=== PATIENT | female | born 1980 | race Caucasian/White ===

== ENCOUNTER → 2017-10-30 | Outpatient (CLI) | payer MEDICARE, MEDICAID, SELFPAY | PROVIDERS: Family Provider Internal Medicine Adolescent Medicine; Visit Provider Anesthesiology | DX: M50.30 Other cervical disc degeneration, unspecified cervical region (principal) | CPT/HCPCS: 72141; 76376 ==

== ENCOUNTER 2017-10-31 20:31 | Emergency (ER) | payer MEDICARE, MEDICAID, SELFPAY | END 2017-10-31 23:51 | disposition home or self-care (01) | PROVIDERS: Emergency Provider Emergency Medicine; Family Provider Internal Medicine Adolescent Medicine; Visit Provider Emergency Medicine | DX: R11.2 Nausea with vomiting, unspecified (principal); E87.6 Hypokalemia; M79.1 Myalgia; I10 Essential (primary) hypertension; E78.5 Hyperlipidemia, unspecified; K21.9 Gastro-esophageal reflux disease without esophagitis | CPT/HCPCS: 70450; 80053; 85025; 87275; 87276; 96365; 96375; 96376; 99284; J2405 ==

== ENCOUNTER → 2018-01-21 12:03 | Outpatient (CLI) | payer MEDICARE, MEDICAID, SELFPAY ==
[2018-01-21 12:32] LABS: Basophils # 0.1 K/mm3 (0-0.2); Eosinophils # 0.2 K/mm3 (0.0-0.4); Eosinophils % 2.1 % (0.1-12.0); Hematocrit 44.3 % (37.0-47.0); Hemoglobin 14.5 g/dL (12.2-16.2); Lymphocytes # 2.7 K/mm3 (0.7-4.5); Lymphocytes % 37.8 K/mm3 (10-50); Mean Corpuscular HGB Conc 32.8 g/dL (31.8-35.4); Mean Corpuscular Hemoglobin 34.3 pg (27.0-31.2); Mean Corpuscular Volume 104.4 fl (81-99); Mean Platelet Volume 7.4 fl (7.4-10.4); Monocytes # 0.4 K/mm3 (0.1-1.0); Monocytes % 5.1 % (1.7-9.3); Neutrophils # 3.9 K/mm3 (1.8-7.8); Platelet Count 283 K/mm3 (142-424); Red Blood Count 4.24 M/mm3 (4.20-5.40); Red Cell Distribution Width 12.4 % (11.5-17.5); White Blood Count 7.2 K/mm3 (4.8-10.8)
[2018-01-21 12:50] LABS: Alanine Aminotransferase 25 U/L (12-78); Albumin Level 3.9 gm/dL (3.4-5.0); Alkaline Phosphatase 98 U/L (46-116); Anion Gap 10.8 mEq/L (5-15); Aspartate Amino Transferase 12 U/L (15-37); Bilirubin,Total 0.6 mg/dL (0.2-1.0); Blood Urea Nitrogen 13 mg/dL (7-18); Carbon Dioxide 29 mmol/L (21.0-32.0); Chloride 105 mmol/L (98-107); Estimated Glomerular Filt Rate 81 ml/min (>60); GFR (African American) 98 ML/MIN (>60); Globulin 4.1 gm/dl (1.3-3.2); Glucose 97 mg/dL (74-106); Potassium 3.8 mmoL/L (3.5-5.1); Sodium 141 mmol/L (136-145); Thyroid Stimulating Hormone 0.71 uIU/ml (0.358-3.740)
[2018-01-23 09:29] LABS: Vitamin B12 434 pg/mL (232-1245); Vitamin D 25 Hydroxy 31.5 ng/mL (30.0-100.0)
== END ==
PROVIDERS: Visit Provider Nurse Practitioner Family
DX: D51.9 Vitamin B12 deficiency anemia, unspecified (principal); L65.9 Nonscarring hair loss, unspecified; E53.8 Deficiency of other specified B group vitamins; E55.9 Vitamin D deficiency, unspecified
CPT/HCPCS: 36415; 80053; 82607; 82652; 84443; 85025

== ENCOUNTER → 2018-01-31 12:20 | Outpatient (CLI) | payer MEDICARE, MEDICAID, SELFPAY ==
[2018-01-31 13:46] LABS: Free T4 (Free Thyroxine) 0.94 ng/dl (0.76-1.46); Thyroid Stimulating Hormone 2.44 uIU/ml (0.358-3.740)
[2018-02-01 18:39] LABS: Thyroid Peroxidase Antibodies 21 IU/mL (0-34)
[2018-02-03 10:30] LABS: Thyroid Stimulating Immunoglob <0.10
== END ==
PROVIDERS: Visit Provider Otolaryngology
DX: E01.0 Iodine-deficiency related diffuse (endemic) goiter (principal); E04.1 Nontoxic single thyroid nodule
CPT/HCPCS: 36415; 83520; 84439; 84443; 86376

== ENCOUNTER → 2018-02-11 09:42 | Outpatient (CLI) | payer MEDICARE, MEDICAID, SELFPAY ==
--- NOTE | 2018-02-11 09:47 | US_ITS ---
US thyroid HISTORY: Hoarseness with difficulty swallowing ITS.REASON: nodule ORDERING PHYSICIAN: Ethan Kan MD PATIENT AGE: 38 years COMPARISON: None FINDINGS: Right lobe: 4.2 x 1 x 1.4 cm. Homogeneous echogenicity with no nodule Left lobe: 4.7 x 1.3 x 1.7 cm. Homogeneous echogenicity. No nodules Isthmus: Slightly prominent at 4 mm. No nodules IMPRESSION: Mildly enlarged thyroid gland. No thyroid nodules apparent
--- NOTE | 2018-02-11 09:47 | FL_ITS ---
EXAM: Barium swallow/esophagram. INDICATION: Probable swallowing with hoarseness ORDERING PHYSICIAN: Ethan Kan MD PATIENT AGE: 38 years COMPARISON: None TECHNIQUE: In the upright position the patient was observed to swallow barium in both the AP and lateral view. The cervical esophagus was examined under fluoroscopy with images obtained. The patient was then placed prone in the right anterior oblique position and was observed to swallow barium with Valsalva technique . FLUOROSCOPY TIME: 53 seconds FINDINGS: There was no evidence of aspiration. There was normal peristalsis. No filling defects or mucosal abnormalities. No masses or strictures. The esophagus is midline. No evidence of esophageal deviation or external compression IMPRESSION: Negative barium swallow.
== END ==
PROVIDERS: Family Provider Internal Medicine Adolescent Medicine; PCP Internal Medicine Adolescent Medicine; Visit Provider Otolaryngology
DX: R13.10 Dysphagia, unspecified
CPT/HCPCS: 74220; 76536

== ENCOUNTER → 2018-02-25 12:58 | Outpatient (CLI) | payer MEDICARE, MEDICAID, SELFPAY ==
--- NOTE | 2018-02-25 13:04 | MR_ITS ---
MR lumbar spine wo/w con, MR 3-d myelogram/MRCP HISTORY: Left leg pain and numbness and tingling Prior back surgery 8-9Yrs. LT Leg pain, numbness, and tingling. Symptoms worse X2 months. No trauma. ITS.REASON: LUMBAR RADICULOPATHY ORDERING PHYSICIAN: Anthony Ricks PATIENT AGE: 38 years COMPARISON: 01/05/2016 TECHNIQUE: Standard multiplanar multiecho sequences are performed without and with contrast. 3-D MIP and myelographic images are also rendered and reviewed. 14ML Prohance given. Lot:[id number] Exp. 2019. FINDINGS: The spinal cord ends at the L1-L2 level. There is normal alignment. T12-L1, L1-L2 have an unremarkable appearance. L2-L3: Mild facet and ligamentum flavum hypertrophic change with mild bilateral lateral recess narrowing. L3-L4: Mild facet and ligamentum hypertrophy.. L4-5: Mild facet and ligamentum flavum hypertrophy. Mild bilateral foraminal narrowing L5-S1: Prior anterior lumbar disc fusion with an anterior bone plate and disc spacer device. Artifact is present from the fusion device. No evidence of recurrent or residual disc herniation. No enhancing epidural fibrosis. There is minimal narrowing of the neural foramen on the left from facet and ligamentum flavum hypertrophy. IMPRESSION: 1. Postsurgical changes at L5-S1 not significant change. No residual or recurrent disc herniation or enhancing epidural fibrosis. There is mild left-sided foraminal narrowing at that level from a separate hypertrophic change 2. Mild facet and ligamentum flavum hypertrophy at multiple levels with mild lateral recess and foraminal narrowing as detailed above.
== END ==
PROVIDERS: Family Provider Internal Medicine Adolescent Medicine; PCP Internal Medicine Adolescent Medicine; Visit Provider Anesthesiology
DX: M54.16 Radiculopathy, lumbar region (principal)
CPT/HCPCS: 72158; 76376; A9576

== ENCOUNTER → 2018-03-28 14:16 | Outpatient (CLI) | payer MEDICARE, SELFPAY ==
--- NOTE | 2018-03-28 14:18 | CT_ITS ---
CT head/brain wo/w con Ordering Physician: Estee Breen MD Patient Age: 38 years: Female HISTORY: ITS.REASON: headache Headaches. Persistent head and neck pain. Recurrent headaches TECHNIQUE: Standard Axial CT head pre and post contrast. 100 cc Isovue 370 for postcontrast study brain and bone windows performed and reviewed.. All CT scans at this facility used one or more dose reduction techniques , viz: automatic exposure control, ma/Kv adjustment per patient's size, (including targeted exam where dose matched to the indication; i.e. head); or iterative reconstruction technique COMPARISON :Previous CT head October 31, 2017 FINDINGS No acute intracranial findings. No mass or mass lesion.. No abnormal areas of enhancement No subdural nor extra-axial collection. Normal martinez-white matter interface. Ventricles normal size. Basal cisterns appear clear. Posterior fossa appear unremarkable. CP angles clear. IACs unremarkable Skull is generous thickness throughout but intact.. Moderate mucosal thickening at the posterior left ethmoid air cells more so than right.. With mild mucosal thickening at the sphenoid sinus.. No air-fluid levels. The maxillary sinuses not included on today's study but grossly unremarkable on CT welder tack view.. Middle air & IACs unremarkable.. Opacified inferior left mastoid air cells on close mastoid tip reflecting minimal left mastoid effusion is similar to the 2017 exam [address] of the brain Within normal limits Normal anatomy. No abnormal areas of enhancement. 2. Mild paranasal sinus disease: . Most notable is the moderate mucosal thickening at posterior left ethmoid air cells along with mild mucosal thickening throughout ethmoid & sphenoid sinus..
--- NOTE | 2018-03-28 14:18 | XR_ITS ---
XR cervical spine w flex/ext Ordering Physician: Estee Breen MD Patient Age: 38 years: Female HISTORY: ITS.REASON: neck pain Neck pain. Headache. No known injury TECHNIQUE: Five-view cervical spine series. COMPARISON :Plain films of cervical spine from August 2017 as well as MRI C-spine from October 2017 FINDINGS Vertebral bodies are intact with no normal alignment and the disc spaces appear well-maintained on plain film. No significant change since August 2017 plain films. Prevertebral soft tissues are normal. Facets unremarkable. No foramen patent. C1-C2 appear normal IMPRESSION: . Cervical spine appears intact. Unremarkable with No significant change since previous studies.
--- NOTE | 2018-03-28 14:42 | HMH.ITSHM ---
MONTELUKAST VERAPAMIL.OMEPRAZP;E,ADVAIR,PROAIR,B-12,BUPROPION,ESTRADILL VIT D,LYRICA,PRAVASTATIN,LEVOCETITIEN RANITIDINE FLUTICASONE, DICYCLOMINE DICLFENAC SODIUM ZOFRAN.INCRUSE,AMITRIPTYLIN NEBULIZER
[2018-03-28 15:29] LABS: Basophils # 0.1 K/mm3 (0-0.2); Basophils % 0.9 % (0.1-2.0); Eosinophils # 0.2 K/mm3 (0.0-0.4); Eosinophils % 2.7 % (0.1-12.0); Hematocrit 42.7 % (37.0-47.0); Hemoglobin 13.7 g/dL (12.2-16.2); Lymphocytes # 2.3 K/mm3 (0.7-4.5); Lymphocytes % 29.8 K/mm3 (10-50); Mean Corpuscular HGB Conc 32.1 g/dL (31.8-35.4); Mean Corpuscular Volume 102.7 fl (81-99); Mean Platelet Volume 7.5 fl (7.4-10.4); Monocytes # 0.3 K/mm3 (0.1-1.0); Monocytes % 4.3 % (1.7-9.3); Neutrophils # 4.8 K/mm3 (1.8-7.8); Neutrophils % 62.3 % (37.0-80.0); Platelet Count 265 K/mm3 (142-424); Red Blood Count 4.16 M/mm3 (4.20-5.40); Red Cell Distribution Width 13.3 % (11.5-17.5); White Blood Count 7.6 K/mm3 (4.8-10.8)
[2018-03-28 18:13] LABS: Alanine Aminotransferase 21 U/L (12-78); Albumin Level 3.7 gm/dL (3.4-5.0); Albumin/Globulin Ratio 1.1 (1.1-1.8); Alkaline Phosphatase 90 U/L (46-116); Anion Gap 14.8 mEq/L (5-15); Aspartate Amino Transferase 15 U/L (15-37); Bilirubin,Total 0.4 mg/dL (0.2-1.0); Blood Urea Nitrogen 12 mg/dL (7-18); Calcium 9.1 mg/dL (8.5-10.1); Carbon Dioxide 25 mmol/L (21.0-32.0); Chloride 103 mmol/L (98-107); Creatinine,Serum 0.77 mg/dL (0.55-1.02); Estimated Glomerular Filt Rate 84 ml/min (>60); GFR (African American) 102 ML/MIN (>60); Globulin 3.5 gm/dl (1.3-3.2); Glucose 80 mg/dL (74-106); Potassium 3.8 mmoL/L (3.5-5.1); Sodium 139 mmol/L (136-145); Thyroid Stimulating Hormone 0.95 uIU/ml (0.358-3.740); Total Protein,Serum 7.2 gm/dL (6.4-8.2)
[2018-03-30 20:19] LABS: Folate 12.7 ng/mL (>3.0); Vitamin B12 1343 pg/mL (232-1245)
== END ==
PROVIDERS: Family Provider Internal Medicine Adolescent Medicine; PCP Internal Medicine Adolescent Medicine; Visit Provider Specialist
DX: R51 Headache (principal); G31.84 Mild cognitive impairment of uncertain or unknown etiology; M54.2 Cervicalgia; M54.9 Dorsalgia, unspecified; G89.29 Other chronic pain
CPT/HCPCS: 36415; 70470; 72052; 80053; 82607; 82746; 84443; 85025; Q9967

== ENCOUNTER 2018-06-30 16:20 | Observation (INO) ==
[2018-06-30 16:52] LABS: Basophils # 0.1 K/mm3 (0-0.2); Basophils % 0.9 % (0.1-2.0); Eosinophils # 0.3 K/mm3 (0.0-0.4); Eosinophils % 3.1 % (0.1-12.0); Hematocrit 45.9 % (37.0-47.0); Hemoglobin 15.8 g/dL (12.2-16.2); Lymphocytes # 2.4 K/mm3 (0.7-4.5); Lymphocytes % 24.8 K/mm3 (10-50); Mean Corpuscular HGB Conc 34.5 g/dL (31.8-35.4); Mean Corpuscular Volume 101.6 fl (81-99); Mean Platelet Volume 7.1 fl (7.4-10.4); Monocytes # 0.3 K/mm3 (0.1-1.0); Monocytes % 3.5 % (1.7-9.3); Neutrophils # 6.4 K/mm3 (1.8-7.8); Neutrophils % 67.7 % (37.0-80.0); Platelet Count 344 K/mm3 (142-424); Red Blood Count 4.51 M/mm3 (4.20-5.40); White Blood Count 9.5 K/mm3 (4.8-10.8)
[2018-06-30 17:10] LABS: Anion Gap 16.5 mEq/L (5-15); Blood Urea Nitrogen 19 mg/dL (7-18); Calcium 9.9 mg/dL (8.5-10.1); Carbon Dioxide 22 mmol/L (21.0-32.0); Chloride 103 mmol/L (98-107); Glucose 99 mg/dL (74-106); Potassium 3.5 mmoL/L (3.5-5.1); Sodium 138 mmol/L (136-145)
--- NOTE | 2018-06-30 17:51 | Emergency Department Note ---
ED Disposition Clinical Impression: Abnormal thyroid blood test Arrhythmia Qualifiers: Arrhythmia type: unspecified cardiac arrhythmia Qualified Code(s): I49.9 - Cardiac arrhythmia, unspecified Hypertension Qualifiers: Hypertension type: unspecified Qualified Code(s): I10 - Essential (primary) hypertension Disposition: Admitted as Observation Condition on Discharge: Good - Critical Care Critical Care Time: No Attestation: On 06/30/18, the high probability of a clinically significant, sudden or life threatening deterioration of the following system(s) required my full and direct attention, intervention and personal management. The time I documented below is in addition to time spent performing reported procedures but includes the following listed in this critical care notation. Medical Decision Making - Medical Records Medical records reviewed: Yes: I reviewed the patient's medical records. - Jarrett Inquiry Pt receiving controlled substance: No Vital Signs: 06/30/18 16:22 06/30/18 17:46 Temperature 98.0 F Temperature Source Axillary Pulse Rate [Right Brachial] 116 H 120 H Respiratory Rate 22 18 Blood Pressure [Right Arm] 180/100 160/82 Blood Pressure Mean [Right Arm] 126 108 Blood Pressure Source [Right Arm] Automatic Cuff Manual Cuff/ Auscultation Blood Pressure Position [Right Arm] Supine Sitting 02 Sat by Pulse Oximetry 99 100 Oxygen Delivery Method Room Air Room Air - Lab Data Lab results reviewed: Yes: I reviewed the patient's lab results. Lab Results 06/30/18 16:45: WBC 9.5, RBC 4.51, Hgb 15.8, Hct 45.9, MCV 101.6 H, MCH 35.0 H, MCHC 34.5, RDW 14.0, Plt Count 344, MPV 7.1 L, Neut % (Auto) 67.7, Lymph % (Auto ) 24.8, [place] % (Auto) 3.5, Eos % (Auto) 3.1, Baso % (Auto) 0.9, Neut # (Auto) 6.4, Lymph # (Auto) 2.4, [place] # (Auto) 0.3, Eos # (Auto) 0.3, Baso # (Auto) 0.1 06/30/18 16:45: Sodium 138, Potassium 3.5, Chloride 103, Carbon Dioxide 22, Anion Gap 16.5 H, BUN 19 H, Creatinine 1.11 H, Estimated Creat Clear 76, Estimated GFR 55 L, Est GFR ( Amer) 67, Glucose 99, Calcium 9.9, Troponin I < 0.02 06/30/18 16:45: TSH 0.27 L D, Thyroxine (T4) 14.3 H 06/30/18 16:45: D-Dimer < 100 Result diagrams: 06/30/18 16:45 06/30/18 16:45 Orders (Tests/Meds): ED MEDICATIONS Discontinued Medications Generic Name Dose Route Start Last Admin Trade Name Freq PRN Reason Stop Dose Admin Sodium Chloride 1,000 mls @ 999 mls/hr 06/30/18 17:45 06/30/18 17:32 Sod Chlor 0.9% 1000ml Bag IV 06/30/18 18:45 999 mls/hr .Q1H1M MIGUE Administration Metoprolol Tartrate 2.5 mg 06/30/18 17:50 06/30/18 18:01 Metoprolol Tartrate 5mg/5ml Vial IV 06/30/18 17:51 2.5 mg ONCE ONE Administration Metoprolol Tartrate 2.5 mg 06/30/18 18:08 06/30/18 18:17 Metoprolol Tartrate 5mg/5ml Vial IV 06/30/18 18:09 2.5 mg ONCE ONE Administration ORDERS Category Date Time Status 12-lead EKG Request [ECG Request by /Sut] Stat Y 06/30/18 16:32 Ordered - Radiology Data #1 Image(s): Chest Image Reviewed: Yes I reviewed the patient's radiology image Preliminary Findings: Normal/NAD - ECG Data Tracing #1 Arrhythmias present: sinus tach Ischemic changes: non-specific ST-T wave changes, t wave inversions ECG compared to prior tracings: this ECG reveals significant changes - Physician Consults Physician Consulted: rahul Reason -: Admission Additional Consult: anna Reason -: Pt condition Arrhythmia/Palpitations HPI - General Chief Complaint: Shortness of Breath/Dyspnea Stated Complaint: shortness of breath Time Seen by Provider: 06/30/18 17:00 Mode of Arrival: Ambulatory Source of Information: Patient, Significant Other, Medical Record Limitations: No Limitations - History of Present Illness HPI narrative: pt with inc hr with feeling of sob with elevated bp with no known ht disease - MD complaint: "heart racing" Onset (ago): day(s) Duration: constant Severity: moderate Context: occurred during rest Arrhythmia history: SVT Associated symptoms: shortness of breath Treatments prior to arrival: calcium channel nydia - Related Data Home Medications Medication Instructions Recorded Confirmed bupropion HCl XL 300 mg 24 hr 300 mg PO QAM 01/31/18 06/30/18 tablet, extended release dicyclomine 20 mg tablet 20 mg PO TID 01/31/18 06/30/18 fluticasone 220 mcg/actuation HFA 1 puff INHALATION BID 01/31/18 06/30/18 aerosol inhaler levocetirizine 5 mg tablet 5 mg PO QHS 01/31/18 06/30/18 montelukast 10 mg tablet 10 mg PO QHS 01/31/18 06/30/18 omeprazole 40 mg capsule,delayed 40 mg PO ONCE 01/31/18 06/30/18 release oxycodone-acetaminophen 7.5 mg-300 1 tab PO TID 01/31/18 06/30/18 mg tablet ranitidine 300 mg capsule 300 mg PO BID 01/31/18 06/30/18 umeclidinium 62.5 mcg/actuation 1 inh INHALATION Q24H 01/31/18 06/30/18 blister powder for inhalation pravastatin 40 mg tablet 20 mg PO QHS tab 05/05/18 06/30/18 pregabalin 150 mg capsule 150 mg PO BID cap 05/05/18 06/30/18 verapamil ER 240 mg 24 hr 240 mg PO QAM 05/05/18 06/30/18 capsule,extended release Albuterol Sulfate [Albuterol 1.25 mg IH BIDP PRN 06/30/18 06/30/18 0.042% 1.25mg/3mL neb] Albuterol Sulfate [Proair Hfa 2 puffs IH Q4HP PRN 06/30/18 06/30/18 90mcg/puff Inh] Amitriptyline HCl [Elavil 10mg 10 mg PO BID 06/30/18 06/30/18 tablet] Cyanocobalamin (Vitamin B-12) 1,000 mcg IM MONTHLY 06/30/18 06/30/18 [Cyanocobalamin 1,000mcg/mL Vial] Cyanocobalamin (Vitamin B-12) 1,000 mcg PO DAILY 06/30/18 06/30/18 [Vitamin B12 5mg Tab] Diclofenac Epolamine [Flector] 1 each TD BID 06/30/18 06/30/18 Diclofenac Sodium 50 mg PO BID 06/30/18 06/30/18 Ergocalciferol (Vitamin D2) 1,000 unit PO DAILY 06/30/18 06/30/18 [Vitamin D] Estradiol 2 mg PO DAILY 06/30/18 06/30/18 Fluticasone/Salmeterol [Advair Hfa 2 puffs IH BID 06/30/18 06/30/18 230-21 Mcg Inhaler] Ondansetron HCl [Zofran 4mg Tab] 4 mg PO Q6HP PRN 06/30/18 06/30/18 Tramadol HCl [Ultram] 50 mg PO Q8HP PRN 06/30/18 06/30/18 Allergies Allergy/AdvReac Type Severity Reaction Status Date / Time No Known Allergies Allergy Verified 05/05/18 09:10 [facility] History I have reviewed the patient's past medical history: Yes Medical History: Reports:: Asthma, Chronic Obstructive Pulmonary Disease (COPD) , Gastroesophageal Reflux Disease(GERD), Hyperlipidemia, Hypertension, Lung Disease, Kidney Stones, Migraine, Renal Disease, Renal Insufficiency Denies:: Cancer, Diabetes Mellitus Type 1, Diabetes Mellitus Type 2, MRSA Other Medical History: Reports: Other Comment: Chronic pain Laterality Cases: Bilateral: Other Other Surgeries: Yes: Appendectomy, , Diagnostic Lap, Hysterectomy- Total Amputation: No Comment: multiple back fusion - Social History Smoking Status: Never smoker Alcohol Intake: never Alcohol Intake Frequency:: other Substance Use Type: denies use Occupational Status: disabled Housing: house Household Members: family Family Hx:: Hyperlipidemia, Hypertension, Anemia, Diabetes ROS Obtained: Yes All systems reviewed & no additional complaints - Constitutional Constitutional: Denies fever(s) - Eyes Eyes: Denies change in vision - ENT Ears, Nose, Mouth, and Throat: Denies sore throat - Cardiovascular Cardiovascular: Reports as per HPI, Reports chest pain, Reports dyspnea, Reports rapid heart rate - Respiratory Respiratory: No cough - Gastrointestinal Gastrointestingal: Denies: abdominal pain - Genitourinary Female Genitourinary: Denies hematuria - Musculoskeletal Musculoskeletal: Denies joint pain - Integumentary/Breasts Skin/Breast: Denies rash - Neurologic Neurologic: Denies seizure-like activity Physical Exam - General General appearance: in no apparent distress - Head Head exam: normocephalic - Eye Eye exam: Present: PERRL, EOMI. Absent: scleral icterus - ENT ENT exam: Present: mucous membranes dry - Neck Neck exam: Present: normal inspection, trachea midline, thyromegaly - Respiratory Respiratory exam: Present: normal lung sounds bilaterally - Cardiovascular Cardiovascular exam: Present: tachycardia, systolic murmur - Abdominal Exam Abdominal exam: Present: soft - Extremities Exam Extremities exam: Absent: calf tenderness - Neurological Exam Neurological exam: Present: alert, oriented X3, CN II-XII intact - Psychiatric Psychiatric exam: Present: normal affect - Skin Skin exam: Absent: rash
[2018-06-30 18:13] LABS: T4 (Thyroxine) 14.3 ug/dl (4.7-13.3); Thyroid Stimulating Hormone 0.27 uIU/ml (0.358-3.740)
[2018-07-01 06:47] LABS: Basophils # 0.1 K/mm3 (0-0.2); Basophils % 0.6 % (0.1-2.0); Eosinophils # 0.2 K/mm3 (0.0-0.4); Eosinophils % 2.1 % (0.1-12.0); Hematocrit 40.7 % (37.0-47.0); Lymphocytes # 2.5 K/mm3 (0.7-4.5); Lymphocytes % 23.8 K/mm3 (10-50); Mean Corpuscular HGB Conc 32.9 g/dL (31.8-35.4); Mean Corpuscular Hemoglobin 33.7 pg (27.0-31.2); Mean Corpuscular Volume 102.6 fl (81-99); Mean Platelet Volume 7.3 fl (7.4-10.4); Monocytes # 0.6 K/mm3 (0.1-1.0); Neutrophils # 7.2 K/mm3 (1.8-7.8); Neutrophils % 67.5 % (37.0-80.0); Platelet Count 323 K/mm3 (142-424); Red Blood Count 3.96 M/mm3 (4.20-5.40); Red Cell Distribution Width 14.2 % (11.5-17.5); White Blood Count 10.6 K/mm3 (4.8-10.8)
[2018-07-01 06:55] LABS: Anion Gap 13.3 mEq/L (5-15); Chol/HDL Ratio 3.8 (1-3.5); Potassium 3.3 mmoL/L (3.5-5.1)
[2018-07-01 07:37] LABS: Calcium 8.6 mg/dL (8.5-10.1)
[2018-07-01 07:38] LABS: Hemoglobin 13.5 g/dL (12.2-16.2)
--- NOTE | 2018-07-01 07:42 | Pharmacy Consult Notes ---
[facility] Pharmacy VTE Monitoring - Patient Demographics Admission date: 06/30/18 Report Date: 07/01/18 Time: 07:41 Allergies/Adverse Reactions: Patient Allergies No Known Allergies Allergy (Verified 05/05/18 09:10) Height: 1.65 m Weight: 69.7 kg Patient Problems: Current Active Problems Arrhythmia (Acute) Hypertension (Acute) Abnormal thyroid blood test (Acute) - VTE Risk Labs: VTE Related Lab Results Hgb 13.5 g/dL (12.2-16.2) D 07/01/18 05:30 Hct 40.7 % (37.0-47.0) 07/01/18 05:30 Plt Count 323 K/mm3 (142-424) 07/01/18 05:30 BUN 9 mg/dL (7-18) D 07/01/18 05:30 Creatinine 0.82 mg/dL (0.55-1.02) D 07/01/18 05:30 Estimated Creat Clear 102 mL/min (0-300) 07/01/18 05:30 - Prophylaxis VTE Prophylaxis Ordered?: Yes Types of VTE Prophylaxis: TEDS Knee High Location of Applied Device: Bilateral Lower Extremeties - VTE Diagnosis Confirmed Treatment or plan recommended: Continue Current Treatment
--- NOTE | 2018-07-01 09:16 | Consult Report ---
History of Present Illness Consult date: 07/01/18 Requesting physician: Rambo Simpson Chief complaint: palpitations Additional Medical History:: 1. History of sepsis felt secondary to urinary tract infection related to kidney stones, approximately 2012 with prolonged stay at [facility] with multiple organs affected. Records unavailable at this time 2. History of hypertension 3. Chronic back pain 4. 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 Patient denies any chest pain, near syncope or syncopal episodes. Patient was in her pain management doctors office yesterday in [place], [place] with complaint of the above symptoms and recommendation to follow-up with her family doctor. When symptoms worsen patient decided to come to the emergency department for further evaluation. Heart rate in the ER noted to be elevated in the 130 bpm range with EKG showing sinus tachycardia. Cardiology was consulted with recommendation for beta-nydia therapy. This a.m. patient's heart rate is in the mid 90s beats per minute and patient is feeling better. [facility] History Medical History: Reports:: Asthma, Chronic Obstructive Pulmonary Disease (COPD), Gastroesophageal Reflux Disease(GERD), Hyperlipidemia, Hypertension, Lung Disease, Kidney Stones, Migraine, Palpitations, Renal Disease, Renal Insufficiency Denies:: Cancer, Diabetes Mellitus Type 1, Diabetes Mellitus Type 2, MRSA Other Medical History: Reports: Anemia, Blood Transfusion Reaction, Hormone Therapy, Other Laterality Cases: Bilateral: Other Other Surgeries: Yes: Appendectomy, Cholecystectomy, , Diagnostic Lap, Hysterectomy-Total Amputation: No - *Social History Educational Level: Attended College Smoking Status: Never smoker Alcohol Intake: never Alcohol Intake Frequency:: other Substance Use Type: denies use Occupational Status: disabled Housing: house Household Members: family - Psychiatric History Expresses thoughts of harming self/others: None Suicide Plan Description: No Plan *Family Hx:: Cancer, Diabetes, Heart Attack, Hyperlipidemia, Hypertension Meds Home Medications Medication Instructions Recorded Confirmed Type bupropion HCl XL 300 mg 24 hr 300 mg PO QAM 01/31/18 06/30/18 History tablet, extended release dicyclomine 20 mg tablet 20 mg PO TID 01/31/18 06/30/18 History fluticasone 220 mcg/actuation HFA 1 puff INHALATION BID 01/31/18 06/30/18 History aerosol inhaler levocetirizine 5 mg tablet 5 mg PO QHS 01/31/18 06/30/18 History montelukast 10 mg tablet 10 mg PO QHS 01/31/18 06/30/18 History omeprazole 40 mg capsule,delayed 40 mg PO BID 01/31/18 07/01/18 History release oxycodone-acetaminophen 7.5 mg-300 1 tab PO TID 01/31/18 06/30/18 History mg tablet ranitidine 300 mg capsule 300 mg PO BID 01/31/18 06/30/18 History umeclidinium 62.5 mcg/actuation 1 inh INHALATION Q24H 01/31/18 06/30/18 History blister powder for inhalation pregabalin 150 mg capsule 150 mg PO BID cap 05/05/18 06/30/18 History verapamil ER 240 mg 24 hr 240 mg PO QAM 05/05/18 06/30/18 History capsule,extended release Albuterol Sulfate [Albuterol 1.25 mg IH BIDP PRN 06/30/18 06/30/18 History 0.042% 1.25mg/3mL neb] Albuterol Sulfate [Proair Hfa 2 puffs IH QIDP PRN 06/30/18 07/01/18 History 90mcg/puff Inh] Amitriptyline HCl [Elavil 10mg 10 mg PO BID 06/30/18 06/30/18 History tablet] Cyanocobalamin (Vitamin B-12) 1,000 mcg IM MONTHLY 06/30/18 06/30/18 History [Cyanocobalamin 1,000mcg/mL Vial] Cyanocobalamin (Vitamin B-12) 1,000 mcg PO DAILY 06/30/18 06/30/18 History [Vitamin B12 5mg Tab] Diclofenac Epolamine [Flector] 1 each TD BID 06/30/18 06/30/18 History Diclofenac Sodium 50 mg PO BID 06/30/18 06/30/18 History Ergocalciferol (Vitamin D2) 1,000 unit PO DAILY 06/30/18 06/30/18 History [Vitamin D] Estradiol 2 mg PO DAILY 06/30/18 06/30/18 History Fluticasone/Salmeterol [Advair Hfa 2 puffs IH BID 06/30/18 06/30/18 History 230-21 Mcg Inhaler] Tramadol HCl [Ultram] 50 mg PO Q4HP PRN 06/30/18 07/01/18 History Pravastatin Sodium [Pravachol 20mg 20 mg PO HS 07/01/18 07/01/18 History Tablet] Allergies Allergy/AdvReac Type Severity Reaction Status Date / Time No Known Allergies Allergy Verified 05/05/18 09:10 Review of Systems - *Cardiovascular Reports shortness of breath, Reports lightheadedness, Reports fast heart rate - *Respiratory Reports shortness of breath with activity - *Gastrointestinal Denies abdominal pain - *Genitourinary Denies blood in urine - *Musculoskeletal Reports back pain - *Neurologic Denies seizure-like activity Exam Vital signs and Labs for Last 24 Hours: Temp Pulse Resp BP Pulse Ox 98.4 F 86 18 128/75 97 06/30/18 21:00 07/01/18 06:53 06/30/18 22:00 07/01/18 06:53 07/01/18 06:53 Laboratory Results - last 24 hr 06/30/18 16:45: WBC 9.5, RBC 4.51, Hgb 15.8, Hct 45.9, MCV 101.6 H, MCH 35.0 H, MCHC 34.5, RDW 14.0, Plt Count 344, MPV 7.1 L, Neut % (Auto) 67.7, Lymph % (Au to) 24.8, [place] % (Auto) 3.5, Eos % (Auto) 3.1, Baso % (Auto) 0.9, Neut # (Auto) 6.4, Lymph # (Auto) 2.4, [place] # (Auto) 0.3, Eos # (Auto) 0.3, Baso # (Auto) 0.1 06/30/18 16:45: Sodium 138, Potassium 3.5, Chloride 103, Carbon Dioxide 22, Anion Gap 16.5 H, BUN 19 H, Creatinine 1.11 H, Estimated Creat Clear 76, Estimated GFR 55 L, Est GFR ( Amer) 67, Glucose 99, Calcium 9.9, Troponin I < 0.02 06/30/18 16:45: TSH 0.27 L D, Thyroxine (T4) 14.3 H 06/30/18 16:45: D-Dimer < 100 06/30/18 19:55: Troponin I < 0.02 06/30/18 22:34: Troponin I < 0.02 07/01/18 01:25: Troponin I < 0.02 07/01/18 05:30: WBC 10.6, RBC 3.96 L, Hgb 13.5 D, Hct 40.7, MCV 102.6 H, MCH 33.7 H, MCHC 32.9, RDW 14.2, Plt Count 323, MPV 7.3 L, Neut % (Auto) 67.5, Lymph % (Auto) 23.8, [place] % (Auto) 6.0, Eos % (Auto) 2.1, Baso % (Auto) 0.6, Neut # (Auto) 7.2, Lymph # (Auto) 2.5, [place] # (Auto) 0.6, Eos # (Auto) 0.2, Baso # (Auto) 0.1 07/01/18 05:30: Sodium 142, Potassium 3.3 L, Chloride 107, Carbon Dioxide 25, Anion Gap 13.3, BUN 9 D, Creatinine 0.82 D, Estimated Creat Clear 102, Estimated GFR 78, Est GFR ( Amer) 94 D, Glucose 106, Calcium 8.6 D, Phosphorus 2.0 L, Magnesium 1.6, Triglycerides 151, Cholesterol 150, LDL Cholesterol 81, VLDL Cholesterol 30, HDL Cholesterol 39, Cholesterol/HDL Ratio 3.8 H I & O for Last 24 hours: Intake & Output 06/28/18 06/29/18 06/30/18 07/01/18 11:59 11:59 11:59 11:59 Intake Total 1444 / 1444 Output Total 200 / 200 Balance 1244 / 1244 Weight 153 lb 10.595 oz - *Routine Neck Exam Present: supple. Absent: JVD, carotid bruit - *Routine Respiratory Exam Present: CTA bilaterally - *Routine Cardiovascular Exam Present: RRR. Absent: murmur, gallop, rubs - *Routine Abdominal Exam Present: soft. Absent: tenderness - *Routine Extremities Exam Absent: edema - *Routine Neurological Exam Present: alert, oriented X3, moving all extremities Assessment and Plan (1) Sinus tachycardia Current visit: Yes Status: Acute Category: Medical Code(s): R00.0 - Tachycardia, unspecified (2) Abnormal thyroid blood test Current visit: Yes Status: Acute Category: Medical Code(s): R79.89 - Other specified abnormal findings of blood chemistry (3) Hypertension Current visit: Yes Status: Acute Qualifiers: Hypertension type: unspecified Qualified Code(s): I10 - Essential (primary) hypertension Category: Medical Code(s): I10 - Essential (primary) hypertension - Assessment and plan all Dx Assessment and Plan for all problems:: 1. Echocardiogram has been performed with preliminary results showing normal LVEF 2. In light of the patient's hyperthyroid state, recommend continue beta- nydia therapy with consideration for adding methimazole as needed. 3. Hyperthyroid workup per Dr. Simpson.
--- NOTE | 2018-07-01 15:31 | History & Physical Report ---
*Admission Date: 06/30/18 *Chief complaint: palpitations *History of present illness: Ms. Joe is a 38-year-old white female with complex history of sepsis leading to disability who presents with hypertension and tachycardia from her chronic pain treatment clinic yesterday to the emergency department. She additionally complained of weakness, lightheadedness and increasing episodes of palpitations over the last several weeks. She has not reported any chest pain, palpitations , syncope. She does report loss of hair on her arms and legs over the past year. Denies changes in vision, loss of hair on her head, changes in skin color , edema. She additionally does complain of hot flashes. Of note she reports being in her pain management appointment yesterday in [place] where she was noted to have hypertension and tachycardia. They recommended her to go to the ER where labs were obtained showing VERNON and hyperthyroidism. Troponins were negative however she was having sinus tach. Cardiology consult placed in the ER. They saw the patient this morning and feel her symptoms are more related to hyperthyroid state. Heart rate in the ER noted to be elevated in the 130 bpm range with EKG showing sinus tachycardia. Since seeing cardiology this morning she was transitioned from diltiazem to oral beta-nydia (metoprolol) her heart rate is more well controlled and she is feeling less symptomatic. Echo performed with preliminary results showing normal LVEF. [facility] History Medical History: Reports:: Asthma, Chronic Obstructive Pulmonary Disease (COPD) , Gastroesophageal Reflux Disease(GERD), Hyperlipidemia, Hypertension, Lung Disease, Kidney Stones, Migraine, Palpitations, Renal Disease, Renal Insufficiency Denies:: Cancer, Diabetes Mellitus Type 1, Diabetes Mellitus Type 2, MRSA Other Medical History: Reports: Anemia, Blood Transfusion Reaction, Hormone Therapy, Other Laterality Cases: Bilateral: Other Other Surgeries: Yes: Appendectomy, Cholecystectomy, , Diagnostic Lap, Hysterectomy-Total Amputation: No - *Social History Educational Level: Attended College Smoking Status: Never smoker Alcohol Intake: never Alcohol Intake Frequency:: other Substance Use Type: denies use Occupational Status: disabled Housing: house Household Members: family - Psychiatric History Expresses thoughts of harming self/others: None Suicide Plan Description: No Plan *Family Hx:: Cancer, Diabetes, Heart Attack, Hyperlipidemia, Hypertension Review of Systems - Review of Systems Review of systems:: pertinent systems reviewed and negative unless documented below - *Neurologic Denies seizure-like activity Meds Home Medications Medication Instructions Recorded Confirmed Type bupropion HCl XL 300 mg 24 hr 300 mg PO DAILY 01/31/18 07/01/18 History tablet, extended release dicyclomine 20 mg tablet 20 mg PO TID 01/31/18 06/30/18 History fluticasone 220 mcg/actuation HFA 1 puff INHALATION BID 01/31/18 06/30/18 History aerosol inhaler levocetirizine 5 mg tablet 5 mg PO HS 01/31/18 07/01/18 History montelukast 10 mg tablet 10 mg PO HS 01/31/18 07/01/18 History omeprazole 40 mg capsule,delayed 40 mg PO BID 01/31/18 07/01/18 History release oxycodone-acetaminophen 7.5 mg-300 1 tab PO TID 01/31/18 06/30/18 History mg tablet ranitidine 300 mg capsule 300 mg PO BID 01/31/18 06/30/18 History umeclidinium 62.5 mcg/actuation 1 inh INHALATION Q24H 01/31/18 06/30/18 History blister powder for inhalation pregabalin 150 mg capsule 150 mg PO BID cap 05/05/18 06/30/18 History verapamil ER 240 mg 24 hr 240 mg PO DAILY 05/05/18 07/01/18 History capsule,extended release Albuterol Sulfate [Albuterol 1.25 mg IH BIDP PRN 06/30/18 06/30/18 History 0.042% 1.25mg/3mL neb] Albuterol Sulfate [Proair Hfa 2 puffs IH QIDP PRN 06/30/18 07/01/18 History 90mcg/puff Inh] Amitriptyline HCl [Elavil 10mg 10 mg PO BID 06/30/18 06/30/18 History tablet] Cyanocobalamin (Vitamin B-12) 1,000 mcg IM MONTHLY 06/30/18 06/30/18 History [Cyanocobalamin 1,000mcg/mL Vial] Cyanocobalamin (Vitamin B-12) 1,000 mcg PO DAILY 06/30/18 06/30/18 History [Vitamin B12 5mg Tab] Diclofenac Epolamine [Flector] 1 each TD BID 06/30/18 06/30/18 History Diclofenac Sodium 50 mg PO BID 06/30/18 06/30/18 History Ergocalciferol (Vitamin D2) 1,000 unit PO DAILY 06/30/18 06/30/18 History [Vitamin D] Estradiol 2 mg PO DAILY 06/30/18 06/30/18 History Fluticasone/Salmeterol [Advair Hfa 2 puffs IH BID 06/30/18 06/30/18 History 230-21 Mcg Inhaler] Tramadol HCl [Ultram] 50 mg PO Q4HP PRN 06/30/18 07/01/18 History Pravastatin Sodium [Pravachol 20mg 20 mg PO HS 07/01/18 07/01/18 History Tablet] Allergies Allergy/AdvReac Type Severity Reaction Status Date / Time No Known Allergies Allergy Verified 05/05/18 09:10 Exam Vital signs and Labs for Last 24 Hours: Temp Pulse Resp BP Pulse Ox 97.8 F 83 20 136/84 97 07/01/18 07:00 07/01/18 12:00 07/01/18 11:00 07/01/18 11:00 07/01/18 11:00 Laboratory Results - last 24 hr 06/30/18 16:45: WBC 9.5, RBC 4.51, Hgb 15.8, Hct 45.9, MCV 101.6 H, MCH 35.0 H, MCHC 34.5, RDW 14.0, Plt Count 344, MPV 7.1 L, Neut % (Auto) 67.7, Lymph % (Auto ) 24.8, [place] % (Auto) 3.5, Eos % (Auto) 3.1, Baso % (Auto) 0.9, Neut # (Auto) 6.4, Lymph # (Auto) 2.4, [place] # (Auto) 0.3, Eos # (Auto) 0.3, Baso # (Auto) 0.1 06/30/18 16:45: Sodium 138, Potassium 3.5, Chloride 103, Carbon Dioxide 22, Anion Gap 16.5 H, BUN 19 H, Creatinine 1.11 H, Estimated Creat Clear 76, Estimated GFR 55 L, Est GFR ( Amer) 67, Glucose 99, Calcium 9.9, Troponin I < 0.02 06/30/18 16:45: TSH 0.27 L D, Thyroxine (T4) 14.3 H 06/30/18 16:45: D-Dimer < 100 06/30/18 19:55: Troponin I < 0.02 06/30/18 22:34: Troponin I < 0.02 07/01/18 01:25: Troponin I < 0.02 07/01/18 05:30: WBC 10.6, RBC 3.96 L, Hgb 13.5 D, Hct 40.7, MCV 102.6 H, MCH 33.7 H, MCHC 32.9, RDW 14.2, Plt Count 323, MPV 7.3 L, Neut % (Auto) 67.5, Lymph % (Auto) 23.8, [place] % (Auto) 6.0, Eos % (Auto) 2.1, Baso % (Auto) 0.6, Neut # (Auto) 7.2, Lymph # (Auto) 2.5, [place] # (Auto) 0.6, Eos # (Auto) 0.2, Baso # (Auto) 0.1 07/01/18 05:30: Sodium 142, Potassium 3.3 L, Chloride 107, Carbon Dioxide 25, Anion Gap 13.3, BUN 9 D, Creatinine 0.82 D, Estimated Creat Clear 102, Estimated GFR 78, Est GFR ( Amer) 94 D, Glucose 106, Calcium 8.6 D, Phosphorus 2.0 L, Magnesium 1.6, Triglycerides 151, Cholesterol 150, LDL Cholesterol 81, VLDL Cholesterol 30, HDL Cholesterol 39, Cholesterol/HDL Ratio 3.8 H I & O for Last 24 hours: Intake & Output 06/28/18 06/29/18 06/30/18 07/01/18 23:59 23:59 23:59 23:59 Intake Total 1000 / 1000 804 / 804 Output Total 200 / 200 500 / 500 Balance 800 / 800 304 / 304 Weight 69.7 kg 69.7 kg - *Routine HEENT Exam Head: Present: normocephalic, atraumatic. Absent: cushingoid faces Eye: Present: EOMI, PERRL ENT: Present: mucous membranes moist Comments: No lid lag or exophthalmos - *Routine Neck Exam Present: supple, full ROM. Absent: JVD, lymphadenopathy Comments: Right lobe of thyroid palpable, no nodules appreciated - *Routine Respiratory Exam Present: CTA bilaterally. Absent: accessory muscle use, prolonged expiratory phase, rales, wheezes, crackles - *Routine Cardiovascular Exam Present: RRR, Normal S1, Normal S2. Absent: murmur - *Routine Abdominal Exam Present: soft, normoactive bowel sounds. Absent: tenderness - *Routine Rectal Exam Patient deferred: visual exam - *Routine Exam Patient deferred: external exam - *Routine Extremities Exam Absent: cyanosis, clubbing, edema Comments: Absent hair on her arms and legs, alopecia - Routine Back/Spine/Pelvis Exam Back/Spine: Absent: CVA tenderness - *Routine Skin Exam Present: intact. Absent: cyanosis, erythema - *Routine Neurological Exam Present: alert, oriented X3, CN II-XII intact - Routine Psychiatric Exam Present: normal affect, normal thought process, cooperative Assessment and Plan (1) Sinus tachycardia Current visit: Yes Status: Acute Category: Medical Code(s): R00.0 - Tachycardia, unspecified Secondary to hyperthyroidism (2) Abnormal thyroid blood test Current visit: Yes Status: Acute Category: Medical Code(s): R79.89 - Other specified abnormal findings of blood chemistry Patient has suppressed TSH with elevated T4. Family history of hypothyroidism in mother. Clinical exam not consistent with Graves', however have not ruled this out as antibody labs are pending. Suspect patient may have Quyen's thyroiditis with an acute hyperthyroid state prior to becoming hypothyroid. Will obtain thyroid antibodies including thyroid-stimulating immunoglobulin, anti-TPO, free T3 level. continue beta-nydia therapy per cardiology. Hold on methimazole at this time pending response to beta-nydia and further workup as patient does not appear to be overtly thyrotoxic. If labs more suggestive of Graves' will treat accordingly with addition of methimazole. If patient remains hemodynamically stable and response to metoprolol overnight, consider discharge in the morning. (3) Hypertension Current visit: Yes Status: Acute Qualifiers: Hypertension type: unspecified Qualified Code(s): I10 - Essential (primary ) hypertension Category: Medical Code(s): I10 - Essential (primary) hypertension - Assessment and plan all Dx Assessment and Plan for all problems:: Continue patient's home pain regimen.
[2018-07-01 18:01] LABS: Microscopic, Urine URINE MICROSCOPIC (MICROSCOPIC)
[2018-07-01 18:04] LABS: Appearance,Urine SL CLOUDY (Clear); Bilirubin,Urine Negative (Negative); Blood, Urine TRACE-I (Negative); Color,Urine YELLOW (Yellow); Glucose,Urine (UA) Negative (Negative); Ketones,Urine Negative (Negative); Leukocyte Esterase,Urine TRACE (Negative); PH,Urine 7.5 (5.0-8.5); Protein,Urine Negative (Negative); Specific Gravity, Urine 1.015 (1.005-1.030); Urobilinogen,Urine 0.2 EU/dl (0.2)
[2018-07-01 18:40] LABS: Bacteria,Urine Trace /lpf; WBC,Urine 20-50 #/hpf (0-3)
--- NOTE | 2018-07-01 20:14 | Cardiology Report ---
PROCEDURE: 2-D M-mode and color Doppler study INDICATIONS FOR THE TEST: Chest pain + COPD+ Heart Murmur Tobacco Smoking Palpitations+ Fatigue Syncope Edema Hypertension+Diabetes Mellitus Rheumatic Fever SOB+GUSMAN Obesity Hyperlipidemia+ Family History HD Additional History PATIENT INFORMATION HEIGHT: 65 WEIGHT:155 GENDER: Female B/P:160/82 2-D/M-MODE INTERPRETATION: 2-D MEASUREMENTS OBSERVED VALUES IN CMS Right Ventricular Dimension (RVDd) 2.0 Interventricular Septum (Thickness)(IVsd) 1.1 Left Ventricular Internal Dimensions(LVIDd) 5.0 Left Ventricular Posterior Wall (Thickness)(LVPWd) 0.8 Aortic Root 2.8 Aortic Cusp Separation 1.9 Left Atrial Dimensions (LAD) 3.2 2D 1. Left atrium is normal size, left ventricle is normal size, there is no concentric left ventricular hypertrophy, visually estimated ejection fraction of 55% with no obvious regional wall motion abnormality. 2. The right atrium and right ventricle are normal size and contractility. 3. The aortic, mitral and tricuspid valvular grossly normal. 4. The pulmonic valve is poorly visualized. 5. No significant pericardial effusion noted. DOPPLER INTERROGATION: Doppler interrogation of the aortic, mitral and tricuspid valvular presence of mild mitral and tricuspid regurgitation, tricuspid regurgitation jet velocity is insufficient for calculation of the right ventricular systolic pressure, diastolic parameters are inconclusive. CONCLUSION: 1. Normal left ventricular size, preserved left ventricular systolic function, visually estimated ejection fraction 55% with no obvious regional wall motion abnormality, diastolic parameters are inconclusive. 2. Mild mitral and tricuspid regurgitation 3. No significant pericardial effusion noted.
[2018-07-02 06:31] LABS: Basophils # 0.1 K/mm3 (0-0.2); Basophils % 0.7 % (0.1-2.0); Eosinophils # 0.2 K/mm3 (0.0-0.4); Eosinophils % 1.7 % (0.1-12.0); Hematocrit 38.6 % (37.0-47.0); Hemoglobin 12.7 g/dL (12.2-16.2); Lymphocytes # 3.1 K/mm3 (0.7-4.5); Lymphocytes % 31.8 K/mm3 (10-50); Mean Corpuscular HGB Conc 32.9 g/dL (31.8-35.4); Mean Corpuscular Hemoglobin 33.9 pg (27.0-31.2); Mean Platelet Volume 7.1 fl (7.4-10.4); Monocytes # 0.6 K/mm3 (0.1-1.0); Monocytes % 5.7 % (1.7-9.3); Neutrophils # 5.9 K/mm3 (1.8-7.8); Neutrophils % 60.1 % (37.0-80.0); Platelet Count 281 K/mm3 (142-424); Red Blood Count 3.75 M/mm3 (4.20-5.40); Red Cell Distribution Width 14.2 % (11.5-17.5); White Blood Count 9.8 K/mm3 (4.8-10.8)
[2018-07-02 06:34] LABS: Anion Gap 9.9 mEq/L (5-15); Calcium 8.7 mg/dL (8.5-10.1); Potassium 3.9 mmoL/L (3.5-5.1)
--- NOTE | 2018-07-02 08:22 | Discharge Summary ---
General - General Admission date:: 06/30/18 Discharge date: 07/02/18 [facility] HPI: Ms. Joe is a 38-year-old white female with complex history of sepsis leading to disability who presents with hypertension and tachycardia from her chronic pain treatment clinic yesterday to the emergency department. She additionally complained of weakness, lightheadedness and increasing episodes of palpitations over the last several weeks. She has not reported any chest pain, palpitations, syncope. She does report loss of hair on her arms and legs over the past year. Denies changes in vision, loss of hair on her head, changes in skin color, edema. She additionally does complain of hot flashes. Of note she reports being in her pain management appointment yesterday in [place] where she was noted to have hypertension and tachycardia. They recommended her to go to the ER where labs were obtained showing VERNON and hyperthyroidism. Troponins were negative however she was having sinus tach. Cardiology consult placed in the ER. They saw the patient this morning and feel her symptoms are more related to hyperthyroid state. Heart rate in the ER noted to be elevated in the 130 bpm range with EKG showing sinus tachycardia. Since seeing cardiology this morning she was transitioned from diltiazem to oral beta- nydia (metoprolol) her heart rate is more well controlled and she is feeling less symptomatic. Echo performed with preliminary results showing normal LVEF. Hospital Course Hospital Course: Patient was admitted, please see notes from HPI as above. Overnight she did well. She had some flank pain consistent with her history of nephrolithiasis and states that she did pass a stone even though KUB was unremarkable. Did show some hematuria on her urinalysis. Nursing staff was able to retrieve a stonelike object from her urine culture. This will be sent for stone analysis. This morning she was doing well, eating well. Had right-sided flank pain but this has been well controlled with her regular dose of pain medicine from her pain management physician and she is eating and drinking well. KUB did show some constipation patterns. Cardiology evaluation continues. Appreciated. Recommended increasing metoprolol to 100 mg twice daily for rate control and follow-up in the office. Discharge plan as noted below. Objective Vital signs: Temp Pulse Resp BP Pulse Ox 98.0 F 99 H 20 176/108 97 07/02/18 07:50 07/02/18 07:50 07/02/18 07:50 07/02/18 07:50 07/02/18 07:50 Narrative: Patient is alert, talkative, oriented 3. No complaints except for right-sided flank pain. Oropharynx clear. Heart rate in the low 100 range but regular. No murmurs. Lungs are clear bilaterally. Abdomen soft and nontender. Very subjective right-sided flank pain noted. No edema, clubbing or cyanosis. Results Labs on day of discharge: Labs from last 24 hours 07/02/18 07/02/18 07/01/18 05:40 05:40 17:30 WBC 9.8 RBC 3.75 L Hgb 12.7 Hct 38.6 MCV 103.0 H MCH 33.9 H MCHC 32.9 RDW 14.2 Plt Count 281 MPV 7.1 L Neut % (Auto) 60.1 Lymph % (Auto) 31.8 [place] % (Auto) 5.7 Eos % (Auto) 1.7 Baso % (Auto) 0.7 Neut # (Auto) 5.9 Lymph # (Auto) 3.1 [place] # (Auto) 0.6 Eos # (Auto) 0.2 Baso # (Auto) 0.1 Sodium 139 Potassium 3.9 Chloride 107 Carbon Dioxide 26 Anion Gap 9.9 BUN 10 Creatinine 0.85 Estimated Creat Clear 99 Estimated GFR 75 Est GFR ( Amer) 91 Glucose 101 Calcium 8.7 Urine Color Yellow Urine Appearance Sl cloudy Urine pH 7.5 Ur Specific [place] 1.015 Urine Protein Negative Urine Glucose (UA) Negative Urine Ketones Negative Urine Blood Trace-i Urine Nitrate Negative Urine Bilirubin Negative Urine Urobilinogen 0.2 Ur Leukocyte Esterase Trace Urine RBC 3-5 Urine WBC 20-50 Ur Squamous Epith Cells 5-10 Urine Bacteria Trace DS: Diagnosis - Discharge Diagnosis (1) Sinus tachycardia Status: Acute Problem details: Improving, secondary to hyperthyroidism. Discharge home on metoprolol (2) Abnormal thyroid blood test Status: Acute Problem details: Follow-up in office. (3) Hypertension Status: Acute Problem details: Continue with metoprolol at her dosage (4) Nephrolithiasis Status: Acute Problem details: Patient has not had urology evaluation in quite a while. We will send stone for analysis. Make appointment with Dr. Spann as an outpatient. Discharge Plan - Patient Discharge Instructions ACTIVITY: Continue current activity DIET: continue same diet - Follow up Plan Follow up with: Viktor Rebolledo MD [Primary Care Provider] - 2 weeks Zack Ritchie MD [Staff Physician] - 1 week Hector Spann MD [Staff Physician] - 07/17/18 Disposition: Home, Self-Intermediate Medications: Home Medications Medication Instructions Recorded Confirmed Type bupropion HCl XL 300 mg 24 hr 300 mg PO DAILY 01/31/18 07/01/18 History tablet, extended release dicyclomine 20 mg tablet 20 mg PO TID 01/31/18 06/30/18 History fluticasone 220 mcg/actuation HFA 1 puff INHALATION BID 01/31/18 06/30/18 History aerosol inhaler levocetirizine 5 mg tablet 5 mg PO HS 01/31/18 07/01/18 History montelukast 10 mg tablet 10 mg PO HS 01/31/18 07/01/18 History omeprazole 40 mg capsule,delayed 40 mg PO BID 01/31/18 07/01/18 History release oxycodone-acetaminophen 7.5 mg-300 1 tab PO TID 01/31/18 06/30/18 History mg tablet ranitidine 300 mg capsule 300 mg PO BID 01/31/18 06/30/18 History umeclidinium 62.5 mcg/actuation 1 inh INHALATION Q24H 01/31/18 06/30/18 History blister powder for inhalation pregabalin 150 mg capsule 150 mg PO BID cap 05/05/18 06/30/18 History verapamil ER 240 mg 24 hr 240 mg PO DAILY 05/05/18 07/01/18 History capsule,extended release Albuterol Sulfate [Albuterol 1.25 mg IH BIDP PRN 06/30/18 06/30/18 History 0.042% 1.25mg/3mL neb] Albuterol Sulfate [Proair Hfa 2 puffs IH QIDP PRN 06/30/18 07/01/18 History 90mcg/puff Inh] Amitriptyline HCl [Elavil 10mg 10 mg PO BID 06/30/18 06/30/18 History tablet] Cyanocobalamin (Vitamin B-12) 1,000 mcg IM MONTHLY 06/30/18 06/30/18 History [Cyanocobalamin 1,000mcg/mL Vial] Cyanocobalamin (Vitamin B-12) 1,000 mcg PO DAILY 06/30/18 06/30/18 History [Vitamin B12 5mg Tab] Diclofenac Epolamine [Flector] 1 each TD BID 06/30/18 06/30/18 History Diclofenac Sodium 50 mg PO BID 06/30/18 06/30/18 History Ergocalciferol (Vitamin D2) 1,000 unit PO DAILY 06/30/18 06/30/18 History [Vitamin D] Estradiol 2 mg PO DAILY 06/30/18 06/30/18 History Fluticasone/Salmeterol [Advair Hfa 2 puffs IH BID 06/30/18 06/30/18 History 230-21 Mcg Inhaler] Tramadol HCl [Ultram] 50 mg PO Q4HP PRN 06/30/18 07/01/18 History Pravastatin Sodium [Pravachol 20mg 20 mg PO HS 07/01/18 07/01/18 History Tablet] Prescriptions/Medication Reconciliation: New Metoprolol Tartrate 100 mg PO BID #60 tablet Continue levocetirizine 5 mg tablet 5 mg PO HS montelukast 10 mg tablet 10 mg PO HS omeprazole 40 mg capsule,delayed release 40 mg PO BID dicyclomine 20 mg tablet 20 mg PO TID bupropion HCl XL 300 mg 24 hr tablet, extended release 300 mg PO DAILY umeclidinium 62.5 mcg/actuation blister powder for inhalation 1 inh INHALATION Q24H fluticasone 220 mcg/actuation HFA aerosol inhaler 1 puff INHALATION BID pregabalin 150 mg capsule 150 mg PO BID cap verapamil ER 240 mg 24 hr capsule,extended release 240 mg PO DAILY oxycodone-acetaminophen 7.5 mg-300 mg tablet 1 tab PO TID ranitidine 300 mg capsule 300 mg PO BID Amitriptyline HCl [Elavil 10mg tablet] 10 mg PO BID Albuterol Sulfate [Albuterol 0.042% 1.25mg/3mL neb] 1.25 mg IH BIDP PRN PRN Reason: breathing Estradiol 2 mg PO DAILY Cyanocobalamin (Vitamin B-12) [Cyanocobalamin 1,000mcg/mL Vial] 1,000 mcg IM MONTHLY Albuterol Sulfate [Proair Hfa 90mcg/puff Inh] 2 puffs IH QIDP PRN PRN Reason: Shortness Of Breath Or Wheezing Fluticasone/Salmeterol [Advair Hfa 230-21 Mcg Inhaler] 2 puffs IH BID Tramadol HCl [Ultram] 50 mg PO Q4HP PRN PRN Reason: pain Ergocalciferol (Vitamin D2) [Vitamin D] 1,000 unit PO DAILY Pravastatin Sodium [Pravachol 20mg Tablet] 20 mg PO HS Cyanocobalamin (Vitamin B-12) [Vitamin B12 5mg Tab] 1,000 mcg PO DAILY Diclofenac Epolamine [Flector] 1 each TD BID Diclofenac Sodium 50 mg PO BID
--- NOTE | 2018-07-02 08:58 | Progress Note ---
Subjective Date: 07/02/18 Time: 08:28 Principal diagnosis: Tachycardia Interval history: 38 yo WF in bed in NAD. Complaint of back pain bilaterally which improved with passing a kidney stone overnight. She feels the right sided pain represents another stone that needs to pass. History of migraine's for which she takes calcium channel nydia. Heart rate improved on beta nydia overnight but BP elevated, probably related to pain. Exam Vital signs and Labs for Last 24 Hours: Temp Pulse Resp BP Pulse Ox 98.0 F 99 H 20 176/108 97 07/02/18 07:50 07/02/18 07:50 07/02/18 07:50 07/02/18 07:50 07/02/18 07:50 Laboratory Results - last 24 hr 07/01/18 17:30: Urine Color Yellow, Urine Appearance Sl cloudy, Urine pH 7.5, Ur Specific [place] 1.015, Urine Protein Negative, Urine Glucose (UA) Negative, Urine Ketones Negative, Urine Blood Trace-i, Urine Nitrate Negative, Urine Bilirubin Negative, Urine Urobilinogen 0.2, Ur Leukocyte Esterase Trace, Urine RBC 3-5, Urine WBC 20-50, Ur Squamous Epith Cells 5-10, Urine Bacteria Trace 07/02/18 05:40: WBC 9.8, RBC 3.75 L, Hgb 12.7, Hct 38.6, MCV 103.0 H, MCH 33.9 H , MCHC 32.9, RDW 14.2, Plt Count 281, MPV 7.1 L, Neut % (Auto) 60.1, Lymph % (Auto) 31.8, [place] % (Auto) 5.7, Eos % (Auto) 1.7, Baso % (Auto) 0.7, Neut # (Auto) 5.9, Lymph # (Auto) 3.1, [place] # (Auto) 0.6, Eos # (Auto) 0.2, Baso # (Auto) 0.1 07/02/18 05:40: Sodium 139, Potassium 3.9, Chloride 107, Carbon Dioxide 26, A nion Gap 9.9, BUN 10, Creatinine 0.85, Estimated Creat Clear 99, Estimated GFR 75, Est GFR ( Amer) 91, Glucose 101, Calcium 8.7 I & O for Last 24 hours: Intake & Output 06/29/18 06/30/18 07/01/1829/18 11:59 11:59 11:59 11:59 Intake Total 1444 / 1444 1475 / 1475 Output Total 200 / 200 1000 / 1000 Balance 1244 / 1244 475 / 475 Weight 153 lb 10.595 oz Microbiology Reports for the Last 24 Hours: Microbiology 07/01/18 17:30 Urine,Clean Catch Urine Culture - Final Multiple organisms, suggests contamination. - *Routine Respiratory Exam Present: CTA bilaterally - *Routine Cardiovascular Exam Present: RRR. Absent: murmur, gallop, rubs Progress Note: A&P (1) Sinus tachycardia Problem details: Improving, secondary to hyperthyroidism. Discharge home on metoprolol Status: Acute Current Visit: Yes (2) Abnormal thyroid blood test Problem details: Follow-up in office. Status: Acute Current Visit: Yes (3) Hypertension Problem details: Continue with metoprolol at her dosage Status: Acute Current Visit: Yes (4) Nephrolithiasis Problem details: Patient has not had urology evaluation in quite a while. We will send stone for analysis. Make appointment with Dr. Spann as an outpatient. Status: Acute Current Visit: Yes Assessment and Plan for All Diagnoses:: Will increase beta nydia to help with BP and heart rate control. Recommend weaning off calcium channel nydia and continue to increase beta nydia as needed. OK to discharge home from cardiology standpoint. Follow up in 1 wk
[2018-07-04 13:19] LABS: Thyroid Peroxidase Antibodies 11 IU/mL (0-34)
[2018-07-04 17:28] LABS: Thyroid Stimulating Immunoglob <0.10 IU/L (0.00-0.55)
[2018-07-16 12:55] LABS: Thyroglobulin Level <1.0 IU/mL (0.0-0.9)
== END 2018-07-02 09:48 | disposition home or self-care (01) ==
LOC: 2ND 16:20 → ER 16:20 → 2ND 20:14
PROVIDERS: ADMIT Family Medicine; ATTEND Internal Medicine Adolescent Medicine

== ENCOUNTER → 2018-07-17 06:20 | Outpatient (CLI) | payer MEDICARE, SELFPAY ==
--- NOTE | 2018-07-17 06:22 | NM_ITS ---
History and Indications: Hypertension, hyperlipidemia, family history, shortness of breath , palpitations and fatigue Procedure: Patient received a 0.4 mg of Lexiscan, resting heart rate was 71 bpm, resting blood pressure 127/79, with Lexiscan maximum heart rate achieved was 1 58 bpm which is greater than 85% of the maximum predicted heart rate and the blood pressure was 130/62. With Lexiscan patient complained of shortness of breath and chest pain. Electrocardiogram: Resting electrocardiogram shows sinus tachycardia, with Lexiscan there is 1.[address] segment depression noted from the baseline EKG. The EKG portion of the Lexiscan Myoview is positive for ischemia Cardiac stress and resting SPECT images: Cardiac stress and rest SPECT images were obtained using technetium 99 Myoview 30.7 mCi at stress and 10.6 mCi at rest, gated SPECT further analysis of segmental wall motion and calculation of the ejection fraction also done. Cardiac stress and the suspect show a mild fixed defect in the anterior wall with normal contractility gated SPECT is likely secondary to soft tissue attenuation, no reversible ischemia seen. Computer derived ejection fraction is over 65% with no regional wall motion, right ventricle is normal size and contractility. Conclusion: 1. The EKG portion of the Lexiscan Myoview is positive for ischemia. 2. No obvious scintigraphic evidence of reversible ischemia seen, computer derived ejection fraction is over 65% with no regional wall motion abnormality, right ventricle is normal size and contractility.
--- NOTE | 2018-07-17 11:07 | HMH.ITSHM ---
montelukast verapamil omeprazole estraddiol lyrica tramadol pravastatin levocetirine
== END ==
PROVIDERS: Family Provider Internal Medicine Adolescent Medicine; PCP Internal Medicine Adolescent Medicine; Visit Provider Internal Medicine
DX: R07.9 Chest pain, unspecified (principal); R06.00 Dyspnea, unspecified; R00.2 Palpitations; E05.90 Thyrotoxicosis, unspecified without thyrotoxic crisis or storm; I10 Essential (primary) hypertension; L65.9 Nonscarring hair loss, unspecified; R49.0 Dysphonia
CPT/HCPCS: 78452; 93017; A9502; J2785

== ENCOUNTER → 2018-07-24 08:05 | Outpatient (CLI) | payer MEDICARE, SELFPAY ==
--- NOTE | 2018-07-24 08:07 | US_ITS ---
US thyroid HISTORY: Elevated thyroid levels ITS.REASON: . ORDERING PHYSICIAN: Zack Ritchie MD PATIENT AGE: 38 years Comparison: 02/11/2018 FINDINGS: Right lobe: 4.1 x 0.9 x 2 cm. Homogeneous echogenicity. No nodules Left lobe: 4 x 1.2 x 1.8 cm with homogeneous echogenicity and no nodules. Isthmus: Slightly prominent measuring up to 4 mm in width IMPRESSION: Mildly enlarged thyroid gland. No nodules apparent. Homogeneous echogenicity with no significant change
--- NOTE | 2018-07-24 08:07 | AS_ITS ---
Renal Arterial Duplex Indications: 405.91 Unspecified renovascular hypertension. IMPRESSIONS 1. Right and left renal artery velocities are elevated with borderline ratios suggesting mild < 60%renal artery stenosis. 2. Kidney size is within normal limits, bilaterally. Right and left renal veins appear patent. Complete renal arterial duplex. Duplex scan and Doppler flow study including spectral analysis, color and martinez scale imaging. Height: Height: 165.1cm. Height: 65in. Weight: Weight: 68.9kg. Weight: 151.7lb. Body mass index: BMI: 25.3kg/m^2. Body surface area: BSA: 1.79m^2. Location: Vascular laboratory. Patient status: Outpatient. Tables: Arterial flow: + +-------+--------+ Location V sys V ed + +-------+--------+ Right renal - proximal 205cm/s 61.4cm/s + +-------+--------+ Right renal - mid 130cm/s 36.6cm/s + +-------+--------+ Right renal - distal 138cm/s 40.1cm/s + +-------+--------+ Left renal - proximal 166cm/s 49.6cm/s + +-------+--------+ Left renal - mid 176cm/s 46cm/s + +-------+--------+ Left renal - distal 104cm/s 36.6cm/s + +-------+--------+ Right renal - Origin 189cm/s 53cm/s + +-------+--------+ Left renal - Origin 214cm/s 47cm/s + +-------+--------+ Aorta - mid 81cm/s -------- + +-------+--------+ Artery mapping: + +--------+-------+ Location Diameter Patency + +--------+-------+ Abdominal aorta - mid 1.5mm Patent + +--------+-------+ Renal anatomy: + +------+-----+ Left Right + +------+-----+ Long axis 10.8cm 11cm + +------+-----+ Short axis 4.9cm 5.1cm + +------+-----+ Velocity ratios: + +-----+ V sys + +-----+ Right renal/aortic 2.5 + +-----+ Left renal/aortic 2.6 + +-----+ (Report amended ) Electronically signed by: Henrry Palma [id number]
== END ==
PROVIDERS: Family Provider Internal Medicine Adolescent Medicine; PCP Internal Medicine Adolescent Medicine; Visit Provider Internal Medicine
DX: E05.90 Thyrotoxicosis, unspecified without thyrotoxic crisis or storm (principal); I10 Essential (primary) hypertension; L65.9 Nonscarring hair loss, unspecified; R00.2 Palpitations; R06.00 Dyspnea, unspecified; R07.9 Chest pain, unspecified; R49.0 Dysphonia
CPT/HCPCS: 76536; 93976

== ENCOUNTER → 2018-09-01 15:41 | Outpatient (CLI) | payer MEDICARE, SELFPAY | PROVIDERS: PCP Internal Medicine Adolescent Medicine; Visit Provider Physician Assistant | DX: R06.00 Dyspnea, unspecified (principal); R00.0 Tachycardia, unspecified | CPT/HCPCS: 93225; 93226 ==

== ENCOUNTER 2019-03-27 11:00 | Outpatient (RCR) | payer MEDICARE, SELFPAY | END 2019-03-27 11:05 | disposition home or self-care (01) | LOC: PT 11:00 | DX: M54.2 Cervicalgia (principal); M54.5 Low back pain | CPT/HCPCS: 97010; 97014; 97110; 97140; 97163; G0283 ==

== ENCOUNTER → 2019-06-05 06:30 | Outpatient (CLI) | payer MEDICARE, SELFPAY ==
--- NOTE | 2019-06-05 06:36 | NM_ITS ---
History:chest pain, short of air, palpitation, fatigue Procedure: Patient received a 0.4 mg of intravenous Lexiscan, resting heart rate 85 bpm, resting blood pressure 137/76, with Lexiscan maximum heart rate achieve was 142 bpm which is less than 85 % of the maximum predicted heart rate and blood pressure was 135/73. WIth Lexiscan patient denied any complaint of chest pain. Electrocardiogram: Resting electrocardiogram showed sinus rhythm, with Lexiscan there is less than 1.5mm ST segment depression noted from the baseline EKG. The EKG portion of the Lexiscan Myoview is nondiagnostic. Cardias Stress and Resting SPECT images: Cardias Stress and Resting SPECT images were obtained using technetium 99m Myoview 29.1 mCi stress and 9.55 mCi at rest. Gated SPECT further analysis of segmental wall motion and calculation of ejection fraction also done. Cardiac stress and resting SPECT show uniform myocardial activity without segmental perfusion abnormality, the computer derived ejection fraction is over 65% with no regional wall motion abnormality. Right ventricle is normal size and contractility. Conclusion: 1. The EKG portion of the Lexiscan Myoview is nondiagnostic. 2. No scintigraphic evidence of reversible ischemia seen, computer derived ejection fraction is over 65% with no regional wall motion abnormality. 3. Normal Lexiscan Myoview study.
--- NOTE | 2019-06-05 06:53 | CA_ITS ---
PROCEDURE: 2-D M-mode and color Doppler study INDICATIONS FOR THE TEST: Chest pain X COPDX Heart Murmur Tobacco Smoking PalpitationsX FatigueX Syncope Edema HypertensionXDiabetes Mellitus Rheumatic Fever SOBXDOE Obesity HyperlipidemiaX Family History HDX Additional History CAD,GERD PATIENT INFORMATION HEIGHT: 65 WEIGHT:171 GENDER: Female B/P:123/71 2-D/M-MODE INTERPRETATION: 2-D MEASUREMENTS OBSERVED VALUES IN CMS Right Ventricular Dimension (RVDd) 1.8 Interventricular Septum (Thickness)(IVsd) .9 Left Ventricular Internal Dimensions(LVIDd) 5.4 Left Ventricular Posterior Wall (Thickness)(LVPWd) .8 Aortic Root 2.7 Aortic Cusp Separation 1.5 Left Atrial Dimensions (LAD) 2.8 2D 1. Left atrium is mildly enlarged, left ventricle is normal size, left ventricle wall thickness is upper limit of the normal, visually estimated ejection fraction 55% with no regional wall motion abnormality. 2. The right atrium and right ventricle are normal size and contractility. 3. The aortic valve is thickened and calcified leaflet continue to display mobility. 4. The mitral and tricuspid valve leaflets are grossly normal. 5. Pulmonic valve is poorly visualized. 6. No significant pericardial effusion noted. DOPPLER INTERROGATION: Doppler interrogation of the aortic, mitral and tricuspid valvular presence of mild aortic, mild mitral and tricuspid regurgitation, tricuspid regurgitation jet velocity is inadequate for calculation of the right ventricular systolic pressure, diastolic parameters are within normal range. CONCLUSION: 1. Mildly enlarged left atrium, normal left ventricular size, visually estimated ejection fraction 55% with no regional wall motion abnormality, diastolic parameters are within normal range. 2. Mild aortic, mild mitral and tricuspid regurgitation 3. No significant pericardial effusion noted.
--- NOTE | 2019-06-05 10:02 | HMH.ITSHM ---
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 [] spironolactone ranitidine omeprazole nortripyline metoprolol asa
== END ==
LOC: RAD 06:31
PROVIDERS: PCP Internal Medicine Adolescent Medicine; Visit Provider Internal Medicine
DX: I20.9 Angina pectoris, unspecified; I51.89 Other ill-defined heart diseases; E78.5 Hyperlipidemia, unspecified
CPT/HCPCS: 78452; 93017; 93306; A9502; J2785

== ENCOUNTER → 2019-08-17 14:15 | Outpatient (CLI) | payer MEDICARE, SELFPAY ==
--- NOTE | 2019-08-17 14:17 | MR_ITS ---
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 3-D MIP and myelographic images are also rendered and reviewed FINDINGS: There is normal alignment with straightening of the cervical lordosis. Cranial cervical junction has an unremarkable appearance. C2-C3: Unremarkable. C3-C4: There is a small left foraminal disc protrusion causing narrowing of the left C3-C4 neural foramen. This has developed since the previous exam. C4-C5: Unremarkable. C5-C6: There is a small broad-based central and left paracentral disc protrusion which is abutting the spinal cord anteriorly with minimal flattening of the cord. There is narrowing of the canal at 9-10 mm at this level. This has also developed since the previous exam. C6-C7: Unremarkable. C7-T1: Unremarkable. IMPRESSION: 1. Small left foraminal disc protrusion at C3-C4 causing narrowing of the left C3-C4 neural foramen. This has developed since the previous exam. 2. Small broad-based central and left paracentral disc protrusion at C5-C6 which is abutting the spinal cord anteriorly with minimal flattening of the cord. There is narrowing of the canal at 9-10 mm at this level. This has also developed since the previous exam. Dictated by: Henrry Palma MD 08/18/2019 05:15 Electronically signed by Henrry Palma MD in [place] 08/18/2019 05:15
== END ==
PROVIDERS: PCP Internal Medicine Adolescent Medicine; Visit Provider Anesthesiology
DX: M54.12 Radiculopathy, cervical region (principal); M47.012 Anterior spinal artery compression syndromes, cervical region
CPT/HCPCS: 72141; 76376

== ENCOUNTER 2019-09-14 13:59 | Outpatient (CLI) | payer MEDICARE, SELFPAY ==
[2019-09-14 14:35] VITALS: BP 119/71; PULSE 68; RESP 18; O2SAT 97
== END 2019-09-14 14:35 | disposition home or self-care (01) ==
LOC: INF 13:59
PROVIDERS: Visit Provider Allergy & Immunology
DX: J45.909 Unspecified asthma, uncomplicated (principal)
CPT/HCPCS: 96372; J2182

== ENCOUNTER 2019-12-07 12:24 | Outpatient (CLI) | payer MEDICARE, SELFPAY ==
[2019-12-07 12:42] VITALS: BP 112/75; PULSE 79; RESP 18; TEMP 36.6; O2SAT 100
[2019-12-07 13:00] VITALS: BP 116/70; PULSE 81; RESP 18; TEMP 36.6; O2SAT 99
== END 2019-12-07 13:02 | disposition home or self-care (01) ==
LOC: INF 12:24
PROVIDERS: Visit Provider Allergy & Immunology
DX: J45.909 Unspecified asthma, uncomplicated (principal)
CPT/HCPCS: 96372; J2182

== ENCOUNTER → 2019-12-07 13:14 | Outpatient (CLI) | payer MEDICARE, SELFPAY ==
[2019-12-07 13:38] LABS: Basophils # 0.1 K/mm3 (0-0.2); Eosinophils # 0.1 K/mm3 (0.0-0.4); Eosinophils % 1.6 % (0.1-12.0); Hematocrit 42.3 % (37.0-47.0); Hemoglobin 13.7 g/dL (12.2-16.2); Mean Corpuscular HGB Conc 32.4 g/dL (31.8-35.4); Mean Corpuscular Hemoglobin 33.9 pg (27.0-31.2); Mean Corpuscular Volume 104.5 fl (81-99); Mean Platelet Volume 8.2 fl (7.4-10.4); Monocytes # 0.3 K/mm3 (0.1-1.0); Monocytes % 3.9 % (1.7-9.3); Neutrophils # 4.2 K/mm3 (1.8-7.8); Neutrophils % 54.5 % (37.0-80.0); Platelet Count 314 K/mm3 (142-424); Red Blood Count 4.05 M/mm3 (4.20-5.40); White Blood Count 7.6 K/mm3 (4.8-10.8)
[2019-12-07 14:27] LABS: Alanine Aminotransferase 19 U/L (12-78); Albumin Level 3.6 gm/dL (3.4-5.0); Albumin/Globulin Ratio 0.9 (1.1-1.8); Alkaline Phosphatase 83 U/L (46-116); Anion Gap 13.5 mEq/L (5-15); Bilirubin,Total 0.4 mg/dL (0.2-1.0); Blood Urea Nitrogen 17 mg/dL (7-18); Calcium 8.8 mg/dL (8.5-10.1); Carbon Dioxide 28 mmol/L (21.0-32.0); Chloride 102 mmol/L (98-107); Chol/HDL Ratio 4.3 (1-3.5); Cholesterol 207 mg/dL (140-200); Creatinine,Serum 0.88 mg/dL (0.55-1.02); Estimated Glomerular Filt Rate 72 ml/min (>60); GFR (African American) 87 ML/MIN (>60); Globulin 3.8 gm/dl (1.3-3.2); Glucose 82 mg/dL (74-106); HDL Cholesterol 48 mg/dL (29-89); LDL Cholesterol 131 mg/dL (0-130); Sodium 139 mmol/L (136-145); Total Protein,Serum 7.4 gm/dL (6.4-8.2); Triglycerides 139 mg/dL (30-200); VLDL Cholesterol 28 mg/dL (0-40)
[2019-12-07 14:28] LABS: Aspartate Amino Transferase 21 U/L (15-37); Potassium 4.5 mmoL/L (3.5-5.1)
[2019-12-08 14:01] LABS: Vitamin B12 1658 pg/mL (232-1245); Vitamin D 25 Hydroxy 30.2 ng/mL (30.0-100.0)
== END ==
PROVIDERS: Visit Provider Internal Medicine Adolescent Medicine
DX: E55.9 Vitamin D deficiency, unspecified (principal); D51.9 Vitamin B12 deficiency anemia, unspecified; E78.5 Hyperlipidemia, unspecified
CPT/HCPCS: 36415; 80053; 80061; 82607; 82652; 85025; 96372; J2182

== ENCOUNTER → 2019-12-23 12:17 | Outpatient (CLI) | payer MEDICARE, SELFPAY ==
--- NOTE | 2019-12-23 | CA_ITS ---
APPROVED REPORT Exam: Pharmacologic Technologist: Oneida Ventura Ht: 5 ft 5 in Wt: 180 lbs BSA: 1.89 m2 HR: 79 bpm BP: 121/80 mmHg Indications: Angina Medical History Medications: Omeprazole,,,,, Furosemide (LASIX),,,,, Isosorbide,,,,, Aspirin,,,,, Metoprolol,,,,, Pravastatin,,,,, Vitamin B12,,,,, Ranitidine,,,,, Albuterol,,,,, Estradiol,,,,, Montelukast,,,,, ADVAIR,,,,, Stress Test Details Test: LEXISCAN HR Resting HR: 88 bpm Max Heart Rate (APMHR): 181 bpm Max HR Achieved: 124 bpm Target HR (85% APMHR): 153 bpm % of APMHR: 68 Recovery HR: 102 bpm BP Resting BP: 121.0/80.0 mmHg Max BP: 146.0/87.0 mmHg Recovery BP: 146.0/87.0 mmHg ECG Clinical Exercise duration: 04:00 min Highest Stage Achieved: Stress ECG Conclusion Resting ECG: Normal sinus rhythm, rightward axis, early repolarization changes. Symptoms: Chest tightness, mild shortness of air Arrhythmias/Ectopy: None ST-T Changes: NS ST-T changes Conclusion: Unremarkable Lexiscan stress. Myoview images reported separartely. Electronically signed by : Gio Moreno, 12/24/2019 15:06:54
--- NOTE | 2019-12-23 12:18 | NM_ITS ---
APPROVED REPORT Exam: Nuclear Stress Test Indication: CAD, HYPERLIPIDEMIA, HTN, FM. HX., ANGINA, SOB, PALPITATIONS Patient Location: Outpatient Stress Tech: Oneida Ventura [place] Tech:Iza Ortiz SASCHATray RT (R)(N)(M) Ht: 5 ft 5 in Wt: 180 lbs Bra Size: C HR: 79 bpm BP: 121/80 mmHg BSA: 1.89 m2 BMI: 29.9 History: CAD, HYPERLIPIDEMIA, HTN, FM. HX., ANGINA, SOB, PALPITATIONS Procedure: Patient received a 0.4 mg of intravenous Lexiscan, resting heart rate 79 bpm, resting blood pressure 121/80 mmHg, with Lexiscan maximum heart rate achived was 123 bpm which is Less than 85 % of the maximum predicted heart rate and blood pressure was 114/81 mmHg. C.P. Electrocardiogram Resting electrocardiogram showed sinus rhythm with Lexiscan there is less than 1.[address] segment depression noted from the baseline EKG. The EKG portion of the Lexiscan Myoview is nondiagnostic. Cardiac Stress and Resting SPECT Images: Cardiac Stress and Resting SPECT images were obtained using technetium 99m Myoview 31.4 mCi stress and 10.75 mCi at rest. Gated SPECT with analysis of segmental wall motion and calculation of the ejection fraction also done. Cardiac stress and resting SPECT images show uniform myocardial activity without segmental perfusion abnormality, computer derived ejection fraction is over 65% with no regional wall motion abnormality, right ventricle is normal size and contractility. Conclusion: 1. The EKG portion of the Lexiscan Myoview is nondiagnostic. 2. No scintigraphic evidence of reversible ischemia seen, computer derived ejection fraction is over 65% with no regional wall motion abnormality, right ventricle is normal size and contractility. 3. Normal Lexiscan Myoview study. Electronically signed by : Gio Moreno, 12/24/2019 15:08:47
--- NOTE | 2019-12-23 14:09 | HMH.ITSHM ---
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 CAD, HTN, HYPERLIPIDEMIA FM. SILVIA. C.P. SOB
== END ==
PROVIDERS: PCP Internal Medicine Adolescent Medicine; Visit Provider Nurse Practitioner Family
DX: Z01.810 Encounter for preprocedural cardiovascular examination; I20.9 Angina pectoris, unspecified; R00.2 Palpitations; E78.5 Hyperlipidemia, unspecified; I10 Essential (primary) hypertension; R06.00 Dyspnea, unspecified
CPT/HCPCS: 78452; 93017; A9502; J2785

== ENCOUNTER 2020-01-05 12:50 | Outpatient (CLI) | payer MEDICARE, SELFPAY ==
[2020-01-05 13:25] VITALS: BP 145/82; PULSE 82; RESP 18; O2SAT 100
== END 2020-01-05 13:25 | disposition home or self-care (01) ==
LOC: INF 15:23
PROVIDERS: Visit Provider Allergy & Immunology
DX: J45.909 Unspecified asthma, uncomplicated (principal)
CPT/HCPCS: 96372; J2182

== ENCOUNTER 2020-03-25 12:53 | Outpatient (CLI) | payer MEDICARE, SELFPAY ==
[2020-03-25 13:10] VITALS: BP 134/82; PULSE 96; RESP 18; TEMP 36.6
== END 2020-03-25 13:10 | disposition home or self-care (01) ==
LOC: INF 12:53
PROVIDERS: Visit Provider Allergy & Immunology
DX: J45.50 Severe persistent asthma, uncomplicated (principal)
CPT/HCPCS: 96372; J2182

== ENCOUNTER → 2020-04-18 14:43 | Outpatient (CLI) | payer MEDICARE, SELFPAY ==
[2020-04-18 16:10] LABS: Basophils # 0.1 K/mm3 (0-0.2); Eosinophils % 0.4 % (0.1-12.0); Hematocrit 44.9 % (37.0-47.0); Hemoglobin 14.9 g/dL (12.2-16.2); Lymphocytes # 3.8 K/mm3 (0.7-4.5); Lymphocytes % 38.8 % (10-50); Mean Corpuscular HGB Conc 33.1 g/dL (31.8-35.4); Mean Corpuscular Hemoglobin 34.7 pg (27.0-31.2); Mean Corpuscular Volume 104.7 fl (81-99); Mean Platelet Volume 7.4 fl (7.4-10.4); Monocytes # 0.4 K/mm3 (0.1-1.0); Monocytes % 4.5 % (1.7-9.3); Neutrophils # 5.4 K/mm3 (1.8-7.8); Neutrophils % 55.2 % (37.0-80.0); Platelet Count 368 K/mm3 (142-424); Red Blood Count 4.28 M/mm3 (4.20-5.40); Red Cell Distribution Width 13.8 % (11.5-17.5); White Blood Count 9.8 K/mm3 (4.8-10.8)
[2020-04-18 17:18] LABS: Chloride 104 mmol/L (98-107); Potassium 4.5 mmoL/L (3.5-5.1); Sodium 137 mmol/L (136-145)
[2020-04-18 17:21] LABS: Alanine Aminotransferase 15 U/L (12-78); Albumin Level 4.5 g/dl (3.5-5.0); Albumin/Globulin Ratio 1.3 (1.1-1.8); Alkaline Phosphatase 98 U/L (38-126); Anion Gap 12.5 mEq/L (5-15); Aspartate Amino Transferase 22 U/L (14-36); Bilirubin,Total 0.7 mg/dl (0.2-1.3); Blood Urea Nitrogen 17 mg/dl (7-17); Calcium 9.4 mg/dl (8.4-10.2); Carbon Dioxide 25 mmol/L (22.0-30.0); Estimated Glomerular Filt Rate 69 ml/min (>60); GFR (African American) 84 ML/MIN (>60); Globulin 3.6 g/dL (1.3-3.2); Glucose 101 mg/dl (74-100); Total Protein,Serum 8.1 g/dl (6.3-8.2)
[2020-04-18 17:37] LABS: 25-OH Vitamin D, Total 46.6 ng/mL (30-100)
[2020-04-20 11:11] LABS: Vitamin B12 1132 pg/mL (232-1245)
== END ==
PROVIDERS: Visit Provider Nurse Practitioner Family
DX: R53.81 Other malaise (principal); E53.8 Deficiency of other specified B group vitamins; E55.9 Vitamin D deficiency, unspecified
CPT/HCPCS: 36415; 80053; 82306; 82607; 84443; 85025

== ENCOUNTER 2020-04-20 13:50 | Outpatient (CLI) | payer MEDICARE, SELFPAY ==
[2020-04-20 14:05] VITALS: BP 133/71; PULSE 81; RESP 18; TEMP 36.2
[2020-04-20 14:20] VITALS: BP 133/71; PULSE 81; RESP 18; TEMP 36.2
== END 2020-04-20 14:20 | disposition home or self-care (01) ==
LOC: INF 13:54
PROVIDERS: Visit Provider Allergy & Immunology
DX: J45.50 Severe persistent asthma, uncomplicated (principal)
CPT/HCPCS: 96372; J2182

== ENCOUNTER 2020-06-29 13:59 | Outpatient (CLI) | payer MEDICARE, SELFPAY ==
[2020-06-29 14:12] VITALS: BP 122/77; PULSE 88; RESP 18; TEMP 36.8; O2SAT 97
== END 2020-06-29 14:30 | disposition home or self-care (01) ==
LOC: INF 13:59
PROVIDERS: Visit Provider Allergy & Immunology
DX: J45.50 Severe persistent asthma, uncomplicated (principal)
CPT/HCPCS: 96372; J2182

== ENCOUNTER → 2020-07-18 14:42 | Outpatient (CLI) | payer MEDICARE, SELFPAY ==
--- NOTE | 2020-07-18 15:06 | ECG_ITS ---
APPROVED REPORT Exam: Resting ECG HR:76 bpm ECG Measurements Heart Rate 76 AXES TX 170 P 45 QRSd 96 QRS 36 QT 390 T 3 QTc 438 <Conclusion> Sinus rhythm with fusion complexes Cannot rule out Anterior infarct, age undetermined Abnormal ECG Electronically signed by : Viktor Rebolledo, 07/18/2020 17:43:50
[2020-07-18 15:31] LABS: Basophils # 0.1 K/mm3 (0-0.2); Basophils % 0.8 % (0.1-2.0); Eosinophils # 0.1 K/mm3 (0.0-0.4); Eosinophils % 0.7 % (0.1-12.0); Hematocrit 42.8 % (37.0-47.0); Hemoglobin 14.4 g/dL (12.2-16.2); Lymphocytes % 29.3 % (10-50); Mean Corpuscular HGB Conc 33.7 g/dL (31.8-35.4); Mean Corpuscular Hemoglobin 34.9 pg (27.0-31.2); Mean Corpuscular Volume 103.5 fl (81-99); Mean Platelet Volume 7.9 fl (7.4-10.4); Monocytes # 0.5 K/mm3 (0.1-1.0); Monocytes % 4.6 % (1.7-9.3); Neutrophils # 6.6 K/mm3 (1.8-7.8); Neutrophils % 64.6 % (37.0-80.0); Platelet Count 284 K/mm3 (142-424); Red Blood Count 4.14 M/mm3 (4.20-5.40); Red Cell Distribution Width 13.4 % (11.5-17.5); White Blood Count 10.3 K/mm3 (4.8-10.8)
[2020-07-18 16:10] LABS: Alanine Aminotransferase 16 U/L (12-78); Albumin Level 4.3 g/dl (3.5-5.0); Albumin/Globulin Ratio 1.3 (1.1-1.8); Alkaline Phosphatase 101 U/L (38-126); Anion Gap 14.6 mEq/L (5-15); Aspartate Amino Transferase 25 U/L (14-36); Bilirubin,Total 0.4 mg/dl (0.2-1.3); Blood Urea Nitrogen 13 mg/dl (7-17); Calcium 9.9 mg/dl (8.4-10.2); Carbon Dioxide 29 mmol/L (22.0-30.0); Chloride 101 mmol/L (98-107); Estimated Glomerular Filt Rate 69 ml/min (>60); GFR (African American) 84 ML/MIN (>60); Globulin 3.2 g/dL (1.3-3.2); Glucose 95 mg/dl (74-100); Potassium 4.6 mmoL/L (3.5-5.1); Sodium 140 mmol/L (136-145); Total Protein,Serum 7.5 g/dl (6.3-8.2)
== END ==
PROVIDERS: Visit Provider Otolaryngology
DX: I10 Essential (primary) hypertension (principal)
CPT/HCPCS: 36415; 80053; 85025; 93005

== ENCOUNTER 2020-07-22 14:17 | Outpatient (CLI) | payer MEDICARE, SELFPAY ==
[2020-07-22 14:35] VITALS: BP 119/71; PULSE 71; RESP 18; TEMP 36.1; O2SAT 96
== END 2020-07-22 14:50 | disposition home or self-care (01) ==
LOC: INF 14:17
PROVIDERS: Visit Provider Allergy & Immunology
DX: J45.50 Severe persistent asthma, uncomplicated (principal)
CPT/HCPCS: 96372; J2182

== ENCOUNTER 2020-08-13 17:16 | Emergency (ER) | payer MEDICARE, SELFPAY ==
[2020-08-13 17:31] VITALS: BP 121/84; PULSE 114; RESP 24; TEMP 36.7; O2SAT 100; BMI 30.7
--- NOTE | 2020-08-13 17:42 | PC.NURSE ---
PATIENT SENT TO ER PER [facility] QUINTANILLA APRN FOR FURTHER EVALUATION. REPORT GIVEN TO Evelyn WHITT RN
[2020-08-13 18:13] VITALS: BP 144/75; PULSE 110; RESP 16; TEMP 37.4; O2SAT 98; BMI 30.7
--- NOTE | 2020-08-13 18:30 | CT_ITS ---
PROCEDURE: CT HEAD/BRAIN WO CON Referring Doctor: Vignesh Sebastian Patient Age:40Y CLINICAL INDICATION: L.temporal HERNANDEZ Severe headache since last night. Patient had sinus surgery 3 weeks ago COMPARISON: CT CT SINUS WO CON from 08/13/2020 TECHNIQUE: No IV contrast utilized. Standard axial images were obtained for the head CT study. All CT scans at the facility use one or more dose reduction, viz: automated exposure control, ma/kV adjustment per patient size (including targeted exams where dose is matched to indication, i.e. head), or iterative reconstruction technique. . FINDINGS: No acute intracranial findings.-stable intracranial appearance brain since CT head March 2018 No intracranial hemorrhage. No territorial infarct. Ventricles appear normal in size-no hydrocephalus.The ventricles and basal cisterns a are r clear and satisfactory. No mass or midline shift nor mass effect. No subdural or extra-axial fluid collection is evident. Posterior fossa unremarkable. Skull intact- calvarium unremarkable appearance. . Middle ear clear. IAC's symmetric. Diffuse paranasal sinus disease discussed in detail on separate CT sinus report from today. There is pansinusitis. Diffuse mucosal thickening throughout the maxillary sinuses on, left ethmoid and sphenoid sinus and extending into the inferior small frontal sinus. The right ethmoid air cells region demonstrate most prominent findings with complete opacification. Right sphenoid sinus is nearly opacified with prominent mucosal thickening along with air-fluid level at the right sphenoid.. Postsurgical changes of suggested at left and possibly right ethmoid region, as well as I believe medial wall of left maxillary sinus. IMPRESSION: No acute intracranial findings . Stable CT brain since 2017 Diffuse paranasal sinus disease Dictated by: Juan Manuel Corley MD 08/14/2020 08:43 Juan Manuel Corley MD in [place] 08/14/2020 08:43
--- NOTE | 2020-08-13 18:31 | CT_ITS ---
PROCEDURE: CT SINUS WO CON Referring Doctor: Vignesh Sebastian Patient Age:40Y CLINICAL HISTORY: severe HERNANDEZ; since last night Recent sinus sx 3 weeks ago COMPARISON: CT SINUS CT SINUS (MAX-FACIAL W/O CONT) from 01/10/[address] head/brain wo/w con from 03/28/[address] HEAD/BRAIN WO CON from 08/13/2020 TECHNIQUE: No IV contrast Helical axial images obtained with sagittal and coronal reformats. All CT scans at the facility use one or more dose reduction, viz: automated exposure control, ma/kV adjustment per patient size (including targeted exams where dose is matched to indication, i.e. head), or iterative reconstruction technique. FINDINGS: Maxillary sinuses.: Diffuse moderate mucosal thickening of maxillary sinuses most evident on right. No air-fluid levels but. The postsurgical changes are seen at medial wall of left and possibly right maxillary sinus from antrectomy. The postsurgical ostia on the left is widely patent and appears to be associated with a likely a partial resection of the middle turbinate on left as well as resection of septations at the left ethmoid air cell of likely.. On the right mucosal thickening of occludes the ostia and outflow pathway of right maxillary sinus. Ethmoid air cells. Postsurgical changes left ethmoid air cell with removal a septations. [id number] diffuse residual mucosal thickening about the margins of the remaining ethmoid air cell cavity. Right ethmoid air cell region with near complete opacification. Soft tissue density fills this right ethmoid air cell region and I question if there there may have also been postsurgical resection/disruption of right ethmoid septations mode correlation with surgical history and technique required The diffuse mucosal thickening throughout anterior aspect ethmoid air cells continues into the inferior frontal sinuses. Frontal sinuses quite small hypoplastic/under developed, with moderate mucosal thickening seen into the inferior aspect of the very small residual left frontal sinus Right sphenoid sinus:. Near opacification-due to prominent mucosal thickening along posterior aspect of right sphenoid sinus. Initially question on CT head that there may be an air-fluid level but this appears to be merely a focal mucosal thickening posteriorly as seen on this sagittal reconstruction view. Small left sphenoid sinus with mild diffuse mucosal thickening No destructive or expansile bone changes associated with these areas of mucosal thickening noted above. Mastoid air cells. The right mastoid air cells are well developed clear unremarkable. Middle ear and IAC's and external canal unremarkable but Left mastoid air cells. There is mild mucosal thickening few of the inferior left mastoid air cells at the left mastoid tip of and posterior left mastoid. The more superior left mastoid air cells are clear. Left middle ear clear Medial and inferior wall of orbit intact orbital rim intact. Globes and retrobulbar region intact. IMPRESSION: Diffuse pansinusitis with underlying postsurgical changes as detailed in text Near opacification right ethmoid air cell and right sphenoid sinus due to the most pronounced mucosal thickening in these regions. Generous diffuse mucosal thickening also seen at both maxillary sinuses, left ethmoid sinuses and inferior frontal sinuses Dictated by: Juan Manuel Corley MD 08/14/2020 09:02 Juan Manuel Corley MD in [place] 08/14/2020 09:02
[2020-08-13 18:32] LABS: Basophils % 0.5 % (0.1-2.0); Eosinophils # 0.1 K/mm3 (0.0-0.4); Hematocrit 40.9 % (37.0-47.0); Lymphocytes # 2.1 K/mm3 (0.7-4.5); Mean Corpuscular HGB Conc 31.7 g/dL (31.8-35.4); Mean Corpuscular Hemoglobin 34.1 pg (27.0-31.2); Mean Corpuscular Volume 107.8 fl (81-99); Mean Platelet Volume 7.3 fl (7.4-10.4); Monocytes # 0.4 K/mm3 (0.1-1.0); Monocytes % 6.2 % (1.7-9.3); Neutrophils # 3.1 K/mm3 (1.8-7.8); Neutrophils % 55.3 % (37.0-80.0); Platelet Count 305 K/mm3 (142-424); Red Blood Count 3.79 M/mm3 (4.20-5.40); Red Cell Distribution Width 13.3 % (11.5-17.5); White Blood Count 5.6 K/mm3 (4.8-10.8)
--- NOTE | 2020-08-13 18:32 | HMH.EDHA ---
ED Disposition Clinical Impression: Tension headache Disposition: Home, Self-Care Condition on Discharge: Good Referrals: Viktor Rebolledo MD [Primary Care Provider] - - Critical Care Critical Care Time: No Attestation: On 08/13/20, the high probability of a clinically significant, sudden or life threatening deterioration of the following system(s) required my full and direct attention, intervention and personal management. The time I documented below is in addition to time spent performing reported procedures but includes the following listed in this critical care notation. Medical Decision Making - Medical Records Medical records reviewed: Yes: I reviewed the patient's medical records. - Jarrett Inquiry Pt receiving controlled substance: No Vital Signs: 08/13/20 17:31 08/13/20 18:13 Temperature 98.1 F 99.4 F Temperature Source Oral Oral Pulse Rate [Left Brachial] 114 H 110 H Respiratory Rate 24 16 Blood Pressure [Left Arm] 121/84 144/75 H Blood Pressure Mean [Left Arm] 96 98 Blood Pressure Source [Left Arm] Automatic Cuff Blood Pressure Position [Left Arm] Sitting Sitting 02 Sat by Pulse Oximetry 100 98 Oxygen Delivery Method Room Air Room Air - Lab Data Lab Results 08/13/20 18:15: WBC 5.6, RBC 3.79 L, Hgb 13.0, Hct 40.9, MCV 107.8 H, MCH 34.1 H, MCHC 31.7 L, RDW 13.3, Plt Count 305, MPV 7.3 L, Neut % (Auto) 55.3, Lymph % (Auto) 37.0, Boyle % (Auto) 6.2, Eos % (Auto) 1.0, Baso % (Auto) 0.5, Neut # (Auto) 3.1, Lymph # (Auto) 2.1, Boyle # (Auto) 0.4, Eos # (Auto) 0.1, Baso # (Auto) 0.0 08/13/20 18:15: Sodium 143, Potassium 3.9, Chloride 107, Carbon Dioxide 27, Anion Gap 12.9, BUN 16, Creatinine 0.90, Estimated Creat Clear 110, Estimated GFR 69, Est GFR ( Amer) 84, Glucose 116 H, Calcium 9.6, Total Bilirubin 0.5, AST 25, ALT 16, Alkaline Phosphatase 99, Total Protein 7.6, Albumin 4.4, Globulin 3.2, Albumin/Globulin Ratio 1.4 Result diagrams: 08/13/20 18:15 08/13/20 18:15 Orders (Tests/Meds): ED MEDICATIONS Generic Name Dose Route Start Last Admin Trade Name Freq PRN Reason Stop Dose Admin Sodium Chloride 1,000 mls @ 999 mls/hr 08/13/20 18:30 08/13/20 18:21 Sod Chlor 0.9% 1000ml Bag IV 08/13/20 19:30 999 mls/hr .Q1H1M MIGUE Administration Discontinued Medications Generic Name Dose Route Start Last Admin Trade Name Freq PRN Reason Stop Dose Admin Ketorolac Tromethamine 30 mg 08/13/20 19:14 Ketorolac 30mg/Ml Vial IV 08/13/20 19:15 ONCE ONE Orphenadrine Citrate 60 mg 08/13/20 19:14 Orphenadrine Citrate 60mg/2ml Vial IV 08/13/20 19:15 ONCE ONE Promethazine HCl 12.5 mg 08/13/20 19:14 Promethazine Hcl 25mg/Ml 1ml Vial IV 08/13/20 19:15 ONCE ONE Sodium Chloride 25 ml 08/13/20 19:14 Sodium Chloride 0.9% 25ml Bag IV 08/13/20 19:15 ONCE ONE ORDERS Category Date Time Status CT head/brain wo con Stat Cat Scan 08/13/20 18:[address] sinus wo con Stat Cat Scan 08/13/20 18:31 Taken - CT Data CT Scan: Head, Other (sinus) Time Received: 19:[address] Reviewed: Yes: I have reviewed the patient's CT results, I have viewed the radiologist's interpretation Findings Narrative: severe mccartney sinus disease w/ underlying postsurgical changes Headache HPI - General Chief Complaint: Headache Stated Complaint: Migraine, nausea Time Seen by Provider: 08/13/20 18:25 Mode of Arrival: Ambulatory Source of Information: Patient Limitations: No Limitations Description of Symptoms (Recalled from ER Triage Doc. by RN): TO ED PER PV[employer] CAR WITH C/O MIGRANE HERNANDEZ STARTING YESTERDAY, CONGESTION PT STATES HX OF SINUS SURGERY APPROX 3 WEEKS AGO. PT C/O NEAR SYNCOPAL EPISODE THIS AM BUT RESOLVED AFTER SHE LAID DOWN. PT C/O NAUSEA. DENIES FEVER - History of Present Illness HPI Narrative: This is a 40-year-old female that presents with headache ongoing since this morning. Headache started at the mastoids bilaterally went up to the templ
[2020-08-13 18:37] LABS: Alanine Aminotransferase 16 U/L (12-78); Albumin Level 4.4 g/dl (3.5-5.0); Albumin/Globulin Ratio 1.4 (1.1-1.8); Alkaline Phosphatase 99 U/L (38-126); Anion Gap 12.9 mEq/L (5-15); Aspartate Amino Transferase 25 U/L (14-36); Bilirubin,Total 0.5 mg/dl (0.2-1.3); Blood Urea Nitrogen 16 mg/dl (7-17); Calcium 9.6 mg/dl (8.4-10.2); Carbon Dioxide 27 mmol/L (22.0-30.0); Chloride 107 mmol/L (98-107); Creatinine Clearance Estimated 110 mL/min (50-200); Estimated Glomerular Filt Rate 69 ml/min (>60); GFR (African American) 84 ML/MIN (>60); Globulin 3.2 g/dL (1.3-3.2); Glucose 116 mg/dl (74-100); Potassium 3.9 mmoL/L (3.5-5.1); Sodium 143 mmol/L (136-145); Total Protein,Serum 7.6 g/dl (6.3-8.2)
[2020-08-13 19:57] VITALS: BP 156/97; PULSE 98; RESP 18; O2SAT 98
[2020-08-13 20:27] VITALS: BP 160/100; PULSE 102; RESP 18; TEMP 36.7; O2SAT 97
== END 2020-08-13 20:29 | disposition home or self-care (01) ==
LOC: UTC 17:28 → ER 18:10
PROVIDERS: Emergency Medicine; Emergency Provider Nurse Practitioner Family; PCP Internal Medicine Adolescent Medicine
DX: G44.209 Tension-type headache, unspecified, not intractable (principal); I51.89 Other ill-defined heart diseases; J44.9 Chronic obstructive pulmonary disease, unspecified; G43.709 Chronic migraine without aura, not intractable, without status migrainosus; I10 Essential (primary) hypertension; E78.5 Hyperlipidemia, unspecified; I25.10 Atherosclerotic heart disease of native coronary artery without angina pectoris; K21.9 Gastro-esophageal reflux disease without esophagitis; Z87.442 Personal history of urinary calculi; N28.9 Disorder of kidney and ureter, unspecified; E03.9 Hypothyroidism, unspecified; Z90.49 Acquired absence of other specified parts of digestive tract; Z90.710 Acquired absence of both cervix and uterus; Z79.899 Other long term (current) drug therapy
CPT/HCPCS: 70450; 70486; 80053; 85025; 96365; 96375; 99283

== ENCOUNTER 2020-08-30 13:34 | Outpatient (CLI) | payer MEDICARE, SELFPAY ==
[2020-08-30 13:54] VITALS: BP 111/69; PULSE 85; RESP 18; TEMP 36.1; O2SAT 96
== END 2020-08-30 13:54 | disposition home or self-care (01) ==
LOC: INF 13:34
PROVIDERS: Visit Provider Allergy & Immunology
DX: J45.50 Severe persistent asthma, uncomplicated (principal)
CPT/HCPCS: 96372; J2182

== ENCOUNTER 2020-09-27 13:05 | Outpatient (CLI) | payer MEDICARE, SELFPAY ==
[2020-09-27 13:25] VITALS: BP 107/71; PULSE 71; RESP 18; TEMP 36.4
== END 2020-09-27 13:40 | disposition home or self-care (01) ==
LOC: INF 13:05
PROVIDERS: Visit Provider Allergy & Immunology
DX: J45.50 Severe persistent asthma, uncomplicated (principal)
CPT/HCPCS: 96372; J2182

== ENCOUNTER 2020-11-11 13:50 | Outpatient (CLI) | payer MEDICARE, SELFPAY ==
[2020-11-11 13:56] VITALS: BP 114/74; PULSE 80; RESP 18; TEMP 36.6
== END 2020-11-11 13:56 | disposition home or self-care (01) ==
LOC: INF 13:50
PROVIDERS: Visit Provider Allergy & Immunology
DX: J45.50 Severe persistent asthma, uncomplicated (principal)
CPT/HCPCS: 96372; J2182

== ENCOUNTER 2020-11-16 15:48 | Emergency (ER) | payer MEDICARE, SELFPAY ==
[2020-11-16 15:48] VITALS: BP 121/76; PULSE 86; RESP 16; TEMP 36.9; O2SAT 98; BMI 31.6
--- NOTE | 2020-11-16 16:34 | HMH.EDUTC ---
[facility] [place]ression: Encounter for laboratory testing for COVID-19 virus Sinusitis Qualifiers: Sinusitis location: unspecified location Chronicity: unspecified Qualified Code(s): J32.9 - Chronic sinusitis, unspecified Disposition: Home, Self-Care Condition on Discharge: Good Instructions: Sinusitis, DI for Sinusitis, Doxycycline, DI for COVID-19 (Suspected or Confirmed ), Coronavirus Disease 2019, Preventing the Spread of Coronavirus Discharge Instructions Additional Instructions: *Monitor Temp, Over the counter Motrin or Tylenol as directed/as needed Tylenol every 4 hours and Motrin every 6 hours (as long as your family doctor has told you that you can take it) for fever or pain. and straight to ER if unable to lower temp less than 101.0 after medication given *Warm salt water gargles may help to soothe the throat *Throat Lozenges *Warm fluids like tea with honey may help to soothe the throat *Sleep elevated *Humidifier/Vaporizer Take medication as prescribed Return if needed Follow up IMMEDIATELY for new or worsening symptoms or no Noticeable improvement over the next 48-72 hours. 911 for difficulty breathing or swallowing You were tested for today for COVID19 your test result should be back in the next 24-48 hours, you may call to the [facility] to see if your test results are back in the next 48 hours [phone] [facility] hours are 9am-9pm You was given a handout with instructions for Self Quarantine and Self isolation for while you wait on test results and what to do if they are positive If you are positive the Health Dept will be contacting you also Prescriptions: Doxycycline Monohydrate [Doxycycline Barnwell 100mg Tab] 100 mg PO BID 7 Days #14 tab Transmission Status: Received by [id number] Referrals: Viktor Rebolledo MD [Primary Care Provider] - As needed Time of Disposition: 16:51 Medical Decision Making - Jarrett Inquiry Pt receiving controlled substance: No Jarrett was queried for this patient: No Vital Signs: 11/16/20 15:48 11/16/20 16:53 Temperature 98.4 F 98.4 F Temperature Source Oral Oral Pulse Rate 86 Pulse Rate [Right] 86 Respiratory Rate 16 16 Blood Pressure 121/76 Blood Pressure [Right Arm] 121/76 Blood Pressure Mean [Right Arm] 91 02 Sat by Pulse Oximetry 98 Orders (Tests/Meds): ORDERS Category Date Time Status Covid-19 Nasal PCR Sendout P&C Stat Lab 11/16/20 16:08 Received Medical Decision Narrative: Patient reports that she has taken Doxy before without complications or reactions [facility] [place] - General Stated complaint: SOA Time Seen by Provider: 11/16/20 16:34 Description of Symptoms (Recalled from Triage Doc. by RN): pt request COVID test pt c/o of sore throat, SOA, congestion HEENT Symptoms (Recalled from RN notes): Yes Resp Symptoms (Recalled from RN notes): Yes Skin Symptoms (Recalled from RN notes): No MS Symptoms (Recalled from RN notes): No Functional Status (Recalled from RN notes): wnl - History of Present Illness Provider Complaint: Patient states that several people in her house has tested positive for COVID States that she is worried that she may have it now too States that she has been having sinus pain and pressure along with sore throat and drainage and felt like it was trying to move into her chest area and she wanted to come in and get checked before it got too bad - Related Data Home Medications Medication Instructions Recorded Confirmed levocetirizine 5 mg tablet 5 mg PO HS 01/31/18 09/27/20 montelukast 10 mg tablet 10 mg PO HS 01/31/18 09/27/20 omeprazole 40 mg capsule,delayed 40 mg PO BID 01/31/18 09/27/20 release umeclidinium 62.5 mcg/actuation 1 inh INHALATION Q24H 01/31/18 09/27/20 blister powder for inhalation pregabalin 150 mg capsule 150 mg PO BID cap 05/05/18 09/27/20 verapamil 240 mg 24 hr 240 mg PO DAILY 05/05/18 09/27/20 capsule,extended release Albuterol Sulfate [Albuterol 1.25 mg IH BIDP PRN 0
[2020-11-16 16:53] VITALS: BP 121/76; PULSE 86; RESP 16; TEMP 36.9
[2020-11-18 08:53] LABS: Covid-19 Nasal PCR Sendout P&C POSITIVE
--- NOTE | 2020-11-18 09:39 | PC.NURSE ---
patient informed of positive covid results
== END 2020-11-16 16:57 | disposition home or self-care (01) ==
PROVIDERS: Emergency Provider Nurse Practitioner; PCP Internal Medicine Adolescent Medicine
DX: U07.1 COVID-19 (principal); J32.9 Chronic sinusitis, unspecified; E03.9 Hypothyroidism, unspecified; J44.9 Chronic obstructive pulmonary disease, unspecified; E78.5 Hyperlipidemia, unspecified; I10 Essential (primary) hypertension; K21.9 Gastro-esophageal reflux disease without esophagitis; Z79.899 Other long term (current) drug therapy
CPT/HCPCS: G0463; 99203; U0004

== ENCOUNTER → 2020-12-08 14:33 | Outpatient (CLI) | payer MEDICARE, SELFPAY ==
--- NOTE | 2020-12-08 14:39 | XR_ITS ---
PROCEDURE: XR CHEST COMPLETE 4V CLINICAL HISTORY: bronchitis COMPARISON: CT [facility] CT CHEST W/O CONTRAST from 07/17/2013 CR CXR CHEST(2 VIEWS-NOT PORTABLE) from 02/08/2017 DX CXR CHEST(2 VIEWS-NOT PORTABLE) from 10/21/2017 CR CXR1VP XR chest portable from 06/30/2018 FINDINGS: The cardiomediastinal silhouette and pulmonary vascularity are within normal limits. There are atelectatic changes in the left lower lobe. The remaining lungs are clear. No effusions. No lobar consolidation No acute bony abnormalities. IMPRESSION: Left lower lobe atelectasis Dictated by: Henrry Palma MD 12/08/2020 15:53 Henrry Palma MD in [place] 12/08/2020 15:53
== END ==
PROVIDERS: PCP Internal Medicine Adolescent Medicine; Visit Provider Specialist
DX: R05 Cough (principal)
CPT/HCPCS: 71048

== ENCOUNTER 2020-12-09 13:30 | Outpatient (CLI) | payer MEDICARE, SELFPAY ==
[2020-12-09 13:46] VITALS: BP 136/81; PULSE 81; RESP 18; TEMP 36.1; O2SAT 99
== END 2020-12-09 13:46 | disposition home or self-care (01) ==
LOC: INF 13:35
PROVIDERS: Visit Provider Allergy & Immunology
DX: J45.50 Severe persistent asthma, uncomplicated (principal)
CPT/HCPCS: 96372; J2182

== ENCOUNTER 2020-12-25 13:48 | Emergency (ER) | payer MEDICARE, SELFPAY ==
[2020-12-25 14:00] VITALS: BP 117/76; PULSE 77; RESP 18; TEMP 37.1; O2SAT 98; BMI 28.0
--- NOTE | 2020-12-25 14:17 | HMH.EDUTC ---
[facility] [place] Clinical Impression: Migraine Qualifiers: Migraine type: unspecified Status migrainosus presence: without status migrainosus Intractability: not intractable Qualified Code(s): G43.909 - Migraine, unspecified, not intractable, without status migrainosus Disposition: Home, Self-Care Condition on Discharge: Good Instructions: Migraine -- Adult, DI for Migraine Additional Instructions: Go home lay down and sleep off remainder of Migraine Headache Do not take your Diclofenac since you had Torodol shot in the [facility] Follow up with your family Doctor if no improvement or return of migraine Return if needed Straight to ER if any life threatening symptoms Referrals: Viktor Rebolledo MD [Primary Care Provider] - As needed Time of Disposition: 14:41 Medical Decision Making - Jarrett Inquiry Pt receiving controlled substance: No Jarrett was queried for this patient: No Vital Signs: 12/25/20 14:00 Temperature 98.8 F Temperature Source Oral Pulse Rate [Right Brachial] 77 Respiratory Rate 18 Blood Pressure [Right Arm] 117/76 Blood Pressure Mean [Right Arm] 89 Blood Pressure Source [Right Arm] Automatic Cuff Blood Pressure Position [Right Arm] Sitting 02 Sat by Pulse Oximetry 98 Oxygen Delivery Method Room Air Orders (Tests/Meds): ED MEDICATIONS Discontinued Medications Generic Name Dose Route Start Last Admin Trade Name Freq PRN Reason Stop Dose Admin Diphenhydramine HCl 25 mg 12/25/20 14:35 12/25/20 14:57 Diphenhydramine 50mg/Ml Vial IM 12/25/20 14:36 25 mg ONCE ONE Administration Ketorolac Tromethamine 30 mg 12/25/20 14:34 12/25/20 14:57 Ketorolac 60mg/2ml Vial IM 12/25/20 14:35 30 mg ONCE ONE Administration Promethazine HCl 12.5 mg 12/25/20 14:35 12/25/20 14:57 Promethazine Hcl 12.5mg Tablet PO 12/25/20 14:36 12.5 mg ONCE ONE Administration Medical Decision Narrative: Patient reports that she has not taken her Diclofenac today Patient educated due to having Torodol shot in [facility] to not take it and wait till tomorrow Medications discussed with Pharmacy and dosed Patient received medication awaiting to come in to sign discharge papers Patient states that medication is easing headache and ready to go home and lay down to sleep off remainder of headache [facility] [place] - General Stated complaint: migraine Time Seen by Provider: 12/25/20 14:17 Mode of Arrival: Ambulatory Source of Information: Patient Limitations: No Limitations Description of Symptoms (Recalled from Triage Doc. by RN): PATIENT C/O MIGRAINE WITH NAUSEA SINCE LAST NIGHT HEENT Symptoms (Recalled from RN notes): Yes Resp Symptoms (Recalled from RN notes): No Skin Symptoms (Recalled from RN notes): No MS Symptoms (Recalled from RN notes): No Functional Status (Recalled from RN notes): WNL - History of Present Illness Provider Complaint: Patient states that she has a history of Migraine headaches State that she started having one yesterday and has continued to get worse States that sometimes she has to come in and get the migraine coctail to get rid of it so today when she was still having it she came in Denies worse headache in her life and reports it is like others she has had in the past - Related Data Home Medications Medication Instructions Recorded Confirmed levocetirizine 5 mg tablet 5 mg PO HS 01/31/18 12/08/20 montelukast 10 mg tablet 10 mg PO HS 01/31/18 12/08/20 omeprazole 40 mg capsule,delayed 40 mg PO BID 01/31/18 12/08/20 release umeclidinium 62.5 mcg/actuation 1 inh INHALATION Q24H 01/31/18 09/27/20 blister powder for inhalation pregabalin 150 mg capsule 150 mg PO BID cap 05/05/18 12/08/20 verapamil 240 mg 24 hr 240 mg PO DAILY 05/05/18 09/27/20 capsule,extended release Albuterol Sulfate [Albuterol 1.25 mg IH BIDP PRN 06/30/18 12/08/20 0.042% 1.25mg/3mL neb] Albuterol Sulfate [Proair Hfa 2 puffs IH QIDP PRN 06/30/18 12/08/20 90mcg/puff Inh] Cyanocobalamin
[2020-12-25 15:18] VITALS: BP 117/76; PULSE 77; RESP 18; TEMP 37.1; O2SAT 98
== END 2020-12-25 15:20 | disposition home or self-care (01) ==
PROVIDERS: Emergency Provider Nurse Practitioner; PCP Internal Medicine Adolescent Medicine
DX: G43.909 Migraine, unspecified, not intractable, without status migrainosus (principal); J44.9 Chronic obstructive pulmonary disease, unspecified; I25.10 Atherosclerotic heart disease of native coronary artery without angina pectoris; K21.9 Gastro-esophageal reflux disease without esophagitis; E78.5 Hyperlipidemia, unspecified; I10 Essential (primary) hypertension; E03.9 Hypothyroidism, unspecified; Z87.442 Personal history of urinary calculi
CPT/HCPCS: G0463; 96372; 99202

== ENCOUNTER → 2021-01-12 12:24 | Outpatient (CLI) | payer MEDICARE, SELFPAY ==
--- NOTE | 2021-01-12 12:29 | XR_ITS ---
PROCEDURE: XR CHEST 2V CLINICAL HISTORY: ATELECTASIS COMPARISON: CT [facility] CT CHEST W/O CONTRAST from 07/17/2013 DX CXR CHEST(2 VIEWS-NOT PORTABLE) from 10/21/2017 CR CXR1VP XR chest portable from 06/30/2018 CR XR CHEST COMPLETE 4V from 12/08/2020 FINDINGS: The cardiomediastinal silhouette and pulmonary vascularity are within normal limits. Linear density present in the left lower lobe consistent with atelectatic or fibrotic changes which has shown some mild improvement compared to the previous exam as evident on the lateral view. No new abnormalities are apparent No acute bony abnormalities. IMPRESSION: Persistent but slightly improved atelectasis and/or scarring in the left lower lobe Dictated by: Henrry Palma MD 01/12/2021 16:50 Henrry Palma MD in [place] 01/12/2021 16:50
[2021-01-12 12:55] LABS: MANUAL DIFFERENTIAL MANUAL DIFFERENTIAL (MANUAL DIFF)
[2021-01-12 13:41] LABS: Basophils # 0.1 K/mm3 (0-0.2); Eosinophils % 0.5 % (0.1-12.0); Hematocrit 41.1 % (37.0-47.0); Hemoglobin 13.1 g/dL (12.2-16.2); Lymphocytes # 2.4 K/mm3 (0.7-4.5); Lymphocytes % 40.3 % (10-50); Mean Corpuscular HGB Conc 31.9 g/dL (31.8-35.4); Mean Corpuscular Hemoglobin 32.9 pg (27.0-31.2); Mean Corpuscular Volume 103.2 fl (81-99); Mean Platelet Volume 8.1 fl (7.4-10.4); Monocytes # 0.3 K/mm3 (0.1-1.0); Monocytes % 4.7 % (1.7-9.3); Neutrophils # 3.1 K/mm3 (1.8-7.8); Neutrophils % 53.4 % (37.0-80.0); Platelet Count 261 K/mm3 (142-424); Red Blood Count 3.98 M/mm3 (4.20-5.40); Red Cell Distribution Width 15.1 % (11.5-17.5); White Blood Count 5.9 K/mm3 (4.8-10.8)
[2021-01-12 15:03] LABS: Alanine Aminotransferase 14 U/L (12-78); Albumin Level 4.4 g/dl (3.5-5.0); Albumin/Globulin Ratio 1.5 (1.1-1.8); Alkaline Phosphatase 78 U/L (38-126); Anion Gap 12.5 mEq/L (5-15); Aspartate Amino Transferase 22 U/L (14-36); Bilirubin,Total 0.5 mg/dl (0.2-1.3); Blood Urea Nitrogen 19 mg/dl (7-17); Calcium 9.7 mg/dl (8.4-10.2); Carbon Dioxide 27 mmol/L (22.0-30.0); Chloride 105 mmol/L (98-107); Estimated Glomerular Filt Rate 69 ml/min (>60); GFR (African American) 84 ML/MIN (>60); Glucose 81 mg/dl (74-100); Potassium 4.5 mmoL/L (3.5-5.1); Sodium 140 mmol/L (136-145); Total Protein,Serum 7.4 g/dl (6.3-8.2)
[2021-01-12 15:08] LABS: Anisocytosis 1+; Eosinophils % 1 % (0-3); Lymphocytes % 40 % (10-50); Macrocytosis 1+; Monocytes % 7 % (2-9); Neutrophils % 52 % (42-76); Platelet Estimate Normal; Total Cells Counted 100
[2021-01-12 15:35] LABS: Thyroid Stimulating Hormone 1.31 uIU/mL (0.465-4.68)
== END ==
PROVIDERS: PCP Internal Medicine Adolescent Medicine; Visit Provider Nurse Practitioner Family
DX: R49.0 Dysphonia (principal); R63.5 Abnormal weight gain; E78.5 Hyperlipidemia, unspecified; J98.11 Atelectasis
CPT/HCPCS: 36415; 71046; 80053; 84443; 85007; 85014; 85018; 85048; 85049

== ENCOUNTER 2021-01-13 12:20 | Outpatient (CLI) | payer MEDICARE, SELFPAY ==
[2021-01-13 12:50] VITALS: BP 111/81; PULSE 115; RESP 20; TEMP 36.3; O2SAT 100
== END 2021-01-13 12:50 | disposition home or self-care (01) ==
LOC: INF 12:24
PROVIDERS: Visit Provider Allergy & Immunology
DX: J45.50 Severe persistent asthma, uncomplicated (principal)
CPT/HCPCS: 96372; J2182

== ENCOUNTER 2021-03-16 13:00 | Outpatient (RCR) | payer MEDICARE, SELFPAY ==
--- NOTE | 2021-01-10 14:35 | HMH.PTOPEV ---
PT Outpatient Evaluation Rehab PT Outpatient Evaluation Start: 01/10/21 13:24 Freq: Status: Active Protocol: Document 01/10/21 13:51 DODIEGASTON (Rec: 01/10/21 14:10 HILAD [id number]) Electronically Signed By Mode Olmstead, PT 01/10/21 13:51 Outpatient Therapy Subjective History Subjective History Patient is a 40 year old female presenting to outpatient PT with reports of chronic cervical and lumbar spine pain with BLE/BUE intermittent radicular symtpoms. Patient underwent cervical spine discectomy approximately 1 year ago. Patient underwent lumbar spine fusion approx 10 years ago. Main complaint is cervical spine pain and associated migraines. Patient referred specifically for dry needling and aquatic therapy. Comorbidities include hx of asthma, HTN, HL, , appendectomy, cholecystectomy. Chief Complaint Pain,Stiff,Paresthesia, Weakness Symptom Type Ache Symptoms Relieved By Rest/Positioning,Prescription Meds Symptoms Aggravated By Standing,Bending/Stooping, Physical Activity,Lifting Prior Functional Limitations Reaching,Lifting,Housework, Sleeping,Standing,Squatting, Recreation Activity,Walking, Stairs,Balance,Bending/ Stooping Current Functional Limitations Reaching,Lifting,Housework, Sleeping,Standing,Squatting, Recreation Activity,Walking, Stairs,Balance,Bending/ Stooping Level of pain today (0-10) 4 Pain scale - at its best (0-10) 3 Pain scale - at its worst (0-10) 7 Cervical Eval Palpation Cervical Muscles R Cervical Paraspinal,L Cervical Paraspinal,R Suboccipital,L Suboccipital,R Upper Trapezius,L Upper Trapezius Cervical/Thoracic Palpation Findings Tenderness Posture Head/C-Spine Posture Sitting Position C-Spine Flattened Head/C-Spine Posture Standing Position C-Spine Flattened Flexibility Deficits Upper Trapezius Muscle Length (R) Mode
== END 2021-03-16 13:05 | disposition home or self-care (01) ==
LOC: PT 13:00
PROVIDERS: PCP Internal Medicine Adolescent Medicine; Visit Provider Specialist
DX: M54.2 Cervicalgia (principal); G43.719 Chronic migraine without aura, intractable, without status migrainosus; G89.29 Other chronic pain; M54.5 Low back pain; Z98.890 Other specified postprocedural states
CPT/HCPCS: 20560; 20561; 97010; 97014; 97110; 97140; 97163; 97164; G0283

== ENCOUNTER → 2021-05-19 10:12 | Outpatient (CLI) | payer MEDICARE, SELFPAY ==
[2021-05-19 10:28] LABS: Basophils # 0.1 K/mm3 (0-0.2); Basophils % 1.1 % (0.1-2.0); Eosinophils # 0.1 K/mm3 (0.0-0.4); Eosinophils % 1.7 % (0.1-12.0); Hematocrit 37.7 % (37.0-47.0); Hemoglobin 12.9 g/dL (12.2-16.2); Lymphocytes % 42.7 % (10-50); Mean Corpuscular HGB Conc 34.1 g/dL (31.8-35.4); Mean Corpuscular Hemoglobin 32.8 pg (27.0-31.2); Mean Corpuscular Volume 96.3 fl (81-99); Mean Platelet Volume 7.5 fl (7.4-10.4); Monocytes # 0.3 K/mm3 (0.1-1.0); Monocytes % 4.4 % (1.7-9.3); Neutrophils # 3.5 K/mm3 (1.8-7.8); Neutrophils % 50.1 % (37.0-80.0); Platelet Count 262 K/mm3 (142-424); Red Blood Count 3.92 M/mm3 (4.20-5.40); Red Cell Distribution Width 14.1 % (11.5-17.5); White Blood Count 7.1 K/mm3 (4.8-10.8)
[2021-05-19 10:54] LABS: Alanine Aminotransferase 13 U/L (12-78); Albumin/Globulin Ratio 1.4 (1.1-1.8); Alkaline Phosphatase 94 U/L (38-126); Anion Gap 13.4 mEq/L (5-15); Aspartate Amino Transferase 23 U/L (14-36); Bilirubin,Total 0.5 mg/dl (0.2-1.3); Blood Urea Nitrogen 13 mg/dl (7-17); Calcium 8.9 mg/dl (8.4-10.2); Carbon Dioxide 25 mmol/L (22.0-30.0); Chloride 105 mmol/L (98-107); Chol/HDL Ratio 4.3 (1-3.5); Cholesterol 201 mg/dl (140-200); Estimated Glomerular Filt Rate 79 ml/min (>60); GFR (African American) 96 ML/MIN (>60); Globulin 2.9 g/dL (1.3-3.2); Glucose 86 mg/dl (74-100); HDL Cholesterol 47 mg/dl (40-60); Potassium 4.4 mmoL/L (3.5-5.1); Sodium 139 mmol/L (136-145); Total Protein,Serum 6.9 g/dl (6.3-8.2); Triglycerides 188 mg/dl (30-150); VLDL Cholesterol 38 mg/dL (0-40)
[2021-05-19 11:05] LABS: Direct LDL Cholesterol 118.86 mg/dL (100-129)
[2021-05-19 11:43] LABS: Vitamin B12 991 pg/mL (239-931)
== END ==
PROVIDERS: Visit Provider Internal Medicine Adolescent Medicine
DX: E78.5 Hyperlipidemia, unspecified (principal); E53.8 Deficiency of other specified B group vitamins
CPT/HCPCS: 36415; 80053; 80061; 82607; 85025

== ENCOUNTER 2021-08-19 13:35 | Emergency (ER) | payer MEDICARE, SELFPAY ==
[2021-08-19 13:40] VITALS: BP 112/71; PULSE 74; RESP 18; TEMP 36.7; O2SAT 98; BMI 29.9
--- NOTE | 2021-08-19 13:57 | HMH.EDUTC ---
[facility] [place] Clinical Impression: Sinusitis Qualifiers: Sinusitis location: maxillary Chronicity: acute Recurrence: non-recurrent Qualified Code(s): J01.00 - Acute maxillary sinusitis, unspecified Migraine Qualifiers: Migraine type: other Status migrainosus presence: without status migrainosus Intractability: not intractable Qualified Code(s): G43.809 - Other migraine, not intractable, without status migrainosus Disposition: Home, Self-Care Condition on Discharge: Good Instructions: Sinusitis, Sinus Headache, DI for Sinusitis Additional Instructions: Start antibiotic patient to take as ordered for a full length of time even if you feel better. Sinus infections do not get better overnight. It may take 2-3 days to notice much improvement so be sure to use conservative measures as discussed for symptoms. Flonase 1 spray each nostril daily to help with nasal congestion, sinus and ear pressure/information Increase fluids Humidifier/vaporizer as needed Tylenol and ibuprofen as needed for fever or pain. If symptoms do not improve or get worse return or be seen in the ER Follow-up with primary care this week Prescriptions: cephALEXin [Cephalexin 500mg Tab] 500 mg PO BID 7 Days #14 tab Transmission Status: Pending to [facility] Fluticasone Propionate [Flonase 50mcg nasal spray 16gm] 1 spr NS DAILY 14 Days #9.9 ml Transmission Status: Pending to [id number] Referrals: Viktor Rebolledo MD [Primary Care Provider] - Time of Disposition: 14:45 Medical Decision Making - Jarrett Inquiry Pt receiving controlled substance: No Vital Signs: 08/19/21 13:40 08/19/21 14:39 Temperature 98.1 F 98.1 F Temperature Source Oral Pulse Rate 74 Pulse Rate [Right Brachial] 74 Respiratory Rate 18 18 Blood Pressure 112/71 Blood Pressure [Right Arm] 112/71 Blood Pressure Mean [Right Arm] 84 Blood Pressure Source [Right Arm] Automatic Cuff Blood Pressure Position [Right Arm] Sitting 02 Sat by Pulse Oximetry 98 Oxygen Delivery Method Room Air Orders (Tests/Meds): ED MEDICATIONS Discontinued Medications Generic Name Dose Route Start Last Admin Trade Name Freq PRN Reason Stop Dose Admin Dexamethasone Sodium Phosphate 4 mg 08/19/21 14:32 08/19/21 14:37 Dexamethasone 4mg/Ml 1ml Vial IM 08/19/21 14:33 4 mg ONCE ONE Administration [facility] [place] HPI - General Chief complaint: Urgent Treatment Center Stated complaint: migrane Time Seen by Provider: 08/19/21 13:57 Mode of Arrival: Ambulatory Source of Information: Patient Limitations: No Limitations Description of Symptoms (Recalled from Triage Doc. by RN): PATIENT C/O SINUS DRAINAGE AND HEADACHE SINCE LAST NIGHT HEENT Symptoms (Recalled from RN notes): Yes Resp Symptoms (Recalled from RN notes): No Skin Symptoms (Recalled from RN notes): No MS Symptoms (Recalled from RN notes): No Functional Status (Recalled from RN notes): WNL - History of Present Illness Provider Complaint: 41 yr old female presents for headache, sinus congestion,sinus tenderness and sinus pressure for 2 days. pt states she took her ubrelvy with little results, pt states like her normal headaches she gets with sinus infections. - Related Data Home Medications Medication Instructions Recorded Confirmed levocetirizine 5 mg tablet 5 mg PO HS 01/31/18 07/17/21 montelukast 10 mg tablet 10 mg PO HS 01/31/18 07/17/21 omeprazole 40 mg capsule,delayed 40 mg PO BID 01/31/18 07/17/21 release umeclidinium 62.5 mcg/actuation 1 inh INHALATION Q24H 01/31/18 07/17/21 blister powder for inhalation pregabalin 150 mg capsule 150 mg PO BID cap 05/05/18 07/17/21 verapamil 240 mg 24 hr 240 mg PO DAILY 05/05/18 07/17/21 capsule,extended release Albuterol Sulfate [Albuterol 1.25 mg IH BIDP PRN 06/30/18 07/17/21 0.042% 1.25mg/3mL neb] Albuterol Sulfate [Proair Hfa 2 puffs IH QIDP PRN 06/30/18 07/17/21 90mcg/puff Inh] Cyanocobalamin (Vitamin B-12) 1,000 mcg PO DAILY 08
[2021-08-19 14:39] VITALS: BP 112/71; PULSE 74; RESP 18; TEMP 36.7; O2SAT 98
== END 2021-08-19 14:53 | disposition home or self-care (01) ==
PROVIDERS: Emergency Provider Nurse Practitioner Family; PCP Internal Medicine Adolescent Medicine
DX: J01.00 Acute maxillary sinusitis, unspecified (principal); G43.809 Other migraine, not intractable, without status migrainosus; J44.9 Chronic obstructive pulmonary disease, unspecified; I25.10 Atherosclerotic heart disease of native coronary artery without angina pectoris; K21.9 Gastro-esophageal reflux disease without esophagitis; E03.9 Hypothyroidism, unspecified; I10 Essential (primary) hypertension; E78.5 Hyperlipidemia, unspecified; Z79.899 Other long term (current) drug therapy
CPT/HCPCS: G0463; 96372; 99202

== ENCOUNTER 2021-08-29 11:00 | Outpatient (RCR) | payer MEDICARE, SELFPAY ==
--- NOTE | 2021-08-16 14:33 | HMH.PTOPEV ---
PT Outpatient Evaluation Rehab PT Outpatient Evaluation Start: 08/16/21 14:17 Freq: Status: Active Protocol: Document 08/16/21 14:17 HILDA (Rec: 08/16/21 14:33 HILDA [id number]) Electronically Signed By Mode Olmstead, PT 08/16/21 14:17 Outpatient Therapy Subjective History Subjective History Patient is a 41 year old female presenting to outpatient PT with reports of chronic cervical spine pain with associated headaches and migraines. Patient reports daily headaches and migrianes 2x/week. Patient underwent cervical spinal fusion and laminectomy approximately 1 year ago. Previous relief of headaches/migraines with dry needling earlier this year. Patient reports intermittent RUE radicular symptoms to C7/8 dermatomes. Comorbidities include hx of asthma, LS fusion and cholecystectomy. Chief Complaint Pain,Stiff,Paresthesia Symptom Type Ache,Sharp Symptoms Relieved By Rest/Positioning,Prescription Meds Symptoms Aggravated By Physical Activity,Lifting Prior Functional Limitations Reaching,Lifting,Housework, Sleeping Current Functional Limitations Reaching,Lifting,Sleeping Symptom Description Constant and Continuous, Constant but Variable Level of pain today (0-10) 6 Pain scale - at its best (0-10) 6 Pain scale - at its worst (0-10) 8 Cervical Eval Palpation Cervical Muscles R Cervical Paraspinal,L Cervical Paraspinal,R Suboccipital,L Suboccipital,R CT Junction,L CT Junction,R Upper Trapezius,L Upper Trapezius Cervical/Thoracic Palpation Findings Tenderness Posture Head/C-Spine Posture Sitting Position C-Spine Flattened Head/C-Spine Posture Standing Position C-Spine Flattened Flexibility Deficits Upper Trapezius Muscle Length (R) Moderate Tightness,(L) Moderate Tightness Levaetor Scapulae Muscle Length (R) Moderate Tightness,(L) Moderate Tightness Scalene Group Muscle Length (R) Moderate Tightness,(L) Moderate Tightness Pectoralis Minor Muscle Length (R) Moderate Tightness,(L)
== END 2021-08-29 11:05 | disposition home or self-care (01) ==
LOC: PT 11:00
PROVIDERS: PCP Internal Medicine Adolescent Medicine; Visit Provider Nurse Practitioner Family
DX: G43.719 Chronic migraine without aura, intractable, without status migrainosus (principal); M54.2 Cervicalgia; G89.29 Other chronic pain; Z98.890 Other specified postprocedural states
CPT/HCPCS: 20561; 97010; 97014; 97110; 97163; G0283

== ENCOUNTER 2021-09-05 13:19 | Emergency (ER) | payer MEDICARE, SELFPAY ==
[2021-09-05 15:03] VITALS: BP 153/107; PULSE 132; RESP 20; TEMP 37.3; O2SAT 100; BMI 29.9
--- NOTE | 2021-09-05 15:21 | HMH.EDUTC ---
[facility] [place] [facility] [place] Clinical Impression: Viral syndrome Disposition: Home, Self-Care Condition on Discharge: Good Instructions: DI for Viral Syndrome, Promethazine, DI for COVID-19 (Suspected or Confirmed ), Preventing the Spread of Coronavirus Discharge Instructions Prescriptions: Promethazine HCl [Phenergan 25mg tab] 25 mg PO Q6H PRN #20 tab PRN Reason: Nausea And Vomiting Transmission Status: Received by [id number] Referrals: Viktor Rebolledo MD [Primary Care Provider] - Forms: Work/School Release Time of Disposition: 15:41 Medical Decision Making - Medical Records Medical records reviewed: No: I reviewed the patient's medical records. - Jarrett Inquiry Pt receiving controlled substance: No Vital Signs: 09/05/21 15:03 09/05/21 15:55 Temperature 99.1 F 99.1 F Temperature Source Oral Pulse Rate 115 H Pulse Rate [Right Brachial] 132 H Respiratory Rate 20 20 Blood Pressure 141/95 H Blood Pressure [Right Arm] 153/107 H Blood Pressure Mean [Right Arm] 122 Blood Pressure Source [Right Arm] Automatic Cuff Blood Pressure Position [Right Arm] Sitting 02 Sat by Pulse Oximetry 100 Oxygen Delivery Method Room Air - Lab Data Lab results reviewed: Yes: I reviewed the patient's lab results. Lab Results 09/05/21 15:34: Strep Scn Rapid Clinic Negative Orders (Tests/Meds): ORDERS Category Date Time Status Covid-19 Nasal PCR ([facility]) Routine Lab 09/05/21 15:38 Received Strep Screen Confirmation Routine Micro 09/05/21 15:34 Received [facility] [place] [facility] [place] - General Stated complaint: headache,runny nose Time Seen by Provider: 09/05/21 15:21 Mode of Arrival: Ambulatory Source of Information: Patient Limitations: No Limitations Description of Symptoms (Recalled from Triage Doc. by RN): headaceh, nausea, short of brearg when up, bad since last night, but fighting headache and stomach last few days HEENT Symptoms (Recalled from RN notes): Yes Resp Symptoms (Recalled from RN notes): Yes Skin Symptoms (Recalled from RN notes): No MS Symptoms (Recalled from RN notes): No Functional Status (Recalled from RN notes): n/a - History of Present Illness Provider Complaint: She states that since yesterday she has had nausea and vomiting and a head ache. She denies any sore throat. She denies diarrhea. She has been having some chilling, but no documented fever at home. - Related Data Home Medications Medication Instructions Recorded Confirmed levocetirizine 5 mg tablet 5 mg PO HS 01/31/18 07/17/21 montelukast 10 mg tablet 10 mg PO HS 01/31/18 07/17/21 omeprazole 40 mg capsule,delayed 40 mg PO BID 01/31/18 07/17/21 release umeclidinium 62.5 mcg/actuation 1 inh INHALATION Q24H 01/31/18 07/17/21 blister powder for inhalation pregabalin 150 mg capsule 150 mg PO BID cap 05/05/18 07/17/21 verapamil 240 mg 24 hr 240 mg PO DAILY 05/05/18 07/17/21 capsule,extended release Albuterol Sulfate [Albuterol 1.25 mg IH BIDP PRN 06/30/18 07/17/21 0.042% 1.25mg/3mL neb] Albuterol Sulfate [Proair Hfa 2 puffs IH QIDP PRN 06/30/18 07/17/21 90mcg/puff Inh] Cyanocobalamin (Vitamin B-12) 1,000 mcg PO DAILY 06/30/18 07/17/21 [Vitamin B12 5mg Tab] Ergocalciferol (Vitamin D2) 1,000 unit PO DAILY 06/30/18 07/17/21 [Vitamin D] Fluticasone Propion/Salmeterol 2 puffs IH BID 06/30/18 07/17/21 [Advair Hfa 230-21 Mcg Inhaler] Tramadol HCl [Ultram 50mg tablet] 50 mg PO Q8 PRN 06/30/18 07/17/21 Pravastatin Sodium [Pravachol 20mg 20 mg PO HS 07/01/18 07/17/21 Tablet] ondansetron HCl 8 mg tablet 4 mg PO BID PRN 07/10/18 07/17/21 aspirin 81 mg tablet,delayed 81 mg PO DAILY 05/25/19 07/17/21 release dicyclomine 20 mg tablet 20 mg PO ONCE tab 05/25/19 07/17/21 Azelastine/Fluticasone [Dymista 23 gm NS BID 09/14/19 07/17/21 Nasal [place]] Isosorbide Mononitrate [Imdur 30mg 30 mg PO DAILY 09/14/19 07/17/21 ER tablet] Acetaminophen [Tylenol 500mg 500 mg PO NEEDED PRN 09/22/19 07/17/21 tablet]
[2021-09-05 15:48] LABS: UTC Strep Screen (Rapid) Negative (Negative)
[2021-09-05 15:55] VITALS: BP 141/95; PULSE 115; RESP 20; TEMP 37.3
== END 2021-09-05 16:00 | disposition home or self-care (01) ==
PROVIDERS: Emergency Provider Nurse Practitioner Family; PCP Internal Medicine Adolescent Medicine
DX: B34.9 Viral infection, unspecified (principal); I25.10 Atherosclerotic heart disease of native coronary artery without angina pectoris; K21.9 Gastro-esophageal reflux disease without esophagitis; J45.909 Unspecified asthma, uncomplicated; E03.9 Hypothyroidism, unspecified; E78.5 Hyperlipidemia, unspecified; Z20.822 Contact with and (suspected) exposure to COVID-19
CPT/HCPCS: G0463; 87880; 99203; C9803; U0003; U0005

== ENCOUNTER → 2021-10-02 15:10 | Outpatient (CLI) | payer MEDICARE, SELFPAY | PROVIDERS: Visit Provider Nurse Practitioner Family | DX: Z01.812 Encounter for preprocedural laboratory examination (principal); Z20.822 Contact with and (suspected) exposure to COVID-19; R40.0 Somnolence | CPT/HCPCS: C9803; U0003; U0005 ==

== ENCOUNTER → 2021-10-03 21:20 | Outpatient (CLI) | payer MEDICARE, SELFPAY | PROVIDERS: PCP Internal Medicine Adolescent Medicine; Visit Provider Nurse Practitioner Family | DX: G47.30 Sleep apnea, unspecified (principal); R40.0 Somnolence | CPT/HCPCS: 95810 ==

== ENCOUNTER → 2021-10-10 12:19 | Outpatient (CLI) | payer MEDICARE, SELFPAY ==
--- NOTE | 2021-10-10 | CA_ITS ---
APPROVED REPORT Exam: Pharmacologic Technologist: Joanna Alvarez, Ht: 5 ft 5 in Wt: 185 lbs BSA: 1.91 m2 HR: 81 bpm BP: 130/83 mmHg Rhythm: NSR, right axis Indications: SOB, CP Medical History Medical History: HTN, Hyperlipidemia Medications: Omeprazole,,,,, Isosorbide,,,,, Metoprolol,,,,, Verapamil,,,,, Asa,,,,, Lyrica,,,,, Albuterol,,,,, Estradiol,,,,, Tramadol,,,,, Montelukast,,,,, ProMETHAZINE,,,,, B12,,,,, Cardiac Risk Factors: HTN, Hyperlipidemia Stress Test Details Test: LEXISCAN HR Resting HR: 84 bpm Max Heart Rate (APMHR): 179.803316 bpm Max HR Achieved: 111 bpm Target HR (85% APMHR): 152.069906 bpm % of APMHR: 62.01 Recovery HR: 97 bpm BP Resting BP: 130/83 mmHg Max BP: 161/89 mmHg Recovery BP: 150.0/85.0 mmHg ECG Resting ECG: NSR, right axis Clinical Exercise duration: 04:01 min Highest Stage Achieved: Exercise capacity: 1.0 METs Stress ECG Conclusion During lexiscan pt experinced chest tightness and SOA. No arrhythmias noted. NS T wave changes. Non diagnostic lexiscan stress. Myoview images reported separately. Test Summary REST . . . . . . . Sitting REST 02:54 . . 84 . 130/ 83 . . Stage 1 01:00 . . 104 . . . . Stage 2 01:00 . . 110 . 113/ 73 . . Stage 3 01:00 . . 107 . 108/ 78 . . Stage 4 01:00 . . 100 . 127/ 82 . . Stage 4 01:01 . . 101 . 127/ 82 . Stop exercise at 04:01 RECOVERY 01:00 . . 97 . . . . RECOVERY 02:00 . . 97 . 150/ 85 . . RECOVERY 03:00 . . 103 . 142/ 92 . . RECOVERY 04:00 . . 97 . 142/ 92 . . RECOVERY 05:00 . . 98 . 161/ 89 . . RECOVERY 06:00 . . 92 . 134/ 81 . . RECOVERY 06:47 . . 96 . 134/ 81 . . Electronically signed by : iGo Moreno MD 10/10/2021 19:10:46
--- NOTE | 2021-10-10 12:19 | NM_ITS ---
APPROVED REPORT Exam: Nuclear Stress Test Indication: Chest pain, SOB, Palpitations, HTN, High cholesterol, Family history, CAD Patient Location: Outpatient Stress Tech: Joanna Alvarez NM Tech:Melva Bruner, ARRT, RT (R)(N) Ht: 5 ft 5 in Wt: 185 lbs Bra Size: D HR: 84 bpm BP: 130/83 mmHg BSA: 1.91 m2 BMI: 30.7 History: Chest pain, SOB, Palpitations, HTN, High cholesterol, Family history, CAD Procedure: Patient received a 0.4 mg of intravenous Lexiscan, resting heart rate 84 bpm, resting blood pressure 130/83 mmHg, with Lexiscan maximum heart rate achived was 111 bpm which is Less than 85 % of the maximum predicted heart rate and blood pressure was 161/89 mmHg. With Lexiscan, patient denied any complaint of chest pain. Electrocardiogram Resting electrocardiogram showed sinus rhythm, with Lexiscan there is less than 1.[address] segment depression noted from the baseline EKG. The EKG portion of the Lexiscan is nondiagnostic. Cardiac Stress and Resting SPECT Images: Cardiac Stress and Resting SPECT images were obtained using technetium 99m Myoview 32.2 mCi stress and 10.48 mCi at rest. Patient unable to lay on belly for prone images. Gated SPECT for analysis of segmental wall motion and calculation of the ejection fraction also done. Cardiac stress and resting SPECT images are uninterpretable due to excessive extracardiac gut activity, repeat study with better technique is recommended, computer derived ejection fraction is 59% with no regional wall motion abnormality. Conclusion: 1. The EKG portion of the Lexiscan Myoview is nondiagnostic. 2. Uninterpretable myocardial perfusion imaging due to technical issues as well as extracardiac activity adjacent to myocardial segments. A repeat study with better technique is recommended. Preserved left ventricular systolic function. 3. Repeat study at no charge to the patient is recommended. Electronically signed by : Gio Moreno MD 10/10/2021 19:39:54
--- NOTE | 2021-10-10 12:52 | CA_ITS ---
APPROVED REPORT EXAM: Comprehensive 2D, Doppler, and color-flow Echocardiogram Sample Maker: Toña Be RVT Ht: 5 ft 5 in Wt: 185lbs BSA: 1.91 BP: 134/83 mmHg Indications: SOA,CP,CAD,HTN,DD,HLD 2D Dimensions LVOT 2.10 cm (M/F) 1.5-2.5 LA Volume 20.20 mL LA Volume Index 10.57 mL/m2 (M/F) 16-34 M-Mode Dimensions RVDd 1.75 cm (0.9-2.6) LA Diam 2.74 cm (1.9-4.0) LVDd 4.76 cm (3.5-5.7) Ao Diam 2.71 cm (2.0-3.7) LVDs 2.90 cm (3.5-5.7) IVSd 1.07 cm (0.6-1.1) PWd 0.64 cm (0.6-1.1) EF (Teich) 69.40% FS 39.10% EDV (Teich) 105.40 mL TAPSE 1.53 (<1.7) ESV (Teich) 32.20 mL LV Diastology E Decel Time 113.00 (160-240 msec) E/A Ratio 1.5 MED E' 8.40 (< 7 cm/sec) E'/MED E' Ratio 13.40 (>14) LAT E' 14.00 (<10 cm/sec) E/LAT E' Ratio 8.04 (>14) Aortic Valve AI PHT 870.00 ms Mitral Valve MV E Max [place]. 113.00 (40-130 cm/s) MV A Velocity 75.00 (40-130 cm/s) E/A Ratio 1.50 MV Decel. Time 113.00 (160-240 ms) MV PHT 33.00 ms Pulmonary Valve PV Peak Velocity 75.00 (50-150 cm/s) Tricuspid Valve TR P. Velocity 139.00 cm/s RAP Estimate 10.00 mmHg RVSP 17.70 mmHg Left Ventricle Left atrium normal size, left ventricle is normal size, there is no concentric left ventricular hypertrophy, visually estimated ejection fraction 55% with no regional wall motion abnormality, diastolic parameters are within normal range. Right Ventricle Right atrium and right ventricle are normal size and contractility. Aortic Valve Aortic valve is minimally thickened and fibrosed, there is no aortic stenosis, there is mild aortic insufficiency. Mitral Valve Mitral valve grossly normal, there is trace mitral regurgitation. Tricuspid Valve Tricuspid valve grossly normal, there is trace tricuspid regurgitation, tricuspid regurgitation jet velocity is inadequate for calculation of the right ventricular systolic pressure. Pulmonic Valve Pulmonic valve is poorly visualized. Great Vessels Aortic root is normal size. Inferior vena cava is normal size and normal inspiratory collapse. Pericardium No significant pericardial effusion noted. Conclusion 1. Normal left ventricular size, preserved left ventricular systolic function, visually estimated ejection fraction 55% with no obvious regional wall motion abnormality, diastolic parameters are within normal range. 2. Mild aortic, trace mitral and tricuspid regurgitation. 3. No significant pericardial effusion noted. 4. Inferior vena cava is normal size with normal inspiratory collapse. Electronically signed by : Gio Moreno MD 10/10/2021 19:00:59
--- NOTE | 2021-10-10 13:35 | HMH.ITSHM ---
Current Home Medications as stated by this patient Jennie Joe or loan servicing representative. []TERCONAZOLE PROMETHAZINE PRAVASTATIN ISOSORBIDE VITAMIN D2 VERAPAMIL TIZANIDINE SPIRONOLACTONE RANOLAZINE PREGABLIN OMEPRAZOLE OXYCODONE FUROSEMIDE ONDANSETRON NORTRIPTYLINE MONTELUKAST METOPROLOL LEVOCETIRIZINE FLUTICASONE ESTRADIOL ERENUMAB DICYCLOMINE DICLOFENAC ASA UBRELVY TRAMADOL VITAMIN B12 DYMISTA ALBUTEROL
== END ==
PROVIDERS: PCP Internal Medicine Adolescent Medicine; Visit Provider Nurse Practitioner Family
DX: E78.2 Mixed hyperlipidemia (principal); I10 Essential (primary) hypertension; I25.10 Atherosclerotic heart disease of native coronary artery without angina pectoris
CPT/HCPCS: 78452; 93017; 93306; A9502; J2785

== ENCOUNTER 2021-10-15 10:48 | Emergency (ER) | payer MEDICARE, SELFPAY ==
[2021-10-15] VITALS (7 sets, daily range): BP systolic 122–191; BP diastolic 73–101; PULSE 86–90; RESP 15–20; TEMP 36.7–36.8; O2SAT 98–100; BMI 30.7
--- NOTE | 2021-10-15 10:57 | PC.NURSE ---
Rad notified of CT head stroke protocol
--- NOTE | 2021-10-15 10:58 | CT_ITS ---
PROCEDURE INFORMATION: Exam: CT Head Without Contrast Exam date and time: 10/15/2021 10:58 AM Age: 41 years old Clinical indication: Speech disturbance; Slurred speech; Additional info: Stroke protocol TECHNIQUE: Imaging protocol: Computed tomography of the head without contrast. Radiation optimization: All CT scans at this facility use at least one of these dose optimization techniques: automated exposure control; mA and/or kV adjustment per patient size (includes targeted exams where dose is matched to clinical indication); or iterative reconstruction. Other technique: STROKE PROTOCOL was implemented. COMPARISON: CT HEAD/BRAIN WO CON 08/13/2020 6:44 PM FINDINGS: Brain: Normal. No hemorrhage. Unremarkable white matter. No mass effect. Cerebral ventricles: No ventriculomegaly. Paranasal sinuses: There there have been prior bilateral maxillary antrectomies and ethmoidectomies. There is mucosal thickening in the left maxillary sinus. There is mucosal thickening in multiple ethmoid air cells. There is opacification of the left frontal recess and mucosal thickening in the left frontal sinus. Mastoid air cells: Visualized mastoid air cells are well aerated. Bones/joints: Unremarkable. No acute fracture. Soft tissues: Unremarkable. IMPRESSION: 1. No acute intracranial abnormality. 2. Paranasal sinus opacification as described. Clinical correlation for chronic sinusitis is recommended. ASSESSMENT: ASPECTS ([facility] Stroke Program Early CT Score) is 10.
--- NOTE | 2021-10-15 10:59 | PC.NURSE ---
Pt to rad
--- NOTE | 2021-10-15 10:59 | PC.NURSE ---
pt to CT
[2021-10-15 11:00] LABS: POC Glucose,Bedside 92 (70-110)
--- NOTE | 2021-10-15 11:06 | ECG_ITS ---
APPROVED REPORT Exam: Resting ECG HR:94 bpm ECG Measurements Heart Rate 94 AXES NV 214 P 61 QRSd 114 QRS 90 QT 538 T 60 QTc 672 Conclusion Sinus rhythm with 1st degree AV block Rightward axis Low voltage QRS Prolonged QT Abnormal ECG Electronically signed by : Viktor Rebolledo MD 10/16/2021 20:19:48
--- NOTE | 2021-10-15 11:06 | PC.NURSE ---
pt return from CT
--- NOTE | 2021-10-15 11:19 | HMH.EDGENADL ---
ED Disposition Clinical Impression: Word finding difficulty Disposition: Home, Self-Care Condition on Discharge: Good Instructions: Receptive Aphasia Additional Instructions: Please follow up with your primary care physician and neurology team in 2 to 3 days for further management. Please return back to the emergency department if symptoms recur. Referrals: Viktor Rebolledo MD [Primary Care Provider] - Time of Disposition: 14:05 - Critical Care Critical Care Time: Yes Attestation: On 10/15/21, the high probability of a clinically significant, sudden or life threatening deterioration of the following system(s) required my full and direct attention, intervention and personal management. The time I documented below is in addition to time spent performing reported procedures but includes the following listed in this critical care notation. Total Critical Care Time: 30 Vital system(s) involved:: Central Nervous System My critical care processes included: Assessment & monitoring of V/S, Initial and Re-exams, Data Review/Interpretation, Coordinating Care, Medication Orders and management, Documentation Medical Decision Making - Medical Records Medical records reviewed: Yes: I reviewed the patient's medical records. - Jarrett Inquiry Pt receiving controlled substance: No Vital Signs: 10/15/21 10:49 10/15/21 12:06 10/15/21 12:30 Temperature 98.0 F Temperature Source Oral Pulse Rate 89 90 Pulse Rate [Right Radial] 89 Respiratory Rate 20 15 Blood Pressure 143/94 H 147/94 H Blood Pressure [Right Arm] 191/101 H Blood Pressure Mean 111 Blood Pressure Mean [Right Arm] 131 Blood Pressure Source Blood Pressure Source [Right Arm] Automatic Cuff Blood Pressure Position Blood Pressure Position [Right Arm] Sitting 02 Sat by Pulse Oximetry 98 99 98 Oxygen Delivery Method Room Air 10/15/21 13:00 10/15/21 13:30 10/15/21 13:57 Temperature Temperature Source Pulse Rate 89 88 87 Pulse Rate [Right Radial] Respiratory Rate 16 16 16 Blood Pressure 122/73 136/81 130/83 Blood Pressure [Right Arm] Blood Pressure Mean 89 99 93 Blood Pressure Mean [Right Arm] Blood Pressure Source Blood Pressure Source [Right Arm] Blood Pressure Position Blood Pressure Position [Right Arm] 02 Sat by Pulse Oximetry 99 100 99 Oxygen Delivery Method 10/15/21 14:04 Temperature 98.3 F Temperature Source Oral Pulse Rate 86 Pulse Rate [Right Radial] Respiratory Rate 18 Blood Pressure 130/83 Blood Pressure [Right Arm] Blood Pressure Mean Blood Pressure Mean [Right Arm] Blood Pressure Source Automatic Cuff Blood Pressure Source [Right Arm] Blood Pressure Position Supine Blood Pressure Position [Right Arm] 02 Sat by Pulse Oximetry Oxygen Delivery Method Room Air - Lab Data Lab Results 10/15/21 10:53: POC Glucose 92 10/15/21 11:30: WBC 7.5, RBC 3.90 L, Hgb 12.8, Hct 37.5, MCV 96.1, MCH 32.9 H, MCHC 34.2, RDW 12.1, Plt Count 200, MPV 8.7, Neut % (Auto) 73.9, Lymph % (Auto) 21.2, [place] % (Auto) 4.4, Eos % (Auto) 0.4, Baso % (Auto) 0.2, Neut # (Auto) 5.6, Lymph # (Auto) 1.6, [place] # (Auto) 0.3, Eos # (Auto) 0.0, Baso # (Auto) 0.0 10/15/21 11:30: Sodium 136, Potassium 4.1, Chloride 102, Carbon Dioxide 27, Anion Gap 11.1, BUN 13, Creatinine 0.70, Estimated Creat Clear 140, Estimated GFR 92, Est GFR ( Amer) 112, Glucose 101 H, Calcium 9.0, Magnesium 1.7, Total Bilirubin 0.3, AST 32, ALT 17, Alkaline Phosphatase 98, Troponin I < 0.01, Total Protein 7.3, Albumin 4.2, Globulin 3.1, Albumin/Globulin Ratio 1.4, TSH 6.15 H Result diagrams: 10/15/21 11:30 10/15/21 11:30 Orders (Tests/Meds): ED MEDICATIONS Discontinued Medications Generic Name Dose Route Start Last Admin Trade Name Freq PRN Reason Stop Dose Admin Sodium Chloride 1,000 mls @ 999 mls/hr 10/15/21 11:15 10/15/21 12:02 Sod Chlor 0.9% 1000ml Bag IV 10/15/21 12:15 999 mls/hr .Q1H1M MIGUE Administration
--- NOTE | 2021-10-15 11:32 | PC.NURSE ---
blood sent to lab
[2021-10-15 11:47] LABS: Chloride 102 mmol/L (98-107)
[2021-10-15 11:48] LABS: Potassium 4.1 mmoL/L (3.5-5.1); Sodium 136 mmol/L (136-145)
--- NOTE | 2021-10-15 11:48 | PC.NURSE ---
on the phone with AD
[2021-10-15 11:50] LABS: Alanine Aminotransferase 17 U/L (12-78); Aspartate Amino Transferase 32 U/L (14-36); Blood Urea Nitrogen 13 mg/dl (7-17); Creatinine Clearance Estimated 140 mL/min (50-200); Estimated Glomerular Filt Rate 92 ml/min (>60); GFR (African American) 112 ML/MIN (>60)
[2021-10-15 11:51] LABS: Albumin Level 4.2 g/dl (3.5-5.0); Albumin/Globulin Ratio 1.4 (1.1-1.8); Alkaline Phosphatase 98 U/L (38-126); Anion Gap 11.1 mEq/L (5-15); Bilirubin,Total 0.3 mg/dl (0.2-1.3); Carbon Dioxide 27 mmol/L (22.0-30.0); Globulin 3.1 g/dL (1.3-3.2); Glucose 101 mg/dl (74-100); Magnesium 1.7 mg/dl (1.6-2.3); Total Protein,Serum 7.3 g/dl (6.3-8.2)
[2021-10-15 11:54] LABS: Basophils % 0.2 % (0.1-2.0); Eosinophils % 0.4 % (0.1-12.0); Hematocrit 37.5 % (37.0-47.0); Hemoglobin 12.8 g/dL (12.2-16.2); Lymphocytes # 1.6 K/mm3 (0.7-4.5); Lymphocytes % 21.2 % (10-50); Mean Corpuscular HGB Conc 34.2 g/dL (31.8-35.4); Mean Corpuscular Hemoglobin 32.9 pg (27.0-31.2); Mean Corpuscular Volume 96.1 fl (81-99); Mean Platelet Volume 8.7 fl (7.4-10.4); Monocytes # 0.3 K/mm3 (0.1-1.0); Monocytes % 4.4 % (1.7-9.3); Neutrophils # 5.6 K/mm3 (1.8-7.8); Neutrophils % 73.9 % (37.0-80.0); Platelet Count 200 K/mm3 (142-424); Red Cell Distribution Width 12.1 % (11.5-17.5); White Blood Count 7.5 K/mm3 (4.8-10.8)
[2021-10-15 12:05] LABS: Troponin I < 0.01 ng/ml (0.00-0.034)
[2021-10-15 12:22] LABS: Thyroid Stimulating Hormone 6.15 uIU/mL (0.465-4.68)
--- NOTE | 2021-10-15 13:11 | ECG_ITS ---
APPROVED REPORT Exam: Resting ECG HR:90 bpm ECG Measurements Heart Rate 90 AXES DC 232 P 57 QRSd 116 QRS 84 QT 402 T 27 QTc 491 Conclusion Sinus rhythm with 1st degree AV block Low voltage QRS Prolonged QT Abnormal ECG Electronically signed by : Viktor Rebolledo MD 10/16/2021 20:19:19
== END 2021-10-15 14:04 | disposition home or self-care (01) ==
PROVIDERS: Emergency Provider Student in an Organized Health Care Education/Training Program; PCP Internal Medicine Adolescent Medicine
DX: R47.01 Aphasia (principal); J44.9 Chronic obstructive pulmonary disease, unspecified; I25.10 Atherosclerotic heart disease of native coronary artery without angina pectoris; E03.9 Hypothyroidism, unspecified; I10 Essential (primary) hypertension; E78.5 Hyperlipidemia, unspecified; K21.9 Gastro-esophageal reflux disease without esophagitis
CPT/HCPCS: 70450; 80053; 82962; 83735; 84443; 84484; 85025; 93005; 96365; 99283

== ENCOUNTER → 2021-10-19 06:50 | Outpatient (CLI) | payer MEDICARE, SELFPAY ==
--- NOTE | 2021-10-19 06:52 | NM_ITS ---
APPROVED REPORT Exam: Nuclear Stress Test Indication: Chest pain, SOB, Palpitations, Fatigue, HTN, High cholesterol, Family history Patient Location: Outpatient Stress Tech: Joanna MURRELL Tech:Fartun Gandara SASCHATray RT(R)(N) Ht: 5 ft 5 in Wt: 185 lbs Bra Size: D HR: 85 bpm BP: 112/64 mmHg BSA: 1.91 m2 BMI: 30.7 History: Chest pain, SOB, Palpitations, Fatigue, HTN, High cholesterol, Family history Procedure: Patient received a 0.4 mg of intravenous Lexiscan, resting heart rate 85 bpm, resting blood pressure 112/64 mmHg, with Lexiscan maximum heart rate achived was 138 bpm which is Less than 85 % of the maximum predicted heart rate and blood pressure was 115/73 mmHg. With Lexiscan, patient denied any complaint of chest pain. Electrocardiogram Resting electrocardiogram shows sinus rhythm, with the Lexiscan there is less than 1.[address] segment depression noted from the baseline EKG. The EKG portion of the Lexiscan is nondiagnostic. Cardiac Stress and Resting SPECT Images: Cardiac Stress and Resting SPECT images were obtained using technetium 99m Myoview 31.5 mCi stress and 10.82 mCi at rest. Gated SPECT for analysis of segmental wall motion and calculation of the ejection fraction also done. Cardiac stress and resting SPECT images show a mild fixed defect in the anterior wall with normal perfusion of the apex is likely secondary to soft tissue attenuation, no reversible ischemia seen, computer derived ejection fraction is over 65% with no regional wall motion abnormality, right ventricle is normal size and contractility. Conclusion: 1. The EKG portion of the Lexiscan is nondiagnostic. 2. No scintigraphic evidence of reversible ischemia seen, computer derived ejection fraction is over 65% with no regional wall motion abnormality, right ventricle is normal size and contractility. Reported transient ischemic dilatation in the study appears to be artifactual. 3. Likely normal Lexiscan Myoview study. Electronically signed by : Gio Moreno MD 10/20/2021 10:52:18
--- NOTE | 2021-10-19 06:52 | CA_ITS ---
APPROVED REPORT Exam: Pharmacologic Technologist: Joanna Alvarez, Ht: 5 ft 5 in Wt: 185 lbs BSA: 1.91 m2 HR: 85 bpm BP: 112/64 mmHg Rhythm: NSR, rightward axis, NS anterior T wave abns Medical History Medical History: HTN, , Hyperlipidemia Medications: Omeprazole,,,,, Aspirin,,,,, Metoprolol,,,,, Verapamil,,,,, Pravastatin,,,,, Lyrica,,,,, Albuterol,,,,, Tramadol,,,,, Montelukast,,,,, ProMETHAZINE,,,,, Diclofenac,,,,, Acetaminophen,,,,, Cardiac Risk Factors: HTN, Hyperlipidemia Stress Test Details Test: LEXISCAN HR Resting HR: 93 bpm Max Heart Rate (APMHR): 179.171620 bpm Max HR Achieved: 140 bpm Target HR (85% APMHR): 152.855709 bpm % of APMHR: 78.21 Recovery HR: 111 bpm BP Resting BP: 112/64 mmHg Max BP: 134/83 mmHg Recovery BP: 134.0/83.0 mmHg ECG Resting ECG: NSR, rightward axis, NS anterior T wave abns Clinical Exercise duration: 04:00 min Highest Stage Achieved: Exercise capacity: 1.0 METs Stress ECG Conclusion During lexiscan pt experinced chest pressure, SOA, discomfort between scapulas. No arrhymthias noted. .5-.75mm downsloping ST depression inferiorly and exaggeration of baseline T wave abns in anterior chest. Non diagnostic lexiscan stress, myoview imaging reported separately. Test Summary REST . . . . . . . Sitting REST 03:11 . . 93 . 112/ 64 . . Stage 1 01:00 . . 127 . . . . Stage 2 01:00 . . 138 . 115/ 73 . . Stage 3 01:00 . . 129 . 114/ 76 . . Stage 4 01:00 . . 123 . 115/ 76 . Stop exercise at 04:00 RECOVERY 01:00 . . 115 . . . . RECOVERY 02:00 . . 109 . 134/ 83 . . RECOVERY 03:00 . . 105 . 134/ 83 . . RECOVERY 04:00 . . 105 . 133/ 82 . . RECOVERY 05:00 . . 99 . 125/ 82 . . RECOVERY 05:28 . . 102 . 125/ 82 . . Electronically signed by : Gio Moreno MD 10/19/2021 13:32:30
== END ==
PROVIDERS: PCP Internal Medicine Adolescent Medicine; Visit Provider Internal Medicine Cardiovascular Disease
DX: I20.9 Angina pectoris, unspecified; I10 Essential (primary) hypertension; E78.5 Hyperlipidemia, unspecified
CPT/HCPCS: 93017; A9502; J2785

== ENCOUNTER → 2021-11-14 12:39 | Outpatient (CLI) | payer MEDICARE, SELFPAY ==
[2021-11-14 13:45] LABS: Erythrocyte Sedimentation Rate 40 mm/hr (0-20)
[2021-11-14 14:02] LABS: Chol/HDL Ratio 4.3 (1-3.5); Cholesterol 212 mg/dl (140-200); HDL Cholesterol 49 mg/dl (40-60); Triglycerides 220 mg/dl (30-150); VLDL Cholesterol 44 mg/dL (0-40)
[2021-11-14 14:13] LABS: Direct LDL Cholesterol 126.46 mg/dL (100-129)
[2021-11-14 14:20] LABS: Free Thyroxine Index 2.9 ug/dL (5.93-13.13); T4 (Thyroxine) 12.1 ug/dl (5.53-11.0); Triiodothryronine (T3) Uptake 24 % (23.5-40.5)
[2021-11-14 14:33] LABS: Thyroid Stimulating Hormone 1.35 uIU/mL (0.465-4.68)
[2021-11-14 15:10] LABS: Vitamin B12 734 pg/mL (239-931)
[2021-11-14 15:19] LABS: Folate 8.78 ng/mL
[2021-11-15 11:16] LABS: Ceruloplasmin 47.4 mg/dL (19.0-39.0); RA Latex Turbid. <10.0 IU/mL (<14.0)
[2021-11-15 18:09] LABS: Antinuclear Antibodies, IFA Negative (.)
[2021-12-22 11:37] LABS: Antinuclear Antibodies (ANA) NEGATIVE
== END ==
PROVIDERS: PCP Internal Medicine Adolescent Medicine; Visit Provider Nurse Practitioner Family
DX: E53.8 Deficiency of other specified B group vitamins (principal); G43.719 Chronic migraine without aura, intractable, without status migrainosus; I25.10 Atherosclerotic heart disease of native coronary artery without angina pectoris; R00.2 Palpitations; R25.1 Tremor, unspecified; R41.3 Other amnesia; R47.89 Other speech disturbances; R79.89 Other specified abnormal findings of blood chemistry; M25.50 Pain in unspecified joint; M25.60 Stiffness of unspecified joint, not elsewhere classified
CPT/HCPCS: 36415; 80061; 82390; 82607; 82746; 84436; 84443; 84479; 84550; 85651; 86038; 86431

== ENCOUNTER → 2021-11-16 08:18 | Outpatient (CLI) | payer MEDICARE, SELFPAY ==
--- NOTE | 2021-11-16 08:18 | MR_ITS ---
FINAL REPORT CLINICAL HISTORY: worsening headaches, word finding diff, memory loss. episode [id number] ago where hand weakness and body jerks. unable to get words out. headache and dizziness. prior mr 03-20-17 COMPARISON: 03/20/2017 FINDINGS: Multiplanar MR imaging of the brain was performed without contrast. There is no evidence of intracranial hemorrhage or mass. The ventricular size is normal. There is no evidence of shift of the midline structures. No abnormal extra-axial fluid collection is identified. The posterior fossa and brainstem have an unremarkable appearance. No area of abnormal restricted diffusion is identified. Normal major vessel vascular flow voids are seen. There is severe mucosal thickening of the maxillary sinuses which is new since the prior. There is opacification of several ethmoid air cells. IMPRESSION: Unremarkable brain with no acute intracranial abnormality. Sinusitis as above. Reviewed, Interpreted and Dictated by Andrzej Gómez III, MD Transcribed by Mary Baca Authenticated by Andrzej Gómez III, MD on 11/16/2021 10:05:[address] [facility]
--- NOTE | 2021-11-16 09:16 | CA_ITS ---
FINAL REPORT TECHNIQUE: Color Doppler, duplex Doppler and martinez scale sonography of the bilateral neck arterial vasculature was performed. Velocities were measured in the carotid arteries. Stenosis evaluation based on the validated velocity criteria. CLINICAL HISTORY: .Migraines with dysphasia FINDINGS: The peak systolic velocity of the right common carotid artery is 88 cm/s. The peak systolic velocity of the right internal carotid artery is 97 cm/s and end diastolic velocity 42 cm/s. A mild and moderate amount of plaque is present. The right external carotid artery is patent. The right vertebral artery is patent with antegrade flow. The peak systolic velocity of the left common carotid artery is 104 cm/s. The peak systolic velocity of the left internal carotid artery is 106 cm/s and end diastolic velocity 37 cm/s. A mild and moderate amount of plaque is present. The left external carotid artery is patent.The left vertebral artery is patent with antegrade flow. IMPRESSION: Less than 50% bilateral carotid stenoses. Bilateral patent vertebral arteries with antegrade flow. If indicated, CTA or MRA could further evaluate. Reviewed, Interpreted and Dictated by Andrzej Gómez III, MD Transcribed by Mary Baca Authenticated by Andrzej Gómez III, MD on 11/16/2021 11:21:47 AM [facility]
== END ==
LOC: RAD 08:18
PROVIDERS: PCP Internal Medicine Adolescent Medicine; Visit Provider Nurse Practitioner Family
DX: I25.10 Atherosclerotic heart disease of native coronary artery without angina pectoris (principal); R00.2 Palpitations; R41.3 Other amnesia; R47.89 Other speech disturbances
CPT/HCPCS: 70551; 93270; 93880

== ENCOUNTER → 2022-01-04 12:53 | Outpatient (CLI) | payer MEDICARE, SELFPAY ==
--- NOTE | 2022-01-04 12:57 | MR_ITS ---
FINAL REPORT CLINICAL HISTORY: Radiculopathy, cervical region. HX NECK SURGERY X2YRS AGO. LT SIDED NECK AND ARM PAIN, NUMBNESS, AND TINGLING. NO INJURY OR TRAUMA. HEADACHE. PRIOR MR 08-17-19 COMPARISON: 08/17/2019 FINDINGS: Multiplanar MR imaging of the cervical spine was performed without contrast. On the sagittal T2-weighted images, disc degeneration is seen throughout. There has been interval fusion of C5-6. There is no evidence of fracture. The vertebral alignment is normal. The cervical spinal cord has an unremarkable appearance without evidence of mass, edema or syrinx. No significant canal stenosis is identified. The cervicomedullary junction is normal. C2-3: There is no significant canal stenosis or neural foraminal narrowing. C3-4: Uncovertebral osteophytes are present with moderate left neural foraminal narrowing. C4-5: An annular bulge and uncovertebral osteophytes are present. There is mild right neural foraminal narrowing. C5-6: This level is fused. There is no significant canal stenosis or neural foraminal narrowing. C6-7: An annular bulge is present with mild bilateral neural foraminal narrowing. C7-T1: There is no significant canal stenosis or neural foraminal narrowing. IMPRESSION: Multilevel degenerative disc disease and spondylosis. Interval fusion of C5-6. Reviewed, Interpreted and Dictated by Andrzej Gómez III, MD Transcribed by Mary Baca Authenticated by Andrzej Gómez III, MD on 01/04/2022 03:36:09 PM [facility]
== END ==
LOC: RAD 12:53
PROVIDERS: PCP Internal Medicine Adolescent Medicine; Visit Provider Anesthesiology
DX: M54.12 Radiculopathy, cervical region (principal)
CPT/HCPCS: 72141; 76376

== ENCOUNTER 2022-07-09 13:16 | Emergency (ER) | payer MEDICARE, SELFPAY ==
--- NOTE | 2022-07-09 14:15 | EXP.UTC ---
Discharge Plan Disposition Patient Disposition: Home, Self-Care Condition: Good Prescriptions Prescriptions: New azithromycin [Zithromax] 250 mg tablet 250 mg PO UD DOSE PK Qty: 6 0RF Rx Instructions: Take two (2) tablets today, then one (1) tablet days #2 thru #5 benzonatate [benzonatate] 100 mg capsule 100 mg PO TIDP PRN (Reason: Cough) Qty: 30 0RF methylprednisolone 4 mg Tablets,Dose Pack 4 mg PO DIRECTED Qty: 21 0RF No Action ondansetron HCl [Zofran] 8 mg tablet 4 mg PO BID PRN (Reason: Nausea) Trelegy Ellipta 200-62.5-25 mcg blister with device 1 inh INHALATION DAILY furosemide 20 mg tablet See Rx Instructions .Route .COMPLEX Qty: 30 5RF Rx Instructions: Take 1 tablet by mouth once daily spironolactone 25 mg tablet 25 mg PO DAILY Qty: 30 5RF famotidine 20 mg tablet 20 mg PO BID tetracycline 500 mg capsule 500 mg PO BID Rx Instructions: nasal rinse levocetirizine 5 mg tablet 5 mg PO HS montelukast 10 mg tablet 10 mg PO HS omeprazole 40 mg capsule,delayed release(DR/EC) 40 mg PO BID dicyclomine 20 mg tablet 20 mg PO ONCE verapamil 240 mg capsule,ext rel. pellets 24 hr 240 mg PO DAILY pregabalin [Lyrica] 150 mg capsule 150 mg PO TID aspirin [Adult Low Dose Aspirin] 81 mg tablet,delayed release (DR/EC) 81 mg PO DAILY diclofenac sodium 1 % gel 2 g TOPICAL QID tizanidine 4 mg tablet 4 mg PO Q8H PRN (Reason: muscle spasms) lactulose 10 gram/15 mL solution 15 ml PO DAILY erenumab-aooe 140 mg/mL auto-injector 140 mg SQ QMONTH Qty: 1 5RF ranolazine 1,000 mg tablet extended release 12 hr See Rx Instructions .ROUTE .COMPLEX Qty: 180 2RF Dose Instruction: TAKE 1 TABLET BY MOUTH TWICE DAILY FOR HEART DISEASE Rx Instructions: TAKE 1 TABLET BY MOUTH TWICE DAILY FOR HEART DISEASE diclofenac sodium 50 mg tablet,delayed release (DR/EC) See Rx Instructions .ROUTE .COMPLEX Qty: 90 1RF Dose Instruction: TAKE 1 TABLET BY MOUTH ONCE DAILY NEEDED FOR PAIN Rx Instructions: TAKE 1 TABLET BY MOUTH ONCE DAILY NEEDED FOR PAIN metoprolol tartrate 100 mg tablet See Rx Instructions .ROUTE .COMPLEX Qty: 60 5RF Dose Instruction: Take 1 tablet by mouth twice daily Rx Instructions: Take 1 tablet by mouth twice daily Ubrelvy 100 mg tablet See Rx Instructions .ROUTE .COMPLEX Qty: 10 5RF Dose Instruction: TAKE 1 TABLET BY MOUTH ONCE DAILY NEEDED FOR MIGRAINE. MAXIMUM DOSE OF 2 TABLETS PER DAY AND 4 TABELTS PER WEEK. Rx Instructions: TAKE 1 TABLET BY MOUTH ONCE DAILY NEEDED FOR MIGRAINE. MAXIMUM DOSE OF 2 TABLETS PER DAY AND 4 TABELTS PER WEEK. nortriptyline 25 mg capsule 50 mg PO QHS Qty: 60 5RF estradiol 2 mg tablet See Rx Instructions .ROUTE .COMPLEX Qty: 90 3RF Dose Instruction: TAKE 1 TABLET BY MOUTH ONCE DAILY FOR HORMONE Rx Instructions: TAKE 1 TABLET BY MOUTH ONCE DAILY FOR HORMONE atogepant 60 mg tablet 60 mg PO DAILY Qty: 30 5RF azelastine-fluticasone 23 GM spray,non-aerosol 23 gm NS BID isosorbide mononitrate 30 MG tablet 30 mg PO DAILY acetaminophen 500 MG tablet 500 mg PO NEEDED PRN (Reason: Headache) oxycodone-acetaminophen 7.5-325 mg tablet 1 tab PO QID terconazole 20 GM cream 1 appful VAGINAL QHS fluticasone propionate 120 SPR/BOT bottle 1 spr NS DAILY 14 Days Qty: 9.9 0RF albuterol sulfate 1.25 MG/3 ML solution for nebulization 1.25 mg IH BIDP PRN (Reason: breathing) cyanocobalamin (vitamin B-12) 5,000 MCG tablet,disintegrating 1,000 mcg PO DAILY tramadol 50 MG tablet 50 mg PO Q8 PRN (Reason: pain) ergocalciferol (vitamin D2) 400 UNIT tablet 1,000 unit PO DAILY pravastatin 20 MG tablet 20 mg PO HS promethazine 25 MG tablet 25 mg PO Q6H PRN (Reason: Nausea And Vomiting) Qty
[2022-07-09 14:28] VITALS: BP 128/73; PULSE 84; RESP 16; TEMP 36.8; O2SAT 98; BMI 27.3
[2022-07-09 15:34] VITALS: BP 128/73; PULSE 84; RESP 16; TEMP 36.8
== END 2022-07-09 15:35 | disposition home or self-care (01) ==
PROVIDERS: Emergency Provider Nurse Practitioner Family; PCP Internal Medicine Adolescent Medicine
DX: J45.901 Unspecified asthma with (acute) exacerbation (principal); U07.1 COVID-19
CPT/HCPCS: 99212; C9803; G0463; U0003; U0005

== ENCOUNTER → 2022-11-22 12:36 | Outpatient (CLI) | payer MEDICARE, SELFPAY ==
--- NOTE | 2022-11-22 12:41 | XR_ITS ---
FINAL REPORT CLINICAL HISTORY: THORACIC PAIN FINDINGS: AP and lateral views of the thoracic spine were obtained. There is no prior exam for comparison. There is no acute fracture or acute malalignment. Vertebral body height and disc space height are preserved. The paraspinal soft tissues are normal. IMPRESSION: No acute osseous abnormality of the thoracic spine. Reviewed, Interpreted and Dictated by Rosalind Fung MD Transcribed by Trish Anna Authenticated and [facility]
== END ==
LOC: RAD 12:37
PROVIDERS: PCP Internal Medicine Adolescent Medicine; Visit Provider Physical Medicine & Rehabilitation
DX: M54.6 Pain in thoracic spine (principal)
CPT/HCPCS: 72070

== ENCOUNTER 2022-12-07 17:09 | Emergency (ER) | payer MEDICARE, SELFPAY ==
[2022-12-07 17:10] VITALS: BP 150/90; PULSE 90; RESP 16; TEMP 36.5; O2SAT 99; BMI 29.9
[2022-12-07 17:13] VITALS: BMI 28.1
--- NOTE | 2022-12-07 17:13 | CT_ITS ---
PROCEDURE INFORMATION: Exam: CT Head Without Contrast Exam date and time: 12/07/2022 5:19 PM Age: 42 years old Clinical indication: Stroke-like symptoms; Speech disturbance; Additional info: Slurred speech TECHNIQUE: Imaging protocol: Computed tomography of the head without contrast. Total images: 283 Radiation optimization: All CT scans at this facility use at least one of these dose optimization techniques: automated exposure control; mA and/or kV adjustment per patient size (includes targeted exams where dose is matched to clinical indication); or iterative reconstruction. Other protocol: This patient has received 0 known CTs and 0 known cardiac nuclear medicine studies in the 12 months prior to the current study. Other technique: STROKE PROTOCOL was implemented. COMPARISON: MR HEAD/BRAIN WO CON 11/16/2021 8:45 AM FINDINGS: Brain: No hemorrhage, mass effect or midline shift. Cerebral ventricles: No ventriculomegaly. Paranasal sinuses: Postoperative changes of both maxillary sinuses. Acute air-fluid levels present within the maxillary sinuses. Ethmoid air cells are clear. Mastoid air cells: No evidence of mastoiditis. Bones/joints: No acute fracture. Soft tissues: No acute changes IMPRESSION: 1. No hemorrhage, mass effect or midline shift. 2. Acute air-fluid levels present within the maxillary sinuses. ASSESSMENT: ASPECTS (Gypsy Stroke Program Early CT Score) is 10.
--- NOTE | 2022-12-07 17:15 | PC.NURSE ---
pt to CT via stretcher
--- NOTE | 2022-12-07 17:18 | PC.NURSE ---
fsbs 162 prior to going to ct
--- NOTE | 2022-12-07 17:22 | PC.NURSE ---
pt returned from radiology via stretcher
--- NOTE | 2022-12-07 17:22 | PC.NURSE ---
pt return from CT
--- NOTE | 2022-12-07 17:23 | HMH.EDGENADL ---
Discharge Plan Disposition Patient Disposition: Home, Self-Care Prescriptions Prescriptions: No Action ondansetron HCl [Zofran] 8 mg tablet 4 mg PO BID PRN (Reason: Nausea) Soni Ellipta 200-62.5-25 mcg blister with device 1 inh INHALATION DAILY famotidine 20 mg tablet 20 mg PO BID tetracycline 500 mg capsule 500 mg PO BID Rx Instructions: nasal rinse levocetirizine 5 mg tablet 5 mg PO HS montelukast 10 mg tablet 10 mg PO HS omeprazole 40 mg capsule,delayed release(DR/EC) 40 mg PO BID dicyclomine 20 mg tablet 20 mg PO ONCE verapamil 240 mg capsule,ext rel. pellets 24 hr 240 mg PO DAILY pregabalin [Lyrica] 150 mg capsule 150 mg PO TID aspirin [Adult Low Dose Aspirin] 81 mg tablet,delayed release (DR/EC) 81 mg PO DAILY diclofenac sodium 1 % gel 2 g TOPICAL QID tizanidine 4 mg tablet 4 mg PO Q8H PRN (Reason: muscle spasms) lactulose 10 gram/15 mL solution 15 ml PO DAILY erenumab-aooe 140 mg/mL auto-injector 140 mg SQ QMONTH Qty: 1 5RF diclofenac sodium 50 mg tablet,delayed release (DR/EC) See Rx Instructions .ROUTE .COMPLEX Qty: 90 1RF Dose Instruction: TAKE 1 TABLET BY MOUTH ONCE DAILY NEEDED FOR PAIN Rx Instructions: TAKE 1 TABLET BY MOUTH ONCE DAILY NEEDED FOR PAIN Ubrelvy 100 mg tablet See Rx Instructions .ROUTE .COMPLEX Qty: 10 5RF Dose Instruction: TAKE 1 TABLET BY MOUTH ONCE DAILY NEEDED FOR MIGRAINE. MAXIMUM DOSE OF 2 TABLETS PER DAY AND 4 TABELTS PER WEEK. Rx Instructions: TAKE 1 TABLET BY MOUTH ONCE DAILY NEEDED FOR MIGRAINE. MAXIMUM DOSE OF 2 TABLETS PER DAY AND 4 TABELTS PER WEEK. nortriptyline 25 mg capsule 50 mg PO QHS Qty: 60 5RF estradiol 2 mg tablet See Rx Instructions .ROUTE .COMPLEX Qty: 90 3RF Dose Instruction: TAKE 1 TABLET BY MOUTH ONCE DAILY FOR HORMONE Rx Instructions: TAKE 1 TABLET BY MOUTH ONCE DAILY FOR HORMONE atogepant 60 mg tablet 60 mg PO DAILY Qty: 30 5RF spironolactone 25 mg tablet 25 mg PO DAILY Qty: 90 3RF furosemide 20 mg tablet See Rx Instructions .Route .COMPLEX Qty: 90 3RF Rx Instructions: Take 1 tablet by mouth once daily metoprolol tartrate 100 mg tablet See Rx Instructions .ROUTE .COMPLEX Qty: 180 3RF Dose Instruction: Take 1 tablet by mouth twice daily Rx Instructions: Take 1 tablet by mouth twice daily ranolazine 1,000 mg tablet extended release 12 hr See Rx Instructions .ROUTE .COMPLEX Qty: 180 2RF Dose Instruction: TAKE 1 TABLET BY MOUTH TWICE DAILY FOR HEART DISEASE Rx Instructions: TAKE 1 TABLET BY MOUTH TWICE DAILY FOR HEART DISEASE terconazole 0.8 % cream 1 appful VAGINAL QHS Qty: 20 6RF azelastine-fluticasone 23 GM spray,non-aerosol 23 g intranasal BID isosorbide mononitrate 30 MG tablet 30 mg PO DAILY acetaminophen 500 MG tablet 500 mg PO NEEDED PRN (Reason: Headache) oxycodone-acetaminophen 7.5-325 mg tablet 1 tab PO QID fluticasone propionate 120 SPR/BOT bottle 1 spr intranasal DAILY 14 Days Qty: 9.9 0RF albuterol sulfate 1.25 MG/3 ML solution for nebulization 1.25 mg inhalation BIDP PRN (Reason: breathing) cyanocobalamin (vitamin B-12) 5,000 MCG tablet,disintegrating 1,000 mcg PO DAILY ergocalciferol (vitamin D2) 400 UNIT tablet 1,000 unit PO DAILY pravastatin 20 MG tablet 20 mg PO HS promethazine 25 MG tablet 25 mg PO Q6H PRN (Reason: Nausea And Vomiting) Qty: 20 0RF methylprednisolone 4 mg Tablets,Dose Pack 4 mg PO DIRECTED Qty: 21 0RF Referrals Follow up/Referrals: Viktor Rebolledo MD [Primary Care Provider] - See instructions Activity Restrictions/Add. Instructions Additional Instructions/Restrictions: Your chest pain and central nervous system evaluation were normal including a CT scan without any evidence of obvious stroke or
--- NOTE | 2022-12-07 17:27 | PC.NURSE ---
CASIE SPENCE at
--- NOTE | 2022-12-07 17:28 | PC.NURSE ---
CASIE SPENCE at
[2022-12-07 17:29] LABS: Basophils # 0.1 K/mm3 (0-0.2); Basophils % 1.3 % (0.1-2.0); Eosinophils # 0.1 K/mm3 (0.0-0.4); Eosinophils % 0.6 % (0.1-12.0); Hematocrit 42.7 % (37.0-47.0); Hemoglobin 13.7 g/dL (12.2-16.2); Lymphocytes # 1.9 K/mm3 (0.7-4.5); Lymphocytes % 21.2 % (10-50); Mean Corpuscular HGB Conc 32.1 g/dL (31.8-35.4); Mean Corpuscular Hemoglobin 32.7 pg (27.0-31.2); Mean Corpuscular Volume 101.8 fl (81-99); Mean Platelet Volume 8.2 fl (7.4-10.4); Monocytes # 0.4 K/mm3 (0.1-1.0); Monocytes % 3.9 % (1.7-9.3); Neutrophils # 6.6 K/mm3 (1.8-7.8); Platelet Count 284 K/mm3 (142-424); Red Blood Count 4.19 M/mm3 (4.20-5.40); Red Cell Distribution Width 14.5 % (11.5-17.5); White Blood Count 9.1 K/mm3 (4.8-10.8)
[2022-12-07 17:31] VITALS: BP 129/79; PULSE 85; RESP 16; O2SAT 99
[2022-12-07 17:31] LABS: Anion Gap 10.6 mEq/L (5-15); Blood Urea Nitrogen 15 mg/dl (7-17); Calcium 9.3 mg/dl (8.4-10.2); Carbon Dioxide 28 mmol/L (22.0-30.0); Chloride 107 mmol/L (98-107); Creatinine Clearance Estimated 105 mL/min (50-200); Estimated Glomerular Filt Rate 69 ml/min (>60); GFR (African American) 83 ML/MIN (>60); Glucose 114 mg/dl (74-100); Potassium 4.6 mmoL/L (3.5-5.1); Sodium 141 mmol/L (136-145)
--- NOTE | 2022-12-07 17:31 | PC.NURSE ---
CASIE SPENCE spoke with jadon at this time.
[2022-12-07 17:32] LABS: INR 0.98 (0.9-1.1); Prothrombin Time 10.6 seconds (10.1-12.5)
--- NOTE | 2022-12-07 17:32 | XR_ITS ---
PROCEDURE INFORMATION: Exam: XR Chest Exam date and time: 12/07/2022 5:56 PM Age: 42 years old Clinical indication: Shortness of breath; Additional info: Chest pain TECHNIQUE: Imaging protocol: Radiologic exam of the chest. Views: 1 view. Total images: 1 COMPARISON: CR XR CHEST 2V 01/12/2021 12:35 PM FINDINGS: Lungs: No focal pneumonia or pneumothorax. Pleural spaces: No pleural effusions. Heart/Mediastinum: Unremarkable. No cardiomegaly. Bones/joints: Postoperative changes lower cervical spine. IMPRESSION: 1. No focal pneumonia or pneumothorax. 2. No pleural effusions.
--- NOTE | 2022-12-07 17:56 | ECG_ITS ---
APPROVED REPORT Exam: Resting ECG HR:82 bpm ECG Measurements Heart Rate 82 AXES DC 224 P 40 QRSd 116 QRS 81 QT 404 T 28 QTc 443 Conclusion SINUS RHYTHM WITH FIRST DEGREE AV BLOCK MODERATE INTRAVENTRICULAR CONDUCTION DELAY [110+ ms QRS DURATION] NONSPECIFIC T-WAVE ABNORMALITY ABNORMAL ECG UNCONFIRMED REPORT Electronically signed by : Viktor Rebolledo MD 12/08/2022 20:44:03
[2022-12-07 18:05] VITALS: BP 136/80; PULSE 84; RESP 16; O2SAT 97
[2022-12-07 18:26] LABS: Troponin I < 0.01 ng/ml (0.00-0.034)
[2022-12-07 18:30] VITALS: BP 126/80; PULSE 69; O2SAT 96
--- NOTE | 2022-12-07 19:00 | PC.NURSE ---
pt sleeping at this time, family at BS
--- NOTE | 2022-12-07 19:13 | PC.NURSE ---
shift change report given to kaceyrn
[2022-12-07 19:43] VITALS: BP 117/79; PULSE 61; RESP 16; TEMP 36.5; O2SAT 96
== END 2022-12-07 19:45 | disposition home or self-care (01) ==
PROVIDERS: Emergency Provider Student in an Organized Health Care Education/Training Program; PCP Internal Medicine Adolescent Medicine
DX: R07.89 Other chest pain (principal); R53.1 Weakness; M62.838 Other muscle spasm; Z86.79 Personal history of other diseases of the circulatory system
CPT/HCPCS: 70450; 71045; 80048; 84484; 85025; 85610; 93005; 96361; 96374; 99285

== ENCOUNTER 2022-12-12 17:50 | Emergency (ER) | payer MEDICARE, SELFPAY ==
[2022-12-12 18:20] VITALS: BP 113/81; PULSE 90; RESP 18; TEMP 36.7; O2SAT 98; BMI 29.9
--- NOTE | 2022-12-12 20:06 | CT_ITS ---
PROCEDURE INFORMATION: Exam: CT Abdomen And Pelvis With Contrast Exam date and time: 12/12/2022 8:40 PM Age: 42 years old Clinical indication: Abdominal pain; Generalized; Additional info: Lower abd pain TECHNIQUE: Imaging protocol: Computed tomography of the abdomen and pelvis with contrast. Radiation optimization: All CT scans at this facility use at least one of these dose optimization techniques: automated exposure control; mA and/or kV adjustment per patient size (includes targeted exams where dose is matched to clinical indication); or iterative reconstruction. Contrast material: ISOVUE; Contrast volume: 75 ml; Contrast route: IV; Other protocol: This patient has received [address] and 0 known cardiac nuclear medicine studies in the 12 months prior to the current study. COMPARISON: ABDPELW/O CT ABD PELVIS W/O CONTRAST 02/06/2017 1:43 PM FINDINGS: Liver: Normal. No mass. Gallbladder and bile ducts: Cholecystectomy. Pancreas: Normal. No ductal dilation. Spleen: Normal. No splenomegaly. Adrenal glands: Normal. No mass. Kidneys and ureters: Normal. No hydronephrosis. Stomach and bowel: Constipation. No colitis. No small bowel obstruction. Appendix: No evidence of appendicitis. Intraperitoneal space: Unremarkable. No free air. No significant fluid collection. Vasculature: Unremarkable. No abdominal aortic aneurysm. Lymph nodes: Unremarkable. No enlarged lymph nodes. Urinary bladder: Unremarkable as visualized. Reproductive: Hysterectomy. Bones/joints: Unremarkable. No acute fracture. Soft tissues: Unremarkable. IMPRESSION: No acute findings.
[2022-12-12 20:39] LABS: Basophils # 0.1 K/mm3 (0-0.2); Basophils % 1.7 % (0.1-2.0); Eosinophils # 0.1 K/mm3 (0.0-0.4); Eosinophils % 1.4 % (0.1-12.0); Hematocrit 40.1 % (37.0-47.0); Hemoglobin 12.7 g/dL (12.2-16.2); Lymphocytes # 2.4 K/mm3 (0.7-4.5); Lymphocytes % 28.8 % (10-50); Mean Corpuscular HGB Conc 31.7 g/dL (31.8-35.4); Mean Corpuscular Hemoglobin 33.2 pg (27.0-31.2); Mean Corpuscular Volume 104.5 fl (81-99); Mean Platelet Volume 8.1 fl (7.4-10.4); Monocytes # 0.3 K/mm3 (0.1-1.0); Monocytes % 3.2 % (1.7-9.3); Neutrophils # 5.3 K/mm3 (1.8-7.8); Neutrophils % 64.8 % (37.0-80.0); Platelet Count 245 K/mm3 (142-424); Red Blood Count 3.84 M/mm3 (4.20-5.40); Red Cell Distribution Width 14.7 % (11.5-17.5); White Blood Count 8.2 K/mm3 (4.8-10.8)
[2022-12-12 20:42] LABS: Chloride 107 mmol/L (98-107)
[2022-12-12 20:43] LABS: Potassium 3.8 mmoL/L (3.5-5.1); Sodium 142 mmol/L (136-145)
[2022-12-12 20:45] LABS: Alanine Aminotransferase 25 U/L (12-78); Alkaline Phosphatase 86 U/L (38-126); Amylase 88 U/L (30-110); Anion Gap 10.8 mEq/L (5-15); Aspartate Amino Transferase 38 U/L (14-36); Bilirubin,Total 0.4 mg/dl (0.2-1.3); Blood Urea Nitrogen 14 mg/dl (7-17); Carbon Dioxide 28 mmol/L (22.0-30.0); Creatinine Clearance Estimated 105 mL/min (50-200); Estimated Glomerular Filt Rate 69 ml/min (>60); GFR (African American) 83 ML/MIN (>60)
[2022-12-12 20:46] LABS: Albumin Level 4.6 g/dl (3.5-5.0); Albumin/Globulin Ratio 1.4 (1.1-1.8); Calcium 9.2 mg/dl (8.4-10.2); Globulin 3.4 g/dL (1.3-3.2); Glucose 114 mg/dl (74-100); Lipase 80 U/L (23-300)
--- NOTE | 2022-12-12 22:17 | PC.NURSE ---
Rounded on pt. Pt notified that we have critical cases at this time and we will be back with them as soon as possible.
[2022-12-12 22:30] VITALS: BP 132/86; PULSE 89; O2SAT 100
[2022-12-12 23:00] VITALS: BP 150/89; PULSE 87; O2SAT 100
--- NOTE | 2022-12-12 23:12 | HMH.EDABDPAI ---
Discharge Plan Disposition Patient Disposition: Home, Self-Care Chief Complaint: Abdominal Pain Prescriptions Prescriptions: No Action ondansetron HCl [Zofran] 8 mg tablet 4 mg PO BID PRN (Reason: Nausea) Soni Ellipta 200-62.5-25 mcg blister with device 1 inh INHALATION DAILY famotidine 20 mg tablet 20 mg PO BID tetracycline 500 mg capsule 500 mg PO BID Rx Instructions: nasal rinse levocetirizine 5 mg tablet 5 mg PO HS montelukast 10 mg tablet 10 mg PO HS omeprazole 40 mg capsule,delayed release(DR/EC) 40 mg PO BID dicyclomine 20 mg tablet 20 mg PO ONCE verapamil 240 mg capsule,ext rel. pellets 24 hr 240 mg PO DAILY pregabalin [Lyrica] 150 mg capsule 150 mg PO TID aspirin [Adult Low Dose Aspirin] 81 mg tablet,delayed release (DR/EC) 81 mg PO DAILY diclofenac sodium 1 % gel 2 g TOPICAL QID tizanidine 4 mg tablet 4 mg PO Q8H PRN (Reason: muscle spasms) lactulose 10 gram/15 mL solution 15 ml PO DAILY erenumab-aooe 140 mg/mL auto-injector 140 mg SQ QMONTH Qty: 1 5RF diclofenac sodium 50 mg tablet,delayed release (DR/EC) See Rx Instructions .ROUTE .COMPLEX Qty: 90 1RF Dose Instruction: TAKE 1 TABLET BY MOUTH ONCE DAILY NEEDED FOR PAIN Rx Instructions: TAKE 1 TABLET BY MOUTH ONCE DAILY NEEDED FOR PAIN Ubrelvy 100 mg tablet See Rx Instructions .ROUTE .COMPLEX Qty: 10 5RF Dose Instruction: TAKE 1 TABLET BY MOUTH ONCE DAILY NEEDED FOR MIGRAINE. MAXIMUM DOSE OF 2 TABLETS PER DAY AND 4 TABELTS PER WEEK. Rx Instructions: TAKE 1 TABLET BY MOUTH ONCE DAILY NEEDED FOR MIGRAINE. MAXIMUM DOSE OF 2 TABLETS PER DAY AND 4 TABELTS PER WEEK. nortriptyline 25 mg capsule 50 mg PO QHS Qty: 60 5RF estradiol 2 mg tablet See Rx Instructions .ROUTE .COMPLEX Qty: 90 3RF Dose Instruction: TAKE 1 TABLET BY MOUTH ONCE DAILY FOR HORMONE Rx Instructions: TAKE 1 TABLET BY MOUTH ONCE DAILY FOR HORMONE atogepant 60 mg tablet 60 mg PO DAILY Qty: 30 5RF spironolactone 25 mg tablet 25 mg PO DAILY Qty: 90 3RF furosemide 20 mg tablet See Rx Instructions .Route .COMPLEX Qty: 90 3RF Rx Instructions: Take 1 tablet by mouth once daily metoprolol tartrate 100 mg tablet See Rx Instructions .ROUTE .COMPLEX Qty: 180 3RF Dose Instruction: Take 1 tablet by mouth twice daily Rx Instructions: Take 1 tablet by mouth twice daily ranolazine 1,000 mg tablet extended release 12 hr See Rx Instructions .ROUTE .COMPLEX Qty: 180 2RF Dose Instruction: TAKE 1 TABLET BY MOUTH TWICE DAILY FOR HEART DISEASE Rx Instructions: TAKE 1 TABLET BY MOUTH TWICE DAILY FOR HEART DISEASE terconazole 0.8 % cream 1 appful VAGINAL QHS Qty: 20 6RF azelastine-fluticasone 23 GM spray,non-aerosol 23 g intranasal BID isosorbide mononitrate 30 MG tablet 30 mg PO DAILY acetaminophen 500 MG tablet 500 mg PO NEEDED PRN (Reason: Headache) oxycodone-acetaminophen 7.5-325 mg tablet 1 tab PO QID fluticasone propionate 120 SPR/BOT bottle 1 spr intranasal DAILY 14 Days Qty: 9.9 0RF albuterol sulfate 1.25 MG/3 ML solution for nebulization 1.25 mg inhalation BIDP PRN (Reason: breathing) cyanocobalamin (vitamin B-12) 5,000 MCG tablet,disintegrating 1,000 mcg PO DAILY ergocalciferol (vitamin D2) 400 UNIT tablet 1,000 unit PO DAILY pravastatin 20 MG tablet 20 mg PO HS promethazine 25 MG tablet 25 mg PO Q6H PRN (Reason: Nausea And Vomiting) Qty: 20 0RF methylprednisolone 4 mg Tablets,Dose Pack 4 mg PO DIRECTED Qty: 21 0RF Referrals Follow up/Referrals: Viktor Rebolledo MD [Primary Care Provider] - See instructions Ant Rodriguez MD [Staff Physician] - See instructions Clinical Impressions Clinical Impression: Acute lower gastrointestinal bleeding, Acute hemorrhoid Instruct
[2022-12-12 23:19] LABS: Occult Blood,Stool Negative (Negative)
[2022-12-12 23:24] VITALS: BP 150/89; PULSE 85; RESP 16; TEMP 36.7; O2SAT 100
--- NOTE | 2022-12-12 23:27 | PC.NURSE ---
pt d/c at [id number]
== END 2022-12-12 23:25 | disposition home or self-care (01) ==
PROVIDERS: Emergency Provider Emergency Medicine; PCP Internal Medicine Adolescent Medicine
DX: K92.2 Gastrointestinal hemorrhage, unspecified (principal); K64.9 Unspecified hemorrhoids; Z86.79 Personal history of other diseases of the circulatory system
CPT/HCPCS: 74177; 80053; 82150; 82272; 83690; 85025; 99285; G0328; Q9967

== ENCOUNTER 2023-01-01 06:19 | Day surgery (SDC) | payer MEDICARE, SELFPAY ==
[2023-01-01 06:33] VITALS: BP 154/86; PULSE 69; RESP 18; TEMP 36.1; O2SAT 99; BMI 29.9
--- NOTE | 2023-01-01 07:08 | P.PN_ITS ---
[facility] Disclaimer: The information contained in this section may have been updated after the patient was seen, as this information can be updated by other users. Medical History Angina, class II Bradycardia Surgical History H/O lithotripsy History of appendectomy History of back surgery History of section History of cholecystectomy History of colonoscopy History of hysterectomy Family History Other Family history of cancer Family history of diabetes mellitus type II Family history of hypertension Family history of hypothyroidism Social History Smoking Status: Never smoker second hand exposure: No alcohol intake: never counseling provided: none substance use type: denies use current occupational status: disabled Travel in the last 8 weeks: None household members: spouse and children housing: house marital status: education level: college current occupational exposures/hazards: No caffeine: Yes special sheyla needs: No agree to transfusion: No do you feel safe at home: Yes victim of physical abuse: No victim of emotional abuse: No victim of sexual abuse: No would you like helpful sources: No [facility] Anesthesia Checklist Patient Identification Patient Identification: Arm Band Structural Data Admitted From: Home Planned Operative Procedure/s: EGD/Colonoscopy Consent for Planned Operative Procedure(s) Verified: Yes Verified Documents: Surgical Consent and History and Physical NPO Status Verified Time NPO: 00:00 Additional verifications Anesthesia Reactions: No Blood Transfusion Reaction: Yes Airway Assessment C-Spine Mobility Assessed: Yes TMJ Mobility Assessed: Yes Dentition: Edentulous Neurological Assessment Level of Consciousness: Awake and Alert Anesthesia Plan Anesthesia Risk discussed: Yes Anesthesia Plan: Verified ASA Class: II Anesthesia Type: MAC
[2023-01-01 07:20] VITALS: O2SAT 99
[2023-01-01 08:00] VITALS: BP 95/49; PULSE 71; RESP 12; TEMP 36.3; O2SAT 96
--- NOTE | 2023-01-01 08:02 | HMH.SCOPE ---
Procedure: Date: 01/01/23 Patient Date of :: 1980 Procedure Performed:: Esophagogastroduodenoscopy Anoscopy Colonoscopy Indications:: Melena Bright red blood per rectum Performing Provider:: Ant Rodriguez MD Referring Provider:: . Sedation:: Monitored anesthesia care Procedure:: After informed consent was obtained the patient was taken to the endoscopy suite. Sedation ensued after the patient was transferred to the left lateral decubitus position. Pulse, blood pressure, and oxygen saturation were monitored throughout the procedure. The endoscope was advanced beyond the duodenal bulb. Retroflexion within the gastric lumen was accomplished. The gastroscope was carefully removed. Digital rectal exam revealed no significant abnormality. Anoscopy was completed. The colonoscope was placed in position. The entire colon was evaluated. The colonoscope was carefully removed and the patient was transferred to recovery in stable condition. Please see findings and specimens below for detail. Findings:: Gastroesophageal junction at 40 cm No active bleeding No mass or ulcerative lesion Very small sliding hiatal hernia Mild to moderate streaking gastritis No obvious lesion or bleeding hemorrhoids noted per anoscopy or digital rectal exam Mild hemorrhoidal cushions Bowel preparation poor Specimens:: Antral biopsy Recommendations:: Follow-up pathology She will likely benefit from short-term repeat colonoscopy with extended/alternate bowel preparation Consider UGI/SBFT followed by capsule endoscopy Complications:: No immediate with the exception of poor bowel preparation Estimated blood obtained (mL): 1
[2023-01-01 08:10] VITALS: BP 104/59; PULSE 70; RESP 16; O2SAT 98
[2023-01-01 08:20] VITALS: BP 134/83; PULSE 70; RESP 16; O2SAT 100
[2023-01-01 08:30] VITALS: BP 130/78; PULSE 71; RESP 16; O2SAT 100
== END 2023-01-01 08:33 | disposition home or self-care (01) ==
PROVIDERS: PCP Internal Medicine Adolescent Medicine; Visit Provider Surgery
PROC: 0DJ08ZZ Inspection of Upper Intestinal Tract, Via Natural or Artificial Opening Endoscopic (ICD-10-PCS; CPT 43235; principal; 2023-01-01 07:30)
DX: K62.5 Hemorrhage of anus and rectum (principal); Z79.899 Other long term (current) drug therapy; K29.70 Gastritis, unspecified, without bleeding; K44.9 Diaphragmatic hernia without obstruction or gangrene; Z91.199 Patient's noncompliance with other medical treatment and regimen due to unspecified reason
CPT/HCPCS: 43239; 45378; 88305

== ENCOUNTER → 2023-01-30 07:57 | Outpatient (CLI) | payer MEDICARE, SELFPAY ==
--- NOTE | 2023-01-30 08:01 | FL_ITS ---
FINAL REPORT CLINICAL HISTORY: C/O FOOD GETTING STUCK, OCCASIONALLY COMING BACK UP W HEART BURN. PT DX W IBS, ACID REFLUX. PT STATES SHE'S HAD BLOOD IN HER STOOL X 1 MONTH AGO. RECENT COLONOSCOPY. FINDINGS: UPPER GI WITH SBFT HISTORY: Dysphagia with heartburn. Acute epigastric pain. Blood in stool. PROCEDURE: The patient ingested barium. Effervescent crystals were also administered. Spot and overhead films were obtained. Additional barium was administered for a SBFT. FINDINGS: UGI: There is irregular mucosa with extrinsic mass effect upon the upper esophagus. Esophageal dysmotility was demonstrated during the exam. No gastroesophageal reflux was demonstrated during the exam. Rugal folds of the stomach are prominent. The stomach empties appropriately. The duodenal bulb is normal. SBFT: The ceramic sprayer film is normal. There is no evidence of obstruction. The mucosal fold pattern is normal. The terminal ilium is normal. FLUOROSCOPY TIME: 2 minutes 18 seconds. 27 radiographs were obtained. IMPRESSION: Abnormal appearance to the proximal esophagus with mass effect and prominent rugal folds of the stomach. Endoscopic correlation is recommended. Unremarkable small bowel follow-through. Films reviewed , interpreted and dictated by Dr. Rosalind Fung. Transcribed by Juan Manuel Diaz PA-C. Reviewed, Interpreted and Dictated by Rosalind Fung MD Transcribed by EFFIE Gutierres Authenticated and [facility]
== END ==
LOC: RAD 07:58
PROVIDERS: PCP Internal Medicine Adolescent Medicine; Visit Provider Surgery
DX: D64.9 Anemia, unspecified (principal)
CPT/HCPCS: 74246; 74248

== ENCOUNTER → 2023-02-14 14:39 | Outpatient (CLI) | payer MEDICARE, SELFPAY ==
[2023-02-14 15:35] LABS: Blood Urea Nitrogen 18 mg/dl (7-17); Estimated Glomerular Filt Rate 68 ml/min (>60); GFR (African American) 83 ML/MIN (>60)
[2023-02-14 16:06] LABS: Thyroid Stimulating Hormone 2.01 uIU/mL (0.465-4.68)
[2023-02-14 16:41] LABS: Vitamin B12 813 pg/mL (239-931)
[2023-02-14 16:44] LABS: Folate 6.03 ng/mL
== END ==
PROVIDERS: PCP Internal Medicine Adolescent Medicine; Referring Provider Surgery; Visit Provider Nurse Practitioner Family
DX: G43.719 Chronic migraine without aura, intractable, without status migrainosus (principal); G93.40 Encephalopathy, unspecified; R46.89 Other symptoms and signs involving appearance and behavior; R41.3 Other amnesia
CPT/HCPCS: 36415; 82565; 82607; 82746; 84443; 84520

== ENCOUNTER → 2023-02-15 09:18 | Outpatient (CLI) | payer MEDICARE, SELFPAY ==
--- NOTE | 2023-02-15 09:18 | CT_ITS ---
FINAL REPORT CLINICAL HISTORY: poss mass in proximal esophagus, asthma FINDINGS: Axial CT images of the chest were obtained with contrast. Coronal reformatted images were also obtained. This study was performed with techniques to keep radiation doses as low as reasonably achievable, (ALARA). Individualized dose reduction techniques using automated exposure control or adjustment of mA and/or KV according to the patient's size were employed. There is no evidence of mediastinal or hilar mass or adenopathy. No axillary mass or adenopathy is identified. Postoperative changes are seen in the lower cervical spine. On lung window images, no pulmonary mass or dominant pulmonary nodule is identified. No localized pulmonary inflammatory process is identified. There is mild atelectasis or scarring. There is calcified granuloma in the right lower lobe. Limited images of the upper abdomen reveal postoperative changes from cholecystectomy. IMPRESSION: No mass or localized inflammatory process. Reviewed, Interpreted and Dictated by Andrzej Gómez III, MD Transcribed by Tamera Cade Authenticated and [facility]
--- NOTE | 2023-02-15 09:21 | CT_ITS ---
FINAL REPORT TECHNIQUE: Axial images through the thoracic spine were performed after the administration of IV contrast. Sagittal reconstruction images were performed. This study was performed with techniques to keep radiation doses as low as reasonably achievable, (ALARA). Individualized dose reduction techniques using automated exposure control or adjustment of mA and/or kV according to the patient's size were employed. CLINICAL HISTORY: POSS MASS OF PROXIMAL ESOPHAGUS, ASTHMA, BACK PAIN FINDINGS: CT THORACIC SPINE WITH CONTRAST There are postoperative changes in the lower cervical spine. No fracture is identified. There are mild degenerative changes with small osteophytes. There is no malalignment. There is no significant central canal stenosis or neural foraminal narrowing. There is no paraspinal soft tissue abnormality. IMPRESSION: Mild degenerative change with no acute process. Reviewed, Interpreted and Dictated by Andrzej Gómez III, MD Transcribed by Steph Patino Authenticated and [facility]
== END ==
LOC: RAD 09:18
PROVIDERS: PCP Internal Medicine Adolescent Medicine; Visit Provider Surgery
DX: K22.89 Other specified disease of esophagus (principal)
CPT/HCPCS: 71260; 72129; Q9967

== ENCOUNTER → 2023-02-20 11:06 | Outpatient (CLI) | payer MEDICARE, SELFPAY ==
--- NOTE | 2023-02-20 11:07 | MR_ITS ---
FINAL REPORT CLINICAL HISTORY: MEMORY LOSS. SLIGHT TREMOR. TINGLING IN LIMBS. SLURRED AND STUTTERED SPEECH. WEAKNESS IN LEG COMPARISON: 11/16/2021 FINDINGS: Multiplanar MR imaging of the brain was performed without and with contrast. There is no evidence of intracranial hemorrhage or mass. No abnormal extra-axial fluid collection is seen. The ventricular size is within normal limits. There is no evidence of shift of the midline structures. The posterior fossa and brainstem have an unremarkable appearance. No area of abnormal restricted diffusion is identified. No abnormal contrast enhancement is seen. Normal major vessel vascular flow voids are noted. There is mild to moderate maxillary sinus mucosal thickening, partially improved. IMPRESSION: No acute intracranial abnormality identified. Partially improved sinusitis. Reviewed, Interpreted and Dictated by Andrzej Gómez III, MD Transcribed by Trish Anna Authenticated and [facility]
== END ==
LOC: RAD 11:07
PROVIDERS: PCP Internal Medicine Adolescent Medicine; Visit Provider Nurse Practitioner Family
DX: G43.719 Chronic migraine without aura, intractable, without status migrainosus (principal); G93.40 Encephalopathy, unspecified; R46.89 Other symptoms and signs involving appearance and behavior
CPT/HCPCS: 70553; A9576

== ENCOUNTER 2023-02-26 12:24 | Emergency (ER) | payer MEDICARE, SELFPAY ==
--- NOTE | 2023-02-26 12:26 | XR_ITS ---
FINAL REPORT CLINICAL HISTORY: FELL DOWN STEPS, rt foot pain FINDINGS: RIGHT FOOT: Three views of the right foot were obtained. There is a calcification lateral to the distal calcaneus. An avulsion fracture in this region is not excluded. There is lateral midfoot soft tissue swelling. IMPRESSION: Calcification lateral to the distal calcaneus. An avulsion fracture is not excluded. Reviewed, Interpreted and Dictated by Andrzej Gómez III, MD Transcribed by Tamera Cade Authenticated and [facility]
--- NOTE | 2023-02-26 12:26 | XR_ITS ---
FINAL REPORT CLINICAL HISTORY: FELL DOWN STEPS, rt ankle pain FINDINGS: RIGHT ANKLE: Three views of the right ankle were obtained. There is a small calcifications superior to the navicular. A small avulsion fracture or fractures are not excluded. IMPRESSION: Small calcifications superior to the navicular. Small avulsion fracture or fractures are not excluded. Reviewed, Interpreted and Dictated by Andrzej Gómez III, MD Transcribed by Tamera Cade Authenticated and [facility]
[2023-02-26 12:36] VITALS: BP 129/88; PULSE 87; RESP 18; TEMP 36.7; O2SAT 98; BMI 31.8
--- NOTE | 2023-02-26 12:55 | EXP.UTC ---
Discharge Plan Disposition Patient Disposition: Home, Self-Care Condition: Good Prescriptions Prescriptions: No Action Treleba Ellipta 200-62.5-25 mcg blister with device 1 inh INHALATION DAILY famotidine 20 mg tablet 20 mg PO BID levocetirizine 5 mg tablet 5 mg PO HS montelukast 10 mg tablet 10 mg PO HS omeprazole 40 mg capsule,delayed release(DR/EC) 40 mg PO BID dicyclomine 20 mg tablet 20 mg PO ONCE verapamil 240 mg capsule,ext rel. pellets 24 hr 240 mg PO DAILY aspirin [Adult Low Dose Aspirin] 81 mg tablet,delayed release (DR/EC) 81 mg PO DAILY tizanidine 4 mg tablet 4 mg PO Q8H PRN (Reason: muscle spasms) lactulose 10 gram/15 mL solution 15 ml PO DAILY pregabalin 200 mg capsule 200 mg PO TID Aimovig Autoinjector 140 mg/mL auto-injector 140 mg SQ QMONTH Qty: 1 5RF nortriptyline 25 mg capsule 50 mg PO QHS Qty: 60 5RF spironolactone 25 mg tablet 25 mg PO DAILY Qty: 90 3RF furosemide 20 mg tablet See Rx Instructions .Route .COMPLEX Qty: 90 3RF Rx Instructions: Take 1 tablet by mouth once daily terconazole 0.8 % cream 1 appful VAGINAL QHS Qty: 20 6RF Ubrelvy 100 mg tablet 100 mg PO ONCE PRN (Reason: migraines) Qty: 16 5RF Rx Instructions: Take 100 mg (1 tablet) at onset of headache. If symptoms persist after 2 hours, may repeat 100 mg (1 tablet). Max dose 2 tablets in 24 hours or 4 tablets/week. azelastine-fluticasone 23 GM spray,non-aerosol 23 g intranasal BID isosorbide mononitrate 30 MG tablet 30 mg PO DAILY acetaminophen 500 MG tablet 500 mg PO NEEDED PRN (Reason: Headache) oxycodone-acetaminophen 7.5-325 mg tablet 1 tab PO QID cyanocobalamin (vitamin B-12) 5,000 MCG tablet,disintegrating 1,000 mcg PO DAILY ergocalciferol (vitamin D2) 400 UNIT tablet 1,000 unit PO DAILY pravastatin 20 MG tablet 20 mg PO HS albuterol sulfate 1.25 mg/3 mL solution for nebulization 1.25 mg inhalation BIDP PRN (Reason: breathing) nortriptyline 25 mg capsule 25 mg PO DAILY Label Comments: TAKE 2 CAPSULES BY MOUTH ONCE DAILY pregabalin [Lyrica] 150 mg Capsule 150 mg PO TID metoprolol tartrate 100 mg tablet See Rx Instructions .ROUTE .COMPLEX Rx Instructions: Take 1 tablet by mouth twice daily estradiol 2 mg tablet See Rx Instructions .ROUTE .COMPLEX Rx Instructions: TAKE 1 TABLET BY MOUTH ONCE DAILY FOR HORMONE fluticasone propionate 120 SPR/BOT spray,suspension 1 spr intranasal DAILY ranolazine 1,000 mg tablet extended release 12 hr See Rx Instructions .ROUTE .COMPLEX Rx Instructions: TAKE 1 TABLET BY MOUTH TWICE DAILY FOR HEART DISEASE Referrals Follow up/Referrals: Tadeo Huber JR, MD [Physician] - 03/01/23 9:45 am Viktor Rebolledo MD [Primary Care Provider] - See instructions Activity Restrictions/Add. Instructions Additional Instructions/Restrictions: *No weight bearing *RICE, Rest the extremity, Ice 15-20 minutes 3-4 times daily, Compress- wear the americo wrap as discussed as much as possible to help reduce swelling and pain, Elevate the extremity when at rest *Walking boot is for support and help control swelling, use it except in the shower. Be sure that is not to tight but not to loose either *Elevate when resting?? Use crutches to help get around? *Ibuprofen 600-800mg every 6-8 hours as needed for pain an inflammation. If need something more can take Tylenol in between doses of Ibuprofen to help Immediately follow up with your family doctor for new or worsening of symptoms, or no noticeable improvement over the next 3-5 days You have an appointment for your CT scan for 02/28/23 @ 6:30am make sure to keep this appointment and an Appointment with Dr Huber on Saturday at 9:45 Clinical Impressions Clinical Impression: Avulsion fracture Instructions Vandana
[2023-02-26 14:14] VITALS: BP 129/88; PULSE 87; RESP 18; TEMP 36.6
== END 2023-02-26 14:43 | disposition home or self-care (01) ==
PROVIDERS: Emergency Provider Nurse Practitioner; PCP Internal Medicine Adolescent Medicine
DX: S92.151A Displaced avulsion fracture (chip fracture) of right talus, initial encounter for closed fracture (principal); I10 Essential (primary) hypertension; K21.9 Gastro-esophageal reflux disease without esophagitis; E78.5 Hyperlipidemia, unspecified; W10.8XXA Fall (on) (from) other stairs and steps, initial encounter
CPT/HCPCS: 73610; 73630; 80305; 99212; 99214; G0463

== ENCOUNTER → 2023-02-26 14:39 | Outpatient (CLI) | payer MEDICARE, SELFPAY ==
[2023-02-26 16:02] LABS: Amphetamine/Metha Screen,Urine Negative ng/ml (<1000)
[2023-02-26 16:03] LABS: Barbiturates Screen,Urine Negative ng/ml (<200); Benzodiazepines Screen,Urine Negative ng/ml (<200)
[2023-02-26 16:04] LABS: Cannabinoid Screen,Urine Negative ng/ml (<50)
[2023-02-26 16:05] LABS: Cocaine Screen,Urine Negative ng/ml (<300); Methadone Screen,Urine Negative ng/ml (<300)
[2023-02-26 16:06] LABS: Opiate Screen,Urine Positive ng/ml (<300); Phencyclidine Screen,Urine Negative ng/ml (<25)
== END ==
PROVIDERS: PCP Internal Medicine Adolescent Medicine; Visit Provider Nurse Practitioner Family
DX: G93.40 Encephalopathy, unspecified (principal); R46.89 Other symptoms and signs involving appearance and behavior; R94.01 Abnormal electroencephalogram [EEG]; Z79.899 Other long term (current) drug therapy
CPT/HCPCS: 80305

== ENCOUNTER → 2023-02-28 06:17 | Outpatient (CLI) | payer MEDICARE, SELFPAY ==
--- NOTE | 2023-02-28 06:18 | US_ITS ---
FINAL REPORT CLINICAL HISTORY: Esophageal mass FINDINGS: ULTRASOUND SOFT TISSUE OF THE NECK Limited sonographic images of the soft tissues of the neck were obtained. There are multiple, enlarged bilateral neck nodes. The largest on the left measures up to 2.6 cm and on the right up to 3.6 cm. These are favored to be reactive. No mass or fluid collection is identified. IMPRESSION: Multiple enlarged bilateral neck nodes are favored to be reactive. Reviewed, Interpreted and Dictated by Andrzej Gómez III, MD Transcribed by Tamera Cade Authenticated and . [facility]
--- NOTE | 2023-02-28 06:18 | CT_ITS ---
FINAL REPORT CLINICAL HISTORY: right foot/ankle pain and swelling/bruising after fall FINDINGS: CT RIGHT ANKLE WITHOUT CONTRAST TECHNIQUE: Axial, reformatted, and 3D images were obtained of the right ankle. This study was performed with techniques to keep radiation doses as low as reasonably achievable, (ALARA). Individualized dose reduction techniques using automated exposure control or adjustment of mA and/or kV according to the patient's size were employed. FINDINGS: There is a comminuted, mildly displaced fracture of the anterior process of the calcaneus. A lateral fracture fragment is displaced laterally 5 mm. There is also a nondisplaced fracture of the navicular seen on axial image 75. An additional small fracture fragment is seen of the superior navicular. Small calcifications adjacent to the cuboid are favored to be chronic. No other fracture is identified. There is circumferential soft tissue edema or hemorrhage. IMPRESSION: Comminuted, mildly displaced fracture of the anterior process of the calcaneus as above. Nondisplaced fracture of the navicular with an additional small fracture fragment of the superior navicular. Circumferential soft tissue edema or hemorrhage. Reviewed, Interpreted and Dictated by Andrzej Gómez III, MD Transcribed by Tamera Cade Authenticated and [facility]
--- NOTE | 2023-02-28 06:18 | CT_ITS ---
FINAL REPORT TECHNIQUE: Thin section axial CT images were obtained through the neck after intravenous contrast administration. Coronal and sagittal reformats were also obtained. This study was performed with techniques to keep radiation doses as low as reasonably achievable (ALARA). Individualized dose reduction techniques using automated exposure control or adjustment of mA and/or kV according to the patient''s size were employed. CLINICAL HISTORY: Esophageal irregularity seen on upper GI. COMPARISON: Upper GI dated 01/30/2023, chest CT dated 02/15/2023 FINDINGS: The nasopharynx, oropharynx, hypopharynx and larynx are unremarkable. There is no mass or adenopathy. The thyroid gland is unremarkable. There is mild mucosal thickening in the maxillary sinuses. There is no acute osseous abnormality. Postoperative changes are seen in the lower cervical spine. IMPRESSION: No acute process. Reviewed, Interpreted and Dictated by Andrzej Gómez III, MD Transcribed by Tamera Cade Authenticated and [facility]
== END ==
PROVIDERS: PCP Internal Medicine Adolescent Medicine; Visit Provider Surgery
DX: K22.89 Other specified disease of esophagus (principal); T14.8XXA Other injury of unspecified body region, initial encounter
CPT/HCPCS: 70491; 73700; 76536; Q9967

== ENCOUNTER → 2023-03-29 12:29 | Outpatient (CLI) | payer MEDICARE, SELFPAY ==
--- NOTE | 2023-03-29 12:33 | XR_ITS ---
FINAL REPORT CLINICAL HISTORY: follow up from foot fracture, bruising around toes COMPARISON: 02/26/2023 FINDINGS: Right foot Three views were obtained. There are mild degenerative changes of the 1st metatarsophalangeal joint. There is persistent calcification lateral to the distal talus, an avulsion is not excluded. There is improved soft tissue swelling in this region. IMPRESSION: Improved soft tissue swelling. Reviewed, Interpreted and Dictated by Andrzej Gómez III, MD Transcribed by Mary Baca Authenticated and [facility]
== END ==
LOC: RAD 12:30
PROVIDERS: PCP Internal Medicine Adolescent Medicine; Visit Provider Orthopaedic Surgery
DX: T14.8XXA Other injury of unspecified body region, initial encounter (principal); M79.671 Pain in right foot
CPT/HCPCS: 73630

== ENCOUNTER → 2023-05-17 12:05 | Outpatient (CLI) | payer MEDICARE, SELFPAY ==
--- NOTE | 2023-05-17 12:10 | XR_ITS ---
FINAL REPORT CLINICAL HISTORY: Rt foot pain, lateral foot pain FINDINGS: Right foot Three views were obtained. There is a nondisplaced fracture of the proximal lateral cuboid. The joint spaces appear normal. No soft tissue abnormality is identified. IMPRESSION: Fracture as above. Reviewed, Interpreted and Dictated by Andrzej Gómez III, MD Transcribed by Mary Baca Authenticated and [facility]
== END ==
LOC: RAD 12:06
PROVIDERS: PCP Internal Medicine Adolescent Medicine; Visit Provider Orthopaedic Surgery
DX: M79.671 Pain in right foot (principal)
CPT/HCPCS: 73630

== ENCOUNTER → 2023-05-24 10:54 | Outpatient (CLI) | payer MEDICARE, SELFPAY ==
--- NOTE | 2023-05-24 10:54 | FL_ITS ---
FINAL REPORT CLINICAL HISTORY: . 1:15 FLUORO TIME FINDINGS: ESOPHAGRAM HISTORY: Dysphagia. PROCEDURE: The patient ingested barium. Effervescent crystals were also administered. Spot films were obtained. Fluoroscopy time: 1 minute 15 seconds. 10 radiographs were obtained. FINDINGS: No esophageal stricture is identified. There is a small sliding-type hiatal hernia. No gastroesophageal reflux was demonstrated during the exam. A 13 mm from barium tablet passes through the esophagus and into the stomach without delay. there was mild esophageal dysmotility. IMPRESSION: Small sliding-type hiatal hernia. Mild esophageal dysmotility. Films reviewed , interpreted and dictated by Dr. Rosalind Fung. Transcribed by Juan Manuel Diaz PA-C. Reviewed, Interpreted and Dictated by Rosalind Fung MD Transcribed by EFFIE Gutierres Authenticated and [facility]
== END ==
LOC: RAD 10:54
PROVIDERS: PCP Internal Medicine Adolescent Medicine; Visit Provider Nurse Practitioner
DX: R13.10 Dysphagia, unspecified (principal)
CPT/HCPCS: 74220

== ENCOUNTER → 2023-07-23 14:36 | Outpatient (CLI) | payer MEDICARE, SELFPAY ==
[2023-07-29 14:57] LABS: Pancreatic Elastase, Fecal 136 (>200)
== END ==
PROVIDERS: PCP Internal Medicine Adolescent Medicine; Visit Provider Nurse Practitioner
DX: K92.89 Other specified diseases of the digestive system (principal)
CPT/HCPCS: 82656

== ENCOUNTER → 2023-07-25 10:34 | Outpatient (CLI) | payer MEDICARE, SELFPAY ==
--- NOTE | 2023-07-25 10:39 | XR_ITS ---
FINAL REPORT CLINICAL HISTORY: Rt foot pain FINDINGS: Right foot Three views were obtained. There is no acute fracture or dislocation. The joint spaces appear normal. No soft tissue abnormality is identified. IMPRESSION: No acute process. Reviewed, Interpreted and Dictated by Puma Quiles MD Transcribed by Mary Baca Authenticated and [facility]
== END ==
LOC: RAD 10:37
PROVIDERS: PCP Internal Medicine Adolescent Medicine; Visit Provider Orthopaedic Surgery
DX: M89.8X7 Other specified disorders of bone, ankle and foot (principal)
CPT/HCPCS: 73630

== ENCOUNTER → 2023-08-07 15:43 | Outpatient (CLI) | payer MEDICARE, SELFPAY ==
--- NOTE | 2023-08-07 15:50 | MR_ITS ---
PROCEDURE INFORMATION: Exam: MR Right Lower Extremity Other Than Joint Without Contrast; Foot Exam date and time: 08/07/2023 3:51 PM Age: 43 years old Clinical indication: Pain; Foot; Right; Additional info: RT foot pain TECHNIQUE: Imaging protocol: Magnetic resonance imaging of the right lower extremity without contrast. Exam focused on the foot. 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 There is an adjacent accessory ossicle present with likely reactive marrow edema. Minimal arthritis is also seen in the great toe metatarsophalangeal joint. The alignment is anatomic. The marrow signal is normal. LIGAMENTS: Lisfranc ligament: Unremarkable. No evidence of tear. TENDONS: Flexor tendons of foot: Unremarkable. No evidence of tear. Tibialis posterior tendon: Unremarkable as visualized. Peroneal tendons: Unremarkable as visualized. Extensor tendons of foot: Unremarkable. No evidence of tear. Tibialis anterior tendon: Unremarkable as visualized. Tarsal canal (Sinus tarsi): Unremarkable. Tarsal tunnel: Unremarkable. Soft tissues: Unremarkable. Plantar fascia: Unremarkable as visualized. IMPRESSION: Calcaneocuboid moderate degenerative arthrosis with minimal degenerative changes also present in the great toe metatarsophalangeal joint.
== END ==
LOC: RAD 15:43
PROVIDERS: PCP Internal Medicine Adolescent Medicine; Visit Provider Orthopaedic Surgery
DX: M79.671 Pain in right foot (principal)
CPT/HCPCS: 73718

== ENCOUNTER 2023-10-02 10:56 | Day surgery (SDC) | payer MEDICARE, SELFPAY ==
[2023-10-02 11:49] VITALS: BP 125/92; PULSE 86; RESP 18; TEMP 36.2; O2SAT 99; BMI 29.6
--- NOTE | 2023-10-02 12:24 | P.PNANES_ITS ---
[facility] Disclaimer: The information contained in this section may have been updated after the patient was seen, as this information can be updated by other users. Medical History Angina, class II Bradycardia Degenerated intervertebral disc Generalized anxiety disorder Hiatal hernia Major depressive disorder Vocal cord weakness Surgical History H/O lithotripsy History of appendectomy History of back surgery History of section History of cholecystectomy History of colonoscopy History of hysterectomy Family History Other Family history of cancer Family history of diabetes mellitus type II Family history of hypertension Family history of hypothyroidism Social History Smoking Status: Never smoker second hand exposure: Yes (a lot of her family smokes) alcohol intake: never counseling given: No counseling provided: none substance use type: denies use counseling given: No current occupational status: disabled Travel in the last 8 weeks: None adopted: No caregiver/support person: No foster care: No household members: spouse and children housing: house lives independently: Yes marital status: number of children: 2 education level: college 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; did work at [email or web address] for 7 years current occupational exposures/hazards: No Hx Recent Travel: No sexually active: Yes caffeine: Yes (doesn't drink this daily) physical activity: none special sheyla needs: No agree to transfusion: No working smoke detector in home: Yes fire extinguisher in home: Yes carbon monox detector in home: Yes firearms in home: Yes firearms unloaded and locked: Yes do you feel safe at home: Yes victim of physical abuse: No victim of emotional abuse: No victim of sexual abuse: No would you like helpful sources: No [facility] Anesthesia Checklist Patient Identification Patient Identification: Arm Band and Verbal (Name & ) Structural Data Admitted From: Home Planned Operative Procedure/s: EGD Consent for Planned Operative Procedure(s) Verified: Yes NPO Status Verified Time NPO: 00:00 Additional verifications Anesthesia Reactions: No Blood Transfusion Reaction: Yes Airway Assessment Mallampati Score:: Class II C-Spine Mobility Assessed: Yes TMJ Mobility Assessed: Yes Dentition: Edentulous Neurological Assessment Level of Consciousness: Awake Hx Seizures: No Numbness or tingling in extremities: No Anesthesia Plan Anesthesia Risk discussed: Yes Anesthesia Plan: Verified ASA Class: II Anesthesia Type: MAC
[2023-10-02 12:34] VITALS: O2SAT 97
[2023-10-02 12:47] VITALS: BP 105/66; PULSE 75; RESP 14; O2SAT 92
--- NOTE | 2023-10-02 12:48 | HMH.SCOPE ---
Procedure: Date: 10/02/23 Patient Date of :: 1980 Procedure Performed:: EGD Indications:: Dysphagia Performing Provider:: Dru Pritchard MD Referring Provider:: Brittnee Lin APRN (Gastroenterology) Sedation:: See RN records Procedure:: The gastroscope was gently passed through the incisoral orifice into the oral cavity and under direct visualization the esophagus was intubated. The endoscope was passed down the esophagus, through the stomach, and into the duodenum. Color, texture, mucosa, and anatomy of the esophagus, stomach, and duodenum were carefully examined with the scope. Findings:: Oropharynx: normal Esophagus: normal. Biopsies obtained from mid and distal esophagus. Biopsies felt somewhat fibrotic from mid esophagus. Empiric dilatation performed with 54F bougie dilator EG Junction: measured at 39 cm Cardia: small hiatal hernia, insignificant in size Fundus: normal Body: Retained food. Gastritis. Biopsy obtained Antrum: Retained food substance. Gastritis. Biopsy obtained Duodenal bulb: normal Duodenum (second and third portion): normal Impression: Small hiatal hernia Retained food in stomach Recommendations:: Await pathology results Consider gastric emptying study Complications:: None Estimated blood obtained (mL): 0 Colonoscopy Component Colonoscopy Component Was a colonoscopy performed during today's procedure?: No
[2023-10-02 12:57] VITALS: BP 106/68; PULSE 78; RESP 16; O2SAT 96
[2023-10-02 13:07] VITALS: BP 111/70; PULSE 75; RESP 16; O2SAT 94
[2023-10-02 13:17] VITALS: BP 124/80; PULSE 78; RESP 16; TEMP 36.6; O2SAT 97
== END 2023-10-02 13:17 | disposition home or self-care (01) ==
PROVIDERS: PCP Internal Medicine Adolescent Medicine; Visit Provider Internal Medicine
PROC: 0DJ08ZZ Inspection of Upper Intestinal Tract, Via Natural or Artificial Opening Endoscopic (ICD-10-PCS; CPT 43235; principal; 2023-10-02 12:00)
DX: R13.10 Dysphagia, unspecified (principal); K44.9 Diaphragmatic hernia without obstruction or gangrene; K31.89 Other diseases of stomach and duodenum; K20.90 Esophagitis, unspecified without bleeding
CPT/HCPCS: 43239; 43248; 88305; 88312

== ENCOUNTER 2023-11-14 16:00 | Outpatient (CLI) | payer MEDICARE, SELFPAY ==
--- NOTE | 2023-11-14 16:06 | MM_ITS ---
PROCEDURE INFORMATION: Exam: MG Bilateral Screening 3D Mammography Exam date and time: 11/14/2023 3:53 PM Age: 43 years old Clinical indication: Screening mammogram TECHNIQUE: Imaging protocol: Bilateral Screening tomosynthesis and 2D mammography including computer-aided detection (CAD) when performed. COMPARISON: No relevant prior studies available. FINDINGS: MAMMOGRAPHY: Breast composition: There are scattered areas of fibroglandular density. Mass: None. Architectural distortion: No new or suspicious architectural distortion. Calcifications: No new or suspicious calcifications are present Asymmetric density: No new or suspicious asymmetric density is present Skin thickening: None. Axillary adenopathy: None. IMPRESSION: No mammographic evidence of malignancy. Recommend annual screening mammography unless otherwise clinically indicated. ASSESSMENT: BI-RADS category 1: Negative
== END 2023-11-14 23:59 ==
LOC: RAD 16:01
PROVIDERS: PCP Internal Medicine Adolescent Medicine; Referring Provider Nurse Practitioner Family; Visit Provider Nurse Practitioner Family
DX: Z12.31 Encounter for screening mammogram for malignant neoplasm of breast (principal)
CPT/HCPCS: 77063; 77067

== ENCOUNTER 2024-01-01 13:12 | Emergency (ER) | payer MEDICARE, SELFPAY ==
[2024-01-01 13:25] VITALS: BP 139/84; PULSE 110; RESP 18; TEMP 37.2; O2SAT 96; BMI 29.5
--- NOTE | 2024-01-01 13:39 | ED_ITS ---
Discharge Plan Disposition Patient Disposition: Home, Self-Care Condition: Good Prescriptions Prescriptions: New amoxicillin 500 mg capsule 500 mg PO BID 10 Days Qty: 20 0RF No Action Trelegy Ellipta 200-62.5-25 mcg blister with device 1 inh INHALATION DAILY famotidine 20 mg tablet 20 mg PO BID ipratropium bromide 42 mcg (0.06 %) spray,non-aerosol intranasal Patient Comments: USE 1 TO 2 SPRAY(S) IN EACH NOSTRIL EVERY 6 HOURS NEEDED FOR POSTNASAL DRAINAGE AND RUNNY NOSE ondansetron HCl 4 mg tablet 4 mg PO Q6H Patient Comments: TAKE 1 TABLET BY MOUTH EVERY 6 HOURS NEEDED levocetirizine 5 mg tablet 5 mg PO HS montelukast 10 mg tablet 10 mg PO HS omeprazole 40 mg capsule,delayed release(DR/EC) 40 mg PO BID dicyclomine 20 mg tablet 20 mg PO ONCE verapamil 240 mg capsule,ext rel. pellets 24 hr 240 mg PO DAILY aspirin [Adult Low Dose Aspirin] 81 mg tablet,delayed release (DR/EC) 81 mg PO DAILY tizanidine 4 mg tablet 4 mg PO Q8H PRN (Reason: muscle spasms) lactulose 10 gram/15 mL solution 15 ml PO DAILY pregabalin 200 mg capsule 200 mg PO TID docusate sodium [Stool Softener] 250 mg capsule 250 mg PO BID buspirone 10 mg tablet 10 mg PO TID Qty: 90 1RF spironolactone 25 mg tablet 25 mg PO DAILY Qty: 90 3RF furosemide 20 mg tablet See Rx Instructions .Route .COMPLEX Qty: 90 3RF Rx Instructions: Take 1 tablet by mouth once daily terconazole 0.8 % cream 1 appful VAGINAL QHS Qty: 20 6RF Ubrelvy 100 mg tablet 100 mg PO ONCE PRN (Reason: migraines) Qty: 16 5RF Rx Instructions: Take 100 mg (1 tablet) at onset of headache. If symptoms persist after 2 hours, may repeat 100 mg (1 tablet). Max dose 2 tablets in 24 hours or 4 tablets/week. ranolazine 1,000 mg tablet extended release 12 hr See Rx Instructions .ROUTE .COMPLEX Qty: 180 1RF Dose Instruction: TAKE 1 TABLET BY MOUTH TWICE DAILY FOR HEART DISEASE Rx Instructions: TAKE 1 TABLET BY MOUTH TWICE DAILY FOR HEART DISEASE estradiol 2 mg tablet See Rx Instructions .ROUTE .COMPLEX Qty: 90 3RF Dose Instruction: TAKE 1 TABLET BY MOUTH ONCE DAILY FOR HORMONE Rx Instructions: TAKE 1 TABLET BY MOUTH ONCE DAILY FOR HORMONE Zenpep 40,000-126,000- 168,000 unit capsule,delayed release(DR/EC) 1 cap PO QID Qty: 360 2RF Rx Instructions: administer with meals and/or snacks Aimovig Autoinjector 140 mg/mL auto-injector 140 mg SQ QMONTH Qty: 1 0RF azelastine-fluticasone 23 GM spray,non-aerosol 23 g intranasal BID isosorbide mononitrate 30 MG tablet 30 mg PO DAILY oxycodone-acetaminophen 7.5-325 mg tablet 1 tab PO QID cyanocobalamin (vitamin B-12) 5,000 MCG tablet,disintegrating 1,000 mcg PO DAILY ergocalciferol (vitamin D2) 400 UNIT tablet 1,000 unit PO DAILY pravastatin 20 MG tablet 20 mg PO HS albuterol sulfate 1.25 mg/3 mL solution for nebulization 1.25 mg inhalation BIDP PRN (Reason: breathing) nortriptyline 25 mg capsule 25 mg PO DAILY Patient Comments: TAKE 2 CAPSULES BY MOUTH ONCE DAILY metoprolol tartrate 100 mg tablet See Rx Instructions .ROUTE .COMPLEX Rx Instructions: Take 1 tablet by mouth twice daily Referrals Follow up/Referrals: Viktor Rebolledo MD [Primary Care Provider] - See instructions Activity Restrictions/Add. Instructions Additional Instructions/Restrictions: Monitor Temp, Over the counter Motrin or Tylenol as directed/as needed Tylenol every 4 hours and Motrin every 6 hours (as long as your family doctor has told you that you can take it) for fever or pain. and straight to ER if unable to lower temp less than 101.0 after medication given *Warm salt water gargles may help to soothe the throat *Throat Lozenges? *Warm fluids like tea with honey may help to soothe the throat? *Sleep elevated *Humidifier/Vaporizer *If you did not take Penicillin shot or was unable to, start taking antibiotic immediately and make sure that you take it for the FULL length of time although you should start to feel better in 24-48 hours *change toothbrush and toothpaste 24-48 hours after starting to take antibiotics so you do not reinfect yourself Monitor Temp. Tylenol and/or Ibuprofen as needed. ER if fever is no less than 101 despite alternating Tylenol and Ibuprofen * Encourage fluids, water, Gatorade, powerade, pedialyte if infant/toddler/or child *Cold fluids, popsicles and ice cream may feel good on his throat Follow up IMMEDIATELY for new or worsening symptoms or no Noticeable improvement over the next 48-72 hours. 911 for difficulty breathing or swallowing Clinical Impressions Clinical Impression: Strep throat Instructions Patient Instructions: Strep Throat, DI for Strep Throat Discharge ED Provider: Deepthi Lozano [facility] [place] HPI General Stated complaint: cough, fever, sore throat, Mode of Arrival: Ambulatory Source of Information: Patient Limitations: No Limitations Time Seen by Provider: 01/01/24 13:40 Description of Symptoms (Recalled from Triage Doc. by RN): Pt's symptoms are sore throat, body aches, fatigue, cough, and congestion HEENT Symptoms (Recalled from RN notes): Yes Resp Symptoms (Recalled from RN notes): No Skin Symptoms (Recalled from RN notes): No MS Symptoms (Recalled from RN notes): No Functional Status (Recalled from RN notes): n/a History of Present Illness Provider Complaint: Patient states that she has been caring for child that has strep and flu States she woke up yesterday with her throat hurting and had headache and since has continued with her throat hurting, body aches, headache, chills and over all not feeling well so she came in to get checked Related Data Home Medications Medication Instructions Recorded Confirmed levocetirizine 5 mg tablet 5 mg PO HS allergies 01/31/18 11/20/23 montelukast 10 mg tablet 10 mg PO HS allergies 01/31/18 11/20/23 omeprazole 40 mg capsule,delayed 40 mg PO BID GERD 01/31/18 11/20/23 release verapamil 240 mg 24 hr 240 mg PO DAILY blood pressure 05/05/18 11/20/23 capsule,extended release cyanocobalamin (vitamin B-12) 1,000 mcg PO DAILY Supplement 06/30/18 11/20/23 5,000 mcg disintegrating tablet ergocalciferol (vitamin D2) 10 mcg 1,000 unit PO DAILY Supplement 06/30/18 11/20/23 (400 unit) tablet pravastatin 20 mg tablet 20 mg PO HS Cholesterol 07/01/18 11/20/23 aspirin 81 mg tablet,delayed 81 mg PO DAILY Heart disease 05/25/19 11/20/23 release (Adult Low Dose Aspirin) dicyclomine 20 mg tablet 20 mg PO ONCE stomach pain 05/25/19 11/20/23 azelastine 137 mcg-fluticasone 50 23 g intranasal BID allergies 09/14/19 11/20/23 mcg/spray nasal spray isosorbide mononitrate 30 mg 30 mg PO DAILY blood pressure 09/14/19 11/20/23 tablet,extended release 24 hr tizanidine 4 mg tablet 4 mg PO Q8H PRN muscle spasms 04/27/20 11/20/23 fluticasone fur. 200 mcg-umeclid 1 inh inhalation DAILY Asthma 10/03/21 11/20/23 62.5 mcg-vilant 25 mcg inhalat.powder (Trelegy Ellipta) oxycodone-acetaminophen 7.5 mg-325 1 tab PO QID PAIN 10/03/21 11/20/23 mg tablet lactulose 10 gram/15 mL oral 15 ml PO DAILY constipation 10/30/21 11/20/23 solution famotidine 20 mg tablet 20 mg PO BID Reflux/Acid reflux 11/30/21 11/20/23 metoprolol tartrate 100 mg tablet See Rx Instructions .Route 12/21/22 11/20/23 .COMPLEX htn nortriptyline 25 mg capsule 25 mg PO DAILY Pain 12/21/22 11/20/23 albuterol sulfate 1.25 mg/3 mL 1.25 mg inhalation BIDP PRN 02/12/23 11/20/23 solution for nebulization breathing pregabalin 200 mg capsule 200 mg PO TID RLS 02/12/23 11/20/23 docusate sodium 250 mg capsule 250 mg PO BID 05/15/23 11/20/23 (Stool Softener) ipratropium bromide 42 mcg (0.06 intranasal 07/11/23 11/20/23 %) nasal spray ondansetron HCl 4 mg tablet 4 mg PO Q6H 07/11/23 11/20/23 Previous Rx's Medication Instructions Recorded furosemide 20 mg tablet See Rx Instructions .Route 09/10/22 .COMPLEX FLUID RETENTION #90 tabs spironolactone 25 mg tablet 25 mg PO DAILY Edema #90 tabs 09/10/22 terconazole 0.8 % vaginal cream 1 appful vaginal QHS hormone 11/22/22 replacement #20 grams ubrogepant 100 mg tablet (Ubrelvy) 100 mg PO ONCE PRN migraines #16 02/26/23 tabs ranolazine 1,000 mg See Rx Instructions .Route 06/11/23 tablet,extended release,12 hr .COMPLEX #180 tabs estradiol 2 mg tablet See Rx Instructions .Route 07/03/23 .COMPLEX #90 tabs Zenpep 40,000 unit-126,000 1 cap PO QID low pancreatic 08/01/23 unit-168,000 unit capsule,delayed elastase #360 caps release (loaqot-slufrbaw-gztsngi) buspirone 10 mg tablet 10 mg PO TID #90 tabs 11/12/23 erenumab-aooe 140 mg/mL 140 mg SQ QMONTH chronic migraine 11/19/23 subcutaneous auto-injector #1 mL (Aimovig Autoinjector) amoxicillin 500 mg capsule 500 mg PO BID 10 days #20 caps 01/01/24 Allergies Allergy/AdvReac Type Severity Reaction Status Date / Time No Known Allergies Allergy Verified 01/01/24 13:35 Worker's Comp Is this a Worker's Comp case?: No [facility] Disclaimer: The information contained in this section may have been updated after the patient was seen, as this information can be updated by other users. Medical History Angina, class II Bradycardia Degenerated intervertebral disc Generalized anxiety disorder Hiatal hernia Major depressive disorder Vocal cord weakness Surgical History H/O lithotripsy History of appendectomy History of back surgery fusion cervicle and lumbar History of section History of cholecystectomy History of colonoscopy History of hysterectomy Family History Other Family history of cancer Family history of diabetes mellitus type II Family history of hypertension Family history of hypothyroidism Social History Smoking Status: Never smoker second hand exposure: Yes (a lot of her family smokes) alcohol intake: never counseling given: No counseling provided: none substance use type: denies use counseling given: No current occupational status: disabled Travel in the last 8 weeks: None adopted: No caregiver/support person: No foster care: No household members: spouse and children housing: house lives independently: Yes marital status: number of children: 2 education level: college 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[employer]; 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 at [employer] for 7 years current occupational exposures/hazards: No Hx Recent Travel: No sexually active: Yes caffeine: Yes (doesn't drink this daily) physical activity: none special sheyla needs: No agree to transfusion: No working smoke detector in home: Yes fire extinguisher in home: Yes carbon monox detector in home: Yes firearms in home: Yes firearms unloaded and locked: Yes do you feel safe at home: Yes victim of physical abuse: No victim of emotional abuse: No victim of sexual abuse: No would you like helpful sources: No ROS Obtained: Yes All systems reviewed & no additional complaints except as documented and Yes Systems reviewed as appropriate & no additional complaints except as documented Constitutional Constitutional: Reports system reviewed and no additional complaints, except as documented, Reports as per HPI, Reports body ache, Reports chills, Reports fever (s) and Reports headache(s) ENT Ears, Nose, Mouth, and Throat: Reports system reviewed and no additional complaints, except as documented, Reports as per HPI, Reports headache(s), Reports nasal congestion and Reports sore throat Cardiovascular Cardiovascular: Reports system reviewed and no additional complaints, except as documented and Reports as per HPI Respiratory Respiratory: Reports system reviewed and no additional complaints, except as documented and Reports as per HPI Neurologic Neurologic: Reports headache(s) Physical Exam General General appearance: alert and in no apparent distress ENT ENT exam: Present mucous membranes moist Expanded ENT Exam Throat exam: Present tonsillar erythema Respiratory Respiratory exam: Present normal lung sounds bilaterally; Absent respiratory distress or wheezes Cardiovascular Cardiovascular exam: Present regular rate, normal rhythm and normal heart sounds Abdominal Exam Abdominal exam: Present soft and normal bowel sounds; Absent distention or tenderness Neurological Exam Neurological exam: Present alert, oriented X3 and normal gait Medical Decision Making Jarrett Inquiry Pt receiving controlled substance: No Jarrett was queried for this patient: No Vital Signs: 01/01/24 13:25 Temperature 99.0 F Temperature Source Oral Pulse Rate [Right Radial] 110 H Respiratory Rate 18 Blood Pressure [Right Arm] 139/84 Blood Pressure Mean [Right Arm] 102 Blood Pressure Source [Right Arm] Automatic Cuff Blood Pressure Position [Right Arm] Sitting 02 Sat by Pulse Oximetry 96 Oxygen Delivery Method Room Air Lab Data Lab results reviewed: Yes I reviewed the patient's lab results. Medical Decision Narrative: Patient states that she has take amoxicillin in the past without complications or reactions
[2024-01-01 13:48] LABS: UTC Strep Screen (Rapid) Positive (Negative)
[2024-01-01 13:49] LABS: UTC Influenza A Antigen Negative (Negative); UTC Influenza B Antigen Negative (Negative)
[2024-01-01 13:52] VITALS: BP 139/84; PULSE 110; RESP 18; TEMP 37.2; O2SAT 96
== END 2024-01-01 13:52 | disposition home or self-care (01) ==
PROVIDERS: Emergency Provider Nurse Practitioner; PCP Internal Medicine Adolescent Medicine
DX: J02.0 Streptococcal pharyngitis; R07.0 Pain in throat; R51.9 Headache, unspecified; R50.9 Fever, unspecified; R09.81 Nasal congestion
CPT/HCPCS: 87804; 87880; 99212; 99214; G0463

== ENCOUNTER → 2024-01-17 14:37 | Outpatient (CLI) | payer MEDICARE, SELFPAY | LOC: SL 14:38 | PROVIDERS: Visit Provider Nurse Practitioner Family | DX: G93.40 Encephalopathy, unspecified (principal) | CPT/HCPCS: 94762 ==

== ENCOUNTER 2024-01-30 14:00 | Outpatient (RCR) | payer MEDICARE, SELFPAY ==
--- NOTE | 2023-10-30 16:34 | HMH.PTOPEV ---
PT Outpatient Evaluation Rehab PT Outpatient Evaluation Start: 10/30/23 16:08 Freq: Status: Active Protocol: Document 10/30/23 16:08 HILDA (Rec: 10/30/23 16:24 HILDA [id number]) E-signed By Mode Olmstead, PT Outpatient Therapy Subjective History Subjective History Patient is a 43 year old female presenting to outpatient PT with reports of sub-acute foot/ankle pain starting approximately 6 months ago. Most recent imaging indicates navicular calcifications and possible avulsion fractures. Comorbidities include hx of CS /LS fusion surgery, asthma, migraines, HTN, HL and pericarditis. Chief Complaint Pain,Stiff,Swelling,Gives out/ Unstable Symptom Type Ache,Sharp Symptoms Relieved By Rest/Positioning,Prescription Meds,Elevation Symptoms Aggravated By Standing,Physical Activity, Walking Prior Functional Limitations Standing,Walking Current Functional Limitations Housework,Standing,Walking, Stairs,Balance Symptom Description Constant but Variable Level of pain today (0-10) 3 Pain scale - at its best (0-10) 2 Pain scale - at its worst (0-10) 7 Ankle/Foot Eval Gait Observation General Gait Pattern Observation Antalgic Gait,Decrease Weight Bear (R) Assistive Device Ambulation Assistive Device Straight Cane Palpation Tenderness right ATF TTP positive ROM Ankle/Foot Dorsiflexion w/Knee Extended -11 Active Range Motion (degrees) Ankle/Foot Plantar Flexion Active Range WNL of Motion (degrees) Ankle/Foot Eversion Active Range of 5 Motion (degrees) Ankle/Foot Inversion Active Range of 24 Motion (degrees) Great Toe ROM Reason Not Measured Within Functional Limits Accessory Movements Ankle Accessory Movements that Elicit Talonavicular [place],Talus Symptoms Ventral [place] MMT right Ankle Dorsiflexion Strength Grade 4- Good- Ankle Plantarflexion Strength Grade 4 Good Foot Eversion Strength Grade 3+ Fair+ Foot Inversion Strength Grade 3+ Fair+ Special Tests Ankle Anterior Drawer Test Positive Right Talar Tilt Test Negative Right Foot Interdigital Neuroma Test Negative Right Lower Extremity Functional Index Activities Today, do you or would you have any difficulty at all with: a.Any of your usual work, housework or Moderate difficulty school activities b. Your usual hobbies, recreational or A little bit of difficulty sporting activities c. Getting into or out of the bath A little bit of difficulty d. Walking between rooms Moderate difficulty e. Putting on your shoes or socks Moderate difficulty f. Squatting Moderate difficulty g. Lifting an object, like a bag of A little bit of difficulty groceries from the floor h. Performing light activities around A little bit of difficulty your home i. Performing heavy activities around A little bit of difficulty your home j. Getting into or out of a car No difficulty k. Walking 2 blocks Quite a bit of difficulty l. Walking a mile Quite a bit of difficulty m. Going up or down 10 stairs (about 1 Moderate difficulty flight of stairs) n. Standing for 1 hour Quite a bit of difficulty o. Sitting for 1 hour No difficulty p. Running on even ground Quite a bit of difficulty q. Running on uneven ground Quite a bit of difficulty r. Making sharp turns while running fast Moderate difficulty s. Hopping Moderate difficulty t. Rolling over in bed A little bit of difficulty LEFI Score Lower Extremity Functional Index Score 45 Outpatient Therapy Assessment Impairments Problems/Impairmments Palpation Tenderness,Impaired Range of Motion,Impaired Strength,Impaired Endurance, Impaired Gait Pattern,Impaired Walking,Impaired Standing, Impaired Household Care, Impaired Stair Climbing, Impaired Incline Stepping, Impaired Stepping on Uneven Surface,Impaired Squatting, Impaired Recreational Activities,Impaired Balance, Subjective C/O Pain,Impaired Self Care/Self Management Prognosis Rehab Potential Good Clinical Impression Consistent with Diagnosis Yes Short Term Goals Number of Weeks 2 Decrease Subjective C/O Pain Yes: 03/13 at worst Patient to be Ind w/ HEP Yes Manager Game Goals Number of Weeks 4-6 Decreased Palpation Tenderness Yes: 1/ Increase Range of Motion Yes: WNL Increase Strength Yes: 5 grossly Increase Ability to Walk Yes: 30 min without difficulty Increase Ability to Stand Yes: Improve Ability to Climb Stairs Yes Improve Incline Stepping Ability Yes Improve LEFI Score Yes: min disability Decrease Subjective C/O Pain Yes: 10 at worst Outpatient Therapy Plan of Care Treatment Plan May Include Therapeutic Exercise Including Home Yes Exercise Program Manual Therapy Techniques Yes Neuromuscular Re-education Yes Gait Training Yes ADL/Self Care Education Yes Dry Needling Yes Thermal Modalities Yes Electrical Stimulation Yes Ultrasound/Phonophoresis Yes Iontophoresis Yes Orthotics/Bracing/Splinting Yes Vasopneumatic Compression Pump Yes Massage Yes Eval/Re-Eval Yes Frequency Times per week 2 Duration Number of Weeks 4-6 Addendums This patient is a candidate for social No or vocational rehab? Patient/Guardian verbally acknowledges Yes understanding of treatment program and consents to further treatment? Patient/Guardian verbally acknowledges Yes understanding of diagnosis, prognosis and goals for treatment? Eval Complexity PT Charges 46516 - Moderate Complexity Shoulder/Elbow Eval Shoulder Objective Measurements Elbow Objective Measurements PHYSICIAN CERTIFICATION: I certify the specified therapy services for Jennie Joe are required, authorized, and reviewed every 30 days.
--- NOTE | 2023-12-31 14:32 | HMH.RHREAS ---
Rehab Reassessment Rehab OP Re-assessment Start: 10/30/23 16:08 Freq: Status: Active Protocol: Document 12/31/23 14:06 HILDA (Rec: 12/31/23 14:31 HILDA [id number]) E-signed By Mode Olmstead, PT Lower Extremity Functional Index Activities Today, do you or would you have any difficulty at all with: a.Any of your usual work, housework or Moderate difficulty school activities b. Your usual hobbies, recreational or Moderate difficulty sporting activities c. Getting into or out of the bath A little bit of difficulty d. Walking between rooms A little bit of difficulty e. Putting on your shoes or socks No difficulty f. Squatting Moderate difficulty g. Lifting an object, like a bag of A little bit of difficulty groceries from the floor h. Performing light activities around A little bit of difficulty your home i. Performing heavy activities around Moderate difficulty your home j. Getting into or out of a car No difficulty k. Walking 2 blocks Moderate difficulty l. Walking a mile Moderate difficulty m. Going up or down 10 stairs (about 1 Moderate difficulty flight of stairs) n. Standing for 1 hour Quite a bit of difficulty o. Sitting for 1 hour No difficulty p. Running on even ground Moderate difficulty q. Running on uneven ground Extreme difficulty or unable to perform activity r. Making sharp turns while running fast Quite a bit of difficulty s. Hopping Quite a bit of difficulty t. Rolling over in bed No difficulty LEFI Score Lower Extremity Functional Index Score 47 Rehab Re-assessment Subjective Subjective Patient reports 40% improvement since start of care. Objective Objective Notes AROM: DF 5; PF WNL; INV 30; EV 8 MMT: DF 4/5; PF 4+/5; INV 4+/5 ; EV 4/5 Pain: 2/10 currently; 5/10 at worst; 2/10 at best TTP distal peroneus brevis insertion 2/4 Neuro: WNL Assessment Progress Assessment Slower Than Expected Assessment Notes Patient has been seen for 7 treatment visits since IE. Progress has been an issue secondary to inclement weather and illness. Patient would benefit from continuing with skilled PT services in order to address functional limitations with all standing/ ambulatory activities. Patient goals met STG's Goals Not Met LTG's Revised Goals NA Plan Plan Continue with current POC. Frequency of Therapy 15 Duration of therapy 1 PHYSICIAN CERTIFICATION: I certify the specified therapy services for Jennie Joe are required, authorized, and reviewed every 30 days.
== END 2024-01-30 15:00 | disposition home or self-care (01) ==
LOC: PT 14:00
PROVIDERS: PCP Internal Medicine Adolescent Medicine; Visit Provider Orthopaedic Surgery
DX: M25.571 Pain in right ankle and joints of right foot (principal)
CPT/HCPCS: 97010; 97014; 97035; 97110; 97112; 97163; 97164; 97530; G0283

== ENCOUNTER 2024-05-31 18:15 | Emergency (ER) | payer MEDICARE, SELFPAY ==
[2024-05-31 18:26] VITALS: BP 152/96; PULSE 121; RESP 18; TEMP 36.6; O2SAT 97; BMI 29.1
--- NOTE | 2024-05-31 19:01 | ED_ITS ---
Discharge Plan Disposition Patient Disposition: Home, Self-Care Condition: Good Prescriptions Prescriptions: New sulfamethoxazole-trimethoprim [Bactrim DS] 800-160 mg Tablet 1 tab PO BID 10 Days Qty: 20 0RF cephalexin 500 mg capsule 500 mg PO QID 10 Days Qty: 40 0RF mupirocin 2 % ointment 1 applic topical TID 7 Days Qty: 15 0RF No Action famotidine 20 mg tablet 20 mg PO BID ondansetron HCl 4 mg tablet 4 mg PO Q6H Patient Comments: TAKE 1 TABLET BY MOUTH EVERY 6 HOURS NEEDED ipratropium bromide 42 mcg (0.06 %) spray,non-aerosol 2 spray intranasal PRN Patient Comments: USE 1 TO 2 SPRAY(S) IN EACH NOSTRIL EVERY 6 HOURS NEEDED FOR POSTNASAL DRAINAGE AND RUNNY NOSE terconazole 0.8 % cream 1 appful VAGINAL .COMPLEX Rx Instructions: 1 appful vaginally 3x week; cholecalciferol (vitamin D3) 1,250 mcg (50,000 unit) capsule 50,000 unit PO WEEKLY Patient Comments: TAKE 1 CAPSULE BY MOUTH ONCE A WEEK Dupixent Pen 300 mg/2 mL pen injector 300 mg SQ Q2W Zenpep 40,000-126,000- 168,000 unit capsule,delayed release(DR/EC) 1 cap PO QID Qty: 360 0RF Rx Instructions: administer with meals and/or snacks amlodipine 10 mg tablet 5 mg PO DAILY Patient Comments: TAKE 1 TABLET BY MOUTH ONCE DAILY levocetirizine 5 mg tablet 5 mg PO HS montelukast 10 mg tablet 10 mg PO HS omeprazole 40 mg capsule,delayed release(DR/EC) 40 mg PO BID dicyclomine 20 mg tablet 20 mg PO ONCE aspirin [Adult Low Dose Aspirin] 81 mg tablet,delayed release (DR/EC) 81 mg PO DAILY tizanidine 4 mg tablet 4 mg PO Q8H PRN (Reason: muscle spasms) lactulose 10 gram/15 mL solution 15 ml PO DAILY PRN (Reason: constipation) pregabalin 200 mg capsule 200 mg PO TID docusate sodium [Stool Softener] 250 mg capsule 250 mg PO BID spironolactone 25 mg tablet 25 mg PO DAILY Qty: 90 3RF Ubrelvy 100 mg tablet 100 mg PO ONCE PRN (Reason: migraines) Qty: 16 5RF Rx Instructions: Take 100 mg (1 tablet) at onset of headache. If symptoms persist after 2 hours, may repeat 100 mg (1 tablet). Max dose 2 tablets in 24 hours or 4 tablets/week. estradiol 2 mg tablet See Rx Instructions .ROUTE .COMPLEX Qty: 90 3RF Dose Instruction: TAKE 1 TABLET BY MOUTH ONCE DAILY FOR HORMONE Rx Instructions: TAKE 1 TABLET BY MOUTH ONCE DAILY FOR HORMONE Aimovig Autoinjector 140 mg/mL auto-injector 140 mg SQ QMONTH Qty: 1 0RF furosemide 20 mg tablet See Rx Instructions .Route .COMPLEX Qty: 90 3RF Rx Instructions: Take 1 tablet by mouth once daily ranolazine 1,000 mg tablet extended release 12 hr See Rx Instructions .ROUTE .COMPLEX Qty: 180 3RF Dose Instruction: TAKE 1 TABLET BY MOUTH TWICE DAILY FOR HEART DISEASE Rx Instructions: TAKE 1 TABLET BY MOUTH TWICE DAILY FOR HEART DISEASE buspirone 10 mg tablet See Rx Instructions .ROUTE .COMPLEX Qty: 60 0RF Dose Instruction: Take 1 tablet by mouth twice daily Rx Instructions: Take 1 tablet by mouth twice daily azelastine-fluticasone 23 GM spray,non-aerosol 23 g intranasal BID isosorbide mononitrate 30 MG tablet 30 mg PO DAILY oxycodone-acetaminophen 7.5-325 mg tablet 1 tab PO QID cyanocobalamin (vitamin B-12) 5,000 MCG tablet,disintegrating 1,000 mcg PO DAILY pravastatin 20 MG tablet 20 mg PO HS albuterol sulfate 1.25 mg/3 mL solution for nebulization 1.25 mg inhalation BIDP PRN (Reason: breathing) nortriptyline 25 mg capsule 25 mg PO DAILY Patient Comments: TAKE 2 CAPSULES BY MOUTH ONCE DAILY metoprolol tartrate 100 mg tablet See Rx Instructions .ROUTE .COMPLEX Rx Instructions: Take 1 tablet by mouth twice daily Referrals Follow up/Referrals: Viktor Rebolledo MD [Primary Care Provider] - See instructions Activity Restrictions/Add. Instructions Additional Instructions/Restrictions: Keep the affected area clean and dry. Follow up with your regular doctor. Take the antibiotics as directed and apply the topical antibiotics as directed. Apply warm wet compresses to the affected area three or four times per day. GO TO THE ER FOR ANY WORSENING SYMPTOMS Clinical Impressions Clinical Impression: Cellulitis of right hand Instructions Patient Instructions: Cellulitis, Ceftriaxone Injection Print Language Print Language: Guinean Discharge ED Provider: Rambo Marmolejo [facility] [place] HPI General Stated complaint: right hand is swollen Mode of Arrival: Ambulatory Source of Information: Patient Limitations: No Limitations Time Seen by Provider: 05/31/24 19:01 Description of Symptoms (Recalled from Triage Doc. by RN): pt reports having multiple mosquito bites on her L hand on 05/29. pt now c/o edema, warmth, redness and pain in her L hand. HEENT Symptoms (Recalled from RN notes): No Resp Symptoms (Recalled from RN notes): No Skin Symptoms (Recalled from RN notes): Yes MS Symptoms (Recalled from RN notes): No Functional Status (Recalled from RN notes): wnl History of Present Illness Provider Complaint: She states that for the past 2 days she has had worsening swelling, redness and tenderness of the back of her right hand. She denies any injury but she did get several bug bites in that area recently. She denies any fever/chills, but she has had malaise. She is not a diabetic. Related Data Home Medications ?Medication ?Instructions ?Recorded ?Confirmed levocetirizine 5 mg tablet 5 mg PO HS allergies 01/31/18 05/14/24 montelukast 10 mg tablet 10 mg PO HS allergies 01/31/18 05/14/24 omeprazole 40 mg capsule,delayed 40 mg PO BID GERD 01/31/18 05/14/24 release cyanocobalamin (vitamin B-12) 1,000 mcg PO DAILY Supplement 06/30/18 05/14/24 5,000 mcg disintegrating tablet pravastatin 20 mg tablet 20 mg PO HS Cholesterol 07/01/18 05/14/24 aspirin 81 mg tablet,delayed 81 mg PO DAILY Heart disease 05/25/19 05/14/24 release (Adult Low Dose Aspirin) dicyclomine 20 mg tablet 20 mg PO ONCE stomach pain 05/25/19 05/14/24 azelastine 137 mcg-fluticasone 50 23 g intranasal BID allergies 09/14/19 05/14/24 mcg/spray nasal spray isosorbide mononitrate 30 mg 30 mg PO DAILY blood pressure 09/14/19 05/14/24 tablet,extended release 24 hr tizanidine 4 mg tablet 4 mg PO Q8H PRN muscle spasms 04/27/20 05/14/24 oxycodone-acetaminophen 7.5 mg-325 1 tab PO QID PAIN 10/03/21 05/14/24 mg tablet famotidine 20 mg tablet 20 mg PO BID Reflux/Acid reflux 11/30/21 05/14/24 metoprolol tartrate 100 mg tablet See Rx Instructions .Route 12/21/22 05/14/24 .COMPLEX htn nortriptyline 25 mg capsule 25 mg PO DAILY Pain 12/21/22 05/14/24 albuterol sulfate 1.25 mg/3 mL 1.25 mg inhalation BIDP PRN 02/12/23 05/14/24 solution for nebulization breathing pregabalin 200 mg capsule 200 mg PO TID RLS 02/12/23 05/14/24 docusate sodium 250 mg capsule 250 mg PO BID 05/15/23 05/14/24 (Stool Softener) ondansetron HCl 4 mg tablet 4 mg PO Q6H 07/11/23 05/14/24 cholecalciferol (vitamin D3) 1,250 50,000 unit PO WEEKLY 01/15/24 05/14/24 mcg (50,000 unit) capsule dupilumab 300 mg/2 mL subcutaneous 300 mg SQ Q2W 01/15/24 05/14/24 pen injector ([employer]) ipratropium bromide 42 mcg (0.06 2 spray intranasal PRN 01/15/24 05/14/24 %) nasal spray lactulose 10 gram/15 mL oral 15 ml PO DAILY PRN constipation 01/15/24 05/14/24 solution terconazole 0.8 % vaginal cream 1 appful vaginal .COMPLEX hormone 01/15/24 05/14/24 replacement amlodipine 10 mg tablet 5 mg PO DAILY 05/14/24 05/14/24 Previous Rx's ?Medication ?Instructions ?Recorded spironolactone 25 mg tablet 25 mg PO DAILY Edema #90 tabs 09/10/22 ubrogepant 100 mg tablet (Ubrelvy) 100 mg PO ONCE PRN migraines #16 02/26/23 tabs estradiol 2 mg tablet See Rx Instructions .Route 07/03/23 .COMPLEX #90 tabs erenumab-aooe 140 mg/mL 140 mg SQ QMONTH chronic migraine 03/02/24 subcutaneous auto-injector #1 mL (Aimovig Autoinjector) furosemide 20 mg tablet See Rx Instructions .Route 03/02/24 .COMPLEX FLUID RETENTION #90 tabs ranolazine 1,000 mg See Rx Instructions .Route 04/08/24 tablet,extended release,12 hr .COMPLEX #180 tabs buspirone 10 mg tablet See Rx Instructions .Route 05/04/24 .COMPLEX #60 tabs Zenpep 40,000 unit-126,000 1 cap PO QID low pancreatic 05/14/24 unit-168,000 unit capsule,delayed elastase #360 caps release ([id number]) cephalexin 500 mg capsule 500 mg PO QID 10 days #40 caps 05/31/24 mupirocin 2 % topical ointment 1 applic topical TID 7 days #15 05/31/24 grams sulfamethoxazole 800 1 tab PO BID 10 days #20 tabs 05/31/24 mg-trimethoprim 160 mg tablet (Bactrim DS) Allergies Allergy/AdvReac Type Severity Reaction Status Date / Time No Known Allergies Allergy Verified 05/14/24 11:07 Worker's Comp Is this a Worker's Comp case?: [facility] Dis[facility]: The information contained in this section may have been updated after the patient was seen, as this information can be updated by other users. Medical History Edema Vocal cord weakness Hiatal hernia Degenerated intervertebral disc Major depressive disorder Generalized anxiety disorder Bradycardia Angina, class II Surgical History H/O lithotripsy History of back surgery fusion cervicle and lumbar History of section History of hysterectomy History of cholecystectomy History of appendectomy History of colonoscopy Family History Other Family history of cancer Family history of diabetes mellitus type II Family history of hypertension Family history of hypothyroidism Social History Smoking Status: Never smoker second hand exposure: Yes (a lot of her family smokes) alcohol intake: never counseling given: No counseling provided: none substance use type: denies use counseling given: No current occupational status: disabled Travel in the last 8 weeks: None adopted: No caregiver/support person: No foster care: No household members: spouse and children housing: house lives independently: Yes marital status: number of children: 2 education level: college 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; did work at [employer] for 7 years current occupational exposures/hazards: No Hx Recent Travel: No sexually active: Yes caffeine: Yes (doesn't drink this daily) physical activity: none special sheyla needs: No agree to transfusion: No working smoke detector in home: Yes fire extinguisher in home: Yes carbon monox detector in home: Yes firearms in home: Yes firearms unloaded and locked: Yes do you feel safe at home: Yes victim of physical abuse: No victim of emotional abuse: No victim of sexual abuse: No would you like helpful sources: No ROS Obtained: Yes All systems reviewed & no additional complaints except as documented Constitutional Constitutional: Denies chills and Denies fever(s) Eyes Eyes: Denies eye discharge ENT Ears, Nose, Mouth, and Throat: Denies dizziness, Denies otalgia, Denies neck pain and Denies sore throat Cardiovascular Cardiovascular: Denies chest pain Respiratory Respiratory: Denies shortness of breath, Denies chest congestion, Denies cough, Denies stridor and Denies wheezing Gastrointestinal Gastrointestingal: Denies nausea or vomiting Musculoskeletal Musculoskeletal: Reports system reviewed and no additional complaints, except as documented, Denies arthralgias, Denies back pain and Denies neck pain Integumentary/Breasts Skin/Breast: Reports as per HPI and Reports redness Neurologic Neurologic: Denies dizziness and Denies paresthesias Allergic/Immunologic Allergic/Immunologic: Denies wheezing Physical Exam General General appearance: alert and in no apparent distress Head Head exam: atraumatic, normocephalic and normal inspection Eye Eye exam: Present normal appearance, PERRL and EOMI ENT ENT exam: Present normal exam, normal oropharynx, mucous membranes moist, TM's normal bilaterally and normal external ear exam Neck Neck exam: Present normal inspection, full ROM and trachea midline; Absent meningismus or lymphadenopathy Chest Chest inspection: Present normal inspection and symmetric chest wall rise; Absent tenderness Respiratory Respiratory exam: Present normal lung sounds bilaterally; Absent respiratory distress Cardiovascular Cardiovascular exam: Present regular rate and normal rhythm; Absent JVD Abdominal Exam Abdominal exam: Present soft and normal bowel sounds; Absent distention, tenderness or guarding Extremities Exam Extremities exam: Present normal inspection, full ROM and normal capillary refill; Absent calf tenderness Back Exam Back exam: Present normal inspection; Absent tenderness Neurological Exam Neurological exam: Present alert and oriented X3 Psychiatric Psychiatric exam: Present normal affect and normal mood Skin Skin exam: Present erythema (there is erythema and mild edema of the dorsal surface of her hand. no open wound, no drainage, no induration. ) Lymphatic Lymphatic Findings: no adenopathy Medical Decision Making Medical Records Medical records reviewed: No I reviewed the patient's medical records. Jarrett Inquiry Pt receiving controlled substance: No Vital Signs: 05/31/24 18:26 Temperature 97.9 F Temperature Source Oral Pulse Rate [Left] 121 H Respiratory Rate 18 Blood Pressure [Right Arm] 152/96 H Blood Pressure Mean [Right Arm] 114 Blood Pressure Source [Right Arm] Automatic Cuff Blood Pressure Position [Right Arm] Sitting 02 Sat by Pulse Oximetry 97
[2024-05-31] MEDS: cefTRIAXone 1GM VIAL 1 GM IM (19:10)
[2024-05-31 19:15] VITALS: BP 152/96; PULSE 121; RESP 18; TEMP 36.6
== END 2024-05-31 19:41 | disposition home or self-care (01) ==
PROVIDERS: Emergency Provider Nurse Practitioner Family; PCP Internal Medicine Adolescent Medicine
DX: L03.113 Cellulitis of right upper limb (principal)
CPT/HCPCS: 96372; 99212; 99214; G0463; J0696

== ENCOUNTER 2024-12-11 09:27 | Emergency (ER) | payer MEDICARE, SELFPAY ==
--- NOTE | 2024-12-11 09:30 | XR_ITS ---
FINAL REPORT CLINICAL HISTORY: FALL COMPARISON: None FINDINGS: LEFT KNEE 3 views of the left knee were obtained. There is no acute fracture or dislocation. Visualized joint spaces are normally aligned. Soft tissues are unremarkable. IMPRESSION: No acute bony abnormality. Reviewed, Interpreted and Dictated by Enrico Yu MD Transcribed by Yoselyn Holt Authenticated and [facility]
--- NOTE | 2024-12-11 10:12 | ED_ITS ---
Discharge Plan Disposition Patient Disposition: Home, Self-Care Condition: Good Prescriptions Prescriptions: No Action famotidine 20 mg tablet 20 mg PO BID ondansetron HCl 4 mg tablet 4 mg PO Q6H Patient Comments: TAKE 1 TABLET BY MOUTH EVERY 6 HOURS NEEDED ipratropium bromide 42 mcg (0.06 %) spray,non-aerosol 2 spray intranasal PRN Patient Comments: USE 1 TO 2 SPRAY(S) IN EACH NOSTRIL EVERY 6 HOURS NEEDED FOR POSTNASAL DRAINAGE AND RUNNY NOSE terconazole 0.8 % cream 1 appful VAGINAL .COMPLEX Rx Instructions: 1 appful vaginally 3x week; cholecalciferol (vitamin D3) 1,250 mcg (50,000 unit) capsule 50,000 unit PO WEEKLY Patient Comments: TAKE 1 CAPSULE BY MOUTH ONCE A WEEK Dupixent Pen 300 mg/2 mL pen injector 300 mg SQ Q2W Zenpep 40,000-126,000- 168,000 unit capsule,delayed release(DR/EC) 1 cap PO QID Qty: 360 0RF Rx Instructions: administer with meals and/or snacks amlodipine 10 mg tablet 5 mg PO DAILY Patient Comments: TAKE 1 TABLET BY MOUTH ONCE DAILY levocetirizine 5 mg tablet 5 mg PO HS montelukast 10 mg tablet 10 mg PO HS omeprazole 40 mg capsule,delayed release(DR/EC) 40 mg PO BID dicyclomine 20 mg tablet 20 mg PO ONCE aspirin [Adult Low Dose Aspirin] 81 mg tablet,delayed release (DR/EC) 81 mg PO DAILY tizanidine 4 mg tablet 4 mg PO Q8H PRN (Reason: muscle spasms) lactulose 10 gram/15 mL solution 15 ml PO DAILY PRN (Reason: constipation) pregabalin 200 mg capsule 200 mg PO TID docusate sodium [Stool Softener] 250 mg capsule 250 mg PO BID spironolactone 25 mg tablet 25 mg PO DAILY Qty: 90 3RF Ubrelvy 100 mg tablet 100 mg PO ONCE PRN (Reason: migraines) Qty: 16 5RF Rx Instructions: Take 100 mg (1 tablet) at onset of headache. If symptoms persist after 2 hours, may repeat 100 mg (1 tablet). Max dose 2 tablets in 24 hours or 4 tablets/week. Aimovig Autoinjector 140 mg/mL auto-injector 140 mg SQ QMONTH Qty: 1 0RF furosemide 20 mg tablet See Rx Instructions .Route .COMPLEX Qty: 90 3RF Rx Instructions: Take 1 tablet by mouth once daily ranolazine 1,000 mg tablet extended release 12 hr 1,000 mg PO BID Qty: 60 5RF estradiol 2 mg tablet See Rx Instructions .ROUTE .COMPLEX Qty: 90 3RF Dose Instruction: TAKE 1 TABLET BY MOUTH ONCE DAILY FOR HORMONE Rx Instructions: TAKE 1 TABLET BY MOUTH ONCE DAILY FOR HORMONE buspirone 10 mg tablet See Rx Instructions .ROUTE .COMPLEX Qty: 60 3RF Dose Instruction: Take 1 tablet by mouth twice daily Rx Instructions: Take 1 tablet by mouth twice daily azelastine-fluticasone 23 GM spray,non-aerosol 23 g intranasal BID isosorbide mononitrate 30 MG tablet 30 mg PO DAILY oxycodone-acetaminophen 7.5-325 mg tablet 1 tab PO QID cyanocobalamin (vitamin B-12) 5,000 MCG tablet,disintegrating 1,000 mcg PO DAILY pravastatin 20 MG tablet 20 mg PO HS albuterol sulfate 1.25 mg/3 mL solution for nebulization 1.25 mg inhalation BIDP PRN (Reason: breathing) nortriptyline 25 mg capsule 25 mg PO DAILY Patient Comments: TAKE 2 CAPSULES BY MOUTH ONCE DAILY metoprolol tartrate 100 mg tablet See Rx Instructions .ROUTE .COMPLEX Rx Instructions: Take 1 tablet by mouth twice daily sulfamethoxazole-trimethoprim [Bactrim DS] 800-160 mg Tablet 1 tab PO BID 10 Days Qty: 20 0RF cephalexin 500 mg capsule 500 mg PO QID 10 Days Qty: 40 0RF mupirocin 2 % ointment 1 applic topical TID 7 Days Qty: 15 0RF Referrals Follow up/Referrals: Diogenes Shane DO [Staff Physician] - See instructions Viktor Rebolledo MD [Primary Care Provider] - See instructions Activity Restrictions/Add. Instructions Additional Instructions/Restrictions: Rest the extremity, apply ice for 15 minutes as tolerated three or four times per day, Wear the nabil wrap for compression, Elevate the extremity as tolerated while you are resting. Take ibuprofen or tylenol for pain. Follow up with Dr. Shane (orthopedics). I put in a referral but you need to call his office and schedule an appointment. Follow up with your regular doctor. GO TO THE ER FOR ANY WORSENING SYMPTOMS Clinical Impressions Clinical Impression: Contusion of left knee, Left knee pain Instructions Patient Instructions: DI for Knee Pain, How to Apply an Elastic Wrap on Knee Print Language Print Language: [place] Discharge ED Provider: Rambo Marmolejo [facility] [place] General Stated complaint: AO-Fall 12/10, pain swelling L knee Time Seen by Provider: 12/11/24 10:11 History of Present Illness Provider Complaint: She states that yesterday she got tangled in her dog's leash and tripped. She came down on her left knee. She has had left knee pain, swelling and stiffness since then. She came in this morning because she states that her knee feels worse instead of like it's getting better. She states that she scraped her chin on the ground when she fell, but she denies significant head injury and chin injury. She can open and close her mouth without pain. She has a history of cervical spine fusion, but she denies significant neck pain and injury. She denies any loss of consciousness. She denies any other injury or complaints. Related Data Home Medications ?Medication ?Instructions ?Recorded ?Confirmed levocetirizine 5 mg tablet 5 mg PO HS allergies 01/31/18 05/14/24 montelukast 10 mg tablet 10 mg PO HS allergies 01/31/18 05/14/24 omeprazole 40 mg capsule,delayed 40 mg PO BID GERD 01/31/18 05/14/24 release cyanocobalamin (vitamin B-12) 1,000 mcg PO DAILY Supplement 06/30/18 05/14/24 5,000 mcg disintegrating tablet pravastatin 20 mg tablet 20 mg PO HS Cholesterol 07/01/18 05/14/24 aspirin 81 mg tablet,delayed 81 mg PO DAILY Heart disease 05/25/19 05/14/24 release (Adult Low Dose Aspirin) dicyclomine 20 mg tablet 20 mg PO ONCE stomach pain 05/25/19 05/14/24 azelastine 137 mcg-fluticasone 50 23 g intranasal BID allergies 09/14/19 05/14/24 mcg/spray nasal spray isosorbide mononitrate 30 mg 30 mg PO DAILY blood pressure 09/14/19 05/14/24 tablet,extended release 24 hr tizanidine 4 mg tablet 4 mg PO Q8H PRN muscle spasms 04/27/20 05/14/24 oxycodone-acetaminophen 7.5 mg-325 1 tab PO QID PAIN 10/03/21 05/14/24 mg tablet famotidine 20 mg tablet 20 mg PO BID Reflux/Acid reflux 11/30/21 05/14/24 metoprolol tartrate 100 mg tablet See Rx Instructions .Route 12/21/22 05/14/24 .COMPLEX htn nortriptyline 25 mg capsule 25 mg PO DAILY Pain 12/21/22 05/14/24 albuterol sulfate 1.25 mg/3 mL 1.25 mg inhalation BIDP PRN 02/12/23 05/14/24 solution for nebulization breathing pregabalin 200 mg capsule 200 mg PO TID RLS 02/12/23 05/14/24 docusate sodium 250 mg capsule 250 mg PO BID 05/15/23 05/14/24 (Stool Softener) ondansetron HCl 4 mg tablet 4 mg PO Q6H 07/11/23 05/14/24 cholecalciferol (vitamin D3) 1,250 50,000 unit PO WEEKLY 01/15/24 05/14/24 mcg (50,000 unit) capsule dupilumab 300 mg/2 mL subcutaneous 300 mg SQ Q2W 01/15/24 05/14/24 pen injector ([employer]) ipratropium bromide 42 mcg (0.06 2 spray intranasal PRN 01/15/24 05/14/24 %) nasal spray lactulose 10 gram/15 mL oral 15 ml PO DAILY PRN constipation 01/15/24 05/14/24 solution terconazole 0.8 % vaginal cream 1 appful vaginal .COMPLEX hormone 01/15/24 05/14/24 replacement amlodipine 10 mg tablet 5 mg PO DAILY 05/14/24 05/14/24 Previous Rx's ?Medication ?Instructions ?Recorded spironolactone 25 mg tablet 25 mg PO DAILY Edema #90 tabs 09/10/22 ubrogepant 100 mg tablet (Ubrelvy) 100 mg PO ONCE PRN migraines #16 02/26/23 tabs erenumab-aooe 140 mg/mL 140 mg SQ QMONTH chronic migraine 03/02/24 subcutaneous auto-injector #1 mL (Aimovig Autoinjector) furosemide 20 mg tablet See Rx Instructions .Route 03/02/24 .COMPLEX FLUID RETENTION #90 tabs Zenpep 40,000 unit-126,000 1 cap PO QID low pancreatic 05/14/24 unit-168,000 unit capsule,delayed elastase #360 caps release (sghsac-[id number]-nhiclbq) cephalexin 500 mg capsule 500 mg PO QID 10 days #40 caps 05/31/24 mupirocin 2 % topical ointment 1 applic topical TID 7 days #15 05/31/24 grams sulfamethoxazole 800 1 tab PO BID 10 days #20 tabs 05/31/24 mg-trimethoprim 160 mg tablet (Bactrim DS) ranolazine 1,000 mg 1,000 mg PO BID #60 tabs 07/09/24 tablet,extended release,12 hr buspirone 10 mg tablet See Rx Instructions .Route 08/24/24 .COMPLEX #60 tabs estradiol 2 mg tablet See Rx Instructions .Route 08/24/24 .COMPLEX #90 tabs Allergies Allergy/AdvReac Type Severity Reaction Status Date / Time No Known Allergies Allergy Verified 05/14/24 11:07 [facility] Disclaimer: The information contained in this section may have been updated after the patient was seen, as this information can be updated by other users. Medical History Edema Vocal cord weakness Hiatal hernia Degenerated intervertebral disc Major depressive disorder Generalized anxiety disorder Bradycardia Angina, class II Surgical History H/O lithotripsy History of back surgery fusion cervicle and lumbar History of section History of hysterectomy History of cholecystectomy History of appendectomy History of colonoscopy Family History Other Family history of cancer Family history of diabetes mellitus type II Family history of hypertension Family history of hypothyroidism Social History Smoking Status: Never smoker second hand exposure: Yes (a lot of her family smokes) alcohol intake: never counseling given: No counseling provided: none substance use type: denies use counseling given: No current occupational status: disabled Travel in the last 8 weeks: None adopted: No caregiver/support person: No foster care: No household members: spouse and children housing: house lives independently: Yes marital status: number of children: 2 education level: college 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[employer]; 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 at [employer] for 7 years current occupational exposures/hazards: No Hx Recent Travel: No sexually active: Yes caffeine: Yes (doesn't drink this daily) physical activity: none special sheyla needs: No agree to transfusion: No working smoke detector in home: Yes fire extinguisher in home: Yes carbon monox detector in home: Yes firearms in home: Yes firearms unloaded and locked: Yes do you feel safe at home: Yes victim of physical abuse: No victim of emotional abuse: No victim of sexual abuse: No would you like helpful sources: No ROS Obtained: Yes All systems reviewed & no additional complaints except as documented Constitutional Constitutional: Denies chills, Denies fever(s), Denies headache(s) and Denies weakness Eyes Eyes: Denies eye discharge ENT Ears, Nose, Mouth, and Throat: Denies dizziness, Denies otalgia, Denies headache(s) and Denies sore throat Cardiovascular Cardiovascular: Denies chest pain and Denies syncope Respiratory Respiratory: Denies shortness of breath, Denies chest congestion, Denies cough, Denies stridor and Denies wheezing Gastrointestinal Gastrointestingal: Denies nausea or vomiting Musculoskeletal Musculoskeletal: Reports system reviewed and no additional complaints, except as documented, Denies arthralgias and Denies numbness Integumentary/Breasts Skin/Breast: Denies rash Neurologic Neurologic: Denies confusion, Denies dizziness, Denies focal weakness, Denies headache(s), Denies numbness, Denies paresthesias, Denies seizure-like activity, Denies syncope and Denies weakness Allergic/Immunologic Allergic/Immunologic: Denies wheezing Physical Exam General General appearance: alert and in no apparent distress Head Head exam: atraumatic, normocephalic and normal inspection Eye Eye exam: Present normal appearance, PERRL and EOMI ENT ENT exam: Present normal exam, normal oropharynx, mucous membranes moist, TM's normal bilaterally and normal external ear exam Neck Neck exam: Present normal inspection, full ROM and trachea midline; Absent meningismus or lymphadenopathy Chest Chest inspection: Present normal inspection and symmetric chest wall rise; Absent tenderness Respiratory Respiratory exam: Present normal lung sounds bilaterally; Absent respiratory distress Cardiovascular Cardiovascular exam: Present regular rate and normal rhythm; Absent JVD Abdominal Exam Abdominal exam: Present soft and normal bowel sounds; Absent distention, tenderness or guarding Extremities Exam Extremities exam: Present normal capillary refill; Absent calf tenderness Expanded Lower Extremity Exam Left: Hip/Pelvis exam: Present normal inspection and full ROM; Absent tenderness Upper leg exam: Present normal inspection and full ROM; Absent tenderness Knee exam: Present full ROM, tenderness, swelling, abrasion and knee extension intact; Absent laceration, ecchymosis, deformity, crepitus, dislocation, erythema, effusion, anterior drawer sign, posterior draw sign, pain with valgus, laxity with valgus, pain with varus or laxity with varus Lower leg exam: Present normal inspection, full ROM and Achilles tendon intact; Absent tenderness or Homans' sign Ankle exam: Present normal inspection and full ROM; Absent tenderness Foot/toe exam: Present normal inspection and full ROM; Absent tenderness Neurovascular/Tendon exam: Present normal capillary refill, normal 2-point discrimination and normal fine/light touch; Absent pulse deficit, motor deficit, sensory deficit, tendon deficit, extremity cold to touch or pallor Gait: observed and limited by pain Back Exam Back exam: Present normal inspection; Absent tenderness Neurological Exam Neurological exam: Present alert and oriented X3 Psychiatric Psychiatric exam: Present normal affect and normal mood Skin Skin exam: Present warm, dry, intact and normal color Lymphatic Lymphatic Findings: no adenopathy Medical Decision Making Medical Records Medical records reviewed: No I reviewed the patient's medical records. Screening: Per USPSTF and CDC recommendations, given the prevalence of disease in our region, it is our hospital?s policy to screen for HIV and viral Hepatitis for all patients aged 18 and over and those with ongoing risk factors. Jarrett Inquiry Pt receiving controlled substance: No Orders (Tests/Meds): ORDERS Category Date Time Status XR knee LT 3V Stat Exams 12/11/24 09:30 Ordered Radiology Data #1: Image(s): Knee Image Reviewed: Yes I reviewed the patient's radiology image and Yes I have reviewed radiologist's interpretation Preliminary Findings: No Fracture Seen Accession No. : [id number] Patient Name / ID : JOHNNY PARKER / [id number] Exam Date : 12/11/2024 09:53:41 ( Final ) Study Comment : Sex / Age : F / 44Y Creator : Geoffrey Yu MD Dictator : Identification And Records Commander : Dowel Setting Machine Operator : Geoffrey Yu MD Approver2 : Report Date : 12/11/2024 10:33:11 My Comment : FINAL REPORT CLINICAL HISTORY: FALL COMPARISON: None FINDINGS: LEFT KNEE 3 views of the left knee were obtained. There is no acute fracture or dislocation. Visualized joint spaces are normally aligned. Soft tissues are unremarkable. IMPRESSION: No acute bony abnormality. Reviewed, Interpreted and Dictated by Enrico Yu MD Transcribed by Yoselyn Holt Authenticated and . [facility] Procedures Risk/Benefits of Procedure(s) Were Explained: Yes Orthopedic Splinting/Casting Injury #1: Side: left Lower Extremity Injury Location: knee Lower Extremity Immobilizer: Nabil wrap Post Cast/Splinting Neuro Status: intact and no change Post Cast/Splinting Vasc Status: intact and no change
[2024-12-11 10:17] VITALS: BP 117/64; PULSE 98; RESP 18; TEMP 36.8; O2SAT 98; BMI 30.7
[2024-12-11 11:05] VITALS: BP 117/64; PULSE 98; RESP 18; TEMP 36.8; O2SAT 98
== END 2024-12-11 11:05 | disposition home or self-care (01) ==
PROVIDERS: Emergency Provider Nurse Practitioner Family; PCP Internal Medicine Adolescent Medicine
DX: S80.02XA Contusion of left knee, initial encounter (principal)
CPT/HCPCS: 73562; 99212; G0381

== ENCOUNTER 2024-12-11 17:05 | Emergency (ER) | payer MEDICARE, SELFPAY ==
[2024-12-11] VITALS (27 sets, daily range): BP systolic 120–227; BP diastolic 74–131; PULSE 67–98; RESP 11–19; TEMP 36.7; O2SAT 97–100; BMI 27.3
--- NOTE | 2024-12-11 17:13 | CT_ITS ---
PROCEDURE INFORMATION: Exam: CTA Head With Contrast, Arteriography Exam date and time: 12/11/2024 5:19 PM Age: 44 years old Clinical indication: Stroke-like symptoms; Other: Possible stroke TECHNIQUE: Imaging protocol: Computed tomographic angiography of the head with contrast. Exam focused on the arteries. 3D rendering (Not supervised by radiologist): MIP and/or 3D reconstructed images were created by the technologist. Radiation optimization: All CT scans at this facility use at least one of these dose optimization techniques: automated exposure control; mA and/or kV adjustment per patient size (includes targeted exams where dose is matched to clinical indication); or iterative reconstruction. Contrast material: ISO 370; Contrast volume: 80 ml; Contrast route: INTRAVENOUS (IV); COMPARISON: CT HEAD/BRAIN WO CON 12/11/2024 5:17 PM FINDINGS: ANTERIOR CIRCULATION: Right internal carotid artery: Intracranial segment is patent with no significant stenosis. No aneurysm. Right middle cerebral artery: No occlusion or significant stenosis. No aneurysm. Right anterior cerebral artery: No occlusion or significant stenosis. No aneurysm. Left internal carotid artery: Intracranial segment is patent with no significant stenosis. No aneurysm. Left middle cerebral artery: No occlusion or significant stenosis. No aneurysm. Left anterior cerebral artery: No occlusion or significant stenosis. No aneurysm. POSTERIOR CIRCULATION: Right vertebral artery: No occlusion or significant stenosis. No aneurysm. Left vertebral artery: No occlusion or significant stenosis. No aneurysm. Basilar artery: No occlusion or significant stenosis. No aneurysm. Right posterior cerebral artery: No occlusion or significant stenosis. No aneurysm. Left posterior cerebral artery: No occlusion or significant stenosis. No aneurysm. Brain: No definite mass, mass effect, or midline shift. Cerebral ventricles: No ventriculomegaly. Paranasal sinuses: Partially visualized bilateral maxillary sinus disease and ethmoidal sinus thickening. Bones/joints: Unremarkable. No acute fracture. Soft tissues: Unremarkable. IMPRESSION: 1. Partially visualized bilateral maxillary sinus disease and ethmoidal sinus thickening. 2. No stenosis or occlusion.
--- NOTE | 2024-12-11 17:13 | CT_ITS ---
PROCEDURE INFORMATION: Exam: CTA Neck With Contrast Exam date and time: 12/11/2024 5:19 PM Age: 44 years old Clinical indication: Stroke-like symptoms; Other: Possible stroke TECHNIQUE: Imaging protocol: Computed tomographic angiography of the neck with contrast. Exam focused on the cervical segments of the vasculature. 3D rendering (Not supervised by radiologist): MIP and/or 3D reconstructed images were created by the technologist. Radiation optimization: All CT scans at this facility use at least one of these dose optimization techniques: automated exposure control; mA and/or kV adjustment per patient size (includes targeted exams where dose is matched to clinical indication); or iterative reconstruction. Contrast material: ISO 370; Contrast volume: 80 ml; Contrast route: INTRAVENOUS (IV); COMPARISON: CT SOFT TISSUE NECK W CON 02/28/2023 6:52 AM FINDINGS: Right common carotid artery: No stenosis. No dissection or occlusion. Right internal carotid artery: Mild stenosis at the origin of the right ICA estimated at 20%. This is due to eccentric calcified plaque formation extending over a 8 mm segment. Right external carotid artery: No occlusion or stenosis of the origin. Left common carotid artery: No stenosis. No dissection or occlusion. Left internal carotid artery: No stenosis of the extracranial segment. No dissection or occlusion. Left external carotid artery: No occlusion or stenosis of the origin. Right vertebral artery: No stenosis. No dissection or occlusion. Left vertebral artery: No stenosis. No dissection or occlusion. Soft tissues: Normal. No significant soft tissue swelling. Bones/joints: No acute fracture. IMPRESSION: 1. Mild stenosis at the origin of the right ICA estimated at 20 -30 %. This is due to eccentric calcified plaque formation extending over a 8 mm segment. No high-grade stenosis or occlusion. 2. Bilateral maxillary sinus disease and ethmoid sinus disease. REFERENCES: NASCET CRITERIA. The degree of stenosis in the cervical segment of the internal carotid artery is based on NASCET criteria. Normal is no stenosis. Mild is less than 50% stenosis. Moderate is 50-69% stenosis. Severe is 70% to 99% stenosis. Total occlusion is no detectable patent lumen.
--- NOTE | 2024-12-11 17:13 | CT_ITS ---
PROCEDURE INFORMATION: Exam: CT Head Without Contrast Exam date and time: 12/11/2024 5:17 PM Age: 44 years old Clinical indication: Stroke-like symptoms; Other: Possible stroke TECHNIQUE: Imaging protocol: Computed tomography of the head without contrast. Radiation optimization: All CT scans at this facility use at least one of these dose optimization techniques: automated exposure control; mA and/or kV adjustment per patient size (includes targeted exams where dose is matched to clinical indication); or iterative reconstruction. Other technique: STROKE PROTOCOL was implemented. COMPARISON: MR HEAD/BRAIN WO/W CON 02/20/2023 11:13 AM FINDINGS: Brain: Normal. No hemorrhage. Unremarkable white matter. No mass effect. Cerebral ventricles: No ventriculomegaly. Paranasal sinuses: Visualized sinuses are unremarkable. No fluid levels. Mastoid air cells: Visualized mastoid air cells are well aerated. Bones: Unremarkable. No acute fracture. Soft tissues: Unremarkable. IMPRESSION: No acute intracranial abnormality. ASSESSMENT: ASPECTS ([place] Stroke Program Early CT Score) is 10.
--- NOTE | 2024-12-11 17:17 | ED_ITS ---
Discharge Plan Disposition Patient Disposition: Xfer Other Chief Complaint: Neuro Symptoms/Deficit Prescriptions Prescriptions: No Action famotidine 20 mg tablet 20 mg PO BID ondansetron HCl 4 mg tablet 4 mg PO Q6H Patient Comments: TAKE 1 TABLET BY MOUTH EVERY 6 HOURS NEEDED ipratropium bromide 42 mcg (0.06 %) spray,non-aerosol 2 spray intranasal NEEDED PRN (Reason: Allergy Symptoms) Patient Comments: USE 1 TO 2 SPRAY(S) IN EACH NOSTRIL EVERY 6 HOURS NEEDED FOR POSTNASAL DRAINAGE AND RUNNY NOSE cholecalciferol (vitamin D3) 1,250 mcg (50,000 unit) capsule 50,000 unit PO WEEKLY Patient Comments: TAKE 1 CAPSULE BY MOUTH ONCE A WEEK Zenpep 40,000-126,000- 168,000 unit capsule,delayed release(DR/EC) 1 cap PO QID Qty: 360 0RF Rx Instructions: administer with meals and/or snacks amlodipine 10 mg tablet 5 mg PO DAILY Patient Comments: TAKE 1 TABLET BY MOUTH ONCE DAILY levocetirizine 5 mg tablet 5 mg PO HS montelukast 10 mg tablet 10 mg PO HS omeprazole 40 mg capsule,delayed release(DR/EC) 40 mg PO BID aspirin [Adult Low Dose Aspirin] 81 mg tablet,delayed release (DR/EC) 81 mg PO DAILY tizanidine 4 mg tablet 4 mg PO Q8H PRN (Reason: muscle spasms) lactulose 10 gram/15 mL solution 15 ml PO DAILY PRN (Reason: constipation) pregabalin 200 mg capsule 200 mg PO TID docusate sodium [Stool Softener] 250 mg capsule 250 mg PO BID spironolactone 25 mg tablet 25 mg PO DAILY Qty: 90 3RF Ubrelvy 100 mg tablet 100 mg PO ONCE PRN (Reason: migraines) Qty: 16 5RF Rx Instructions: Take 100 mg (1 tablet) at onset of headache. If symptoms persist after 2 hours, may repeat 100 mg (1 tablet). Max dose 2 tablets in 24 hours or 4 tablets/week. Aimovig Autoinjector 140 mg/mL auto-injector 140 mg SQ QMONTH Qty: 1 0RF furosemide 20 mg tablet See Rx Instructions .Route .COMPLEX Qty: 90 3RF Rx Instructions: Take 1 tablet by mouth once daily ranolazine 1,000 mg tablet extended release 12 hr 1,000 mg PO BID Qty: 60 5RF estradiol 2 mg tablet See Rx Instructions .ROUTE .COMPLEX Qty: 90 3RF Dose Instruction: TAKE 1 TABLET BY MOUTH ONCE DAILY FOR HORMONE Rx Instructions: TAKE 1 TABLET BY MOUTH ONCE DAILY FOR HORMONE buspirone 10 mg tablet See Rx Instructions .ROUTE .COMPLEX Qty: 60 3RF Dose Instruction: Take 1 tablet by mouth twice daily Rx Instructions: Take 1 tablet by mouth twice daily azelastine-fluticasone 23 GM spray,non-aerosol 23 g intranasal BID isosorbide mononitrate 30 MG tablet 30 mg PO DAILY oxycodone-acetaminophen 7.5-325 mg tablet 1 tab PO QID cyanocobalamin (vitamin B-12) 5,000 MCG tablet,disintegrating 1,000 mcg PO DAILY pravastatin 20 MG tablet 20 mg PO HS albuterol sulfate 1.25 mg/3 mL solution for nebulization 1.25 mg inhalation BIDP PRN (Reason: breathing) nortriptyline 25 mg capsule 25 mg PO DAILY Patient Comments: TAKE 2 CAPSULES BY MOUTH ONCE DAILY metoprolol tartrate 100 mg tablet See Rx Instructions .ROUTE .COMPLEX Rx Instructions: Take 1 tablet by mouth twice daily sulfamethoxazole-trimethoprim [Bactrim DS] 800-160 mg Tablet 1 tab PO BID 10 Days Qty: 20 0RF cephalexin 500 mg capsule 500 mg PO QID 10 Days Qty: 40 0RF mupirocin 2 % ointment 1 applic topical TID 7 Days Qty: 15 0RF Referrals Follow up/Referrals: Viktor Rebolledo MD [Primary Care Provider] - See instructions Clinical Impressions Clinical Impression: Bilateral leg weakness, Shakiness Stand Alone Forms Stand Alone Forms: Transfer Record - ED Print Language Print Language: Welsh Discharge ED Provider: Oli Black General Adult HPI <EFFIE Velazco - Last Filed: 12/11/24 21:21> General Chief complaint: Neuro Symptoms/Deficit Stated complaint: numbness in mouth, weak , cannot walk Time Seen by Provider: 12/11/24 17:07 Mode of Arrival: Ambulatory Source of Information: Patient Limitations: No Limitations History of Present Illness HPI narrative: This is a 44-year-old female who presents to the emergency department with strokelike symptoms. Patient states that she gets numb all over and starts shaking . Last known well was 45 minutes to 1-hour, this approximately 4 PM. She states that she has had similar episodes like this in the past but this is worse . She endorses difficulty with balance and walking. She denies any real upper or lower extremity weakness, does have these tremors. He also endorses numbness in my mouth . Other past medical history consistent with MDD, DOROTHY, chronic migraine without aura, spells of abnormal behavior, hypertension, hyperthyroidism, coronary artery disease, hyperlipidemia, denies any fever chills cough congestion, recent sick contacts, admits to some chest tightness/shortness of breath at times with these episodes, admits to tremors, nausea abdominal pain constipation nausea vomiting diarrhea no urinary type symptomatology. She denies any history of substance use, does have past medical history also consistent with spine fusions 1 in the cervical spine at one of the lower lumbar spine. is at the bedside, and right some of the history as well. 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 Current NIH at the bedside is a 1, due to some mild stuttering/speech disturbance. Triage vitals are notable for elevated blood pressure, otherwise unremarkable. Of note, patient did have a fall yesterday where she landed on her chin , she denies any real neck pain from this. Also of note, the patient recently was started on some new medication for anxiety she states it is BuSpar , 2 months ago. This is to help with her anxiety type reaction symptomatology. Related Data Home Medications ?Medication ?Instructions ?Recorded ?Confirmed levocetirizine 5 mg tablet 5 mg PO HS allergies 01/31/18 12/11/24 montelukast 10 mg tablet 10 mg PO HS allergies 01/31/18 12/11/24 omeprazole 40 mg capsule,delayed 40 mg PO BID GERD 01/31/18 12/11/24 release cyanocobalamin (vitamin B-12) 1,000 mcg PO DAILY Supplement 06/30/18 12/11/24 5,000 mcg disintegrating tablet pravastatin 20 mg tablet 20 mg PO HS Cholesterol 07/01/18 12/11/24 aspirin 81 mg tablet,delayed 81 mg PO DAILY Heart disease 05/25/19 12/11/24 release (Adult Low Dose Aspirin) azelastine 137 mcg-fluticasone 50 23 g intranasal BID allergies 09/14/19 12/11/24 mcg/spray nasal spray isosorbide mononitrate 30 mg 30 mg PO DAILY blood pressure 09/14/19 12/11/24 tablet,extended release 24 hr tizanidine 4 mg tablet 4 mg PO Q8H PRN muscle spasms 04/27/20 12/11/24 oxycodone-acetaminophen 7.5 mg-325 1 tab PO QID PAIN 10/03/21 12/11/24 mg tablet famotidine 20 mg tablet 20 mg PO BID Reflux/Acid reflux 11/30/21 12/11/24 metoprolol tartrate 100 mg tablet See Rx Instructions .Route 12/21/22 12/11/24 .COMPLEX htn nortriptyline 25 mg capsule 25 mg PO DAILY Pain 12/21/22 12/11/24 albuterol sulfate 1.25 mg/3 mL 1.25 mg inhalation BIDP PRN 02/12/23 12/11/24 solution for nebulization breathing pregabalin 200 mg capsule 200 mg PO TID RLS 02/12/23 12/11/24 docusate sodium 250 mg capsule 250 mg PO BID 05/15/23 12/11/24 (Stool Softener) ondansetron HCl 4 mg tablet 4 mg PO Q6H 07/11/23 12/11/24 cholecalciferol (vitamin D3) 1,250 50,000 unit PO WEEKLY 01/15/24 12/11/24 mcg (50,000 unit) capsule ipratropium bromide 42 mcg (0.06 2 spray intranasal NEEDED PRN 01/15/24 12/11/24 %) nasal spray Allergy Symptoms lactulose 10 gram/15 mL oral 15 ml PO DAILY PRN constipation 01/15/24 12/11/24 solution amlodipine 10 mg tablet 5 mg PO DAILY 05/14/24 12/11/24 Previous Rx's ?Medication ?Instructions ?Recorded spironolactone 25 mg tablet 25 mg PO DAILY Edema #90 tabs 09/10/22 ubrogepant 100 mg tablet (Ubrelvy) 100 mg PO ONCE PRN migraines #16 02/26/23 tabs erenumab-aooe 140 mg/mL 140 mg SQ QMONTH chronic migraine 03/02/24 subcutaneous auto-injector #1 mL (Aimovig Autoinjector) furosemide 20 mg tablet See Rx Instructions .Route 03/02/24 .COMPLEX FLUID RETENTION #90 tabs Zenpep 40,000 unit-126,000 1 cap PO QID low pancreatic 05/14/24 unit-168,000 unit capsule,delayed elastase #360 caps release (prqaxe-garysmvd-ohnasli) cephalexin 500 mg capsule 500 mg PO QID 10 days #40 caps 05/31/24 mupirocin 2 % topical ointment 1 applic topical TID 7 days #15 05/31/24 grams sulfamethoxazole 800 1 tab PO BID 10 days #20 tabs 05/31/24 mg-trimethoprim 160 mg tablet (Bactrim DS) ranolazine 1,000 mg 1,000 mg PO BID #60 tabs 07/09/24 tablet,extended release,12 hr buspirone 10 mg tablet See Rx Instructions .Route 08/24/24 .COMPLEX #60 tabs estradiol 2 mg tablet See Rx Instructions .Route 08/24/24 .COMPLEX #90 tabs Allergies Allergy/AdvReac Type Severity Reaction Status Date / Time No Known Allergies Allergy Verified 05/14/24 11:07 [facility] <EFFIE Velazco - Last Filed: 12/11/24 21:21> [facility] Disclaimer: The information contained in this section may have been updated after the patient was seen, as this information can be updated by other users. Medical History Edema Vocal cord weakness Hiatal hernia Degenerated intervertebral disc Major depressive disorder Generalized anxiety disorder Bradycardia Angina, class II Surgical History H/O lithotripsy History of back surgery fusion cervicle and lumbar History of section History of hysterectomy History of cholecystectomy History of appendectomy History of colonoscopy Family History Other Family history of cancer Family history of diabetes mellitus type II Family history of hypertension Family history of hypothyroidism Social History Smoking Status: Never smoker second hand exposure: Yes (a lot of her family smokes) alcohol intake: never counseling given: No counseling provided: none substance use type: denies use counseling given: No current occupational status: disabled Travel in the last 8 weeks: None adopted: No caregiver/support person: No foster care: No household members: spouse and children housing: house lives independently: Yes marital status: number of children: 2 education level: college 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[email or web address]; 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 work at [employer] for 7 years current occupational exposures/hazards: No Hx Recent Travel: No sexually active: Yes caffeine: Yes (doesn't drink this daily) physical activity: none special sheyla needs: No agree to transfusion: No working smoke detector in home: Yes fire extinguisher in home: Yes carbon monox detector in home: Yes firearms in home: Yes firearms unloaded and locked: Yes do you feel safe at home: Yes victim of physical abuse: No victim of emotional abuse: No victim of sexual abuse: No would you like helpful sources: No Have you lived/traveled outside [place] in past 30 days?: No Contact w/someone who lives/traveled outside US past 30 days?: No Exposure to someone with infectious disease in past 14 days?: No Do you have a fever (greater than 100.4 F or 38 C)?: No Have you tested positive for COVID-19: No Exposed to someone with COVID-19 in past 14 days?: No Do you have a sore throat?: No Do you have a cough?: No Do you have any weakness?: No Do you have any diarrhea?: No Are you experiencing any unusual bleeding?: No Do you have any muscle aches/pain?: No Do you have any abdominal pain?: No Are you experiencing loss of taste or smell?: No Other Medical History Have you received the Flu Vaccine for this season: No Have you received the Pneumonia Vaccine: No <EFFIE Velazco - Last Filed: 12/11/24 21:21> ROS Obtained: Yes All systems reviewed & no additional complaints except as documented Physical Exam <EFFIE Velazco - Last Filed: 12/11/24 21:21> General General appearance: alert, in no apparent distress and anxious Head Head exam: atraumatic and normocephalic Eye Eye exam: Present PERRL and EOMI ENT ENT exam: Present mucous membranes moist Neck Neck exam: Present normal inspection Chest Chest inspection: Present normal inspection and symmetric chest wall rise Respiratory Respiratory exam: Present normal lung sounds bilaterally; Absent respiratory distress Cardiovascular Cardiovascular exam: Present regular rate and normal rhythm Abdominal Exam Abdominal exam: Present soft; Absent tenderness, guarding, rebound or rigidity Extremities Exam Extremities exam: Present normal inspection Neurological Exam Neurological exam: Present alert, oriented X3 and other (NIH of 1, patient has some mild stuttering/occultly initiating words, however can form complete sentences, she is GCS of 15, no limb ataxia, does have some tremors noted in bilateral upper and lower extremities, no attention/sensation deficits, no limb ataxia, no pronator drift in the bilateral lowe) Psychiatric Psychiatric exam: Present normal affect Skin Skin exam: Present warm and dry Medical Decision Making <EFFIE Velazco - Last Filed: 12/11/24 21:21> Medical Records Medical records reviewed: Yes I reviewed the patient's medical records. Screening: Per USPSTF and CDC recommendations, given the prevalence of disease in our region, it is our hospital?s policy to screen for HIV and viral Hepatitis for all patients aged 18 and over and those with ongoing risk factors. Jarrett Inquiry Pt receiving controlled substance: No Jarrett was queried for this patient: No Vital Signs: 12/11/24 17:05 12/11/24 17:27 12/11/24 17:45 Temperature 98.0 F Temperature Source Oral Pulse Rate 90 89 Pulse Rate [Radial] 94 H Respiratory Rate 18 18 14 Blood Pressure 197/103 H 171/95 H Blood Pressure [R Arm] 227/122 H Blood Pressure Mean [R Arm] 157 Blood Pressure Source [R Arm] Automatic Cuff Blood Pressure Position [R Arm] Sitting 02 Sat by Pulse Oximetry 98 100 99 Oxygen Delivery Method Room Air Room Air Room Air 12/11/24 18:00 12/11/24 18:15 12/11/24 18:31 Temperature Temperature Source Pulse Rate 92 H 92 H 92 H Pulse Rate [Radial] Respiratory Rate 14 19 18 Blood Pressure 177/97 H 171/95 H 173/101 H Blood Pressure [R Arm] Blood Pressure Mean [R Arm] Blood Pressure Source [R Arm] Blood Pressure Position [R Arm] 02 Sat by Pulse Oximetry 98 99 100 Oxygen Delivery Method Room Air Room Air Room Air 12/11/24 18:45 12/11/24 19:00 12/11/24 19:15 Temperature Temperature Source Pulse Rate 95 H 92 H 95 H Pulse Rate [Radial] Respiratory Rate 16 15 17 Blood Pressure 195/131 H 199/98 H 184/97 H Blood Pressure [R Arm] Blood Pressure Mean [R Arm] Blood Pressure Source [R Arm] Blood Pressure Position [R Arm] 02 Sat by Pulse Oximetry 99 99 98 Oxygen Delivery Method 12/11/24 19:30 12/11/24 19:46 12/11/24 20:00 Temperature Temperature Source Pulse Rate 95 H 94 H 89 Pulse Rate [Radial] Respiratory Rate 15 12 15 Blood Pressure 177/99 H 143/116 H 160/91 H Blood Pressure [R Arm] Blood Pressure Mean [R Arm] Blood Pressure Source [R Arm] Blood Pressure Position [R Arm] 02 Sat by Pulse Oximetry 98 98 97 Oxygen Delivery Method 12/11/24 20:15 12/11/24 20:31 12/11/24 20:45 Temperature Temperature Source Pulse Rate 67 98 H 84 Pulse Rate [Radial] Respiratory Rate 15 17 13 Blood Pressure 138/88 175/98 H 171/100 H Blood Pressure [R Arm] Blood Pressure Mean [R Arm] Blood Pressure Source [R Arm] Blood Pressure Position [R Arm] 02 Sat by Pulse Oximetry 98 98 99 Oxygen Delivery Method 12/11/24 21:00 12/11/24 21:15 12/11/24 21:31 Temperature Temperature Source Pulse Rate 84 80 85 Pulse Rate [Radial] Respiratory Rate 17 13 12 Blood Pressure 157/92 H 156/98 H 164/91 H Blood Pressure [R Arm] Blood Pressure Mean [R Arm] Blood Pressure Source [R Arm] Blood Pressure Position [R Arm] 02 Sat by Pulse Oximetry 99 98 97 Oxygen Delivery Method 12/11/24 21:45 12/11/24 22:00 12/11/24 22:15 Temperature Temperature Source Pulse Rate 83 Pulse Rate [Radial] Respiratory Rate 12 18 18 Blood Pressure 153/81 H 138/84 143/80 H Blood Pressure [R Arm] Blood Pressure Mean [R Arm] Blood Pressure Source [R Arm] Blood Pressure Position [R Arm] 02 Sat by Pulse Oximetry 99 98 98 Oxygen Delivery Method 12/11/24 22:31 12/11/24 22:45 02/07/25 23:01 Temperature Temperature Source Pulse Rate 76 80 Pulse Rate [Radial] Respiratory Rate 18 12 16 Blood Pressure 134/78 120/74 147/84 H Blood Pressure [R Arm] Blood Pressure Mean [R Arm] Blood Pressure Source [R Arm] Blood Pressure Position [R Arm] 02 Sat by Pulse Oximetry 98 99 Oxygen Delivery Method 12/11/24 23:15 12/11/24 23:30 12/11/24 23:45 Temperature Temperature Source Pulse Rate 76 84 84 Pulse Rate [Radial] Respiratory Rate 11 L 13 13 Blood Pressure 149/86 H 142/114 H 161/112 H Blood Pressure [R Arm] Blood Pressure Mean [R Arm] Blood Pressure Source [R Arm] Blood Pressure Position [R Arm] 02 Sat by Pulse Oximetry 98 100 99 Oxygen Delivery Method 12/12/24 00:01 12/12/24 00:15 12/12/24 00:30 Temperature Temperature Source Pulse Rate 92 H 87 77 Pulse Rate [Radial] Respiratory Rate 17 13 13 Blood Pressure 158/67 H 173/132 H 144/85 H Blood Pressure [R Arm] Blood Pressure Mean [R Arm] Blood Pressure Source [R Arm] Blood Pressure Position [R Arm] 02 Sat by Pulse Oximetry 98 98 97 Oxygen Delivery Method 12/12/24 00:45 12/12/24 01:00 12/12/24 01:15 Temperature Temperature Source Pulse Rate 79 76 71 Pulse Rate [Radial] Respiratory Rate 11 L 12 11 L Blood Pressure 146/80 H 130/74 135/74 Blood Pressure [R Arm] Blood Pressure Mean [R Arm] Blood Pressure Source [R Arm] Blood Pressure Position [R Arm] 02 Sat by Pulse Oximetry 97 96 96 Oxygen Delivery Method 12/12/24 01:30 12/12/24 01:45 12/12/24 02:00 Temperature Temperature Source Pulse Rate 72 71 70 Pulse Rate [Radial] Respiratory Rate 13 12 12 Blood Pressure 122/78 126/70 142/84 H Blood Pressure [R Arm] Blood Pressure Mean [R Arm] Blood Pressure Source [R Arm] Blood Pressure Position [R Arm] 02 Sat by Pulse Oximetry 96 95 96 Oxygen Delivery Method 12/12/24 02:15 12/12/24 02:30 12/12/24 02:46 Temperature Temperature Source Pulse Rate 67 68 72 Pulse Rate [Radial] Respiratory Rate 14 12 12 Blood Pressure 127/73 130/73 127/74 Blood Pressure [R Arm] Blood Pressure Mean [R Arm] Blood Pressure Source [R Arm] Blood Pressure Position [R Arm] 02 Sat by Pulse Oximetry 96 98 99 Oxygen Delivery Method 12/12/24 03:00 12/12/24 03:15 12/12/24 03:30 Temperature Temperature Source Pulse Rate 72 74 72 Pulse Rate [Radial] Respiratory Rate 12 12 18 Blood Pressure 125/69 131/76 115/66 Blood Pressure [R Arm] Blood Pressure Mean [R Arm] Blood Pressure Source [R Arm] Blood Pressure Position [R Arm] 02 Sat by Pulse Oximetry 98 99 Oxygen Delivery Method Lab Data Lab results reviewed: Yes I reviewed the patient's lab results. Lab Results 12/11/24 00:00: Phosphorus 2.4 L, Magnesium 1.6 12/11/24 17:10: WBC 6.9, RBC 3.83 L, Hgb 12.2, Hct 37.3, MCV 97.4, MCH 31.9 H, MCHC 32.7, RDW 13.1, Plt Count 182, MPV 9.8, Neut % (Auto) 64.4, Lymph % (Auto) 26.8, Murray % (Auto) 5.8, Eos % (Auto) 1.9, Baso % (Auto) 0.7, Neut # (Auto) 4.4, Lymph # (Auto) 1.9, Murray # (Auto) 0.4, Eos # (Auto) 0.1, Baso # (Auto) 0.1, PT 9.9, INR 0.89 L, APTT 28.6 H, Sodium 140, Potassium 3.8, Chloride 104, Carbon Dioxide 26, Anion Gap 13.8, BUN 11, Creatinine 0.70, Estimated Creat Clear 132, Estimated GFR 91, Est GFR ( Amer) 110, Glucose 128 H, Calcium 8.9, Total Bilirubin 0.5, AST 33, ALT 19, Alkaline Phosphatase 91, Troponin I < 0.01, Total Protein 7.9, Albumin 4.7, Globulin 3.2, Albumin/Globulin Ratio 1.5, T riglycerides 336 H, Cholesterol 202 H, LDL Cholesterol Direct 99.84 L, VLDL Cholesterol 67 H, HDL Cholesterol 46, Cholesterol/HDL Ratio 4.4 H, Plasma/Serum Alcohol < 10, HCV Ab SANDRA w/Rflx PCR Qn Negative, HIV Ag/Ab Combo Qual Negative 12/11/24 18:22: Urine Color Yellow, Urine Appearance Clear, Urine pH 7.5, Ur Specific Rochelle 1.015, Urine Protein Negative, Urine Glucose (UA) Negative, Urine Ketones Negative, Urine Blood Negative, Urine Nitrate Negative, Urine Bilirubin Negative, Urine Urobilinogen 0.2, Ur Leukocyte Esterase Negative, Urine RBC Occasional, Urine WBC 3-5, Ur Squamous Epith Cells 3-5, Urine Bacteria 1+, Urine Mucus 1+, Urine Opiates Screen Negative, Urine Methadone Screen Negative, Ur Barbituates Screen Negative, Ur Phencyclidine Scrn Negative, Ur Amphetamines Screen Negative, U Benzodiazepines Scrn Negative, Urine Cocaine Screen Negative, U Marijuana (THC) Screen Negative 12/11/24 20:15: Troponin I < 0.01 12/11/24 23:15: Troponin I < 0.01 12/11/24 17:10 12/11/24 17:10 Orders (Tests/Meds): ED MEDICATIONS Generic Name Dose Route Start Last Admin Trade Name Freestrada PRN Reason Stop Dose Admin Sodium Chloride 10 ml 12/11/24 17:12 Sodium Chloride 0.9% 10ml Flush Syringe IV 01/10/25 17:11 NEEDED PRN Maintain IV Site Discontinued Medications Generic Name Dose Route Start Last Admin Trade Name Freq PRN Reason Stop Dose Admin Iopamidol 80 ml 12/11/24 17:19 12/11/24 17:20 Iopamidol-370 (76%);100ml Bottle IV 12/11/24 17:20 80 ml ONCE ONE Administration Meclizine HCl 50 mg 12/11/24 19:33 12/11/24 19:36 Meclizine 25mg Tablet PO 12/11/24 19:34 50 mg ONCE ONE Administration Sodium Chloride 10 ml 12/11/24 17:19 12/11/24 17:20 Sodium Chloride 0.9% 10ml Syr (Rad Only) IV 12/11/24 17:20 10 ml ONCE ONE Administration Sodium Chloride 50 ml 12/11/24 17:19 12/11/24 17:20 0.9 % Sodium Chloride 50 Ml Vial IV 12/11/24 17:20 50 ml ONCE ONE Administration ORDERS Category Date Time Status CT angio head Stat Cat Scan 12/11/24 17:[address] angio neck Stat Cat Scan 12/11/24 17:[address] cervical spine wo con Stat Cat Scan 12/11/24 17:[address] head/brain wo con Stat Cat Scan 12/11/24 17:[address] lumbar spine wo con Stat Cat Scan 12/11/24 23:[address] thoracic spine wo con Stat Cat Scan 12/11/24 17:28 Completed Activated Partial Thrombo Time Stat Lab 12/11/24 17:10 Completed Complete Blood Count Auto Diff Stat Lab 12/11/24 17:10 Completed Comprehensive Metabolic Panel Stat Lab 12/11/24 17:10 Completed Drug Screen,Urine Stat Lab 12/11/24 18:22 Completed Ethyl Alcohol Stat Lab 12/11/24 17:10 Completed HIV Combo Stat Lab 12/11/24 17:10 Completed Hepatitis C Ab Qual. W/ RFX Stat Lab 12/11/24 17:10 Completed Lipid Panel Stat Lab 12/11/24 17:10 Completed MAG [Magnesium] Stat Lab 12/12/24 00:30 Completed PHOS [Phosphorous] Stat Lab 12/12/24 00:30 Completed Prothrombin Time INR Stat Lab 12/11/24 17:10 Completed Troponin I Q3H Lab 12/11/24 20:15 Completed Troponin I Q3H Lab 12/11/24 23:15 Completed Troponin I Stat Lab 12/11/24 17:10 Completed Urinalysis and Microscopic Stat Lab 12/11/24 18:22 Completed Medical Decision Narrative: 44-year-old female presents the emergency department with strokelike symptoms, differential diagnose include not limited to, functional neurological disorder, conversion disorder, panic attack, anxiety type reaction, TIA/CVA, cardiac arrhythmia, electrolyte service, acute UTI, encephalopathy, metabolic cephalopathy, uremic encephalopathy, essential tremor. Discussed patient case with attending physician Dr. Fall she saw and examined the patient as well. Will call stroke alert in order stroke order set to include neuroimaging of CT head without contrast CTA of the head and neck, basic laboratory studies UDS ethyl alcohol level lipid panel PT/INR, APTT troponin, urinalysis, fingerstick POC glucose which did yield over 300. EKG, and stroke assessment/NIH checks, add on CT of the cervical spine and CT thoracic spine without contrast for the patient's most recent fall. CBC is unremarkable. PT within normals, INR is 0.9, PTT is high at 28.6 Reviewed the patient's CMP hypertriglyceridemia at 336, cholesterol level is 202, VLDL 67. VIZAI application was reviewed by [facility] neurosurgery/neuroradiology and there is no ELVO CT head without contrast was reviewed by myself, along with the corresponding radiologic report. There is no acute intracranial abnormality, comparison is made from MRI brain with and without contrast in February 2023. I reviewed the patient's CTA head and neck with and without contrast, along the corresponding radiologic reports, partially visualized bilateral maxillary sinus disease and ethmoid sinus thickening no stenosis or occlusion. Of note, utilizing the NASCET criteria there is mild stenosis at the origin of the right ICA estimated at 20 to 30%, this is due to eccentric calcified plaque formation extending over 8 mm segment, no high-grade stenosis or occlusion bilateral maxillary sinus disease and ethmoid sinus disease. Troponin within normal . I reviewed the patient's CT cervical spine CT thoracic spine along the corresponding radiologic reports this is unremarkable thoracic spine. There is no evidence of acute fracture, postoperative change from ACDF noted at C5-C6. Ethyl alcohol level less than 10 Urinalysis unremarkable. UDS negative. I discussed the results with the patient, patient describes some head fuzziness , and some lightheadedness, will because of the patient's maxillary sinus disease, will trial 50 mg p.o. meclizine for symptomatic relief. Reexamination of the patient and walk test, patient still has some difficulty ambulating and states that her legs give out on me . Discussed possible admission for generalized weakness with PT OT evaluation, and possible MRI brain without contrast for stroke rule out. Patient and family in agreement with this. Discussed this patient's case with Geoffrey Castillo APRN, approximately 8:40 PM, he wants to hold off on admission at at this time. Until there is definitive MRI capabilities. I will call about this. If there is MRI can abilities tomorrow. We we will proceed with admission. Of note, unfortunately our facility does not have MRI capabilities at this time and will not be available for tomorrow. Also of note, patient has waxing and waning symptomatology is as far as generalized weakness in her lower extremities and episodes of tremulousness who is in the room. Patient has had past medical history/previous history of episodes like this however this episode is lasted longer . Patient can initiate walking but does have some notes of her lower extremities and with long distances quite unsure if this is neurologic in nature versus psychiatric admission or musculoskeletal weakness. Given these benign persistent nonfocal neurological deficits that are transient, TNK or other thrombolytic was not given, also with the patient's neuroimaging negative for any LVO noted on neuroimaging. I discussed this patient's case with the attending physician Dr. Fall at shift change, she will be assuming the patient's care/potential transfer. Disposition will pend the [facility] callback for potential transfer for MRI brain without contrast for further stroke workup/rule out with neurological consultation/evaluation. <Giselle Fall, DO - Last Filed: 12/12/24 00:00> Vital Signs: 12/11/24 17:05 12/11/24 17:27 12/11/24 17:45 Temperature 98.0 F Temperature Source Oral Pulse Rate 90 89 Pulse Rate [Radial] 94 H Respiratory Rate 18 18 14 Blood Pressure 197/103 H 171/95 H Blood Pressure [R Arm] 227/122 H Blood Pressure Mean [R Arm] 157 Blood Pressure Source [R Arm] Automatic Cuff Blood Pressure Position [R Arm] Sitting 02 Sat by Pulse Oximetry 98 100 99 Oxygen Delivery Method Room Air Room Air Room Air 12/11/24 18:00 12/11/24 18:15 12/11/24 18:31 Temperature Temperature Source Pulse Rate 92 H 92 H 92 H Pulse Rate [Radial] Respiratory Rate 14 19 18 Blood Pressure 177/97 H 171/95 H 173/101 H Blood Pressure [R Arm] Blood Pressure Mean [R Arm] Blood Pressure Source [R Arm] Blood Pressure Position [R Arm] 02 Sat by Pulse Oximetry 98 99 100 Oxygen Delivery Method Room Air Room Air Room Air 12/11/24 18:45 12/11/24 19:00 12/11/24 19:15 Temperature Temperature Source Pulse Rate 95 H 92 H 95 H Pulse Rate [Radial] Respiratory Rate 16 15 17 Blood Pressure 195/131 H 199/98 H 184/97 H Blood Pressure [R Arm] Blood Pressure Mean [R Arm] Blood Pressure Source [R Arm] Blood Pressure Position [R Arm] 02 Sat by Pulse Oximetry 99 99 98 Oxygen Delivery Method 12/11/24 19:30 12/11/24 19:46 12/11/24 20:00 Temperature Temperature Source Pulse Rate 95 H 94 H 89 Pulse Rate [Radial] Respiratory Rate 15 12 15 Blood Pressure 177/99 H 143/116 H 160/91 H Blood Pressure [R Arm] Blood Pressure Mean [R Arm] Blood Pressure Source [R Arm] Blood Pressure Position [R Arm] 02 Sat by Pulse Oximetry 98 98 97 Oxygen Delivery Method 12/11/24 20:15 12/11/24 20:31 12/11/24 20:45 Temperature Temperature Source Pulse Rate 67 98 H 84 Pulse Rate [Radial] Respiratory Rate 15 17 13 Blood Pressure 138/88 175/98 H 171/100 H Blood Pressure [R Arm] Blood Pressure Mean [R Arm] Blood Pressure Source [R Arm] Blood Pressure Position [R Arm] 02 Sat by Pulse Oximetry 98 98 99 Oxygen Delivery Method 12/11/24 21:00 12/11/24 21:15 12/11/24 21:31 Temperature Temperature Source Pulse Rate 84 80 85 Pulse Rate [Radial] Respiratory Rate 17 13 12 Blood Pressure 157/92 H 156/98 H 164/91 H Blood Pressure [R Arm] Blood Pressure Mean [R Arm] Blood Pressure Source [R Arm] Blood Pressure Position [R Arm] 02 Sat by Pulse Oximetry 99 98 97 Oxygen Delivery Method 12/11/24 21:45 12/11/24 22:00 12/11/24 22:15 Temperature Temperature Source Pulse Rate 83 Pulse Rate [Radial] Respiratory Rate 12 18 18 Blood Pressure 153/81 H 138/84 143/80 H Blood Pressure [R Arm] Blood Pressure Mean [R Arm] Blood Pressure Source [R Arm] Blood Pressure Position [R Arm] 02 Sat by Pulse Oximetry 99 98 98 Oxygen Delivery Method 12/11/24 22:31 12/11/24 22:45 12/11/24 23:01 Temperature Temperature Source Pulse Rate 76 80 Pulse Rate [Radial] Respiratory Rate 18 12 16 Blood Pressure 134/78 120/74 147/84 H Blood Pressure [R Arm] Blood Pressure Mean [R Arm] Blood Pressure Source [R Arm] Blood Pressure Position [R Arm] 02 Sat by Pulse Oximetry 98 99 Oxygen Delivery Method 12/11/24 23:15 12/11/24 23:30 12/11/24 23:45 Temperature Temperature Source Pulse Rate 76 84 84 Pulse Rate [Radial] Respiratory Rate 11 L 13 13 Blood Pressure 149/86 H 142/114 H 161/112 H Blood Pressure [R Arm] Blood Pressure Mean [R Arm] Blood Pressure Source [R Arm] Blood Pressure Position [R Arm] 02 Sat by Pulse Oximetry 98 100 99 Oxygen Delivery Method 12/12/24 00:01 12/12/24 00:15 12/12/24 00:30 Temperature Temperature Source Pulse Rate 92 H 87 77 Pulse Rate [Radial] Respiratory Rate 17 13 13 Blood Pressure 158/67 H 173/132 H 144/85 H Blood Pressure [R Arm] Blood Pressure Mean [R Arm] Blood Pressure Source [R Arm] Blood Pressure Position [R Arm] 02 Sat by Pulse Oximetry 98 98 97 Oxygen Delivery Method 12/12/24 00:45 12/12/24 01:00 12/12/24 01:15 Temperature Temperature Source Pulse Rate 79 76 71 Pulse Rate [Radial] Respiratory Rate 11 L 12 11 L Blood Pressure 146/80 H 130/74 135/74 Blood Pressure [R Arm] Blood Pressure Mean [R Arm] Blood Pressure Source [R Arm] Blood Pressure Position [R Arm] 02 Sat by Pulse Oximetry 97 96 96 Oxygen Delivery Method 12/12/24 01:30 12/12/24 01:45 12/12/24 02:00 Temperature Temperature Source Pulse Rate 72 71 70 Pulse Rate [Radial] Respiratory Rate 13 12 12 Blood Pressure 122/78 126/70 142/84 H Blood Pressure [R Arm] Blood Pressure Mean [R Arm] Blood Pressure Source [R Arm] Blood Pressure Position [R Arm] 02 Sat by Pulse Oximetry 96 95 96 Oxygen Delivery Method 12/12/24 02:15 12/12/24 02:30 12/12/24 02:46 Temperature Temperature Source Pulse Rate 67 68 72 Pulse Rate [Radial] Respiratory Rate 14 12 12 Blood Pressure 127/73 130/73 127/74 Blood Pressure [R Arm] Blood Pressure Mean [R Arm] Blood Pressure Source [R Arm] Blood Pressure Position [R Arm] 02 Sat by Pulse Oximetry 96 98 99 Oxygen Delivery Method 12/12/24 03:00 12/12/24 03:15 12/12/24 03:30 Temperature Temperature Source Pulse Rate 72 74 72 Pulse Rate [Radial] Respiratory Rate 12 12 18 Blood Pressure 125/69 131/76 115/66 Blood Pressure [R Arm] Blood Pressure Mean [R Arm] Blood Pressure Source [R Arm] Blood Pressure Position [R Arm] 02 Sat by Pulse Oximetry 98 99 Oxygen Delivery Method Lab Data Lab Results 12/11/24 00:00: Phosphorus 2.4 L, Magnesium 1.6 12/11/24 17:10: WBC 6.9, RBC 3.83 L, Hgb 12.2, Hct 37.3, MCV 97.4, MCH 31.9 H, MCHC 32.7, RDW 13.1, Plt Count 182, MPV 9.8, Neut % (Auto) 64.4, Lymph % (Auto) 26.8, Murray % (Auto) 5.8, Eos % (Auto) 1.9, Baso % (Auto) 0.7, Neut # (Auto) 4.4, Lymph # (Auto) 1.9, Murray # (Auto) 0.4, Eos # (Auto) 0.1, Baso # (Auto) 0.1, PT 9.9, INR 0.89 L, APTT 28.6 H, Sodium 140, Potassium 3.8, Chloride 104, Carbon Dioxide 26, Anion Gap 13.8, BUN 11, Creatinine 0.70, Estimated Creat Clear 132, Estimated GFR 91, Est GFR ( Amer) 110, Glucose 128 H, Calcium 8.9, Total Bilirubin 0.5, AST 33, ALT 19, Alkaline Phosphatase 91, Troponin I < 0.01, Total Protein 7.9, Albumin 4.7, Globulin 3.2, Albumin/Globulin Ratio 1.5, T riglycerides 336 H, Cholesterol 202 H, LDL Cholesterol Direct 99.84 L, VLDL Cholesterol 67 H, HDL Cholesterol 46, Cholesterol/HDL Ratio 4.4 H, Plasma/Serum Alcohol < 10, HCV Ab SANDRA w/Rflx PCR Qn Negative, HIV Ag/Ab Combo Qual Negative 12/11/24 18:22: Urine Color Yellow, Urine Appearance Clear, Urine pH 7.5, Ur Specific [place] 1.015, Urine Protein Negative, Urine Glucose (UA) Negative, Urine Ketones Negative, Urine Blood Negative, Urine Nitrate Negative, Urine Bilirubin Negative, Urine Urobilinogen 0.2, Ur Leukocyte Esterase Negative, Urine RBC Occasional, Urine WBC 3-5, Ur Squamous Epith Cells 3-5, Urine Bacteria 1+, Urine Mucus 1+, Urine Opiates Screen Negative, Urine Methadone Screen Negative, Ur Barbituates Screen Negative, Ur Phencyclidine Scrn Negative, Ur Amphetamines Screen Negative, U Benzodiazepines Scrn Negative, Urine Cocaine Screen Negative, U Marijuana (THC) Screen Negative 12/11/24 20:15: Troponin I < 0.01 12/11/24 23:15: Troponin I < 0.01 Orders (Tests/Meds): ED MEDICATIONS Generic Name Dose Route Start Last Admin Trade Name Karla PRN Reason Stop Dose Admin Sodium Chloride 10 ml 12/11/24 17:12 Sodium Chloride 0.9% 10ml Flush Syringe IV 01/10/25 17:11 NEEDED PRN Maintain IV Site Discontinued Medications Generic Name Dose Route Start Last Admin Trade Name Karla PRN Reason Stop Dose Admin Iopamidol 80 ml 12/11/24 17:19 12/11/24 17:20 Iopamidol-370 (76%);100ml Bottle IV 12/11/24 17:20 80 ml ONCE ONE Administration Meclizine HCl 50 mg 12/11/24 19:33 12/11/24 19:36 Meclizine 25mg Tablet PO 12/11/24 19:34 50 mg ONCE ONE Administration Sodium Chloride 10 ml 12/11/24 17:19 12/11/24 17:20 Sodium Chloride 0.9% 10ml Syr (Rad Only) IV 12/11/24 17:20 10 ml ONCE ONE Administration Sodium Chloride 50 ml 12/11/24 17:19 12/11/24 17:20 0.9 % Sodium Chloride 50 Ml Vial IV 12/11/24 17:20 50 ml ONCE ONE Administration ORDERS Category Date Time Status CT angio head Stat Cat Scan 12/11/24 17:[address] angio neck Stat Cat Scan 12/11/24 17:[address] cervical spine wo con Stat Cat Scan 12/11/24 17:[address] head/brain wo con Stat Cat Scan 12/11/24 17:[address] lumbar spine wo con Stat Cat Scan 12/11/24 23:[address] thoracic spine wo con Stat Cat Scan 12/11/24 17:28 Completed Activated Partial Thrombo Time Stat Lab 12/11/24 17:10 Completed Complete Blood Count Auto Diff Stat Lab 12/11/24 17:10 Completed Comprehensive Metabolic Panel Stat Lab 12/11/24 17:10 Completed Drug Screen,Urine Stat Lab 12/11/24 18:22 Completed Ethyl Alcohol Stat Lab 12/11/24 17:10 Completed HIV Combo Stat Lab 12/11/24 17:10 Completed Hepatitis C Ab Qual. W/ RFX Stat Lab 12/11/24 17:10 Completed Lipid Panel Stat Lab 12/11/24 17:10 Completed MAG [Magnesium] Stat Lab 12/12/24 00:30 Completed PHOS [Phosphorous] Stat Lab 12/12/24 00:30 Completed Prothrombin Time INR Stat Lab 12/11/24 17:10 Completed Troponin I Q3H Lab 12/11/24 20:15 Completed Troponin I Q3H Lab 12/11/24 23:15 Completed Troponin I Stat Lab 12/11/24 17:10 Completed Urinalysis and Microscopic Stat Lab 12/11/24 18:22 Completed ECG Data Tracing #1: I reviewed this ECG and interpreted as documented below: Normal sinus rhythm with a ventricular rate of 94 bpm. Right axis deviation. Intraventricular conduction delay. No STEMI. ECG initial impression date: 12/11/24 ECG initial impression time: 17:29 Medical Decision Narrative: 44-year-old female presents the emergency department with strokelike symptoms, differential diagnose include not limited to, functional neurological disorder, conversion disorder, panic attack, anxiety type reaction, TIA/CVA, cardiac arrhythmia, electrolyte service, acute UTI, encephalopathy, metabolic cephalopathy, uremic encephalopathy, essential tremor. Discussed patient case with attending physician Dr. Fall she saw and examined the patient as well. Will call stroke alert in order stroke order set to include neuroimaging of CT head without contrast CTA of the head and neck, basic laboratory studies UDS ethyl alcohol level lipid panel PT/INR, APTT troponin, urinalysis, fingerstick POC glucose which did yield over 300. EKG, and stroke assessment/NIH checks, add on CT of the cervical spine and CT thoracic spine without contrast for the patient's most recent fall. CBC is unremarkable. PT within normals, INR is 0.9, PTT is high at 28.6 Reviewed the patient's CMP hypertriglyceridemia at 336, cholesterol level is 202, VLDL 67. VIZAI application was reviewed by [facility] neurosurgery/neuroradiology and there is no ELVO CT head without contrast was reviewed by myself, along with the corresponding radiologic report. There is no acute intracranial abnormality, comparison is made from MRI brain with and without contrast in February 2023. I reviewed the patient's CTA head and neck with and without contrast, along the corresponding radiologic reports, partially visualized bilateral maxillary sinus disease and ethmoid sinus thickening no stenosis or occlusion. Of note, utilizing the NASCET criteria there is mild stenosis at the origin of the right ICA estimated at 20 to 30%, this is due to eccentric calcified plaque formation extending over 8 mm segment, no high-grade stenosis or occlusion bilateral maxillary sinus disease and ethmoid sinus disease. Troponin within normal . I reviewed the patient's CT cervical spine CT thoracic spine along the corresponding radiologic reports this is unremarkable thoracic spine. There is no evidence of acute fracture, postoperative change from ACDF noted at C5-C6. Ethyl alcohol level less than 10 Urinalysis unremarkable. UDS negative. I discussed the results with the patient, patient describes some head fuzziness , and some lightheadedness, will because of the patient's maxillary sinus disease, will trial 50 mg p.o. meclizine for symptomatic relief. Reexamination of the patient and walk test, patient still has some difficulty ambulating and states that her legs give out on me . Discussed possible admission for generalized weakness with PT OT evaluation, and possible MRI brain without contrast for stroke rule out vs MRI spines to evaluate for spine deficit. Patient and family in agreement with this. Discussed this patient's case with Geoffrey Castillo APRN, approximately 8:40 PM, he wants to hold off on admission at at this time. Until there is definitive MRI capabilities. I will call about this. If there is MRI can abilities tomorrow. We we will proceed with admission. Of note, unfortunately our facility does not have MRI capabilities at this time and will not be available for tomorrow. Also of note, patient has waxing and waning symptomatology is as far as generalized weakness in her lower extremities and episodes of tremulousness who is in the room. Patient has had past medical history/previous history of episodes like this however this episode is lasted longer . Patient can initiate walking but does have some notes of her lower extremities and with long distances quite unsure if this is neurologic in nature versus psychiatric admission or musculoskeletal weakness. Given these benign persistent nonfocal neurological deficits that are transient, TNK or other thrombolytic was not given, also with the patient's neuroimaging negative for any LVO noted on neuroimaging. I discussed this patient's case with the attending physician Dr. Fall at shift change, she will be assuming the patient's care/potential transfer. Disposition will pend the [facility] callback for potential transfer for MRI brain without contrast for further stroke workup/rule out with neurological consultation/evaluation. DO Juan David: I was consulted by the MER, and we discussed the complexity of the problems being addressed. I approved the treatment and management plan for this patient's care in the emergency department, thus performing a substantive portion of the medical decision making. Patient presentation does not fit classic stroke symptoms with absence of focal neurologic deficits. She complains of all over numbness, tremulousness, stuttered speech. NIH stroke scale is 1 for subjective change in sensation. She has NO deficits noted on my initial exam. She technically arrives within tPA/TNK window, however she has no deficits. She has intact sensation, speech, coordination, motor strength. I feel the risk of administering would outweigh any sort of benefit, this was deferred after shared decision making with patient. I did [employer] [facility] via [employer] and had interactive discussion with neurosurgery at who advised no large vessel occlusion. I also had an interactive discussion with radiology who advised no obvious abnormality on CT. I also added on spines given a fall yesterday, but no acute spinal injury noted on my independent interpretation of CT spines and she was fine this morning. She has no finding suggestive of cauda equina syndrome or spinal cord compression given that she is neurologically intact in her lower extremities. She arrives severely hypertensive initially, but blood pressure improved spontaneously. Despite improvement in blood pressure, reassuring imaging, reassuring labs with negative cardiac workup with negative trops x 2, patient continues to have tremulousness, general weakness, and tingling in her legs that is not present at rest. She feels fine at rest, but when she stands up she states that she is fine initially and is able to put weight on her extremities, but then she states they progressively become more numb, she gets tremulous and weak, and then she states she has to sit back down. This is very intermittent, but she states she cannot walk as a result. We tried multiple times to ambulate her without success. Again, she does not have any focal deficits noted on exam while at rest, has no low back pain, has no saddle anesthesia, urinary incontinence, retention, or other concerns. Differential would be vitamin deficiencies, spinal cord issue, peripheral neuropathy, radiculopathy, Guillain-Josue?, psychogenic, unusual variation of stroke. Given this, I feel she would benefit from admission for further workup, we are unable to get MRI here on the weekend. I then discussed case with Dr. Goddard with neurology at who agrees with plan for no stroke intervention, but does recommend MRI. Dr. Smith advises they are on divert and unable to accept the patient at , so they recommended seeking out other alternatives. I called and had interactive discussion with Dr. Larson at [facility] who advised they will waitlist the patient, unable to accept for transfer now. Accepted on behalf of Dr. Watts but waitlisted. We then tried [facility]. Stroke team at said this does not sound like a stroke, do not recommend stroke eval. I have now spent over 3 hours calling different hospitals trying to transfer the patient for workup of inability to walk, as she will not walk here. Hospitalist again advises not comfortable accepting the patient without MRI capabilities given neurologic issue. Patient signed out to Dr. Black. Giselle Fall DO <Oli Black MD - Last Filed: 12/12/24 03:59> Vital Signs: 12/11/24 17:05 12/11/24 17:27 12/11/24 17:45 Temperature 98.0 F Temperature Source Oral Pulse Rate 90 89 Pulse Rate [Radial] 94 H Respiratory Rate 18 18 14 Blood Pressure 197/103 H 171/95 H Blood Pressure [R Arm] 227/122 H Blood Pressure Mean [R Arm] 157 Blood Pressure Source [R Arm] Automatic Cuff Blood Pressure Position [R Arm] Sitting 02 Sat by Pulse Oximetry 98 100 99 Oxygen Delivery Method Room Air Room Air Room Air 12/11/24 18:00 12/11/24 18:15 12/11/24 18:31 Temperature Temperature Source Pulse Rate 92 H 92 H 92 H Pulse Rate [Radial] Respiratory Rate 14 19 18 Blood Pressure 177/97 H 171/95 H 173/101 H Blood Pressure [R Arm] Blood Pressure Mean [R Arm] Blood Pressure Source [R Arm] Blood Pressure Position [R Arm] 02 Sat by Pulse Oximetry 98 99 100 Oxygen Delivery Method Room Air Room Air Room Air 12/11/24 18:45 12/11/24 19:00 12/11/24 19:15 Temperature Temperature Source Pulse Rate 95 H 92 H 95 H Pulse Rate [Radial] Respiratory Rate 16 15 17 Blood Pressure 195/131 H 199/98 H 184/97 H Blood Pressure [R Arm] Blood Pressure Mean [R Arm] Blood Pressure Source [R Arm] Blood Pressure Position [R Arm] 02 Sat by Pulse Oximetry 99 99 98 Oxygen Delivery Method 12/11/24 19:30 12/11/24 19:46 12/11/24 20:00 Temperature Temperature Source Pulse Rate 95 H 94 H 89 Pulse Rate [Radial] Respiratory Rate 15 12 15 Blood Pressure 177/99 H 143/116 H 160/91 H Blood Pressure [R Arm] Blood Pressure Mean [R Arm] Blood Pressure Source [R Arm] Blood Pressure Position [R Arm] 02 Sat by Pulse Oximetry 98 98 97 Oxygen Delivery Method 12/11/24 20:15 12/11/24 20:31 12/11/24 20:45 Temperature Temperature Source Pulse Rate 67 98 H 84 Pulse Rate [Radial] Respiratory Rate 15 17 13 Blood Pressure 138/88 175/98 H 171/100 H Blood Pressure [R Arm] Blood Pressure Mean [R Arm] Blood Pressure Source [R Arm] Blood Pressure Position [R Arm] 02 Sat by Pulse Oximetry 98 98 99 Oxygen Delivery Method 12/11/24 21:00 12/11/24 21:15 12/11/24 21:31 Temperature Temperature Source Pulse Rate 84 80 85 Pulse Rate [Radial] Respiratory Rate 17 13 12 Blood Pressure 157/92 H 156/98 H 164/91 H Blood Pressure [R Arm] Blood Pressure Mean [R Arm] Blood Pressure Source [R Arm] Blood Pressure Position [R Arm] 02 Sat by Pulse Oximetry 99 98 97 Oxygen Delivery Method 12/11/24 21:45 12/11/24 22:00 12/11/24 22:15 Temperature Temperature Source Pulse Rate 83 Pulse Rate [Radial] Respiratory Rate 12 18 18 Blood Pressure 153/81 H 138/84 143/80 H Blood Pressure [R Arm] Blood Pressure Mean [R Arm] Blood Pressure Source [R Arm] Blood Pressure Position [R Arm] 02 Sat by Pulse Oximetry 99 98 98 Oxygen Delivery Method 12/11/24 22:31 12/11/24 22:45 12/11/24 23:01 Temperature Temperature Source Pulse Rate 76 80 Pulse Rate [Radial] Respiratory Rate 18 12 16 Blood Pressure 134/78 120/74 147/84 H Blood Pressure [R Arm] Blood Pressure Mean [R Arm] Blood Pressure Source [R Arm] Blood Pressure Position [R Arm] 02 Sat by Pulse Oximetry 98 99 Oxygen Delivery Method 12/11/24 23:15 12/11/24 23:30 12/11/24 23:45 Temperature Temperature Source Pulse Rate 76 84 84 Pulse Rate [Radial] Respiratory Rate 11 L 13 13 Blood Pressure 149/86 H 142/114 H 161/112 H Blood Pressure [R Arm] Blood Pressure Mean [R Arm] Blood Pressure Source [R Arm] Blood Pressure Position [R Arm] 02 Sat by Pulse Oximetry 98 100 99 Oxygen Delivery Method 12/12/24 00:01 12/12/24 00:15 12/12/24 00:30 Temperature Temperature Source Pulse Rate 92 H 87 77 Pulse Rate [Radial] Respiratory Rate 17 13 13 Blood Pressure 158/67 H 173/132 H 144/85 H Blood Pressure [R Arm] Blood Pressure Mean [R Arm] Blood Pressure Source [R Arm] Blood Pressure Position [R Arm] 02 Sat by Pulse Oximetry 98 98 97 Oxygen Delivery Method 12/12/24 00:45 12/12/24 01:00 12/12/24 01:15 Temperature Temperature Source Pulse Rate 79 76 71 Pulse Rate [Radial] Respiratory Rate 11 L 12 11 L Blood Pressure 146/80 H 130/74 135/74 Blood Pressure [R Arm] Blood Pressure Mean [R Arm] Blood Pressure Source [R Arm] Blood Pressure Position [R Arm] 02 Sat by Pulse Oximetry 97 96 96 Oxygen Delivery Method 12/12/24 01:30 12/12/24 01:45 12/12/24 02:00 Temperature Temperature Source Pulse Rate 72 71 70 Pulse Rate [Radial] Respiratory Rate 13 12 12 Blood Pressure 122/78 126/70 142/84 H Blood Pressure [R Arm] Blood Pressure Mean [R Arm] Blood Pressure Source [R Arm] Blood Pressure Position [R Arm] 02 Sat by Pulse Oximetry 96 95 96 Oxygen Delivery Method 12/12/24 02:15 12/12/24 02:30 12/12/24 02:46 Temperature Temperature Source Pulse Rate 67 68 72 Pulse Rate [Radial] Respiratory Rate 14 12 12 Blood Pressure 127/73 130/73 127/74 Blood Pressure [R Arm] Blood Pressure Mean [R Arm] Blood Pressure Source [R Arm] Blood Pressure Position [R Arm] 02 Sat by Pulse Oximetry 96 98 99 Oxygen Delivery Method 12/12/24 03:00 12/12/24 03:15 12/12/24 03:30 Temperature Temperature Source Pulse Rate 72 74 72 Pulse Rate [Radial] Respiratory Rate 12 12 18 Blood Pressure 125/69 131/76 115/66 Blood Pressure [R Arm] Blood Pressure Mean [R Arm] Blood Pressure Source [R Arm] Blood Pressure Position [R Arm] 02 Sat by Pulse Oximetry 98 99 Oxygen Delivery Method Lab Data Lab Results 12/11/24 00:00: Phosphorus 2.4 L, Magnesium 1.6 12/11/24 17:10: WBC 6.9, RBC 3.83 L, Hgb 12.2, Hct 37.3, MCV 97.4, MCH 31.9 H, MCHC 32.7, RDW 13.1, Plt Count 182, MPV 9.8, Neut % (Auto) 64.4, Lymph % (Auto) 26.8, Murray % (Auto) 5.8, Eos % (Auto) 1.9, Baso % (Auto) 0.7, Neut # (Auto) 4.4, Lymph # (Auto) 1.9, Murray # (Auto) 0.4, Eos # (Auto) 0.1, Baso # (Auto) 0.1, PT 9.9, INR 0.89 L, APTT 28.6 H, Sodium 140, Potassium 3.8, Chloride 104, Carbon Dioxide 26, Anion Gap 13.8, BUN 11, Creatinine 0.70, Estimated Creat Clear 132, Estimated GFR 91, Est GFR ( Amer) 110, Glucose 128 H, Calcium 8.9, Total Bilirubin 0.5, AST 33, ALT 19, Alkaline Phosphatase 91, Troponin I < 0.01, Total Protein 7.9, Albumin 4.7, Globulin 3.2, Albumin/Globulin Ratio 1.5, T riglycerides 336 H, Cholesterol 202 H, LDL Cholesterol Direct 99.84 L, VLDL Cholesterol 67 H, HDL Cholesterol 46, Cholesterol/HDL Ratio 4.4 H, Plasma/Serum Alcohol < 10, HCV Ab SANDRA w/Rflx PCR Qn Negative, HIV Ag/Ab Combo Qual Negative 12/11/24 18:22: Urine Color Yellow, Urine Appearance Clear, Urine pH 7.5, Ur Specific Rochelle 1.015, Urine Protein Negative, Urine Glucose (UA) Negative, Urine Ketones Negative, Urine Blood Negative, Urine Nitrate Negative, Urine Bilirubin Negative, Urine Urobilinogen 0.2, Ur Leukocyte Esterase Negative, Urine RBC Occasional, Urine WBC 3-5, Ur Squamous Epith Cells 3-5, Urine Bacteria 1+, Urine Mucus 1+, Urine Opiates Screen Negative, Urine Methadone Screen Negative, Ur Barbituates Screen Negative, Ur Phencyclidine Scrn Negative, Ur Amphetamines Screen Negative, U Benzodiazepines Scrn Negative, Urine Cocaine Screen Negative, U Marijuana (THC) Screen Negative 12/11/24 20:15: Troponin I < 0.01 12/11/24 23:15: Troponin I < 0.01 Orders (Tests/Meds): ED MEDICATIONS Generic Name Dose Route Start Last Admin Trade Name Freq PRN Reason Stop Dose Admin Sodium Chloride 10 ml 12/11/24 17:12 Sodium Chloride 0.9% 10ml Flush Syringe IV 01/10/25 17:11 NEEDED PRN Maintain IV Site Discontinued Medications Generic Name Dose Route Start Last Admin Trade Name Freq PRN Reason Stop Dose Admin Iopamidol 80 ml 12/11/24 17:19 12/11/24 17:20 Iopamidol-370 (76%);100ml Bottle IV 12/11/24 17:20 80 ml ONCE ONE Administration Meclizine HCl 50 mg 12/11/24 19:33 12/11/24 19:36 Meclizine 25mg Tablet PO 12/11/24 19:34 50 mg ONCE ONE Administration Sodium Chloride 10 ml 12/11/24 17:19 12/11/24 17:20 Sodium Chloride 0.9% 10ml Syr (Rad Only) IV 12/11/24 17:20 10 ml ONCE ONE Administration Sodium Chloride 50 ml 12/11/24 17:19 12/11/24 17:20 0.9 % Sodium Chloride 50 Ml Vial IV 12/11/24 17:20 50 ml ONCE ONE Administration ORDERS Category Date Time Status CT angio head Stat Cat Scan 12/11/24 17:[address] angio neck Stat Cat Scan 12/11/24 17:[address] cervical spine wo con Stat Cat Scan 12/11/24 17:[address] head/brain wo con Stat Cat Scan 12/11/24 17:[address] lumbar spine wo con Stat Cat Scan 12/11/24 23:[address] thoracic spine wo con Stat Cat Scan 12/11/24 17:28 Completed Activated Partial Thrombo Time Stat Lab 12/11/24 17:10 Completed Complete Blood Count Auto Diff Stat Lab 12/11/24 17:10 Completed Comprehensive Metabolic Panel Stat Lab 12/11/24 17:10 Completed Drug Screen,Urine Stat Lab 12/11/24 18:22 Completed Ethyl Alcohol Stat Lab 12/11/24 17:10 Completed HIV Combo Stat Lab 12/11/24 17:10 Completed Hepatitis C Ab Qual. W/ RFX Stat Lab 12/11/24 17:10 Completed Lipid Panel Stat Lab 12/11/24 17:10 Completed MAG [Magnesium] Stat Lab 12/12/24 00:30 Completed PHOS [Phosphorous] Stat Lab 12/12/24 00:30 Completed Prothrombin Time INR Stat Lab 12/11/24 17:10 Completed Troponin I Q3H Lab 12/11/24 20:15 Completed Troponin I Q3H Lab 12/11/24 23:15 Completed Troponin I Stat Lab 12/11/24 17:10 Completed Urinalysis and Microscopic Stat Lab 12/11/24 18:22 Completed Medical Decision Narrative: 44-year-old female presents the emergency department with strokelike symptoms, differential diagnose include not limited to, functional neurological disorder, conversion disorder, panic attack, anxiety type reaction, TIA/CVA, cardiac arrhythmia, electrolyte service, acute UTI, encephalopathy, metabolic cephalopathy, uremic encephalopathy, essential tremor. Discussed patient case with attending physician Dr. Fall she saw and examined the patient as well. Will call stroke alert in order stroke order set to include neuroimaging of CT head without contrast CTA of the head and neck, basic laboratory studies UDS ethyl alcohol level lipid panel PT/INR, APTT troponin, urinalysis, fingerstick POC glucose which did yield over 300. EKG, and stroke assessment/NIH checks, add on CT of the cervical spine and CT thoracic spine without contrast for the patient's most recent fall. CBC is unremarkable. PT within normals, INR is 0.9, PTT is high at 28.6 Reviewed the patient's CMP hypertriglyceridemia at 336, cholesterol level is 202, VLDL 67. VIZAI application was reviewed by [facility] neurosurgery/neuroradiology and there is no ELVO CT head without contrast was reviewed by myself, along with the corresponding radiologic report. There is no acute intracranial abnormality, comparison is made from MRI brain with and without contrast in February 2023. I reviewed the patient's CTA head and neck with and without contrast, along the corresponding radiologic reports, partially visualized bilateral maxillary sinus disease and ethmoid sinus thickening no stenosis or occlusion. Of note, utilizing the NASCET criteria there is mild stenosis at the origin of the right ICA estimated at 20 to 30%, this is due to eccentric calcified plaque formation extending over 8 mm segment, no high-grade stenosis or occlusion bilateral maxillary sinus disease and ethmoid sinus disease. Troponin within normal . I reviewed the patient's CT cervical spine CT thoracic spine along the corresponding radiologic reports this is unremarkable thoracic spine. There is no evidence of acute fracture, postoperative change from ACDF noted at C5-C6. Ethyl alcohol level less than 10 Urinalysis unremarkable. UDS negative. I discussed the results with the patient, patient describes some head fuzziness , and some lightheadedness, will because of the patient's maxillary sinus disease, will trial 50 mg p.o. meclizine for symptomatic relief. Reexamination of the patient and walk test, patient still has some difficulty ambulating and states that her legs give out on me . Discussed possible admission for generalized weakness with PT OT evaluation, and possible MRI brain without contrast for stroke rule out vs MRI spines to evaluate for spine deficit. Patient and family in agreement with this. Discussed this patient's case with Geoffrey Castillo APRN, approximately 8:40 PM, he wants to hold off on admission at at this time. Until there is definitive MRI capabilities. I will call about this. If there is MRI can abilities tomorrow. We we will proceed with admission. Of note, unfortunately our facility does not have MRI capabilities at this time and will not be available for tomorrow. Also of note, patient has waxing and waning symptomatology is as far as generalized weakness in her lower extremities and episodes of tremulousness who is in the room. Patient has had past medical history/previous history of episodes like this however this episode is lasted longer . Patient can initiate walking but does have some notes of her lower extremities and with long distances quite unsure if this is neurologic in nature versus psychiatric admission or musculoskeletal weakness. Given these benign persistent nonfocal neurological deficits that are transient, TNK or other thrombolytic was not given, also with the patient's neuroimaging negative for any LVO noted on neuroimaging. I discussed this patient's case with the attending physician Dr. Fall at shift change, she will be assuming the patient's care/potential transfer. Disposition will pend the [facility] callback for potential transfer for MRI brain without contrast for further stroke workup/rule out with neurological consultation/evaluation. DO Juan David: I was consulted by the MER, and we discussed the complexity of the problems being addressed. I approved the treatment and management plan for this patient's care in the emergency department, thus performing a substantive portion of the medical decision making. Patient presentation does not fit classic stroke symptoms with absence of focal neurologic deficits. She complains of all over numbness, tremulousness, stuttered speech. NIH stroke scale is 1 for subjective change in sensation. She has NO deficits noted on my initial exam. She technically arrives within tPA/TNK window, however she has no deficits. She has intact sensation, speech, coordination, motor strength. I feel the risk of administering would outweigh any sort of benefit, this was deferred after shared decision making with patient. I did [facility] via [facility] and had interactive discussion with neurosurgery at who advised no large vessel occlusion. I also had an interactive discussion with radiology who advised no obvious abnormality on CT. I also added on spines given a fall yesterday, but no acute spinal injury noted on my independent interpretation of CT spines and she was fine this morning. She has no finding suggestive of cauda equina syndrome or spinal cord compression given that she is neurologically intact in her lower extremities. She arrives severely hypertensive initially, but blood pressure improved spontaneously. Despite improvement in blood pressure, reassuring imaging, reassuring labs with negative cardiac workup with negative trops x 2, patient continues to have tremulousness, general weakness, and tingling in her legs that is not present at rest. She feels fine at rest, but when she stands up she states that she is fine initially and is able to put weight on her extremities, but then she states they progressively become more numb, she gets tremulous and weak, and then she states she has to sit back down. This is very intermittent, but she states she cannot walk as a result. We tried multiple times to ambulate her without success. Again, she does not have any focal deficits noted on exam while at rest, has no low back pain, has no saddle anesthesia, urinary incontinence, retention, or other concerns. Differential would be vitamin deficiencies, spinal cord issue, peripheral neuropathy, radiculopathy, Guillain-Josue?, psychogenic, unusual variation of stroke. Given this, I feel she would benefit from admission for further workup, we are unable to get MRI here on the weekend. I then discussed case with Dr. Goddard with neurology at who agrees with plan for no stroke intervention, but does recommend MRI. Dr. Smith advises they are on divert and unable to accept the patient at , so they recommended seeking out other alternatives. I called and had interactive discussion with Dr. Larson at [facility] who advised they will waitlist the patient, unable to accept for transfer now. Accepted on behalf of Dr. Watts but waitlisted. We then tried [facility]. Stroke team at said this does not sound like a stroke, do not recommend stroke eval. I have now spent over 3 hours calling different hospitals trying to transfer the patient for workup of inability to walk, as she will not walk here. Hospitalist again advises not comfortable accepting the patient without MRI capabilities given neurologic issue. Patient signed out to Dr. Black. DO Wayne Gomez MD: I assumed care of the patient at the time of handoff from the prior provider. On reassessment patient reports some symptomatic improvement but still reports that she does not feel right. When she sleeps she is completely still but when she is awake she has intermittent twitching of her whole body. I got her up and she is able to bear weight and walk a little bit but occasionally she starts to fall because my knees feel like they are giving out . She denies any perianal numbness or tingling, she has had no issues with urination. No signs of seizure like activity. No evidence of stroke. 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 Patient was also accepted to [facility] for wait list. CT of the lumbar spine was interpreted by me and shows no evidence of fracture. On continued monitoring patient remains hemodynamically stable. She was ultimately accepted by [facility] when a bed became available for transfer for further evaluation and management. Critical Care <EFFIE Velazco - Last Filed: 12/11/24 21:21> Critical Care Time Critical Care Time: No
[2024-12-11 17:19] LABS: Basophils # 0.1 K/mm3 (0-0.2); Basophils % 0.7 % (0.1-2.0); Eosinophils # 0.1 K/mm3 (0.0-0.4); Eosinophils % 1.9 % (0.1-12.0); Hematocrit 37.3 % (37.0-47.0); Hemoglobin 12.2 g/dL (12.2-16.2); Lymphocytes # 1.9 K/mm3 (0.7-4.5); Lymphocytes % 26.8 % (10-50); Mean Corpuscular HGB Conc 32.7 g/dL (31.8-35.4); Mean Corpuscular Hemoglobin 31.9 pg (27.0-31.2); Mean Corpuscular Volume 97.4 fl (81-99); Mean Platelet Volume 9.8 fl (7.4-10.4); Monocytes # 0.4 K/mm3 (0.1-1.0); Monocytes % 5.8 % (1.7-9.3); Neutrophils # 4.4 K/mm3 (1.8-7.8); Neutrophils % 64.4 % (37.0-80.0); Platelet Count 182 K/mm3 (142-424); Red Blood Count 3.83 M/mm3 (4.20-5.40); Red Cell Distribution Width 13.1 % (11.5-17.5); White Blood Count 6.9 K/mm3 (4.8-10.8)
[2024-12-11] MEDS: SODIUM CHLORIDE 0.9% 10ML SYR (RAD ONLY) 10 ML IV (17:20)
[2024-12-11] MEDS: IOPAMIDOL-370 (76%);100ML BOTTLE 80 ML IV (17:20)
[2024-12-11] MEDS: 0.9 % SODIUM CHLORIDE 50 ML VIAL IV (17:20)
--- NOTE | 2024-12-11 17:23 | PC.NURSE ---
PT RETURNED TO ROOM AT THIS TIME
[2024-12-11 17:28] LABS: Albumin Level 4.7 g/dl (3.5-5.0); Chloride 104 mmol/L (98-107); Potassium 3.8 mmoL/L (3.5-5.1); Sodium 140 mmol/L (136-145)
--- NOTE | 2024-12-11 17:28 | CT_ITS ---
PROCEDURE INFORMATION: Exam: CT Cervical Spine Without Contrast Exam date and time: 12/11/2024 5:37 PM Age: 44 years old Clinical indication: Injury or trauma; Fall; Blunt trauma; Additional info: Fall, neck injury TECHNIQUE: Imaging protocol: Computed tomography of the cervical spine without contrast. Radiation optimization: All CT scans at this facility use at least one of these dose optimization techniques: automated exposure control; mA and/or kV adjustment per patient size (includes targeted exams where dose is matched to clinical indication); or iterative reconstruction. COMPARISON: MR CERVICAL SPINE WO CON 01/04/2022 1:12 PM FINDINGS: Bones: Post operative changes from ACDF noted at C5-C6. No acute fracture. Lungs: Lung apices are normal. Soft tissues: Unremarkable. IMPRESSION: 1. No evidence for acute fracture. 2. Post operative changes from ACDF noted at C5-C6.
--- NOTE | 2024-12-11 17:28 | ECG_ITS ---
APPROVED REPORT Exam: Resting ECG HR:94 bpm ECG Measurements Heart Rate 94 AXES NH 196 P 68 QRSd 125 QRS 93 QT 404 T 31 QTc 456 Conclusion SINUS RHYTHM BORDERLINE RIGHT AXIS DEVIATION [QRS AXIS > 90] MODERATE INTRAVENTRICULAR CONDUCTION DELAY [110+ ms QRS DURATION] NONSPECIFIC T-WAVE ABNORMALITY Electronically signed by : ORQUIDEA FLORES, 12/12/2024 00:15:03
--- NOTE | 2024-12-11 17:28 | CT_ITS ---
PROCEDURE INFORMATION: Exam: CT Thoracic Spine Without Contrast Exam date and time: 12/11/2024 5:39 PM Age: 44 years old Clinical indication: Injury or trauma; Fall; Blunt trauma (contusions or hematomas); Additional info: Fall, injury TECHNIQUE: Imaging protocol: Computed tomography of the thoracic spine without contrast. Radiation optimization: All CT scans at this facility use at least one of these dose optimization techniques: automated exposure control; mA and/or kV adjustment per patient size (includes targeted exams where dose is matched to clinical indication); or iterative reconstruction. COMPARISON: CT THORACIC SPINE W CON 02/15/2023 9:29 AM FINDINGS: Bones/joints: No acute fracture. Normal alignment. No significant disc bulge or herniation. No severe spinal canal stenosis. No significant neural foraminal narrowing. Soft tissues: Unremarkable. IMPRESSION: Unremarkable CT Spine.
--- NOTE | 2024-12-11 17:28 | PC.NURSE ---
Patient returned from CT. ED staff at bedside performing ECG. Report given at bedside to Shamar Keys RN.
[2024-12-11 17:30] LABS: Alanine Aminotransferase 19 U/L (12-78); Anion Gap 13.8 mEq/L (5-15); Aspartate Amino Transferase 33 U/L (14-36); Blood Urea Nitrogen 11 mg/dl (7-17); Carbon Dioxide 26 mmol/L (22.0-30.0); Creatinine Clearance Estimated 132 mL/min (50-200); Estimated Glomerular Filt Rate 91 ml/min (>60); GFR (African American) 110 ML/MIN (>60)
[2024-12-11 17:31] LABS: Albumin/Globulin Ratio 1.5 (1.1-1.8); Alkaline Phosphatase 91 U/L (38-126); Bilirubin,Total 0.5 mg/dl (0.2-1.3); Calcium 8.9 mg/dl (8.4-10.2); Chol/HDL Ratio 4.4 (1-3.5); Cholesterol 202 mg/dl (140-200); Globulin 3.2 g/dL (1.3-3.2); Glucose 128 mg/dl (74-100); HDL Cholesterol 46 mg/dl (40-60); Total Protein,Serum 7.9 g/dl (6.3-8.2); Triglycerides 336 mg/dl (30-150); VLDL Cholesterol 67 mg/dL (0-40)
--- NOTE | 2024-12-11 17:32 | PC.NURSE ---
SPEAKING WITH KYLAHAD
[2024-12-11 17:36] LABS: Activated Partial Thrombo Time 28.6 seconds (22.5-28.5); INR 0.89 (0.9-1.1); Prothrombin Time 9.9 seconds (9.2-12.1)
--- NOTE | 2024-12-11 17:36 | PC.NURSE ---
speaking with aniyahad
--- NOTE | 2024-12-11 17:40 | PC.NURSE ---
pt back to room
[2024-12-11 17:43] LABS: Direct LDL Cholesterol 99.84 mg/dL (100-129)
[2024-12-11 17:51] LABS: Troponin I < 0.01 ng/ml (0.00-0.034)
[2024-12-11 18:23] LABS: Ethyl Alcohol < 10 mg/dl (0-10)
[2024-12-11 18:28] LABS: Appearance,Urine CLEAR (Clear); Bilirubin,Urine Negative (Negative); Blood, Urine Negative (Negative); Color,Urine YELLOW (Yellow); Glucose,Urine (UA) Negative (Negative); Ketones,Urine Negative (Negative); Leukocyte Esterase,Urine Negative (Negative); Microscopic, Urine URINE MICROSCOPIC (MICROSCOPIC); Nitrate,Urine Negative (Negative); PH,Urine 7.5 (5.0-8.5); Protein,Urine Negative (Negative); Specific Gravity, Urine 1.015 (1.005-1.030); Urobilinogen,Urine 0.2 EU/dl (0.2)
[2024-12-11 18:40] LABS: Amphetamine/Metha Screen,Urine Negative ng/ml (<1000)
[2024-12-11 18:41] LABS: Barbiturates Screen,Urine Negative ng/ml (<200)
[2024-12-11 18:42] LABS: Benzodiazepines Screen,Urine Negative ng/ml (<200); Cannabinoid Screen,Urine Negative ng/ml (<50)
[2024-12-11 18:43] LABS: Cocaine Screen,Urine Negative ng/ml (<300)
[2024-12-11 18:44] LABS: Methadone Screen,Urine Negative ng/ml (<300); Opiate Screen,Urine Negative ng/ml (<300)
[2024-12-11 18:45] LABS: Phencyclidine Screen,Urine Negative ng/ml (<25)
[2024-12-11 18:51] LABS: RBC,Urine Occasional #/hpf (0-3)
[2024-12-11 18:52] LABS: Bacteria,Urine 1+ /lpf; Mucus,Urine 1+ /lpf
[2024-12-11] MEDS: MECLIZINE 25MG TABLET 50 MG PO (19:36)
--- NOTE | 2024-12-11 20:00 | PC.NURSE ---
Patient resting: refuses to walk
[2024-12-11 20:51] LABS: Troponin I < 0.01 ng/ml (0.00-0.034)
[2024-12-11 20:59] LABS: HIV Combo NEGATIVE (Negative)
--- NOTE | 2024-12-11 21:00 | PC.NURSE ---
Pt resting; refuses to try to walk
[2024-12-11 21:06] LABS: Hepatitis C Ab Qual. W/ RFX NEGATIVE (Negative)
--- NOTE | 2024-12-11 22:21 | PC.NURSE ---
[facility] regarding transfer
--- NOTE | 2024-12-11 23:04 | CT_ITS ---
PROCEDURE INFORMATION: Exam: CT Lumbar Spine Without Contrast Exam date and time: 12/11/2024 11:20 PM Age: 44 years old Clinical indication: Weakness; Additional info: Inability to walk, weak in legs bilaterally TECHNIQUE: Imaging protocol: Computed tomography of the lumbar spine without contrast. Radiation optimization: All CT scans at this facility use at least one of these dose optimization techniques: automated exposure control; mA and/or kV adjustment per patient size (includes targeted exams where dose is matched to clinical indication); or iterative reconstruction. COMPARISON: No relevant prior studies available. FINDINGS: Bones/joints: Stabilization metallic hardware at L5/S1. Visualized vertebral body heights are preserved. Urinary bladder: Contrast in the partially visualized collecting system and urinary bladder. Soft tissues: Unremarkable. IMPRESSION: Visualized vertebral body heights are preserved. If symptoms persist or spinal cord compression or nerve root compression is a concern clinically, correlation with MRI is necessary.
--- NOTE | 2024-12-11 23:17 | PC.NURSE ---
REpeat troponin drawn and sent to lab
--- NOTE | 2024-12-11 23:22 | PC.NURSE ---
Pt to CT scan via stretcher
[2024-12-11 23:44] LABS: Troponin I < 0.01 ng/ml (0.00-0.034)
[2024-12-12] VITALS (17 sets, daily range): BP systolic 115–173; BP diastolic 66–132; PULSE 67–92; RESP 11–20; TEMP 37.1; O2SAT 95–99
--- NOTE | 2024-12-12 00:01 | PC.NURSE ---
Patient is resting
[2024-12-12 00:43] LABS: Magnesium 1.6 mg/dl (1.6-2.3); Phosphorous 2.4 mg/dl (2.5-4.5)
--- NOTE | 2024-12-12 04:00 | PC.NURSE ---
ATtempted to call report asked to call back in 5 min
--- NOTE | 2024-12-12 04:14 | PC.NURSE ---
Report to [facility] notified
== END 2024-12-12 04:35 | disposition other institution (70) ==
PROVIDERS: Physician Assistant; Emergency Provider Emergency Medicine; PCP Internal Medicine Adolescent Medicine
DX: R25.1 Tremor, unspecified (principal); R29.898 Other symptoms and signs involving the musculoskeletal system; R20.2 Paresthesia of skin; R26.81 Unsteadiness on feet; R53.1 Weakness
CPT/HCPCS: 70450; 70496; 70498; 72125; 72128; 72131; 80053; 80061; 80307; 80320; 81001; 83735; 84100; 84484; 85025; 85610; 85730; 86803; 87389; 93005; 99285; G0480; Q9967

== ENCOUNTER 2025-03-05 14:21 | Outpatient (CLI) | payer MEDICARE, SELFPAY ==
--- NOTE | 2025-03-05 14:25 | MR_ITS ---
FINAL REPORT CLINICAL HISTORY: CHRONIC NECK PAIN THAT RADIATES INTO BOTH ARMS COMPARISON: 01/04/2022 FINDINGS: Multi planar MR imaging was obtained of the cervical spine. There is abnormal decreased signal throughout the cervical discs. The patient has undergone a prior anterior and interbody fusion at the C5-6 level. The vertebrae are of normal height. There is no malalignment. The cervical cord demonstrates normal signal and configuration. C2-C3: There is no evidence of significant disc bulge or protrusion. There is no significant facet hypertrophy. C3-C4: There is no evidence of significant disc bulge or protrusion. There is no significant facet hypertrophy. C4-C5: A mild annular bulge is present with mild bilateral neural foraminal narrowing. C5-C6: There is no evidence of significant disc bulge or protrusion. There is no significant facet hypertrophy. C6-C7: A mild annular bulge is present with mild to moderate bilateral neural foraminal narrowing. C7-T1: There is no evidence of significant disc bulge or protrusion. There is no significant facet hypertrophy. IMPRESSION: Prior anterior fusion at the C5-6 level. Mild degenerative changes present at the C4-5 and C6-7 levels. Reviewed, Interpreted and Dictated by Puma Quiles MD Transcribed by Yoselyn Holt Authenticated and [facility]
== END 2025-03-05 23:59 | disposition home or self-care (01) ==
LOC: RAD 14:22
PROVIDERS: PCP Internal Medicine Adolescent Medicine; Visit Provider Anesthesiology
DX: M54.12 Radiculopathy, cervical region (principal)
CPT/HCPCS: 72141

== ENCOUNTER 2025-06-18 15:46 | Outpatient (CLI) | payer MEDICARE, SELFPAY ==
--- OUTSIDE RECORDS SUMMARY | 2025-06-18 15:47 | XMS_ITS | Clinical Summary ---
Author Organization [facility] Address [address] [place] [address] Phone Care Team Providers Care Water Conservation Specialist Name Role Phone Andrzej Bartholomew MD [ ] Conditions or Problems Problem Name Problem Code Onset Date Status Entry Date Provider Comment Standard Description Annotate SEPSIS 39530382 (SNOMED CT) Active Cynthia Hastings Sepsis E COLI UTI N39.0 (ICD-10-CM ) Active Cynthia Hastings Urinary tract infection, site not specified E COLI INFECTION 74066302 (SNOMED CT) Active Cynthia Hastings Infection caused by Escherichia coli LT 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-CM ) Active Cynthia Hastings Tubulo-inter stitial nephritis, not specified as acute or chronic PERSONAL HISTORY OF CHRONIC KIDNEY STONES Z87.442 (ICD-10-CM ) Active Cynthia Hastings Personal history of urinary calculi Medications Medication Instructions Start Date Stop Date Generic Name [facility] Provider HYDROCODONE-ACETA MINOPHEN 7.5-500 MG ORAL TABLET HYDROCODONE-ACETA MINOPHEN 32052929812 Andrzej Bartholomew MD OXYCODONE-ACETAMI NOPHEN 10-325 MG TABS OXYCODONE-ACETAMI NOPHEN 48924706139 Andrzej Bartholomew MD CIPROFLOXACIN HCL 500 MG TABS CIPROFLOXACIN HCL 13843758163 Andrzej Bartholomew MD CIPRO TABS CIPROFLOXACIN HCL TABS 96615038499 Andrzej Bartholomew MD PERCOCET TABS OXYCODONE-ACETAMI NOPHEN TABS 27883062317 Shawna Dominique CIPRO TABS CIPROFLOXACIN HCL TABS 80291680938 Shawna L PREDNISONE 20 MG TABS PREDNISONE 84861152720 Shawna L CEFUROXIME AXETIL 500 MG TABS CEFUROXIME AXETIL 85836887154 Shawna Dominique VENTOLIN HFA 108 (90 Base) MCG/ACT AERS ALBUTEROL SULFATE 60888575687 Shawna L TRIAMCINOLONE ACETONIDE 0.1 % OINT TRIAMCINOLONE ACETONIDE 12718954182 Shawna L PERMETHRIN 5 % CREA PERMETHRIN 77633006920 Shawna L CHOLESTYRAMINE 4 GM PACK CHOLESTYRAMINE 51895653904 Shawna L HYDROXYZINE HCL 25 MG TABS HYDROXYZINE HCL 71999311782 Shawna L CYANOCOBALAMIN 1000 MCG/ML SOLN CYANOCOBALAMIN 35179396705 Shawna L CETIRIZINE HCL 10 MG TABS CETIRIZINE HCL 06084040333 Shawna L FLUTICASONE PROPIONATE 50 MCG/ACT SUSP FLUTICASONE PROPIONATE 16295244033 Shawna L HYDROCODONE-ACETA MINOPHEN 7.5-500 MG ORAL TABLET HYDROCODONE-ACETA MINOPHEN 79730267089 Shawna L GABAPENTIN 300 MG CAPS GABAPENTIN 46144890603 Shawna L RANITIDINE HCL 150 MG ORAL TABLET RANITIDINE HCL 85103520068 Shawna L ESTRACE 0.1 MG/GM CREA ESTRADIOL 02484944086 Shawna L VENLAFAXINE HCL 75 MG TABS VENLAFAXINE HCL 65509093672 Shawna L NADOLOL 40 MG TABS NADOLOL 57703507504 Shawna L DIVALPROEX SODIUM ER 500 MG [id number] DIVALPROEX SODIUM 56335350354 Shawna L ZONISAMIDE 100 MG CAPS ZONISAMIDE 34936549732 Shawna Dominique ESTRADIOL 0.5 MG TABS ESTRADIOL 66534644228 Shawna Dominique PRILOSEC OTC 20 MG TBEC OMEPRAZOLE MAGNESIUM 86076114158 Shawna Dominique HYDROMORPHONE HCL 2 MG TABS HYDROMORPHONE HCL 87519466868 Shawna Dominique CHLORPROMAZINE HCL 25 MG TABS CHLORPROMAZINE HCL 60386140392 Shawna Dominique OXYCODONE-ACETAMI NOPHEN 10-325 MG TABS OXYCODONE-ACETAMI NOPHEN 51995397455 Shawna Dominique CIPROFLOXACIN HCL 500 MG TABS CIPROFLOXACIN HCL 02075076183 Shawan Dominique POTASSIUM CITRATE ER 10 MEQ (1080 MG) CR-TABS POTASSIUM CITRATE 01716663972 Shawna Dominique MONTELUKAST SODIUM 10 MG TABS MONTELUKAST SODIUM 93439740545 Shawna Dominique DICYCLOMINE HCL 20 MG TABS DICYCLOMINE HCL 30898816839 Shawna Dominique ONDANSETRON HCL 4 MG TABS ONDANSETRON HCL 70285245877 Shawna Dominique PRAVASTATIN SODIUM 20 MG TABS PRAVASTATIN SODIUM 38320458804 Shawna Dominique Medications Administered No information available. Allergies, Adverse Reactions, Alerts No information available. 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 Procedures No information available. Vital Signs Date Name Value Unit Description BMI (Body Mass Index) 38.77 kg/m2 Bod y Mass Index (Ratio) Body Temperature 98.1 [degF] temperat ure E&M BP Diastolic 74 mm[Hg] blood pressu re, diastolic BP Systolic 108 mm[Hg] blood pressur e, systolic Heart Rate 84 /min pulse rate Height 55 [in_us] height E&M Respiratory Rate 12 /min respirat ory rate E&M Weight Measured 166.2 [lb_av] weight E& M Weight Measured 166.2 [lb_av] weight E& M Immunizations No information available. Advance Directives No information available.
--- NOTE | 2025-06-18 15:48 | MM_ITS ---
PROCEDURE INFORMATION: Exam: MG Bilateral Screening 3D Mammography Exam date and time: 06/18/2025 3:53 PM Age: 45 years old Clinical indication: Screening. No family history of breast cancer. TECHNIQUE: Imaging protocol: Bilateral Screening tomosynthesis and 2D mammography including computer-aided detection (CAD) when performed. COMPARISON: MG MM DIG SCREENING MAMM BI W/CAD 11/14/2023 3:53 PM FINDINGS: MAMMOGRAPHY: Breast composition: There are scattered areas of fibroglandular density. Mass: None. Architectural distortion: None. Calcifications: No suspicious calcifications. Asymmetric density: None. Skin thickening: None. Axillary adenopathy: None. IMPRESSION: No mammographic evidence of malignancy. Annual screening is recommended unless otherwise clinically indicated. ASSESSMENT: BI-RADS Category 1: Negative.
--- OUTSIDE RECORDS SUMMARY | 2025-06-18 15:48 | XMS_ITS | Encounter Summary ---
Author Organization [employer] ([place], [place], [place], [place]) Address [address] [place] [address] Care Team Providers Care Spiritual Care Coordinator Name Role Phone Viktor Rebolledo MD Primary Care Provider + [phone] Encounter Details Date Type Department Care Team (Late st Contact Info) Description 02/06/2019 Transcribed Document [facility] [place] Family Medicine [facility] [place] [address] ProviderSole MD [address] [place], [place] [id number] Social History Tobacco Use Types Packs/Day Years Used Date Smoking Tobacco: Never Assessed Comments Unknown Sex and Gender Information Value Date Recorded Sex Assigned at Female 05/01/2022 6:35 PM CDT Legal Sex Female 6:35 PM CDT Gender Identity Female 05/01/2022 6:35 PM CDT Sexual Orientation Not on file documented as of this encounter Miscellaneous Notes * Cerner Conversion Note - Sole Hook MD - 02/06/2019 9:23 AM CDT Patient: JUDE JOE Age: 39 years Sex: Female : 1980 Associated Diagnoses: None Author: ANTHONY VELÁZQUEZ II, MD-ANS Procedure: Cervical epidural steroid injection with fluoroscopy Pre-Procedure Diagnosis: Neck pain secondary to Cervical Disc Disease Cervical Radiculitis to left upper extremity Post-Procedure Diagnosis: Same Anesthesia: Local (1% Lidocaine) with 10mg PO Valium Complications: none Fluoroscopy: .21 Descriptions of Procedure: Risk and benefits were explained. An informed consent was obtained. The patient was taken to the procedure room and placed in a prone position. Landmarks were identified. A lidocaine skin wheal was raised over the area of C7-T1 and using a 17 gauge Touhy needle under fluoroscopic guidance the epidural space was located with loss of resistance. I then injected 3ml of radiocontrast for a positive epidurogram. I then injected 80mg Depo Medrol along with 4ml of PF normal saline. The patient tolerated the procedure well and was transported to the post procedure area in stable condition. Anthony Velázquez II, M.D. Electronically signed by Ramírez [facility] Conversion Narcotics Agent Cerner at 02/20/2023 7:19 AM CDT documented in this encounter Plan of Treatment Not on file documented as of this encounter Visit Diagnoses Not on filedocumented in this encounter Care Teams Spiritual Care Coordinator Relationship Specialty Start Date End Date Viktor Rebolledo MD [address] [place] [address] PCP - General Adolescent Medicine 04/08/23 documented as of this encounter
--- OUTSIDE RECORDS SUMMARY | 2025-06-18 15:48 | XMS_ITS | Encounter Summary ---
Author Organization [employer] ([place], [place], [place], [place]) Address [address] [place] [address] Care Team Providers Care Video Tape Transferrer Name Role Phone Viktor Rebolledo MD Primary Care Provider + [phone] Encounter Details Date Type Department Care Team (Late st Contact Info) Description 04/30/2020 Transcribed Document [facility] [place] Family Medicine [facility] [place] [address] ProviderSole MD [address] [place], [place] [id number] Social History Tobacco Use Types Packs/Day Years [...] Conversion Note - Sole Hook MD - 04/30/2020 3:10 PM CDT Patient: JUDE JOE Age: 40 Years Sex: Female : 1980 FOLLOWUP DATE OF SERVICE: 04/11/2020 CHIEF COMPLAINT: Low back pain. HISTORY OF PRESENT ILLNESS: This is a 40-year-old female being seen in followup with a five-year history of low back pain that radiates down bilateral lower extremities as well as some neck pain that she overall describes as constant, aching, radiating, numbness/tingling, dull and sharp. The pain is exacerbated with movement such as prolonged standing, walking and reduced with rest and medication. She currently rates her pain as 6/10 VAS and reports a 50% reduction with medication. Medication list reviewed. Pertinent medications noted to be Percocet 7.5 mg one p.o. q.8h, Tramadol 50 mg one p.o. q.8h, Lyrica 150 mg one p.o. q.h and Diclofenac Gel. She does not need a refill on her Diclofenac Gel due to having a surplus. Nursing intake is reviewed. Fall risk information sheet provided. HISTORY: Allergies: None. Social History: Marital status: . Current work status: Disabled. Current tobacco use: Denies. Illicit drug use: Denies. Alcohol use: Denies. Caffeine use: Enjoys caffeine. Past Medical History: Anemia. Arthritis. Asthma. Depression. Gallstones. GERD. Hypertension. High cholesterol. Kidney stones. Pneumonia. Migraine headaches. Past Surgical History: Appendix. Caesarean section. Gallbladder. Hysterectomy. Ovaries. Back. Neck. Past Family History: Cancer. Migraine headaches. Thyroid disease. Substance abuse disorder. Mental illness. Diabetes. Heart disease. Acid-reflux. Depression. REVIEW OF SYSTEMS: The patient's ten system Review of Systems was reviewed. General: Weight gain. Respiratory: Negative. Neurological: Headaches, numbness/tingling. Gastrointestinal: Constipation. Last bowel movement 04/10/2020. She has been utilizing [id number] agents and is enquiring if there is anything else that she can use. Musculoskeletal: Joint pain/stiffness, neck pain, back pain, muscle weakness, muscle aches and pains. Cardiovascular: Leg pain with walking. Psychiatric: Negative. HEENT: Negative. Endocrine: Negative. Hematology: Negative. Skin: Negative. Genitourinary: Negative. VITAL SIGNS: Vital signs are reviewed. BP 127/83, heart rate 111, respiratory rate 18, O2 SATs 97% on room air, height 5'5 , weight 180 lb. PHYSICAL EXAMINATION: Constitutional: Conversant and in no acute distress. Well-nourished. Integumentary: Deferred. HEENT: Normocephalic. Neck: Deferred. Chest and Lung: Deferred. Cardiovascular: Deferred. Abdomen: Deferred. Peripheral Vascular: Deferred Neurologic: Deferred. Musculoskeletal: Ambulatory with a cane. Able to transition independently from walking, sitting and standing without overt difficulty. Mildly antalgic gait. Psychiatric: Alert and oriented x3. Denies suicidal ideation. Normal mood and affect. No signs of impairment. MEDICAL DECISION MAKING: GARRETT is reviewed. Patient???s medications are reviewed. See list in patient???s file. ASSESSMENT: Stable. 1. Chronic pain syndrome. 2. Lumbar degenerative disc disease. 3. Lumbar radiculitis to the bilateral lower extremities. 4. 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 5. Cervical degenerative disc disease, status post ACDF. 6. Cervical spinal stenosis. 7. Opioid-induced constipation. CURRENT PLAN: We will go ahead and add Docusate 250 mg one p.o. q.d. We will continue the rest of her medication. Urine tox screen from 02/07/2020 was positive for Oxycodone and Tramadol which is consistent with the plan. Questions answered to her satisfaction. She verbalized understanding. She will return to the clinic in two months. LIGIA Burton/melody documented in this encounter Plan of Treatment Not on file documented as of this encounter Visit Diagnoses Not on filedocumented in this encounter Care Teams Video Tape Transferrer Relationship Specialty Start Date End Date Viktor Rebolledo MD [address] [place] [address] PCP - General Adolescent Medicine 04/08/23 documented as of this encounter
--- OUTSIDE RECORDS SUMMARY | 2025-06-18 15:48 | XMS_ITS | Encounter Summary ---
Author Organization [employer] ([place], [place], [place], [place]) Address [address] [place] [address] Care Team Providers Care Security Director Name Role Phone Viktor Rebolledo MD Primary Care Provider [phone] Encounter Details Date Type Department Care Team (Late st Contact Info) Description 10/21/2019 Transcribed Document [facility] [place] Family Medicine [facility] [address] ProviderSole MD [address] [place], [place] [address] Social History Tobacco Use Types Packs/Day Years [...] Conversion Note - Sole Hook MD - 10/21/2019 12:27 PM CSR Patient: JUDE JOE Age: 39 Years Sex: Female : 1980 DATE OF SERVICE: 10/06/2019. CHIEF COMPLAINT: Neck pain, bilateral shoulder pain, and low back pain. HISTORY OF PRESENT ILLNESS: The patient is a 39 year old female who returns to the clinic today with a five year history significant for neck pain and a ten year history significant for low back pain. The patient states that the pain is an 8/10 on the Numerical Pain Scale Rating. She does report 30-40% pain relief at this time with Percocet 7.5/325 mg. t.i.d., Lyrica 150 mg. b.i.d., Tramadol 50 mg. t.i.d., Diclofenac Gel 1%, apply 2 grams q.i.d. Nursing intake was reviewed. On today's visit this individual is currently 5'5 and weighs 180 lbs. The patient states that the pain is getting worse in the left upper extremity and left shoulder region at this time. She feels that her neck is locking up with rotating her head. HISTORY: ALLERGIES TO MEDICATION: THIS INDIVIDUAL REPORTS NONE. SOCIAL HISTORY: Marital status: . Current work status: On Disability. Current tobacco use: Denied. Illicit drug use: Denied. Alcohol use: Denied. Caffeine use: Not reported. PAST MEDICAL HISTORY: Anemia. Osteoarthritis. Asthma. Depression. Gallstones. GERD. Hypertension. Hyperlipidemia. Kidney stones. Pneumonia. PAST SURGICAL HISTORY: Appendectomy. . Cholecystectomy. Complete hysterectomy. Spinal surgery to lumbar spine. PAST FAMILY HISTORY: Cancer. Lung disease. Thyroid disease. Substance abuse. Type 2 diabetes. Mental illness. Heart disease. REVIEW OF SYSTEMS: The patient's Ten System Review of Systems was reviewed and on today's visit this individual complains of the following: General: Fatigue. Weight gain. Respiratory: Chronic cough. Shortness of breath. Asthma. Neurological: Headaches. Tremors. Numbness and tingling. Gastrointestinal: Constipation. Acid reflux. Musculoskeletal: Joint pain and stiffness, neck pain, back pain, muscle weakness, muscle aches and pains. Cardiovascular: Leg pain with walking. Psychiatric: Changes in sleep. HEENT: Hoarseness. Endocrine: Negative. Hematology: Easy bruising. Skin: Negative. Genitourinary: Negative. All other systems reviewed were found to be negative. PHYSICAL EXAMINATION: Vital signs reviewed today. Constitutional: Conversant, well-nourished. General: Deferred. Integumentary: Deferred. HEENT: Deferred. Neck: Deferred. Chest and Lung: Deferred. Cardiovascular: Deferred. Abdomen: Deferred. Peripheral Vascular: Deferred. Neurologic: Deferred. Musculoskeletal: Deferred. Psychiatric: The patient is alert and oriented to self, time, and place today. The patient has normal mood and affect at today's visit and there is moderate depression on the depression questionnaire that was completed today. Physical examination was deferred. DIAGNOSTIC STUDIES: Not present. MEDICAL DECISION MAKING: Stable. ASSESSMENT: 1. Chronic pain syndrome. 2. Post laminectomy pain syndrome of lumbar spine. 3. Lumbar radiculitis involving the bilateral lower extremities. 4. Cervical degenerative disc disease. 5. Cervical radiculitis involving the left upper extremity. 6. Cervical spinal stenosis. 7. Cervical spondylosis. PROCEDURE/TEST ORDERED: Not present. CURRENT PLAN: I had a long conversation with Ms. Joe at today's visit. We had gone over the patient's MRI of the cervical spine that was done on 08/17/2019. I utilized the spine model as well as the dermatomal map to represent her current pathology. I am going to refer this individual to Dr. Paul Rogers for surgical consultation of the cervical spine. At the level of C5-C6 this individual has a small broad-based central and left paracentral disc protrusion which appears to be abutting the spinal cord anteriorly with a minimal flattening of the cord. The cord has been narrowed down to 9-10 mm at this time. I would like for Dr. Rogers to take a look to see if this individual may require surgery sometime in the near future. I am going to increase this individual's Lyrica to 150 mg. t.i.d. Her other medicines will remain unchanged at this time. We are going to see the patient back in the clinic in two months for a follow-up appointment. The patient is understanding and agrees with the above plans. Austyn Anaya PA-C BR:liberty Electronically signed by Ramírez [facility] Conversion Microwave Radio Technician Cerner at 02/20/2023 7:05 AM CDT documented in this encounter Plan of Treatment Not on file documented as of this encounter Visit Diagnoses Not on filedocumented in this encounter Care Teams Security Director Relationship Specialty Start Date End Date Viktor Rebolledo MD [address] [place] [address] PCP - General Adolescent Medicine 04/08/23 documented as of this encounter
--- OUTSIDE RECORDS SUMMARY | 2025-06-18 15:48 | XMS_ITS | Encounter Summary ---
Author Organization [employer] ([place], [place], [place], [place]) Address [address] [place] [address] Care Team Providers Care Beamster Name Role Phone Viktor Rebolledo MD Primary Care Provider [phone] Encounter Details Date Type Department Care Team (Late st Contact Info) Description 01/12/2021 Transcribed Document [facility] [place] [facility] [place] [address] ProviderSole MD [address], [place] [id number] Social History Tobacco Use Types Packs/Day Years Used Date Smoking Tobacco: Never Assessed Comments Unknown Sex and Gender Information Value Date Recorded Sex Assigned at Female 05/01/2022 6:35 PM CDT Legal Sex Female 6:35 PM CDT Gender Identity Female 05/01/2022 6:35 PM CDT Sexual Orientation Not on file documented as of this encounter Miscellaneous Notes * Cerner Conversion Note - Historical MD Miladys - 01/12/2021 12:40 PM SALESFORCE TRAINER Patient: JUDE JOE Age: 40 Years Sex: Female : 1980 FOLLOW-UP DATE OF SERVICE: 12/23/2020. CHIEF COMPLAINT: Low back pain, bilateral hip pain, bilateral leg pain. HISTORY OF PRESENT ILLNESS: The patient is a 40-year-old female who returns to the clinic today with a history significant for back pain, bilateral hip, and bilateral leg pain with the right side being worse than the left side. The patient reports that she has been dealing with this pain since 2015. Her pain level today is 5/10 on the numerical pain scale rating. Her pain is worse with any kind of physical activity, doing house work, bending at the waist, and lifting. The patient does get relief with medication use from our facility as well as resting. The patient reports 50% pain relief at this time with Percocet 7.5/325 mg four times daily dosing. Pregabalin 150 mg three times daily dosing, Tramadol 50 mg three times daily dosing, Diclofenac gel 1% that the patient applies four grams four times daily, and Docusate sodium 250 mg twice daily dosing was initiated at the last visit for opioid-induced constipation. Nursing intake was reviewed and noted on today's visit. She is 5'5 and weighs 190 lbs. HISTORY: Allergies to medication: She reports none. Social History: Marital status: . Current work status: Disabled. Current tobacco use: Denies. Illicit drug use: Denies. Alcohol use: Denies. Caffeine use: Not reported. Past Medical History: Asthma. Depression. Gallstones. Heartburn. Hypertension. Hyperlipidemia. Kidney stones. Pneumonia. Migraine headaches. Past Surgical History: Spinal surgery of the lumbar spine done by Dr. Paul Rogers. Spinal surgery of the cervical spine was done by another surgeon but she cannot remember his name. Past Family History: Cancer. Migraine headaches. Thyroid disease. Substance abuse. Type 2 diabetes. Mental illness. Heart disease. Acid reflux disease. REVIEW OF SYSTEMS: The patient's ten system Review of Systems was reviewed and noted at today's visit. This individual has complaints of the following: General: Fatigue, weight gain. Respiratory: Chronic cough, shortness of breath, wheezing, and asthma. Neurological: Headache, numbness/tingling. Gastrointestinal: Constipation, acid reflux. Musculoskeletal: Joint pain/stiffness, neck pain, back pain, muscle weakness, muscle aches and pains. Cardiovascular: Palpitations, leg pain with walking. Psychiatric: Negative. HEENT: Hoarseness. Negative. Endocrine: Negative. Hematology: Easy bruising, enlarged lymph nodes. Skin: Negative. Genitourinary: Negative. PHYSICAL EXAMINATION: Constitutional: Conversant and well-nourished. Vital signs reviewed today. Integumentary: Deferred. HEENT: Deferred. Neck: Deferred. Chest and Lung: Deferred. Cardiovascular: Deferred. Abdomen: Deferred. Peripheral Vascular: Deferred. Neurologic: Deferred. Psychiatric: The patient is alert and oriented to self, time, and place today. The patient has a normal mood and affect at today's visit and there is mild depression on the depression questionnaire that was completed today. Musculoskeletal: Deferred. ASSESSMENT: 1. Chronic pain syndrome. 2. Lumbar degenerative disc disease. 3. Post laminectomy pain syndrome of the lumbar spine. 4. Lumbar radiculitis involving the bilateral lower extremities. 5. Hip pain involving the bilateral hips, right worse than the left. 6. Cervical degenerative disc disease status post anterior cervical disc fusion and discectomy. 7. Cervicalgia. 8. Opioid-induced constipation. CURRENT PLAN: I am going to continue this individual on her current medication regimen from our facility at this time. I am going to start this individual on Lactulose 10g/15mL that she can utilize twice daily dosing along with the Docusate sodium 250 mg twice daily dosing. The patient has an understanding and agrees with the above plan. GARRETT report was appropriate upon review today. We will see the patient back in clinic in two months for a follow-up appointment. YUE Flannery/dilia Electronically signed by Ramírez [facility] Conversion Capacity Planning Engineer Cerner at 02/20/2023 7:14 AM CDT documented in this encounter Plan of Treatment Not on file documented as of this encounter Visit Diagnoses Not on filedocumented in this encounter Care Teams Beamster Relationship Specialty Start Date End Date Viktor Rebolledo MD [address] [place] [address] PCP - General Adolescent Medicine 04/08/23 documented as of this encounter
--- OUTSIDE RECORDS SUMMARY | 2025-06-18 15:48 | XMS_ITS | Encounter Summary ---
Author Organization [employer] ([place], [place], [place], [place]) Address [address] [place] [address] Care Team Providers Care Test Case Developer Name Role Phone Viktor Rebolledo MD Primary Care Provider + [phone] Encounter Details Date Type Department Care Team (Late st Contact Info) Description 09/06/2020 Transcribed Document [facility] [place] Family Medicine [address] [place] [address] ProviderSole MD [address] [place], [place] [id number] Social History Tobacco Use Types Packs/Day Years [...] Conversion Note - Sole Hook MD - 09/06/2020 9:12 AM GUM REMOVER Patient: JUDE JOE Age: 40 Years Sex: Female : 1980 FOLLOW-UP DATE OF SERVICE: 08/17/2020 CHIEF COMPLAINT: Lower back pain, leg and feet, shoulder and neck pain. HISTORY OF PRESENT ILLNESS: The patient is a 40 y/o female who returns to the clinic for follow-up on her 5 year history of low back pain that goes to her bilateral hips and lower extremities and neck pain. She had her sinus surgery 3 weeks ago. She stated it was not quite as bad as she expected. She still has a lot of drainage and is healing but feels pretty good. She rates her pain as 6/10 on the pain scale. Quality is aching, radiating, numbness, tingling, sharp and constant. She gets 50% relief with her current medication. Her pain is increased with activity and standing and decreased with rest. Fall risk info sheet has been provided. SOCIAL HISTORY: Allergies: No known drug allergies. Marital status: The patient is . Current work status: She reports she is disabled. Illicit drug use: Denies. Alcohol use: Denies. Current tobacco use: Denies. Caffeine use: Not answered. Past Medical History: Anemia. Arthritis. Asthma. Depression. Gallstones. GERD. High blood pressure. High cholesterol. Kidney stones. Migraines. Past Surgical History: Appendix. . Gallbladder. Hysterectomy. Ovaries. Sinus. Spinal surgery of the back. Spinal surgery of the neck. Past Family History: Rectal cancer. Migraines. Thyroid disease. Substance abuse. Diabetes. Mental illness. Heart disease. Acid reflux. REVIEW OF SYSTEMS: Complete ten system review was performed and noted to be positive for the following: General: Weight gain. Respiratory: Asthma. Neurological: Headache, numbness and tingling. Gastrointestinal: Negative. Musculoskeletal: Neck pain, back pain, muscle weakness, muscle aches and pains. Cardiovascular: Leg pain with walking. Psychiatric: Negative. HEENT: Hoarseness. Endocrine: Negative. Hematology: Easy bruising. VITAL SIGNS: Vital signs are reviewed. BP 108/71, heart rate 71, respiratory rate 14, O2 SATs 98%, height 5???5?? , weight 185 lbs. PHYSICAL EXAMINATION: Constitutional: The patient is freely conversant, no acute distress. Integumentary: Deferred. HEENT: Deferred. Neck: Deferred. Chest and Lung: Deferred. Cardiovascular: Deferred. Abdomen: Deferred. Peripheral Vascular: Deferred Neurologic: Deferred. Psychiatric: Alert and oriented x 3 with normal mood and affect. She scored a 7 on the depression questionnaire. Musculoskeletal: Her gait is antalgic. She uses a cane. Established patient exam is deferred. DIAGNOSTIC STUDIES: Not present. MEDICAL DECISION MAKING: The patient's GARRETT has been reviewed and is appropriate. Patient's medications are reviewed and are listed in the patient's file. ASSESSMENT: Stable. 1. Chronic pain syndrome. 2. Lumbar degenerative disc disease. 3. Lumbar radiculitis to bilateral lower extremities. 4. Post-laminectomy pain syndrome of the lumbar spine. 5. Cervical degenerative disc disease, status post ACDF. 6. Cervical spinal stenosis. 7. Opioid induced constipation. PROCEDURE/TEST ORDERED: Not present. CURRENT PLAN: We will continue Ms. Joe on her current medications of Percocet 7.5 mg every 8 hours, pregabalin 150 mg every 8 hours, tramadol 50 mg every 8 hours, diclofenac gel 1% 2 grams every 6 hours that she does not need today, docusate 250 mg every day. She is in agreement with the above plan. We will see her back in follow-up in two months. Keely Abrams M.D. YOKASTAL/chrissy Electronically signed by Ramírez [facility] Conversion Dispatch Associate Cerner at 02/20/2023 7:22 AM CDT documented in this encounter Plan of Treatment Not on file documented as of this encounter Visit Diagnoses Not on filedocumented in this encounter Care Teams Test Case Developer Relationship Specialty Start Date End Date Viktor Rebolledo MD [address] [place] [address] PCP - General Adolescent Medicine 04/08/23 documented as of this encounter
--- OUTSIDE RECORDS SUMMARY | 2025-06-18 15:48 | XMS_ITS | Clinical Summary ---
Author Organization [facility] Address [address] [place] [address] Care Team Providers Care Spinning And Winding Supervisor Name Role Phone Viktor Rebolledo M.D. Primary Care Provider [phone] [facility] is fully rolled out with thefollowing exceptions:General Clinical Research [facility] Social History Tobacco Use Types Packs/Day Years Used Date Smoking Tobacco: Never Assessed Comments Unknown Sex and Gender Information Value Date Recorded Sex Assigned at Not on file Legal Sex Female 4:10 PM EDT Gender Identity Not on file Sexual Orientation Not on file Plan of Treatment Health Maintenance Due Date Last Done Comments MMR IMMUNIZATION (1 of 1 - S tandard series) 01/26/1981 DTAP/Tdap/Td IMMUNIZATION (1 - Tdap) 01/26/1987 VARICELLA IMMUNIZATION (1 of 2 - 13+ 2-dose series) 01/26/1993 HEPATITIS B IMMUNIZATION (1 of 3 - 19+ 3-dose series) 01/26/1999 HPV IMMUNIZATION (1 - 3-dose SCDM series) 01/26/2007 COVID-19 Vaccine (2023-2 5 season) 2024 AMB SEASONAL FLU VACCINE (#1) 09/04/2025 HIB IMMUNIZATION Aged Out No longer e ligible based on patient's age to complete this topic IPV IMMUNIZATION Aged Out No longer e ligible based on patient's age to complete this topic MCV4 IMMUNIZATION Aged Out No longer eligible based on patient's age to complete this topic MENINGOCOCCAL B VACCINE Aged Out No l onger eligible based on patient's age to complete this topic PNEUMOCOCCAL IMMUNIZATION Aged Out No longer eligible based on patient's age to complete this topic Respiratory Syncytial Virus (RSV) <20mo Aged Out No longer eligible b ased on patient's age to complete this topic Insurance * Guarantor: JUDE JOE Account Type Relation to Patient Date of Phone Billing Address Personal/Family 1980 [address] [place] [address] MEDICARE [place] [employer] MED[place]ID OP [facility] Care Teams Spinning And Winding Supervisor Relationship Specialty Start Date End Date Viktor Rebolledo M.D. [facility] [address] [address] [place] [address] PCP - General External Family Practice 08/26/17
--- OUTSIDE RECORDS SUMMARY | 2025-06-18 15:48 | XMS_ITS | Clinical Summary ---
Author Organization [facility] Address [address] [place] [address] Care Team Providers Care Fleet Driver Name Role Phone Viktor Rebolledo MD Primary Care Provider + [phone] Allergies No known active allergies Medications diclofenac (VOLTAREN) 1 % gel gel Apply topically to the appropriate area as directed 4 (Four) Times a Day As Needed. Active ranolazine (RANEXA) 1000 MG 12 hr tablet Take 1,000 mg by mouth 2 (Two) Times a Day. Active raNITIdine (ZANTAC) 300 MG tablet Take 300 mg by mouth 2 (Two) Times a Day. Active fluticasone-billy meterol (ADVAIR HFA) 230-21 MCG/ACT inhaler Inhale 2 puffs. Active verapamil SR (CALAN-SR) 240 MG CR tablet Take 240 mg by mouth Every Night. Active Umeclidinium [place] (INCRUSE ELLIPTA) 62.5 MCG/INH aerosol powder Inhale Daily. Active estradiol (ESTRACE) 2 MG tablet Take 2 mg by mouth Daily. Active levocetirizine (XYZAL) 5 MG tablet Take 5 mg by mouth Every Evening. Active TiZANidine (ZANAFLEX) 4 MG capsule Take 4 mg by mouth 3 (Three) Times a Day. Active montelukast (SINGULAIR) 10 MG tablet Take 10 mg by mouth Every Night. Active albuterol sulfate HFA 108 (90 Base) MCG/ACT inhaler Inhale 2 puffs Every 4 (Four) Hours As Needed for Wheezing. Active Cyanocobalamin (VITAMIN B-12 IJ) Inject as directed Every 30 (Thirty) Days. Active Erenumab-aooe (AIMOVIG SC) Inject 140 mg under the skin into the appropriate area as directed Every 30 (Thirty) Days. Active dicyclomine (BENTYL) 20 MG tablet Take 20 mg by mouth Every 6 (Six) Hours. Active nortriptyline (PAMELOR) 25 MG capsule Take 50 mg by mouth Every Night. Active pravastatin (PRAVACHOL) 20 MG tablet Take 20 mg by mouth Every Night. Active metoprolol tartrate (LOPRESSOR) 100 MG tablet Take 100 mg by mouth 2 (Two) Times a Day. Active cyanocobalamin ([employer]S VITAMIN B-12) 2000 MCG tablet Take 2,000 mcg by mouth Daily. Active cholecalciferol (VITAMIN D3) 25 MCG (1000 UT) tablet Take 1,000 Units by mouth Daily. Active Furosemide (LASIX PO) Take by mouth Daily. Active SPIRONOLACTONE PO Take by mouth Daily. Active aspirin 81 MG EC tablet Take 81 mg by mouth Daily. Active docusate sodium (COLACE) 100 MG capsule Take 1 capsule by mouth 2 (Two) Times a Day. 60 capsule 01/08/2020 3:07 PM EST 0 Active oxyCODONE-aceta minophen (PERCOCET) 10-325 MG per tabletIndicatio ns:S/P cervical spinal fusion Take 1 tablet by mouth Every 4-6 Hours As Needed for Moderate Pain . 50 tablet 01/08/2020 3:07 PM EST 0 Active Active Problems Problem Noted Date Diagnosed Date Neck pain 01/07/2020 S/P cervical spinal fusion 01/07/2020 Hypertension 01/07/2020 Hyperlipidemia 01/07/2020 Coronary artery disease 01/07/2020 Asthma 01/07/2020 Social History Tobacco Use Types Packs/Day Years Used Date Smoking Tobacco: Never Smokeless Tobacco: Never Alcohol Use Standard Drinks/Week Comments Not Currently 0 (1 standard drink = 0.6 oz pur e alcohol) Abuse Screen Answer Date Recorded Unsafe at Home or Work/School Not on file Feels Threatened by Someone? Not on file 07/2023 Does Anyone Keep You from Co ntacting Others or Doint Things Outside the Home? Not on file 08/12/2023 Physical Sign of Abuse Present Not on file 1 Housing Stability Answer Date Recorded Current Living Arrangements Not on file 07/2023 Potentially Unsafe Housing Conditions Not on gumaro e 08/12/2023 Family and Community Support Answer Gaston e Recorded Help with Day-to-Day Activities Not on file 08/12/2023 Lonely or Isolated Not on file 08/12/2023 Employment Answer Date Recorded Do you want help finding or keeping work or a nita b? Not on file 08/12/2023 Disabilities Answer Date Recorded Concentrating, Remembering, or Making Decisions Difficulty Not on file 08/12/2023 Doing Errands Independently Difficulty Not on fi le 08/12/2023 Education Answer Date Recorded Help with school or training? Not on file Preferred Language Not on file 08/12/2023 Comments No Sex and Gender Information Value Date Recorded Sex Assigned at Not on file Legal Sex Female 12:57 PM EDT Gender Identity Not on file Sexual Orientation Not on file Last Filed Vital Signs Vital Sign Reading Time Taken Comments Blood Pressure 113/67 01/08/2020 11:57 AM EST Pulse 77 01/08/2020 11:57 AM EST Temperature 36.6 C (97.8 F) 01/08/2020 11:57 AM EST Respiratory Rate 16 01/08/2020 12:09 PM EST Oxygen Saturation 94% 01/08/2020 11:57 AM EST Inhaled Oxygen Concentration - - Weight 82.3 kg (181 lb 8 oz) 01/04/2020 3:23 PM EST Height 165.1 cm (5' 5 ) 01/04/2020 3:23 PM EST Body Mass Index 30.2 01/04/2020 3:23 PM EST Plan of Treatment Health Maintenance Due Date Last Done Comments Annual Gynecologic Pelvic an d Breast Exam 1980 LIPID PANEL 1980 TDAP/TD VACCINES (1 - Tdap) 01/26/1999 ANNUAL PHYSICAL 01/04/2020 HEPATITIS C SCREENING 01/04/2020 MAMMOGRAM 2020 COVID-19 Vaccine ( - 2023-2 5 season) 2024 COLOGUARD 01/26/2025 COLON CANCER SCREENING 5 YEA R SIGMOIDOSCOPY 01/26/2025 COLONOSCOPY 01/26/2025 COLORECTAL CANCER SCREENING 01/26/2025 CT COLONOGRAPHY 01/26/2025 FECAL OCCULT BLOOD TEST 01/26/2025 FIT Testing (1 year) 01/26/2025 INFLUENZA VACCINE 08/04/2025 Pneumococcal Vaccine 0-49 Aged Out No longer eligible based on patient's age to complete this topic Medical Devices Implanted Type Area Training Analyst Device Identifier Shelf Expiration Date Model / Serial / Lot Implant Implant Description:L5-S1 fusion Allogrft Bone Vivigen Celluar Matrx Formable 1cc - [id number] Implanted:Qty : 1 on 01/07/2020 by Paul Rogers MD at [facility] Implant N/A: Spine Cervical [facility] [id number] / / Plt Kaibab 1level 14mm - [id number] Implanted:Qty : 1 on 01/07/2020 by Paul Rogers MD at [facility] Implant N/A: Spine Cervical DEPUY SPINE [id number] / / Scrw Kaibab Ritchie Sd 15mm - [id number] Implanted:Qty : 4 on 01/07/2020 by Paul Rogers MD at [facility] Implant N/A: Spine Cervical DEPUY SPINE [id number] / / Cage [place]/Lg 7d 6mm - [id number] Implanted:Qty : 1 on 01/07/2020 by Paul Rogers MD at [facility] Implant N/A: Spine Cervical DEPUY SPINE [id number] / / Insurance MEDICARE A & B Advance Directives * CPR (Attempt to Resuscitate) (Latest Code Status on File) Date Activated Date Inactivated Comments 01/07/2020 3:43 PM 01/08/2020 5:34 PM Question Answer Comments Code Status (Patient has no pulse and is not breathing): CPR (Attempt to Resuscitate) Medical Interventions (Patie nt has pulse or is breathing): Full Care Teams Fleet Driver Relationship Specialty Start Date End Date Viktor Rebolledo MD [address] [place] [facility] [address] [facility] [address] [facility] [address] PCP - General Adolescent Medicine 01/04/20
--- OUTSIDE RECORDS SUMMARY | 2025-06-18 15:48 | XMS_ITS | Referral Summary ---
Author Organization [facility] ([place], [place], [place], [place]) Address [address] [place] [address] Care Team Providers Care Database Administration Project Manager Name Role Phone Viktor Rebolledo MD Primary Care Provider [phone] Allergies No known active allergies Medications albuterol HFA (VENTOLIN HFA) 90 mcg/actuation inhaler Inhale 2 puffs by mouth via inhaler every 6 (six) hours as needed for wheezing. 3 Active busPIRone (BUSPAR) 10 MG tablet Take 1 tablet (10 mg total) by mouth 2 (two) times daily. 3 Active cholecalciferol , vitamin D3, 25 mcg (1,000 unit) capsule Take 1 capsule (1,000 Units total) by mouth daily. 3 Active docusate sodium (COLACE) 250 MG capsule Take 1 capsule (250 mg total) by mouth 2 (two) times daily. 3 Active estradioL (ESTRACE) 2 MG tablet Take 0.5 tablets (1 mg total) by mouth daily. 3 Active furosemide (LASIX) 20 MG tablet Take 1 tablet (20 mg total) by mouth daily. 3 Active levocetirizine (XYZAL) 5 MG tablet Take 1 tablet (5 mg total) by mouth daily. 3 Active metoprolol tartrate (LOPRESSOR) 100 MG tablet Take 1 tablet (100 mg total) by mouth 2 (two) times daily. 3 Active montelukast (SINGULAIR) 10 mg tablet Take 1 tablet (10 mg total) by mouth nightly. 3 Active omeprazole (PriLOSEC) 40 MG capsule Take 1 capsule (40 mg total) by mouth 2 (two) times daily. 3 Active pravastatin (PRAVACHOL) 20 MG tablet Take 1 tablet (20 mg total) by mouth nightly. 3 Active pregabalin (LYRICA) 200 MG capsule Take 1 capsule (200 mg total) by mouth 3 (three) times daily. 3 Active TiZANidine (ZANAFLEX) 4 MG capsule Take 1 capsule (4 mg total) by mouth 3 (three) times daily as needed for muscle spasms. Active Ubrelvy 100 mg Tab Take 100 mg by mouth daily as needed (Migraine). 3 Active pseudoephedrine (SUDAFED) 30 MG tablet Take 1 tablet (30 mg total) by mouth every 4 (four) hours as needed for Congestion. Active ranolazine 1,000 mg PERG Take 1,000 mg by mouth 2 (two) times daily. Active nortriptyline (PAMELOR) 50 MG capsule Take 1 capsule (50 mg total) by mouth nightly. Active oxyCODONE-aceta minophen (PERCOCET) 7.5-325 mg per tablet Take 1 tablet by mouth every 6 (six) hours. Active azelastine-flut icasone 137-50 mcg/spray spry 1 spray by intraNASAL route daily Both nostrils. Active ipratropium (ATROVENT) 42 mcg (0.06 %) 0.06% nasal spray 2 sprays by each nostril route 3 (three) times daily Both nostrils. Active ondansetron (ZOFRAN) 4 MG tablet Take 1 tablet (4 mg total) by mouth every 8 (eight) hours as needed for nausea or vomiting. Active cyanocobalamin (vitamin B-12) 50 mcg tablet Take 1 tablet (50 mcg total) by mouth daily. 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 Asthma 01/07/2020 Coronary artery disease 01/07/2020 Hyperlipidemia 01/07/2020 Hypertension 01/07/2020 Neck pain 01/07/2020 S/P cervical spinal fusion 01/07/2020 Immunizations Name Administration Dates Next Due Influenza Quad-qiv Non Pf 07/01/2017,10/06/2015 Pneumococcal Conjugate (Prevnar) 13-Valent 08/31 Social History Tobacco Use Types Packs/Day Years Used Date Smoking Tobacco: Never Smokeless Tobacco: Never Alcohol Use Standard Drinks/Week Comments Not Currently 0 (1 standard drink = 0.6 oz pur e alcohol) Utilities Answer Date Recorded In the past 12 months, has t he electric, gas, oil, or water company threatened to shut off services in your home? No 12/12/2024 Interpersonal Safety Answer Date Record ed How often does anyone, dago nieves family and friends, physically hurt you? Never 12/12/2024 How often does anyone, dago nieves family and friends, insult or talk down to you? Never 12/12/2024 How often does anyone, dago nieves family and friends, threaten you with harm? Never 12/12/2024 How often does anyone, dago nieves family and friends, scream or curse at you? Never 12/12/2024 Housing Stability Answer Date Recorded What is your living situation today? I have a [facility] place to live 12/12/[address] you li ve. Do you have problems with any of the following? None of the above 12/12/2024 Food Insecurity Answer Date Recorded Within the past 12 months, y ou worried that your food would run out before you got money to buy more. Sometimes true 2024 Within the past 12 months, t he food you bought just didn't last and you didn't have money to get more. Sometimes true 06/2025 Transportation Needs Answer Date Record ed In the past 12 months, has l ack of reliable transportation kept you from medical appointments, meetings, work or from getting things needed for daily living? No 12/12/2024 Financial Resource Strain Answer Date R ecorded How hard is it for you to pa y for the very basics like food, housing, medical care, and heating? Would you say it is: Somewhat hard 12/12/2024 Employment Answer Date Recorded Do you want help finding or keeping work or a job? I do not need or want help 12/12/2024 Family and Community Support Answer Gaston e Recorded If for any reason you need h elp with day-to-day activities such as bathing, preparing meals, shopping, managing finances, etc., do you get the help you need? I don't need any help 12/12/2024 Feeling Lonely or Isolated 0 12/12 Educational Attainment Answer Date Mario rded Do you speak a language other than [place] at [facility]? No 12/12/2024 Do you want help with school or training? For example, starting or completing job training or getting a high school diploma, GED or equivalent. No 12/12/2024 Physical Activity Answer Date Recorded Number of minutes of exercise per week 0 12/12/2024 Self Management Answer Date Recorded Because of a physical, menta l, or emotional condition, do you have serious difficulty concentrating, remembering, or making decisions? (5 years or older) No 12/12/2024 Because of a physical, menta l, or emotional condition, do you have difficulty doing errands alone such as visiting a doctor's office or shopping? (15 years or older) No 12/12/2024 Substance Use Answer Date Recorded How many times in the past y ear have you used prescription drugs for non-medical reasons? Never 12/12/2024 How many times in the past year have you used il legal drugs? Never 12/12/2024 Mental Health Answer Date Recorded Calculation of above two rows 1 Comments No Sex and Gender Information Value Date Recorded Sex Assigned at Female 05/01/2022 6:35 PM CDT Legal Sex Female 6:35 PM CDT Gender Identity Female 05/01/2022 6:35 PM CDT Sexual Orientation Not on file Last Filed Vital Signs Vital Sign Reading Time Taken Comments Blood Pressure 167/85 12/13/2024 5:25 AM EST Pulse 115 12/13/2024 9:09 AM EST Temperature 36.8 C (98.2 F) 12/12/2024 4:00 PM EST Respiratory Rate 17 12/12/2024 4:00 PM EST Oxygen Saturation 93% 12/13/2024 9:09 AM EST Inhaled Oxygen Concentration - - Weight 82.6 kg (182 lb) 12/12/2024 8:01 AM EST Height 165.1 cm (5' 5 ) 04/08/2023 10:28 AM EDT Body Mass Index 30.29 04/08/2023 10:28 AM EDT Plan of Treatment Not on file Procedures Procedure Name Priority Date/Time Associated Diagnosis Comments LIPID PANEL Add-On 12/13/2024 8:35 AM EST from Last 3 Months or Most Recently Relevant to Health Maintenance Results * (ABNORMAL) Lipid panel (12/13/2024 8:35 AM EST) Triglycerides 243 0 - 249 mg/dL 12/13/2024 3:58 PM [facility] Cholesterol 173 0 - 199 mg/dL 12/13/2024 3:58 PM [facility] Comment: 200 to 239 mg/dL = Moderate (borderline) >239 mg/dL = High HDL Cholesterol 41 >=40 mg/dL 12/13/2024 3:58 PM [facility] Comment: >=60 mg/dL = Desirable <40 mg/dL = Increased Risk All other components are listed individually or are calculations VLDL Cholesterol 48.6(H) 5 - 40 mg/dL 12/13/2024 3:58 PM [facility] Cholesterol/HDL ratio 4.2(H) 0.0 - 3.2 12/13/2024 3:58 PM [facility] LDl/HDL Ratio 2 0 - 4 12/13/2024 3:58 PM [facility] RISK COMP 4 12/13/2024 3:58 PM [facility] LDL Cholesterol, Calculated 83 0 - 99 mg/dL 12/13/2024 3:58 PM [facility] Blood Venipuncture / Unknown 12/13/2024 8:35 AM EST 12/13/2024 8:45 AM EST us Dustin España MD LAB BLOOD ORDERABLES Final Resul t [facility] [address] [place] [address], [facility] [phone] from Last 3 Months or Most Recently Relevant to Health Maintenance Insurance [facility] MEDICARE PPO Advance Directives For more information, please contact: [phone] * Full Code (Latest Code Status on File) Date Activated Date Inactivated Comments 12/12/2024 6:02 AM 12/13/2024 6:25 PM * Full Code Date Activated Date Inactivated Comments 04/26/2023 8:56 AM 05/01/2023 2:56 PM Care Teams Database Administration Project Manager Relationship Specialty Start Date End Date Viktor Rebolleod MD [address] [place] [address] [place] [address] PCP - General Adolescent Medicine 04/08/23
--- OUTSIDE RECORDS SUMMARY | 2025-06-18 15:48 | XMS_ITS | Encounter Summary ---
Author Organization [email or web address] ([place], [place], [place], [place]) Address [address] [place] [address] Care Team Providers Care Ceramic Coater Machine Name Role Phone Viktor Rebolleod MD Primary Care Provider + [phone] Encounter Details Date Type Department Care Team (Late st Contact Info) Description 12/13/2019 Transcribed Document [facility] Family Medicine [facility] [place] [address] ProviderSole MD [address], [place] [id number] Social History Tobacco Use Types Packs/Day Years [...] Conversion Note - Sole Hook MD - 12/13/2019 11:28 AM MINERAL ECONOMIST Patient: JUDE JOE Age: 39 Years Sex: Female : 1980 FOLLOW-UP DATE OF SERVICE: 12/08/2019 CHIEF COMPLAINT: Neck, shoulders, arms, hands, low back, hips, legs and feet. HISTORY OF PRESENT ILLNESS: The patient is a 39 y/o female who returns to the clinic for follow-up on her neck pain, shoulder pain, low back pain, left hand pain, left leg pain, feet pain with numbness and tingling. She saw Dr. Rose after having a cervical MRI here. We referred her last visit. He is going to do another fusion on 01/07/2020 provided her pre-op cardiac clearance is successful. She is going to be having a stress test. She does have some nerve damage down her left upper extremity. She had throat surgery about a month ago. She rates the pain as 7/10 on the pain scale. Quality is aching, radiating, numbness and tingling, dull and sharp. The pain is constant. She tried heat and ice therapy and physical therapy. She has had the pain for 5 years with her neck and 10 years with her other pain. She has increased pain with physical activity and decreased pain with heat. She gets 30-40% relief with her current medication. Fall risk info sheet has been provided. SOCIAL HISTORY: Allergies: Not answered. Marital status: The patient is . Current work status: She reports she is disabled. Illicit drug use: Denies. Alcohol use: Denies. Current tobacco use: Denies. Caffeine use: She drinks caffeine. Past Medical History: Anemia. Artery disease Arthritis Asthma. Chicken pox. Depression Gallstones Gastroesophageal reflux disease. High blood pressure High cholesterol Kidney stones. Pneumonia. Migraines Past Surgical History: Appendix section. Gallbladder Hysterectomy. Ovaries Spinal surgery of back Throat surgery Past Family History: Rectal cancer Lung disease. Migraines Thyroid disease. Substance abuse disorder. Diabetes Mental illness. Heart disease Acid reflux. Depression REVIEW OF SYSTEMS: Complete ten system review performed and noted to be positive for the following: General: Fatigue and weight gain. Respiratory: Chronic cough, shortness of breath. Asthma. Neurological: Numbness and tingling, tremors. Gastrointestinal: Constipation, acid reflux. Musculoskeletal: Joint pain, stiffness, neck pain, back pain, muscle weakness, muscle aches and pains. Cardiovascular: Leg pain with walking. Psychiatric: Changes in sleep HEENT: Hoarseness. Endocrine: Negative. Hematology: Easy bruising. Skin: Negative. Genitourinary: Negative. VITAL SIGNS: Vital signs are reviewed. BP 132/87, heart rate 79, respiratory rate 19, O2 SATs 95%, height 5???5?? , weight 178 lbs PHYSICAL EXAMINATION: Constitutional: The patient is freely conversant, no acute distress. Integumentary: Deferred. HEENT: Deferred. Neck: Deferred. Chest and Lung: Deferred. Cardiovascular: Deferred. Abdomen: Deferred. Peripheral Vascular: Deferred Neurologic: Deferred. Psychiatric: Alert and oriented x 3 with normal mood and affect. She scored a 13 on the depression questionnaire. She is treated. Her gait is antalgic. She uses a cane. Musculoskeletal: Deferred. Established patient exam is deferred. DIAGNOSTIC STUDIES: Not present MEDICAL DECISION MAKING: The patient's GARRETT has been reviewed and is appropriate. Patient's medications are reviewed and are listed in the patient's file. ASSESSMENT: Stable. 1. Chronic pain syndrome. 2. Post laminectomy pain syndrome lumbar spine. 3. Lumbar radiculitis bilateral lower extremities. 4. Cervical degenerative disc disease. 5. Cervical radiculitis left upper extremity. 6. Cervical spinal stenosis. 7. Cervical spondylosis. PROCEDURE/TEST ORDERED: Not present. CURRENT PLAN: I am going to continue Ms. Joe on her current medications of Percocet 7.5 mg q 8 h, Tramadol 50 mg q 8 h, Lyrica 150 mg q 8 h, Diclofenac Gel 1%, 2 grams every 6 hours. She takes a stool softener. I reviewed her EMG nerve conduction study done by Dr. Freitas and it showed moderate chronic left C6-C7 radiculopathy. She is in agreement with the above plan. We will see her back in follow-up in two months. Keely Abrams M.D. NICOLÁS/joaquin Electronically signed by Ramírez [facility] [employer] Education Director Cerner at 02/20/2023 7:15 AM CDT documented in this encounter Plan of Treatment Not on file documented as of this encounter Visit Diagnoses Not on filedocumented in this encounter Care Teams Ceramic Coater Machine Relationship Specialty Start Date End Date Viktor Rebolledo MD [address] [place] [address] [place] [address] PCP - General Adolescent Medicine 04/08/23 documented as of this encounter
--- OUTSIDE RECORDS SUMMARY | 2025-06-18 15:48 | XMS_ITS | Clinical Summary ---
Author Organization Healthcare Address [address] [place] [address] Care Team Providers Care Director Decision Support Name Role Phone Unavailable Primary Care Provider Unavailabl e Family History Medical History Relation Name Comments Other cancer Father Conversions - Other Mother Back ameena n Diabetes Mother Hypertension Mother Thyroid disease Mother complications with general anesthesia Mother Relation Name Status Comments Father Mother Social History Tobacco Use Types Packs/Day Years Used Date Smoking Tobacco: Former Alcohol Use Standard Drinks/Week Comments Yes 0 (1 standard drink = 0.6 oz pur e alcohol) Comments Unknown Sex and Gender Information Value Date Recorded Sex Assigned at Not on file Legal Sex Female 7:45 PM EDT Gender Identity Not on file Sexual Orientation Not on file Last Filed Vital Signs Vital Sign Reading Time Taken Comments Blood Pressure - - Pulse - - Temperature - - Respiratory Rate - - Oxygen Saturation - - Inhaled Oxygen Concentration - - Weight 76.2 kg (167 lb 15.9 oz) 03/05/2016 9:37 AM EDT Height 167.6 cm (5' 6 ) 03/05/2016 9:37 AM EDT Body Mass Index 27.11 03/05/2016 9:37 AM EDT Plan of Treatment Not on file
--- OUTSIDE RECORDS SUMMARY | 2025-06-18 15:48 | XMS_ITS | Clinical Summary ---
Author Organization [employer] ([place], [place], [place], [place]) Address [address] [place] [address] Care Team Providers Care Digital Publishing Specialist Name Role Phone Viktor Rebolledo MD Primary Care Provider [phone] Allergies No known active allergies Medications albuterol [...] Pf 07/01/2017,10/06/2015 Pneumococcal Conjugate (Prevnar) 13-Valent 08/31 Family History Medical History Relation Name Comments Cancer Other Diabetes Other Heart disease Other Relation Name Status Comments Other Social History Tobacco Use Types Packs/Day Years [...] living situation today? I have a [facility] [place] [facility] to live 12/12/2024 Think about the [...] Do you speak a language other than [facility] No 12/12/2024 Do you want help with [...] 04/08/2023 10:28 AM EDT Plan of Treatment Health Maintenance Due Date Last Done Comments CT Colonography 1980 Colonoscopy 1980 Colorectal Cancer Screening 1980 FOBT/FIT 1980 Fit-DNA (Cologuard) 1980 Sigmoidoscopy 1980 Depression Screening (12+) 1992 HIV Screening 01/26/1995 Hepatitis C Screening 01/26/1998 DTAP/TDAP/TD VACCINES (1 - Tdap) 01/26/1999 Pap Smear 01/26/2001 Medicare Initial AWV [id number] 01/03/2014 Breast Cancer Screening 2020 Pneumococcal Vaccine: 0-49 Y ears (2 of 2 - PPSV23) 10/26/2020 08/31/2020 COVID-19 VACCINE (1 - season) 2024 Influenza Vaccine (#1) 2025 Tobacco Cessation Counseling and Screening (12+) 12/12/2025 12/12/2024 Lipid Panel 12/13/2027 12/13/2024, 12/12/2024 Procedures Procedure Name Priority Date/Time Associated Diagnosis Comments LIPID PANEL Add-On 12/13/2024 8:35 AM EST from Last 3 Months or Most Recently Relevant to Health Maintenance Results * (ABNORMAL) Lipid panel (12/13/2024 8:35 AM EST) Triglycerides 243 0 - 249 mg/dL 12/13/2024 3:58 PM [facility] Cholesterol 173 0 - 199 mg/dL 12/13/2024 3:58 PM [facility] Comment: 200 to 239 mg/dL = Moderate (borderline) >239 mg/dL = High HDL Cholesterol 41 >=40 mg/dL 12/13/2024 3:58 PM [facility] Comment: >=60 mg/dL = Desirable <40 mg/dL = Increased Risk All other components are listed individually or are calculations VLDL Cholesterol 48.6(H) 5 - 40 mg/dL 12/13/2024 3:58 PM [facility] Cholesterol/HDL ratio 4.2(H) 0.0 - 3.2 12/13/2024 3:58 PM [facility] LDl/HDL Ratio 2 0 - 4 12/13/2024 3:58 PM [facility] RISK COMP 4 12/13/2024 3:58 PM [facility] LDL Cholesterol, Calculated 83 0 - 99 mg/dL 12/13/2024 3:58 PM [facility] Blood Venipuncture / Unknown 12/13/2024 8:35 AM EST 12/13/2024 8:45 AM EST us Dustin España MD LAB BLOOD ORDERABLES Final Resul t [facility] [address] [phone] from Last 3 Months or Most Recently Relevant to Health Maintenance Insurance [facility] MEDIC[facility] [place]PO [place] [id number] Advance Directives For more information, please contact: [phone] * Full Code (Latest Code Status on File) Date Activated Date Inactivated Comments 12/12/2024 6:02 AM 12/13/2024 6:25 PM * Full Code Date Activated Date Inactivated Comments 04/26/2023 8:56 AM 05/01/2023 2:56 PM Care Teams Digital Publishing Specialist Relationship Specialty Start Date End Date Viktor Rebolledo MD [address] [place] [id number] PCP - General Adolescent Medicine 04/08/23
--- OUTSIDE RECORDS SUMMARY | 2025-06-18 15:48 | XMS_ITS | Encounter Summary ---
Author Organization [employer] ([place], [place], [place], [place]) Address [address] [place] [address] Care Team Providers Care Energy Rater Name Role Phone Viktor Rebolledo MD Primary Care Provider + [phone] Encounter Details Date Type Department Care Team (Late st Contact Info) Description 02/19/2020 Transcribed Document [facility] [place] [facility] [place] [facility] [place] [address] ProviderSole MD [address] [place], [place] [id number] Social History Tobacco Use Types Packs/Day Years [...] Conversion Note - Sole Hook MD - 02/19/2020 8:55 AM CDT Patient: JUDE JOE Age: 40 Years Sex: Female : 1980 FOLLOWUP DATE OF SERVICE: 02/08/2020 CHIEF COMPLAINT: Neck pain, left shoulder pain, left arm and hand pain. HISTORY OF PRESENT ILLNESS: The patient is a 40-year-old female who returns to the clinic today with a 5-year history significant for neck pain and left upper extremity pain. Her pain is typically aggravated with physical activity around the home. She is reporting 45% reduction of the pain with the use of Percocet 7.5/325 mg three times daily dosing, Lyrica 150 mg three times daily dosing, Tramadol 50 mg three times daily dosing, Diclofenac Gel 1% that the patient applies 2 grams four times daily. She states she is doing much better at this time secondary to a recent anterior cervical disc fusion and discectomy that was done at the level of C4-C5 and C5-C6. Nursing intake is reviewed on today's visit. HISTORY: Allergies: None. SOCIAL HISTORY: Marital status: . Current work status: Disabled. Current tobacco use: Denies. Illicit drug use: Denies. Alcohol use: Denies. Caffeine use: Not reported. Past Medical History: Anemia. Osteoarthritis. Asthma. Depression. Gallstones. Gastric esophageal reflux disease. Hypertension. Hyperlipidemia. Kidney stones. Migraine headaches. Past Surgical History: Appendectomy. Caesarean section. Cholecystectomy. Complete hysterectomy. Oophorectomy/Salpingectomy. Spinal surgery of the lumbar spine. Spinal surgery of the cervical spine. Lithotripsy. Past Family History: Cancer. Migraine headaches. Substance abuse disorder. Type 2 diabetes. Mental illness. Heart disease. Acid-reflux disease. REVIEW OF SYSTEMS: The patient's ten system Review of Systems was reviewed and at today's visit this individual has complaints of the following: General: Weight gain. Respiratory: Asthma. Neurological: Numbness/tingling. Gastrointestinal: Constipation. Musculoskeletal: Joint pain/stiffness, neck pain, back pain, muscle weakness, muscle aches and pains. Cardiovascular: Negative. Psychiatric: Negative. HEENT: Hoarseness. Endocrine: Negative. Hematology: Easy bruising. Skin: Negative. Genitourinary: Negative. PHYSICAL EXAMINATION: Constitutional: Conversant and well-nourished. Vital signs reviewed today. Integumentary: Deferred. HEENT: Deferred. Neck: Deferred. Chest and Lung: Deferred. Cardiovascular: Deferred. Abdomen: Deferred. Peripheral Vascular: Deferred. Neurologic: Deferred. Psychiatric: The patient is alert and oriented to self, time and place today. The patient has a normal mood and affect at today's visit and there is moderate depression on the depression questionnaire that was completed today. Musculoskeletal: Deferred. ASSESSMENT: 1. Chronic pain syndrome. 2. Lumbar degenerative disc disease. 3. 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 4. Lumbar radiculitis involving the bilateral lower extremities. 5. Cervical degenerative disc disease, status post anterior cervical disc fusion and discectomy. 6. Cervical spinal stenosis. 7. Cervical radiculitis. CURRENT PLAN: The patient is undergoing a urine tox screen today to confirm compliance with medication management from our facility. I am going to continue Ms. Joe on her current medication regiment from our facility at this time. Her GARRETT report was appropriate upon review today. We will see the patient back in the clinic in two months for a followup appointment. The patient has an understanding and agrees with the above plans. YUE Flannery/melody Electronically signed by Ramírez, [facility] Conversion Waste Examiner Cerner at 02/20/2023 7:20 AM CDT documented in this encounter Plan of Treatment Not on file documented as of this encounter Visit Diagnoses Not on filedocumented in this encounter Care Teams Energy Rater Relationship Specialty Start Date End Date Viktor Rebolledo MD [address] [place] [id number] PCP - General Adolescent Medicine 04/08/23 documented as of this encounter
--- OUTSIDE RECORDS SUMMARY | 2025-06-18 15:48 | XMS_ITS | Encounter Summary ---
Author Organization [employer] ([place], [place], [place], [place]) Address [address] [place] [address] Care Team Providers Care Servicenow Administrator Developer Name Role Phone Viktor Rebolledo MD Primary Care Provider + [phone] Encounter Details Date Type Department Care Team (Late st Contact Info) Description 06/26/2020 Transcribed Document [facility] [place] [facility] [place] [address] ProviderSole MD [address] [place], [place] [id number] Social History Tobacco Use Types Packs/Day Years [...] Conversion Note - Sole Hook MD - 06/26/2020 10:04 AM CDT Patient: JUDE JOE Age: 40 Years Sex: Female : 1980 FOLLOWUP DATE OF SERVICE: 06/13/2020 CHIEF COMPLAINT: Back, legs, right between shoulder blades. HISTORY OF PRESENT ILLNESS: The patient is a 40-year-old female who returns to the clinic for followup on her low back pain that goes to her bilateral lower extremities and her neck pain that she has had since 2014. She states she is supposed to be having sinus surgery. She is waiting to hear from ENT and they need to clean everything out. She also had a modified barium swallow and she had mild aspiration so she is supposed to be careful with that. She rates her pain as 6/10 on the pain scale. Quality is aching, radiating, numbness/tingling, sharp and constant. She gets 40-50% relief with her current medication. She has increased pain with activity, standing, walking and decreased pain with rest and medication. Fall risk information sheet provided. HISTORY: Allergies: No known drug allergies. Social History: Marital status: . Current work status: She reports she is disabled. Current tobacco use: de Illicit drug use: Denies. Alcohol use: Denies. Caffeine use: Not answered. Past Medical History: Anemia. Arthritis. Asthma. Depression. Gallstones. GERD. High cholesterol. Kidney stones. Pneumonia. Migraine headaches. Past Surgical History: Appendix. Caesarean section. Gallbladder. Hysterectomy. Ovaries. Spinal surgery of the back. Spinal surgery of the neck. Past Family History: Rectal cancer. Migraine headaches. Thyroid disease. Substance abuse. Diabetes. Mental illness. Heart disease. Acid-reflux. Depression. REVIEW OF SYSTEMS: The patient's ten system Review of Systems was reviewed. General: Weight gain. Respiratory: Chronic cough, shortness of breath, asthma. Neurological: Headaches, numbness/tingling. Gastrointestinal: Constipation. Musculoskeletal: Joint pain/stiffness, neck pain, back pain, muscle weakness, muscle aches and pains. Cardiovascular: Leg pain with walking. Psychiatric: Negative. HEENT: Hoarseness. Endocrine: Negative. Hematology: Easy bruising. Skin: Negative. Genitourinary: Negative. VITAL SIGNS: Vital signs are reviewed. BP 97/68, heart rate 79, respiratory rate 16, O2 SATs 93%, height 5'5 , weight 186 lb. PHYSICAL EXAMINATION: Constitutional: Freely conversant and in no acute distress. Integumentary: Deferred. HEENT: Deferred. Neck: Deferred. Chest and Lung: Deferred. Cardiovascular: Deferred. Abdomen: Deferred. Peripheral Vascular: Deferred Neurologic: Deferred. Neuropsychiatric: Alert and oriented x3. She scored a 10 on her depression questionnaire. Musculoskeletal: Her gait is antalgic. She uses a cane. MEDICAL DECISION MAKING: GARRETT is reviewed and is appropriate. Patient???s medications are reviewed. See list in patient???s file. ASSESSMENT: Stable. 1. Chronic pain syndrome. 2. Lumbar degenerative disc disease. 3. Lumbar radiculitis to the bilateral lower extremities. 4. 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 5. Cervical degenerative disc disease, status post ACDF. 6. Cervical spinal stenosis. 7. Opioid-induced constipation. CURRENT PLAN: I am going to continue Ms. Joe on her current medication of Docusate 250 mg q.d, Percocet 7.5 mg q.8h, Tramadol 50 mg q.8h, Lyrica 150 mg q.8h. She does not need any of her Diclofenac Gel today. She is in agreement with the above plan. We will see her back in followup in two months. Keely Abrams M.D. SLIM/melody documented in this encounter Plan of Treatment Not on file documented as of this encounter Visit Diagnoses Not on filedocumented in this encounter Care Teams Servicenow Administrator Developer Relationship Specialty Start Date End Date Viktor Rebolledo MD [address] [place] [address] PCP - General Adolescent Medicine 04/08/23 documented as of this encounter
--- OUTSIDE RECORDS SUMMARY | 2025-06-18 15:48 | XMS_ITS | Encounter Summary ---
Author Organization [employer] ([place], [place], [place], [place]) Address [address] [place] [address] Care Team Providers Care Peeler Operator Name Role Phone Viktor Rebolledo MD Primary Care Provider + [phone] Encounter Details Date Type Department Care Team (Late st Contact Info) Description 06/10/2019 Transcribed Document [facility] [place] [facility] [place] [address] ProviderSole MD [address] [place], [place] [id number] Social History Tobacco Use Types Packs/Day Years [...] Conversion Note - Sole Hook MD - 06/10/2019 2:38 PM CDT Patient: JUDE JOE Age: 39 Years Sex: Female : 1980 FOLLOWUP DATE OF SERVICE: 06/04/2019 CHIEF COMPLAINT: Low back pain. HISTORY OF PRESENT ILLNESS: This is a 39-year-old female being seen in followup with a 15-year history of low back pain that goes into the bilateral hips and legs down to the feet with some numbness and tingling. She also has mid back pain and neck pain that goes into the bilateral shoulders and arms to the fingers, worse on the left with some numbness and tingling there as well. The pain is overall described as constant, aching, and sharp, along with her numbness and tingling. It is exacerbated with being up and decreased with heat, rest and medication. Currently rates pain a 7/10 VAS. Reports 40% reduction with medication. On May 15, she underwent trigger point injection and reports 0% relief. She does have a chemical stress testing coming up on June 05, along with a cardiac ultrasound. Med list reviewed. Pertinent meds noted to be Percocet 7.5 mg one p.o. q8h, Lyrica 150 mg one p.o. q12h, Tramadol 50 mg one p.o. q8h and Diclofenac Gel. Nursing intake reviewed. Fall info sheet provided. HISTORY: Allergies:NKDA Social: Marital status: . Current work status: Disabled. Current tobacco use: Denied. Illicit drug use: Denied Alcohol use: Denied. Past Medical History: Positive for anemia, arthritis, asthma, depression, gallstones, hypertension, high cholesterol, kidney stones, pneumonia, migraine. Past Surgical History: Positive for appendix, , gallbladder, hysterectomy, ovaries and back. Past Family History: Positive for cancer, lung disease, thyroid disease, seizure disorder, diabetes, mental illness, heart disease. REVIEW OF SYSTEMS: General: Fatigue, weight gain. Respiratory: Negative Neurological: Headaches. Numbness and tingling. Gastrointestinal: Constipation, nausea. Last bowel movement 06/02/19, soft. Musculoskeletal: Joint pain, stiffness, neck pain, back pain. Muscle weakness, muscles aches and pain. Cardiovascular: Leg pain with walking. Psychiatric: Negative HEENT: Negative Endocrine: Negative Hematology: Negative Skin: Negative Genitourinary: Negative VITAL SIGNS: Vital signs are reviewed. BP 137/87, heart rate 87, respiratory rate 16, O2 SAT 97% on room air, height 5???5?? , weight 169 lbs. PHYSICAL EXAMINATION: Constitutional: Conversant, no acute distress. Well nourished. Integumentary: Deferred. HEENT: Normocephalic. Neck: Deferred. Chest and Lung: Deferred. Cardiovascular: Deferred. Abdomen: Deferred. Peripheral Vascular: Deferred Neuropsychiatric: A&O x 3. PHQ-9 score of 12. Denies suicidal ideation and is treated. Normal mood and affect. No signs of impairment. Musculoskeletal: Ambulatory with a cane. Able to transition independently from walking, sitting, standing without overt difficulties. DIAGNOSTIC STUDIES: Not present. MEDICAL DECISION MAKING: E-GARRETT is reviewed and is appropriate. Patient???s medications are reviewed. See list in patient???s file. ASSESSMENT: 1. Chronic pain syndrome. 2. Lumbar degenerative disc disease. 3. Postlaminectomy pain syndrome of the lumbar. 4. Lumbar radiculitis of bilateral lower extremities. 5. Lumbar facet arthropathy. 6. Cervical facet arthropathy. 7. Occipital neuralgia. 8. Myositis and myalgia. PROCEDURE/TEST ORDERED: _Not present. CURRENT PLAN: Continue current medications. I did broach the topic of physical pain versus nonphysical pain generators. She will benefit from ongoing reinforcing discussions regarding the national shift in opioid-prescribing practices as well as motivation for internal resiliency. Questions answered to her satisfaction. Verbalized understanding. Return to clinic in two months. Gricel Gilman APRN Electronically signed by Ramírez [facility] Conversion Lawn Care Technician Cerner at 02/20/2023 7:16 AM CDT documented in this encounter Plan of Treatment Not on file documented as of this encounter Visit Diagnoses Not on filedocumented in this encounter Care Teams Peeler Operator Relationship Specialty Start Date End Date Viktor Rebolledo MD [address] [place] [address] PCP - General Adolescent Medicine 04/08/23 documented as of this encounter
--- OUTSIDE RECORDS SUMMARY | 2025-06-18 15:48 | XMS_ITS | Encounter Summary ---
Author Organization [employer] [facility] ([place], [place], [place], [place]) Address [address] [place] [address] Care Team Providers Care Branch Library Clerk Name Role Phone Viktor Rebolledo MD Primary Care Provider [phone] Encounter Details Date Type Department Care Team (Late st Contact Info) Description 08/15/2019 Transcribed Document [facility] [place] Family Medicine [address] [place] [address] ProviderSole MD [address] [place], [place] [address] Social History Tobacco Use Types Packs/Day Years [...] Conversion Note - Sole Hook MD - 08/15/2019 12:00 PM CDT Patient: JUDE JOE Age: 39 Years Sex: Female : 1980 FOLLOWUP DATE OF SERVICE: 08/11/2019 CHIEF COMPLAINT: Lower back pain into hips, legs, feet, neck, shoulder, top and into shoulder blades at joint that connects neck to spine, down middle of spine area, also to shoulders, arms and hands. HISTORY OF PRESENT ILLNESS: This patient is a 39-year-old female who returns to clinic for followup on her complaint of pain in her neck that goes all the way down to her low back. She states both shoulders hurt, both arms hurt. It is dull, sharp, aching and constant. Heat decreases her back pain. She states her neck continues to worsen and radiating into both shoulders and nothing is helping. On 02/06/2019, a cervical epidural steroid injection was no help. On 05/15/2019, trigger point injections did not help. She rates her pain as 5-6/10 on the pain scale. Quality is aching, radiating, numbness and tingling, dull and sharp. The pain is constant. Heat and ice therapy are beneficial. She has been in physical therapy. She has had his pain for 15 years. She gets 40% relief with her current medication. Fall risk info sheet provided. HISTORY: Allergies: NKDA Social: Marital status: . Current work status: Disabled. Current tobacco use: Denied Illicit drug use: Denied Alcohol use: Denied Caffeine use: She drinks caffeine. Past Medical History: Positive for anemia, arthritis, asthma, depression, gallstones, heartburn, high blood pressure, high cholesterol, kidney stones, pneumonia, migraines. Past Surgical History: Positive for appendix, , gallbladder, hysterectomy, ovaries, spinal surgery to the back. Past Family History: Positive for rectal cancer, migraines, thyroid disease, substance abuse disorder, diabetes, mental illness, heart disease, acid reflux disease. REVIEW OF SYSTEMS: Complete ten-system review is performed and positives include: General: Fatigue. Weight gain. Respiratory: Chronic cough, shortness of breath. Asthma. Neurological: Headache, numbness and tingling. Gastrointestinal: Constipation. Musculoskeletal: Joint pain, stiffness, neck pain, back pain, muscle weakness, muscle aches and pain. Cardiovascular: Palpitations, leg pain with walking. Psychiatric: Changes in sleep. HEENT: Hoarseness. Hematology: Easy bruising, enlarged lymph nodes. All other systems are negative. VITAL SIGNS: Vital signs are reviewed. BP 100/68, heart rate 76, respiratory rate 20, O2 SAT 98% on room air, height 5???5?? , weight 175 lbs. PHYSICAL EXAMINATION: Constitutional: Freely conversant, no acute distress. Neuropsychiatric: A&O x 3. Normal mood and affect. She scored 12 on the depression questionnaire. She is treated. Established patient exam is deferred. MEDICAL DECISION MAKING: E-GARRETT is reviewed and is appropriate. Patient???s medications are reviewed. See list in patient???s file. ASSESSMENT: Worsening as far as her neck. 1. Chronic lumbar degenerative disc disease. 2. Postlaminectomy pain syndrome lumbar spine. 3. Lumbar radiculitis bilateral lower extremities. 4. Lumbar facet arthropathy. 5. Cervical facet arthropathy. 6. Cervical spondylosis. 7. Cervical radiculitis bilateral upper extremities. 8. Occipital neuralgia. 9. Myositis and myalgia. CURRENT PLAN: We will continue Ms Jeo on her current medication of Percocet 7.5 mg q8h, Lyrica 150 mg q12h, Tramadol 50 mg q8h, Diclofenac Gel 1% 2 grams b.i.d. She takes a stool softener. I looked at the chart and the last time the patient had a cervical MRI was about 2 years ago. It showed some facet hypertrophy at C6-C7 and a disc protrusion at C5-C6 that abuts with focal effacement of the cervical cord at midline. Because she is not responding to conservative therapy, I am going to order a cervical MRI without contrast secondary to increased pain in her neck, increased bilateral upper extremity pain not responding to conservative treatment of injections. She is in agreement with the above plan. We will see her back in followup in two months. Keely Abrams MD Electronically signed by Phani Elmore Conversion Wood Strip Block Floor Installer Cerner at 02/20/2023 7:08 AM CDT documented in this encounter Plan of Treatment Not on file documented as of this encounter Visit Diagnoses Not on filedocumented in this encounter Care Teams Branch Library Clerk Relationship Specialty Start Date End Date Viktor Rebolledo MD [address] [place] [address] PCP - General Adolescent Medicine 04/08/23 documented as of this encounter
--- NOTE | 2025-06-18 16:08 | XR_ITS ---
FINAL REPORT CLINICAL HISTORY: SCREENING COMPARISON: None FINDINGS: Using the left forearm, the bone mineral density of the mid is 0.571 g/cm2, corresponding to T-score of -0.7. Using the left hip, the bone mineral density of the femoral neck is 0.825 g/cm2, corresponding to a T-score of -1.0. Using the right hip, the bone mineral density of the femoral neck is 0.759 g/cm2, corresponding to a T-score of -0.8. NOTE: T-score: Standard deviation compared with peak bone mass of young adult mean. *Following the recommendations of the International Society of Bone densitometry, classification of hip BMD is based on the lower of two T-scores; total hip or femoral neck. IMPRESSION: Normal bone mineral density of the left forearm and right hip. Diminished bone mineral density of the left femoral neck, consistent with osteopenia. Reviewed, Interpreted and Dictated by Enrico Yu MD Transcribed by Yoselyn Holt Authenticated and [facility]
== END 2025-06-18 23:59 | disposition home or self-care (01) ==
LOC: RAD 15:46
PROVIDERS: PCP Internal Medicine Adolescent Medicine; Visit Provider Nurse Practitioner Family
DX: Z12.31 Encounter for screening mammogram for malignant neoplasm of breast (principal); M85.852 Other specified disorders of bone density and structure, left thigh; R92.323 Mammographic fibroglandular density, bilateral breasts; Z78.0 Asymptomatic menopausal state
CPT/HCPCS: 77063; 77067; 77080

== ENCOUNTER 2025-09-12 17:33 | Emergency (ER) | payer MEDICARE, SELFPAY ==
[2025-09-12] VITALS (9 sets, daily range): BP systolic 112–182; BP diastolic 57–101; PULSE 74–93; RESP 11–18; TEMP 36.6–37.1; O2SAT 92–98; BMI 30.7
--- OUTSIDE RECORDS SUMMARY | 2025-09-12 17:46 | XMS_ITS | Encounter Summary ---
Author Organization [employer] ([place], [place], [place], [place], [place]) Address [address] [place] [address] Care Team Providers Care Rotary Saw Operator Name Role Phone Viktor Rebolledo MD Primary Care Provider [phone] Encounter Details Date Type Department Care Team (Late st Contact Info) Description 04/30/2020 Transcribed Document [facility] [place] [facility] the [facility] [place] [address] ProviderSole MD [address] [place], [place] [address] Social History Tobacco Use Types Packs/Day Years Used Date Smoking Tobacco: Never Assessed Comments Unknown Sex and Gender Information Value Date Recorded Sex Assigned at Female 05/01/2022 6:35 PM CDT Legal Sex Female 6:35 PM CDT Gender Identity Female 05/01/2022 6:35 PM CDT Sexual Orientation Not on file documented as of this encounter Miscellaneous Notes * Cerner Conversion Note - Historical ProviderMD - 04/30/2020 3:10 PM CDT Patient: JUDE [...] bowel movement 04/10/2020. She has been utilizing [id number] agents and is enquiring if there is [...] on filedocumented in this encounter Care Teams Rotary Saw Operator Relationship Specialty Start Date End Date Viktor Rebolledo MD [address] [place] [address] PCP - General Adolescent Medicine 04/08/23 documented as of this encounter
--- OUTSIDE RECORDS SUMMARY | 2025-09-12 17:46 | XMS_ITS | Clinical Summary ---
Author Organization [facility] Address [address] [place] [address] Phone Care Team Providers Care Bindery Machine Tender Name Role Phone Andrzej Bartholomew MD [ ] Conditions or Problems Problem Name Problem Code Onset Date Status Entry Date Provider Comment Standard Description Annotate SEPSIS 98267802 (SNOMED CT) Active Cynthia Hastings Sepsis E COLI UTI N39.0 (ICD-10-CM ) Active Cynthia Hastings Urinary tract infection, site not specified E COLI INFECTION 76319629 (SNOMED CT) Active Cynthia Hastings Infection caused by Escherichia coli LT 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-CM ) Active Cynthia Hastings Tubulo-inter stitial nephritis, not specified as acute or chronic PERSONAL HISTORY OF CHRONIC KIDNEY STONES Z87.442 (ICD-10-CM ) Active Cynthia Hastings Personal history of urinary calculi Medications Medication Instructions Start Date Stop Date Generic Name [facility] Provider HYDROCODONE-ACETA MINOPHEN 7.5-500 MG ORAL TABLET HYDROCODONE-ACETA MINOPHEN 95604955026 Andrzej Bartholomew MD OXYCODONE-ACETAMI NOPHEN 10-325 MG TABS OXYCODONE-ACETAMI NOPHEN 86202098005 Andrzej Bartholomew MD CIPROFLOXACIN HCL 500 MG TABS CIPROFLOXACIN HCL 88000310696 Andrzej Bartholomew MD CIPRO TABS CIPROFLOXACIN HCL TABS 45930222299 Andrzej Bartholomew MD PERCOCET TABS OXYCODONE-ACETAMI NOPHEN TABS 76534722066 Shawna Dominique CIPRO TABS CIPROFLOXACIN HCL TABS 91973220889 Shawna L PREDNISONE 20 MG TABS PREDNISONE 20267669085 Shawna L CEFUROXIME AXETIL 500 MG TABS CEFUROXIME AXETIL 48809285028 Shawna Dominique VENTOLIN HFA 108 (90 Base) MCG/ACT AERS ALBUTEROL SULFATE 69499057752 Shawna L TRIAMCINOLONE ACETONIDE 0.1 % OINT TRIAMCINOLONE ACETONIDE 33423213273 Shawna L PERMETHRIN 5 % CREA PERMETHRIN 85660663140 Shawna L CHOLESTYRAMINE 4 GM PACK CHOLESTYRAMINE 44938632481 Shawna L HYDROXYZINE HCL 25 MG TABS HYDROXYZINE HCL 89868270715 Shawna L CYANOCOBALAMIN 1000 MCG/ML SOLN CYANOCOBALAMIN 61141267052 Shawna L CETIRIZINE HCL 10 MG TABS CETIRIZINE HCL 17862666594 Shawna L FLUTICASONE PROPIONATE 50 MCG/ACT SUSP FLUTICASONE PROPIONATE 52022142337 Shawna L HYDROCODONE-ACETA MINOPHEN 7.5-500 MG ORAL TABLET HYDROCODONE-ACETA MINOPHEN 77947953722 Shawna L GABAPENTIN 300 MG CAPS GABAPENTIN 73358578202 Shawna L RANITIDINE HCL 150 MG ORAL TABLET RANITIDINE HCL 05681643369 Shawna L ESTRACE 0.1 MG/GM CREA ESTRADIOL 49810977588 Shawna L VENLAFAXINE HCL 75 MG TABS VENLAFAXINE HCL 88979883703 Shawna L NADOLOL 40 MG TABS NADOLOL 05033286494 Shawna L DIVALPROEX SODIUM ER 500 MG [id number] DIVALPROEX SODIUM 81469783608 Shawna L ZONISAMIDE 100 MG CAPS ZONISAMIDE 37166217185 Shawna Dominique ESTRADIOL 0.5 MG TABS ESTRADIOL 71001044205 Shawna Dominique PRILOSEC OTC 20 MG TBEC OMEPRAZOLE MAGNESIUM 14229852742 Shawna Dominique HYDROMORPHONE HCL 2 MG TABS HYDROMORPHONE HCL 56472820432 Shawna Dominique CHLORPROMAZINE HCL 25 MG TABS CHLORPROMAZINE HCL 77329749093 Shawna Dominique OXYCODONE-ACETAMI NOPHEN 10-325 MG TABS OXYCODONE-ACETAMI NOPHEN 61557548194 Shawna Dominique CIPROFLOXACIN HCL 500 MG TABS CIPROFLOXACIN HCL 89696148110 Shawna Dominique POTASSIUM CITRATE ER 10 MEQ (1080 MG) CR-TABS POTASSIUM CITRATE 74749675485 Shawna Dominique MONTELUKAST SODIUM 10 MG TABS MONTELUKAST SODIUM 71650692817 Shawna Dominique DICYCLOMINE HCL 20 MG TABS DICYCLOMINE HCL 31864322157 Shawna Dominique ONDANSETRON HCL 4 MG TABS ONDANSETRON HCL 63623828898 Shawna Dominique PRAVASTATIN SODIUM 20 MG TABS PRAVASTATIN SODIUM 61678119862 Shawna Dominique Medications Administered No information available. Allergies, Adverse Reactions, Alerts No information available. Results Date Name Value Unit Range Flag Description Office Visit: rm5 MEDS REVIEW Done Documenta tion of current medications (procedure) SMOK STATUS never smoker Toba operations accountant smoking status Plan of Care No information [...]
--- OUTSIDE RECORDS SUMMARY | 2025-09-12 17:46 | XMS_ITS | Data Portability ---
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 Plan of Treatment Reminders Order Date Submit Date Provider Last Modified By Organization Details Last Modified Time Details Appointments None recorded. Lab None recorded. Referral None recorded. Procedures None recorded. Surgeries None recorded. Imaging None recorded. Medication Orders Dupixent 300 mg/2 mL subcutane ous pen injector 2023 024 [facility], [address], [address], 4 15:41:00 Patient Targets Encounter Date Encounter Id Patient Goals Patient Target Last Modified By Organization Details Last Modified Time 12/27/2021 [id number] 1. Continue doing Nasal Rinse 2. Follow up in 2-3 weeks [email or web address] Not available 12/27/2021 10:24:39 Patient Instructions Encounter Date Encounter Id Patient Instructions Last Modified By Organization Details Last Modified Time 12/11/2021 [id number] PROCEDURE: 1. EX TRADURAL IMAGE GUIDANCE NAVIGATION 2. BILATERAL ENDOSCOPIC MAXILLARY ANTROSTOMY WITH TISSUE REMOVAL 3. BILATERAL ENDOSCOPIC TOTAL ETHMOIDECTOMY 4. BILATERAL ENDOSCOPIC SPHENOIDOTOMY WITH TISSUE REMOVAL 5. 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 Extradural image guidance navigation was used to confirm location of the orbits and skull base and was registered according to kitchen worker's guidelines. The patient was prepared in the standard fashion for sinus surgery. 1% lidocaine with epinephrine 1:100,000 was injected bilaterally. Surgery was initiated on the right. Minimal remnant uncinate process was removed with combination of microdebrider and backbiting instruments. The bulla ethmoidalis and agger nasi were taken down. The true maxillary antrum was identified and widened to create a large maxillary antrostomy. Tissue was removed within the maxillary sinus. The middle turbinate lateral surface was shaved to create adequate space within the middle meatus for rinsing postoperatively and to prevent unfavorable scarring. Bony septations in the anterior and posterior ethmoid areas were taken down. The sphenoid ostium was identified and widened. Tissue was removed within the sphenoid sinus. Septations along the skull base were meticulously cleaned. The frontal sinus outflow tract was identified and carefully widened using 90 degree microdebrider and frontal biting instruments. The sinuses were copiously irrigated. Moderate inflammation without polyps or purulence identified today. The identical procedure was performed on the opposite side. Minimal remnant uncinate process was removed with combination of microdebrider and backbiting instruments. The true maxillary antrum was identified and widened to create a large maxillary antrostomy. Tissue was removed within the maxillary sinus. The middle turbinate lateral surface was shaved to create adequate space in the middle meatus for rinsing postoperatively and to prevent unfavorable scarring. Septations in the anterior and posterior ethmoid areas were taken down. The sphenoid ostium was identified and widened. Tissue was removed within the sphenoid sinus. Septations along the skull base were meticulously cleaned. The frontal sinus outflow tract was identified and carefully widened using 90 degree microdebrider and frontal biting instruments. The sinuses were copiously irrigated. Moderate inflammation without polyps or purulence identified today. This completed the procedures today. There were no complications, minimal blood loss. All standard protocols were observed. Right and left sinus contents were sent for permanent histopathologic review. The stomach contents were emptied and the patient was turned over to anesthesia for recovery. Discussion with Ms. Joe in preop today included my suspicion for undiagnosed vasculitis affecting not only her sinuses but also possibly her lungs. For the asthma and sinus disease we will disucss starting an immune modulator in the future. [email or web address] Not available 12/11/2021 12:01:16 12/21/2021 [id number] 1. Continue using Rinse [email or web address] Not a vailable 12/21/2021 12:39:10 It was a pleasur e seeing this patient in followup today. Patient reports: migraines postop, no concerning bleeding, pain well controlled Examination/workup suggests: bilateral sinus debridement dense packing, no infection. We discussed my recommendation for 5x daily rinses, 2-3 medicated, rck 1 week . We reviewed the pertinent anatomy and pathophysiology and all questions were answered. [email or web address] Not available 12/21/2021 14:29:05 12/27/2021 [id number] It was a pleasur e seeing this patient in followup today. Patient reports: headaches Examination/workup suggests: SCOPE SHOWS INFLAMMATION. bilateral debridement of copious debris We discussed my recommendation for medicated rinses Recheck 3-4 weeks . We reviewed the pertinent anatomy and pathophysiology and all questions were answered. [email or web address] Not available 12/27/2021 16:40:27 01/17/2022 [id number] It was a pleasur e seeing this patient in followup today. Patient reports: DISCOLORED CRUSTING Examination/workup suggests: BILATERAL DEBRIDEMENT- POLYPS AND CRUST PRESENT. SLOW IMPROVEMENT CONTINUES. We discussed my recommendation for biogloic nucala CONTINUE MEDICATED RINSES BID. RCK 2-3 MONTHS. We reviewed the pertinent anatomy and pathophysiology and all questions were answered. It was a pleasure seeing this patient in followup today. [email or web address] Not available 01/17/2022 13:01:09 03/11/2024 [id number] HPI: JUDE gonzalez for recheck of MULTI ENT CONCERNS. Since last visit WORSENING SYMPTOMS. THE PT NOTES HAVING 3 SINUSITIS EPISODES. SHE DOES REMAIN HAVING HOARSENESS AND HER LAST ESOPHAGEAL DILLATION WAS 1.5 YEARS AGO. THE PT HAS PREVIOUSLY CONSULTED [facility]YS[facility] WHICH DID NOT IMPROVE SYMPTOMS- THIS WAS A FEW YEARS AGO. SHE IS HAVING PAIN IN HER THROAT WHICH FEELS SHARP UPON PALPATION. SHE HAS RIGHT SIDED TENDERNESS. SHE DOES NOTE HER LAST SINUS INFECTION WAS SEVERE. SHE CHOKED OFTEN ON MUCUS AND HAD TROUBLE HEALING. THE PT HAD TRIALED VOCAL EXERCISES AT HOME FOR ONE YEAR WITHOUT RELIEF. SHE DOES NOT DO VOCAL EXERCISES NOW. SHE HAS BEEN UTILIZING SALINE SINUS RINSE WITHOUT RELIEF. THE PT NOTES SHE HAS BEEN USING DUPIXENT BUT DID SWITCH INSURANCES AND NOW REQUIRES A REPEAT PRIOR AUTHORIZATION. SINUS INFECTIONS DID OCCUR SINCE D/C ING INJECTIONS. SHE HAS HAD MISSED DOSES WITH CHANGE IN INSURANCE. SHE DOES NOTE HER PANCREAS IS NOT PRODUCING ENOUGH ENZYMES. SHE IS TAKING ZENPEP FOR THIS. Previous sinus surgery yes Has tried and failed intranasal cortiscosteroids yes Is currently and will stay on intranasal corticosteroids yes INTERMITTENTLY Love nasal polyp score prior to surgery right side - 2 Love nasal polyp score prior to surgery left side - 2 Patient symptoms - facial painloss of smellcongestionrhinorrhea SYMPTOMS WORSENED WITH MISSED DOSES PHYSICAL EXAM: Ears: hearing not tested today , auricles intact without deformity, external auditory canals clear RIGHT: tympanic membrane intact without perforation or visible effusion LEFT: tympanic membrane intact without perforation or visible effusion General: alert, interactive, no acute distress Head: normocephalic, atraumatic Nose: no significant external deformity, no epistaxis Mouth: lips intact without deformity Neck: trachea midline Lung: no stridor or stertor, no respiratory distress Cardiovascular: no cyanosis Skin: no concerning skin lesions on face Neuro: Cranial nerves II-XII otherwise grossly intact Eye: no pathologic nystagmus Extremities: no motor asymmetry on gross examination Psych: appropriately interactive ASSESSMENT/PLAN: It was a pleasure seeing this patient in followup today. Going forward, I recommend ORDER US NECK, CT SINUS IMAGE GUIDED WITHOUT CONTRAST (WILL CALL WITH RESULTS), RECOMMEND CONTINUTING/REINSTATING DUPIXENT BIOLOGIC We reviewed the pertinent anatomy and pathophysiology and all questions were answered. [email or web address] Not available 03/11/2024 15:16:06 Reason for Referral None Reported. Results Created Date Observation Date Name Description Value Unit Range Abnormal Flag Note LastModifiedBy Organization Detail LastModifiedTime 12/07/19 22 12/07/2021 SARS- COV-1 9 RNA, PCR sars cov-19 result NEGATI VE negati ve normal Not Available [facility], [place], [address], 12/07/2021 19:37:40 12/11/19 22 12/11/2021 SURGI ALEJANDRA surgical SEE BELOW Depar tment of Patho logy Surgi alejandra Patho logy Jad t NAME: JUDE JOE PATH. :SS-2 57 Copy to: Diagn osis: Left and right sinus shaheed nts: Chron ic sinus itis with scatt ered eosin ophil s. SOURC E OF SPECI MEN: SINUS SHAHEED NTS, BILAT ERAL CLINI ALEJANDRA INFOR MATIO N: LITHOSTRIPPER, LEFT WORSE THAN RIGHT J 32.9 Gross Descr iptio n: Recei hamlet in forma marleen label ed with the patie nt's name and desig nated left and right sinus shaheed nts are multi ple pink- hardwick tissu e fragm ents admix ed with possi ble carti helene and bone, which have aggre gate dimen sions of 3 x 2.5 x 0.2 cm. Repre senta tive secti ons are submi tted in a singl e casse tte follo wing decal cific ation . MT 12/11 03:09 PM Micro scopi c Descr iptio n: A micro scopi c exami natio n has been perfo rmed. MIMI BOGRES MD Lois d Out Date: 12/12 09:44 Page 1 of 1 Not Available [facility] [address] [place] [address], [place], [address], 12/12/2021 09:45:32 11/28/19 22 11/28/2021 CT, maxil lofac ial, w/o contr ast [facility] [address] [place] [address] [place] [address] Patien t Name: JUDEKIRIT JOE Vandanajabari bess : 980 Patijabari t 3 Orderi ng Provid er: YUMIKO HERRERA LEONILA EXAM DATE: 2021 EXAM: CT IMAGE GUIDED SINUS SCAN WO CONTRA ST HISTOR Y: 41-yea r-old female with possib le sinusi tis and headac hes. COMPAR CONOR: 020 TECHNI QUE: 1.0 mm axial direct images were obtain ed, and axial, jensen l, and sagitt al recons tructi on images were genera arj from the source images . FINDIN GS: Maxill kinza sinuse s: There is severe mucosa l thicke hong. Ostia: The patien t is status post bilate ral antrec tomies and ethmoi dectom ies which are patent . Ethmoi d sinuse s: There is mild mucosa l thicke hong. Fronta l sinuse s: There is severe mucosa l thicke hong in the left fronta l sinus. Spheno id sinuse s: There is modera te mucosa l thicke hong in the left spheno id sinus and mild mucosa l thicke hong in the right spheno id sinus. Nasal septum and nasal passag es: The nasal septum is mildly deviat ed to the right. There is modera te mucosa l hypert rophy of the nasal turbin ates. The visual ized brain parenc hyma appear s normal . The orbits are normal in appear ance. No paraph arynge al mass is identi fied. The visual ized mastoi d air cells appear normal . IMPRES ROB: 1. There is severe mucosa l thicke hong in the maxill kinza and left fronta l sinuse s, and modera te mucosa l thicke hong in the left spheno id sinus. 2. There is modera te mucosa l hypert rophy of the nasal turbin ates. Interp reted By: Jemma dobbins MD Electr onical ly Signed By: Jemma dobbins MD on 022 3:37 PM [facility] [address], [place], [address], 12/05/2021 15:06:24 12/11/19 22 10/24/2021 elect angelic beebe am No observ ation record ed. BARCODE Not Available 2021 15:23:15 04/14/20 24 04/14/2024 CT, maxil lofac ial, w/o contr ast [address] [place] [address] Sharyn bess Name: JUDE bess : 980 Patijabari bess 3 Orderi ng Provid er: YUMIKO HERRERA LEONILA EXAM DATE: 2023 EXAM: CT IMAGE GUIDED SINUS SCAN WO CONTRA ST HISTOR Y: 44-yea r-old female with chroni c sinusi tis. COMPAR CONOR: 022 TECHNI QUE: 1.0 mm axial direct images were obtain ed, and axial, jensen l, and sagitt al recons tructi on images were genera raj from the source images . FINDIN GS: Maxill kinza sinuse s: There is severe mucosa l thicke hong in the maxill kinza sinuse s. Ostia: There are bilate ral ethmoi dectom ies with maxill kinza, spheno id and fronta l antrec tomies which are patent . Ethmoi d sinuse s: There is mild mucosa l thicke hong in the ethmoi d fossa. Fronta l sinuse s: The fronta l sinuse s are clear. Spheno id sinuse s: The spheno id sinuse s appear clear. Nasal septum and nasal passag es: The nasal septum is deviat ed to the right. There is modera te mucosa l hypert rophy of the inferi or nasal turbin ates. The visual ized brain parenc hyma appear s normal . The orbits are normal in appear ance. No paraph arynge al mass is identi fied. There is fluid in the left mastoi d air cells. IMPRES ROB: 1. There is severe mucosa l thicke hong in the maxill kinza sinuse s. This is improv ed in the left maxill kinza sinus on the prior study. 2. There is interv al cleari ng of the left fronta l sinus. 3. There are postsu rgical change s in the parana billy sinuse s and modera te mucosa l hypert rophy of the inferi or nasal turbin ates. 4. There is unchan ged fluid in the left mastoi d air cells. Interp reted By: Jemma dobbins MD Electr onical ly Signed By: Jemma dobbins MD on 024 1:01 PM [email or web address] [facility] [address] [place], [address], 04/21/2024 15:16:04 Result Notes Documentation Provider Name and Address Organization Details Recorded Time Ct, Maxillofacial, W/o Contrast : [facility] [address] [place] [address] Patient Name: JUDE JOE Patient : 1980 Patient Ordering Provider: YUMIKO MCKEON EXAM DATE: 04/14/2024 EXAM: CT IMAGE GUIDED SINUS SCAN WO CONTRAST HISTORY: 44-year-old female with chronic sinusitis. COMPARISON: 11/28/2021 TECHNIQUE: 1.0 mm axial direct images were obtained, and axial, coronal, and sagittal reconstruction images were generated from the source images. FINDINGS: Maxillary sinuses: There is severe mucosal thickening in the maxillary sinuses. Ostia: There are bilateral ethmoidectomies with maxillary, sphenoid and frontal antrectomies which are patent. Ethmoid sinuses: There is mild mucosal thickening in the ethmoid fossa. Frontal sinuses: The frontal sinuses are clear. Sphenoid sinuses: The sphenoid sinuses appear clear. Nasal septum and nasal passages: The nasal septum is deviated to the right. There is moderate mucosal hypertrophy of the inferior nasal turbinates. The visualized brain parenchyma appears normal. The orbits are normal in appearance. No parapharyngeal mass is identified. There is fluid in the left mastoid air cells. IMPRESSION: 1. There is severe mucosal thickening in the maxillary sinuses. This is improved in the left maxillary sinus on the prior study. 2. There is interval clearing of the left frontal sinus. 3. There are postsurgical changes in the paranasal sinuses and moderate mucosal hypertrophy of the inferior nasal turbinates. 4. There is unchanged fluid in the left mastoid air cells. Interpreted By: Fady Jc MD [facility] 04/21/2024 15:16:04 Procedures Surgical History Date Name Laterality Status Provider Name and Address Organization Details Recorded Time 024 Nasolaryngoscopy completed Radha Castillo [facility] 03/11/2024 10:28:45 022 Sinus Debridement/Biopsy completed YUMIKO MCKEON MD [address] [place], [address], [facility] 01/17/2022 12:52:45 022 Sinus Debridement/Biopsy completed YUMKIO MCKEON MD [address] [place], [address], [facility] 12/27/2021 16:39:16 022 Sinus Debridement/Biopsy cancelled YUMIKO MCKEON MD [address] [place], [address], [facility] 12/25/2021 12:17:33 022 Sinus Debridement/Biopsy completed YUMIKO MCKEON MD [address] [place], [address], [facility] 12/21/2021 12:43:17 022 Nasolaryngoscopy completed YUMIKO MCKEON MD [address] [place], [address], [facility] 11/22/2021 12:19:07 022 Cerumen removal - Instruments, Unilateral completed Kiersten Sexton [facility] 11/22/2021 10:41:23 021 Laryngoscopy Flex completed Kiersten Sexton [facility] 07/12/2021 09:42:19 021 Nasolaryngoscopy completed YUMIKO MCKEON MD [address] [place], [address], [facility] 01/11/2021 17:10:26 020 Nasal Endoscopy completed Elgin Simon [facility] 10/12/2020 14:13:37 020 Sinus Debridement/Biopsy completed YUMIKO MCKEON MD [address] [place], [address], [facility] 08/24/2020 11:59:23 020 Sinus Debridement/Biopsy completed Elgin Simon [facility] 08/03/2020 10:56:43 020 functional endoscopic sinus surgery, total completed Vale Jacob [facility] 08/03/2020 10:16:59 020 Back [facility] 05/11/2020 10:12:22 020 [facility]oscopy Flex [facility] 12/02/2019 09:29:40 020 LARYNGOSCOPY, DIRECT, FLEXIBLE (SURG) completed Not Available [facility] 11/18/2019 12:40:39 020 LARYNGOSCOPY, DIRECT, FLEXIBLE (SURG) completed Not Available [facility] 12/01/2019 10:44:52 019 Laryngoscopy Flex completed YUMIKO MCKEON MD [address] [place], [address], [facility] 08/19/2019 12:38:07 Hysterectomy/bladde r repair completed [facility] 08/19/2019 11:14:13 delivery completed [facility] 08/19/2019 11:14:18 [place]olecystectomy [place] [facility] 08/19/2019 11:14:24 Appendectomy completed [facility] 08/19/2019 11:14:29 kidney stone analysis completed [facility] 08/19/2019 11:14:44 Imaging Results None recorded. Procedure Notes None recorded. Medical Equipment None Reported. Allergies No known drug allergies Medications Name Sig Start Date Stop Date Status Note LastModified by Organization Details LastModified Time estradiol 2 mg tabs 11/11 completed Not Available Not Available Not Available isosorbid e mononitra te er 30 mg tb24 11/11 completed Not Available Not Available Not Available dymista 137-50 mcg/act susp 10/21 completed Not Available Not Available Not Available tizanidin e hydrochlo ride 4 mg tabs 08/19 completed Not Available Not Available Not Available ranolazin e er 500 mg tb12 11/11 completed Not Available Not Available Not Available nortripty line hcl 25 mg caps 08/03 completed Not Available Not Available Not Available ranitidin e hydrochlo ride 300 mg caps 05/11 completed Not Available Not Available Not Available pregabali n 150 mg caps 05/11 completed Not Available Not Available Not Available incruse ellipta 62.5 mcg/inh aepb 05/11 completed Not Available Not Available Not Available pravastat in sodium 20 mg tabs 05/11 completed Not Available Not Available Not Available amoxicill in 875 mg tabs 08/19 completed Not Available Not Available Not Available lyrica 150 mg caps 01/11 completed Not Available Not Available Not Available hydrochlo rothiazid e 25 mg tabs 08/19 completed Not Available Not Available Not Available Compound Magic Mouthwash (Gattman FM #1) (Equal parts viscous lidocaine 2%, maalox, benadryl 12.5mg/5m L, prednisol one 15mg/5mL) SWISH AND GARGLE ONE CAP-FULL 2X DAILY 2018 active Not Available Not Available Not Avai lable dicyclomi ne hydrochlo ride 20 mg tabs 11/11 completed Not Available Not Available Not Available spironola ctone 25 mg tabs 05/11 completed Not Available Not Available Not Available monteluka st sodium 10 mg tabs 05/11 completed Not Available Not Available Not Available levocetir izine dihydroch loride 5 mg tabs 11/11 completed Not Available Not Available Not Available amoxicill in 500 mg caps 08/19 completed Not Available Not Available Not Available cefdinir 300 mg caps 05/11 completed Not Available Not Available Not Available omeprazol e dr 40 mg cpdr 11/11 completed Not Available Not Available Not Available aimovig 70 mg/ml soaj 08/19 completed Not Available Not Available Not Available epinephri ne 0.3 mg/0.3ml soaj 08/24 completed Not Available Not Available Not Available furosemid e 20 mg tabs 05/11 completed Not Available Not Available Not Available omeprazol e 40 mg cpdr 05/11 completed Not Available Not Available Not Available advair hfa 230-21 mcg/act aero 08/03 completed Not Available Not Available Not Available ondansetr on hydrochlo ride 4 mg tabs 08/19 completed Not Available Not Available Not Available diclofena c sodium 1 % gel 05/11 completed Not Available Not Available Not Available Compound Magic Mouthwash ([place] FM #1) (Equal parts viscous lidocaine 2%, maalox, benadryl 12.5mg/5m L, prednisol one 15mg/5mL) Swish and gargle one cap-full twice daily 05/11 completed Not Available Not Available Not Available aimovig 140 mg/ml soaj 10/21 completed Not Available Not Available Not Available Compound Magic Mouthwash (Hem/Onc) (Hydrocor tisone 100 mg; Nystatin 30 mL; Benadryl 120 mL; Viscous Lidocaine 100 mL; Distilled water for 240 mL total) SWISH AND SPIT 3X DAILY 05/11 completed Not Available Not Available Not Available fluconazo le 150 mg tabs 08/19 completed Not Available Not Available Not Available verapamil hcl sr 240 mg cp24 11/11 completed Not Available Not Available Not Available vitamin d3 25mcg (1000 iu) cap TAKE 1 CAPSULE BY MOUTH ONCE DAILY active Not Available Not Available No t Available bupropion hydrochlo ride er (xl) 300 mg tb24 08/24 completed Not Available Not Available Not Available diclofena c sodium dr 50 mg tbec 11/11 completed Not Available Not Available Not Available ipratropi um bromide 0.03 % soln 11/11 completed Not Available Not Available Not Available oxycodone /acetamin ophen 7.5-325 mgtabs 05/11 completed Not Available Not Available Not Available tramadol hcl 50 mg tabs 01/11 completed Not Available Not Available Not Available flector 1.3 % ptch 08/19 completed Not Available Not Available Not Available metoprolo l tartrate 100 mg tabs 05/11 completed Not Available Not Available Not Available fluticaso ne propionat e 50 mcg/act susp 05/11 completed Not Available Not Available Not Available proair hfa 108 (90 base) mcg/act aers 05/11 completed Not Available Not Available Not Available tetracycl ine 500 mg capsule active Not Available Not Available Not Available amoxicill in 500 mg capsule TAKE 1 CAPSULE BY MOUTH TWICE DAILY FOR 10 DAYS active Not Available Not Available No t Available doxycycli ne hyclate 100 mg capsule TAKE 1 CAPSULE BY MOUTH TWICE DAILY active Not Available Not Available No t Available Neurontin 300 mg capsule Two times a day 08/19 completed Duration : 30 days;Dinh quency: bid;Medi cation Descript ion: gabapent in; Dosage:1 ; Route:or al; refills: 5; Quantity :90 capsule Not Available Not Available Not Available metoprolo l tartrate 100 mg tablet TAKE 1 TABLET BY MOUTH TWICE DAILY active Not Available Not Available No t Available tizanidin e 4 mg tablet TAKE 1 TABLET BY MOUTH EVERY 8 HOURS active Not Available Not Available No t Available fluconazo le 150 mg tablet TAKE 1 TABLET BY MOUTH ONCE DAILY FOR 2 DOSES. REPEAT 2ND DOSE IN 72 HOURS active Not Available Not Available No t Available meloxicam 15 mg tablet Daily 08/19 completed Frequenc y: daily;Me dication Descript ion: meloxica m; Dosage:1 ; Route:or al; refills: 0 Not Available Not Available Not Available ondansetr on HCl 4 mg tablet TAKE 1 TABLET BY MOUTH EVERY 8 HOURS NEEDED FOR NAUSEA active Not Available Not Available No t Available prednison e 20 mg tablet TAKE 3 TABLETS BY MOUTH ONCE DAILY FOR 3 DAYS, THEN TAKE 2 ONCE DAILY FOR 2 DAYS, THEN TAKE 1 ONCE DAILY FOR 1 DAY, THEN STOP active Not Available Not Available No t Available isosorbid e mononitra te ER 30 mg tablet,ex tended release 24 hr TAKE 1 TABLET BY MOUTH ONCE DAILY 05/11 completed Not Available Not Available Not Available terconazo le 0.8 % vaginal cream USE 1 APPLICAT ORFUL VAGINALL Y EVERY DAY AT BEDTIME active Not Available Not Available No t Available dofetilid e 250 mcg capsule 07/12 completed Not Available Not Available Not Available Urocit-K 10 10 mEq (1,080 mg) tablet,ex tended release Two times a day 08/19 completed Duration : 90 days;Ins truction s: qs;Frequ ency: bid;Medi cation Descript ion: potassiu m citrate; Dosage:2 ; Route:or al; refills: 0 Not Available Not Available Not Available streptomy dillon 1 gram intramusc ular solution 07/12 completed Not Available Not Available Not Available omeprazol e 40 mg capsule,d elayed release TAKE 1 CAPSULE BY MOUTH TWICE DAILY active Not Available Not Available No t Available doxycycli ne monohydra te 100 mg tablet 01/11 completed Not Available Not Available Not Available tramadol 50 mg tablet active Not Available Not Available Not Available spironola ctone 25 mg tablet TAKE 1 TABLET BY MOUTH ONCE DAILY FOR EDEMA active Not Available Not Available No t Available nortripty line 25 mg capsule TAKE 2 CAPSULES BY MOUTH ONCE DAILY active Not Available Not Available No t Available ceftriaxo ne 1 gram solution for injection Take 1 g by injectio n route. 01/11 completed Not Available Not Available Not Available amoxicill in 875 mg tablet TAKE 1 TABLET BY MOUTH TWICE DAILY FOR 10 DAYS 07/12 completed Not Available Not Available Not Available famotidin e 20 mg tablet TAKE 1 TABLET BY MOUTH TWICE DAILY active Not Available Not Available No t Available dicyclomi ne 20 mg tablet TAKE 1 TABLET BY MOUTH 4 TIMES DAILY active Not Available Not Available No t Available Anaspaz 0.125 mg disintegr ating tablet Daily 01/11 completed Frequenc y: daily;Me dication Descript ion: hyoscyam ine; Dosage:1 ; Route:or al; refills: 0 Not Available Not Available Not Available amlodipin e 10 mg tablet TAKE 1 TABLET BY MOUTH ONCE DAILY active Not Available Not Available No t Available hydrocodo ne 7.5 mg-acetam inophen 325 mg tablet Daily 08/19 completed Duration : 30 days;Dinh quency: daily;Al t Frequenc y: prn;Medi cation Descript ion: hydrocod one bitartra te/aceta minophen ; Dosage:1 -2; Route:or al; refills: 0 Not Available Not Available Not Available cephalexi n 500 mg capsule 11/22 completed Not Available Not Available Not Available cyanocoba geo (vit B-12) 1,000 mcg/mL injection solution INJECT 1 ML (CC) ONCE EVERY MONTH active Not Available Not Available No t Available dexametha sone 4 mg tablet 01/11 completed Not Available Not Available Not Available buspirone 10 mg tablet TAKE 1 TABLET BY MOUTH TWICE DAILY active Not Available Not Available No t Available ranitidin e 300 mg capsule 08/03 completed Not Available Not Available Not Available promethaz ine 25 mg tablet active Not Available Not Available Not Available Stool Softener 250 mg capsule active Not Available Not Available Not Available omeprazol e 20 mg capsule,d elayed release TAKE 1 CAPSULE BY MOUTH ONCE DAILY IN THE MORNING 01/11 completed Not Available Not Available Not Available estradiol 2 mg tablet TAKE 1 TABLET BY MOUTH ONCE DAILY FOR HORMONE active Not Available Not Available No t Available monteluka st 10 mg tablet TAKE 1 TABLET BY MOUTH ONCE DAILY AT NIGHT active Not Available Not Available No t Available pravastat in 20 mg tablet TAKE 1 TABLET BY MOUTH ONCE DAILY AT BEDTIME active Not Available Not Available No t Available diclofena c sodium 50 mg tablet,de layed release TAKE 1 TABLET BY MOUTH ONCE DAILY NEEDED FOR PAIN active Not Available Not Available No t Available furosemid e 20 mg tablet TAKE 1 TABLET BY MOUTH ONCE DAILY active Not Available Not Available No t Available estradiol 0.5 mg tablet Daily 05/11 completed Duration : 30 days;Dinh quency: daily;Me dication Descript ion: estradio l; Dosage:1 ; Route:or al; refills: 0; Quantity :30 tablet Not Available Not Available Not Available azelastin e 137 mcg (0.1 %) nasal spray USE 2 SPRAY(S) IN EACH NOSTRIL TWICE DAILY 07/12 completed Not Available Not Available Not Available epinephri ne 0.3 mg/0.3 mL injection , auto-inje ctor active Not Available Not Available Not Available levofloxa dillon 500 mg tablet 01/11 completed Not Available Not Available Not Available oxycodone -acetamin ophen 7.5 mg-325 mg tablet TAKE 1 TABLET BY MOUTH EVERY 6 HOURS active Not Available Not Available No t Available methylpre dnisolone 4 mg tablets in a dose pack TAKE BY MOUTH DIRECTED ON INSIDE OF PACKAGE active Not Available Not Available No t Available albuterol sulfate HFA 90 mcg/actua tion aerosol inhaler INHALE 2 PUFFS BY MOUTH EVERY 4 TO 6 HOURS NEEDED FOR COUGH AND FOR SHORTNES S OF BREATH active Not Available Not Available No t Available ipratropi um bromide 42 mcg (0.06 %) nasal spray USE 1 TO 2 SPRAY(S) IN EACH NOSTRIL EVERY 6 HOURS NEEDED FOR POSTNASA L DRAINAGE AND RUNNY NOSE active Not Available Not Available No t Available ondansetr on 4 mg disintegr ating tablet DISSOLVE 1 TABLET IN MOUTH EVERY 6 HOURS NEEDED FOR NAUSEA active Not Available Not Available No t Available cefdinir 300 mg capsule TAKE 1 CAPSULE BY MOUTH EVERY 12 HOURS FOR 10 DAYS active Not Available Not Available No t Available dexametha sone sodium phosphate 10 mg/mL injection solution Take 10 mg by injectio n route. 01/11 completed Not Available Not Available Not Available fluticaso ne propionat e 50 mcg/actua tion nasal spray,lionel pension USE 2 SPRAY(S) IN EACH NOSTRIL ONCE DAILY active Not Available Not Available No t Available doxycycli ne hyclate 100 mg tablet TAKE 1 TABLET BY MOUTH ONCE DAILY FOR 7 DAYS active Not Available Not Available No t Available ipratropi um bromide 21 mcg (0.03 %) nasal spray USE 1 TO 2 SPRAY(S) IN EACH NOSTRIL EVERY 6 HOURS NEEDED FOR RUNNY NOSE 07/12 completed Not Available Not Available Not Available loratadin e 10 mg tablet Daily 08/19 completed Duration : 30 days;Dinh quency: daily;Me dication Descript ion: loratadi ne; Dosage:1 ; Route:or al; refills: 5; Quantity :30 tablet Not Available Not Available Not Available verapamil ER 240 mg 24 hr capsule,e xtended release TAKE 1 CAPSULE BY MOUTH ONCE DAILY FOR 14 DAYS active Not Available Not Available No t Available amoxicill in 875 mg-potass ium clavulana te 125 mg tablet TAKE 1 TABLET BY MOUTH TWICE DAILY WITH FOOD FOR 14 DAYS active Not Available Not Available No t Available amoxicill in 500 mg-potass ium clavulana te 125 mg tablet TAKE 1 TABLET BY MOUTH EVERY 12 HOURS FOR 15 DAYS 01/11 completed Not Available Not Available Not Available Topamax 100 mg tablet Two times a day 08/19 completed Duration : 30 days;Dinh quency: bid;Medi cation Descript ion: topirama te; Dosage:1 ; Route:or al; refills: 0; Quantity :30 tablet Not Available Not Available Not Available oxycodone 5 mg tablet TAKE 1 TAB EVERY 6 HOURS NEEDED FOR PAIN NOT CONTROLL ED BY TYLENOL/ IBUPROFE N 2021 active Not Available Not Available Not Avai lable bupropion HCl XL 150 mg 24 hr tablet, extended release TAKE 1 TABLET BY MOUTH EVERY 24 HOURS active Not Available Not Available No t Available lactulose 10 gram/15 mL oral solution active Not Available Not Available Not Available pregabali n 150 mg capsule active Not Available Not Available Not Available pregabali n 200 mg capsule active Not Available Not Available Not Available Premarin Every week 08/19 completed Instruct ions: 0.5mg weekly;F requency : Every week;Med ication Descript ion: conjugat ed estrogen s; Dosage:1 ; Route:or al; refills: 0 Not Available Not Available Not Available ranolazin e ER 500 mg tablet,ex tended release,1 2 hr 08/03 completed Not Available Not Available Not Available Advair HFA 230 mcg-21 mcg/actua tion aerosol inhaler INHALE 2 PUFFS BY MOUTH TWICE DAILY USE REGULARL Y RINSE MOUTH AFTER USE active Not Available Not Available No t Available Alaway 0.025 % (0.035 %) eye drops INSTILL 1 DROP INTO EACH EYE TWICE DAILY NEEDED active Not Available Not Available No t Available cholecalc iferol (vitamin D3) 1,250 mcg (50,000 unit) capsule TAKE 1 CAPSULE BY MOUTH ONCE A WEEK active Not Available Not Available No t Available ranolazin e ER 1,000 mg tablet,ex tended release,1 2 hr TAKE 1 TABLET BY MOUTH TWICE DAILY FOR HEART DISEASE active Not Available Not Available No t Available levocetir izine 5 mg tablet TAKE 1 TABLET BY MOUTH ONCE DAILY active Not Available Not Available No t Available Neilmed Sinus Rinse Complete with packet STARTING DAY AFTER SURGERY, RINSE SINUSES 5X DAILY UNTIL FOLLOWUP VISIT. 2021 active Not Available Not Available Not Avai lable diclofena c 1 % topical gel active Not Available Not Available Not Available azelastin e 137 mcg-fluti casone 50 mcg/spray nasal spray USE 1 SPRAY(S) IN EACH NOSTRIL TWICE DAILY active Not Available Not Available No t Available Incruse Ellipta 62.5 mcg/actua tion powder for inhalatio n INHALE 1 PUFF BY MOUTH ONCE DAILY 07/12 completed Not Available Not Available Not Available Vitamin B12 01/11 completed Not Available Not Available Not Available Dupixent 300 mg/2 mL subcutane ous syringe active Not Available Not Available Not Available Zenpep 40,000 unit-126, 000 unit-168, 000 unit capsule,d elayed release active Not Available Not Available Not Available Dupixent 200 mg/1.14 mL subcutane ous syringe active Not Available Not Available Not Available Aimovig Autoinjec tor 140 mg/mL subcutane ous auto-inje ctor INJECT 1 SYRINGE SUBCUTAN EOUSLY ONCE EVERY MONTH active Not Available Not Available No t Available Ubrelvy 100 mg tablet TAKE 1 TABLET BY MOUTH AT ONSET OF HEADACHE . IF SYMPTOMS PERSIST AFTER 2 HOURS, MAY REPEAT 1 TABLET MAX OF 2 DOSES IN 24 HOURS OR 4 TABLETS PER WEEK active Not Available Not Available No t Available Dupixent 300 mg/2 mL subcutane ous pen injector Inject 2 mL every 2 weeks by subcutan eous route as directed for 84 days, for NASAL POLYP. 2023 active Not Available Not Available Not Avai labaicha Escotolegy Ellipta 200 mcg-62.5 mcg-25 mcg powder for inhalatio n INHALE 1 PUFF BY MOUTH ONCE DAILY DIRECTED RINSE MOUTH AFTER USE active Not Available Not Available No t Available Qulipta 60 mg tablet active Not Available Not Available Not Available Vitals Date Recorded Body height Body mass index (BMI) Body weight Body temperature Heart rate Systolic And Diastolic Provider Name and Address Organization Details Last Updated DateTime 2 165.1 cm 31.2 kg/m2 66229.1 7 g 97.1 [degF] 74 /min 110/74 mm[Hg] Erica Glez [facility] 2 12:16:02 Date Recorded Body height Body mass index (BMI) Body weight Body temperature Oxygen saturation Oxygen saturation in Arterial blood by Pulse oximetry Heart rate Systolic And Diastolic Provider Name and Address Organization Details Last Updated DateTime 2 165.1 cm 31.2 kg/m2 49083.8 7 g 97.3 [degF] 98 % 98 % 77 /min 113/69 mm[Hg] Katharina Snyder [facility] 2 10:02:40 Date Recorded Body height Body mass index (BMI) Body weight Body temperature Heart rate Systolic And Diastolic Provider Name and Address Organization Details Last Updated DateTime 2 165.1 cm 30.8 kg/m2 44322.3 1 g 97.1 [degF] 76 /min 104/70 mm[Hg] Opal Peters [facility] 2 10:43:42 Date Recorded Body height Body mass index (BMI) Body weight Heart rate Systolic And Diastolic Provider Name and Address Organization Details Last Updated DateTime 03/11/2024 165.1 cm 28.9 kg/m2 56547.92 g 68 /min 107/73 mm[Hg] Pranay Gallegos [facility] 03/11/2024 10:15:56 Social History Question Answer Notes LastModified by Organization D etails LastModified Time How Much Tobacco Do You Smoke? No Information not available 08/19/2019 Sex: Unknown Functional Status Question Answer Note LastModified by Organization D etails LastModified Time What is your level of alcohol consumption? None Information not available 08/19/2019 Mental Status None recorded. Family History Relationship Description Onset Age of this Age Resolved Age Notes LastModified by Organization Details LastModified Time Father Family history of malignant neoplasm asalva Not available 2018 11:13:47 Mother Diabetes mellitus asalva Not available 2018 11:13:55 Medical History Condition Response Anesthesia Complications N Diabetes N Bleeding Disorder N Cancer N Hypertension Y Gynecological HistoryNo gynecological history recorded. Obstetrics History GPAL:G 0 P 0 0 0 0 Past Encounters Encounter ID Performer Location Encounter Start Date Encounter Closed Date Diagnosis/Indication Diagnosis SNOMED-CT Code Diagnosis ICD10 Code Diagnosis IMO Codes Diagnosis Note [id number] YUMIKO MCKEON MD [place] [facility] [address] [place] [address] 08/19/2019 10:49:43 08/19/2019 13:41:23 Clearing throat - hawking 594537291 R05 Chronic hoarseness 97281 96600 105 R49.0 History of insertion of endotracheal tube 657079106 Z98.047 [id number] YUMIKO MCKEON MD [place] [facility] [address] [place] [address] 10/21/2019 13:31:40 10/21/2019 14:31:17 Chronic hoarseness 1217130640 105 R49.0 -POST-INTU BATION IN ICU FOR 6 DAYS Asthma 431036314 J45.90 9 -Monthly injection Allergic rhinitis 572961 04 J30.Oct 2019: IVAT NORMAL except mild milk sensitivit y 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 Discuss FESS next visit. [id number] MD [place] [facility] [address] [place] [address] 11/11/2019 10:01:20 11/11/2019 11:35:11 Chronic hoarseness 7889856506 105 R49.0 -POST-INTU BATION IN ICU FOR 6 DAYS(airwa y sizing) Bowing of vocal cord 232 791235 J38.3 -DECREASED VIBRATION Asthma 329227686 J45.90 9 -Monthly injection Chronic sinusitis 630298 00 J32.9 -CT Oct 2019 shows diffuse mucosal thickening throughout . Discuss FESS next visit. [id number] MD [place] [facility] [address] [place] [address] 12/02/2019 08:52:02 12/02/2019 10:03:26 Chronic hoarseness 5671717869 105 R49.0 -status post micro direct laryngosco py, tracheosco py with rigid bronchosco py, bilateral vocal cord injection and airway sizing; 11/16/2019 Chronic sinusitis 726426 00 J32.9 -CT Oct 2019 shows diffuse mucosal thickening throughout . Discuss FESS next visit. Bowing of vocal cord 232 165929 J38.3 -micro direct laryngosco py, tracheosco py with rigid bronchosco py, bilateral vocal cord injection and airway sizing Asthma 263870326 J45.90 9 -Monthly injection Candidiasis of mouth 797 20777 B37.0 [id number] YUMIKO MCKEON MD [place] [facility] [address] [place] [address] 05/11/2020 09:16:53 05/11/2020 10:38:40 Chronic hoarseness 2465487971 105 R49.0 -POST-INTU BATION IN ICU FOR 6 DAYS(airwa y sizing) Chronic sinusitis 574780 00 J32.9 -CT Oct 2019 shows diffuse mucosal thickening throughout -continue BID sinus rinses and proceed with FULL FESS w navigation (need spine clearance) Bowing of vocal cord 232 527835 J38.3 -DECREASED VIBRATION Asthma 543554543 J45.90 9 -Monthly injection Dysphagia 44452334 R13.1 0 - MEDICATION S STARTING TO STICK; PROGRESSIV CONSTANZA GETTING WORSE [id number] YUMIKO MCKEON MD [facility] [address] [place] [address] 07/25/2020 10:58:08 07/25/2020 10:59:23 [id number] YUMIKO MCKEON MD [facility] [address] [place] [address] 08/03/2020 10:06:07 08/03/2020 11:24:22 Chronic hoarseness 1615377029 105 R49.0 -POST-INTU BATION IN ICU FOR 6 DAYS(airwa y sizing) Chronic sinusitis 635375 00 J32.9 -CT Oct 2019 shows diffuse mucosal thickening throughout - continue BID sinus rinses and proceed with FULL FESS w navigation (need spine clearance) - STATUS POST FULL FESS - 07/25/2020 - DIFFUSE INFLAMMATI ON WITH EOSINOPHIL S ON PATH. 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 THERE WAS MILD VALLECULAR RESIDUE WITH ALL CONSISTENC IES 2 POOR PHARYNGEAL WALL SQUEEZE. WOULD BENEFIT FROM DYSPHAGIA THERAPY, VOICE EVALUATION AND POSSIBLE GI WORKUP FOR C/O AND POSSIBLE ESOPHAGEAL CONCERNS - 06/01/2020 Clearing t hroat - hawking 778573112 R05 [id number] MD [place] [facility] [address] [place] [address] 08/24/2020 10:42:04 08/24/2020 15:13:39 Chronic sinusitis 49369050 J32.9 -CT Oct 2019 shows diffuse mucosal thickening throughout - continue BID sinus rinses and proceed with FULL FESS w navigation (need spine clearance) - STATUS POST FULL FESS - 07/25/2020 - DIFFUSE INFLAMMATI ON WITH EOSINOPHIL S ON PATH. 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 THERE WAS MILD VALLECULAR RESIDUE WITH ALL CONSISTENC IES 2 POOR PHARYNGEAL WALL SQUEEZE. WOULD BENEFIT FROM DYSPHAGIA THERAPY, VOICE EVALUATION AND POSSIBLE GI WORKUP FOR C/O AND POSSIBLE ESOPHAGEAL CONCERNS - 06/01/2020 Clearing t hroat - hawking 346923830 R05 Migraine 39852871 G43.90 9 - DOES SEE NEUROLOGIS T; CURRENTLY ON AIMOVIG INJECTIONS MONTHLY. [id number] MD [place] [facility] [address] [place] [address] 10/12/2020 13:53:09 10/12/2020 15:29:38 Chronic sinusitis 61436073 J32.9 -CT Oct 2019 shows diffuse mucosal thickening throughout - continue BID sinus rinses and proceed with FULL FESS w navigation (need spine clearance) - STATUS POST FULL FESS - 07/25/2020 - DIFFUSE INFLAMMATI ON WITH EOSINOPHIL S ON PATH. - BILATERAL SINUS DEBRIDEMEN T PERFORMED IN OFFICE TODAY - 08/03/2020 - NASAL ENDOSCOPY; ROCEPHIN AND DEXAMETHAS ONE INJECTIONS GIVEN - 08/24/20 - NASAL ENDOSCOPY; NASAL POLYPS NOTED AGAINST THE SKULL BASE WITH THICK DRAINAGE - 10/12/2020 - continue budesonide +mupirocin +gentamici n rinses bid. 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 THERE WAS MILD VALLECULAR RESIDUE WITH ALL CONSISTENC IES 2 POOR PHARYNGEAL WALL SQUEEZE. WOULD BENEFIT FROM DYSPHAGIA THERAPY, VOICE EVALUATION AND POSSIBLE GI WORKUP FOR C/O AND POSSIBLE ESOPHAGEAL CONCERNS - 06/01/2020 - IMPROVED - 10/12/2020 Clearing t hroat - hawking [id number] R05 - IMPROVED - 10/12/2020 Migraine 70761647 G43.90 9 - DOES SEE NEUROLOGIS T; CURRENTLY ON AIMOVIG INJECTIONS MONTHLY. [id number] YUMIKO MCKEON MD [place] [facility] [address] [place] [address] 01/11/2021 14:19:26 01/11/2021 15:20:49 Chronic sinusitis 26173199 J32.9 -CT Oct 2019 shows diffuse mucosal thickening throughout - continue BID sinus rinses and proceed with FULL FESS w navigation (need spine clearance) - STATUS POST FULL FESS - 07/25/2020 - DIFFUSE INFLAMMATI ON WITH EOSINOPHIL S ON PATH. - BILATERAL SINUS DEBRIDEMEN T PERFORMED IN OFFICE TODAY - 08/03/2020 - NASAL ENDOSCOPY; ROCEPHIN AND DEXAMETHAS ONE INJECTIONS GIVEN - 08/24/20 - NASAL ENDOSCOPY; NASAL POLYPS NOTED AGAINST THE SKULL BASE WITH THICK DRAINAGE - 10/12/2020 - continue budesonide +mupirocin +gentamici n rinses bid. 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 THERE WAS MILD VALLECULAR RESIDUE WITH ALL CONSISTENC IES 2 POOR PHARYNGEAL WALL SQUEEZE. WOULD BENEFIT FROM DYSPHAGIA THERAPY, VOICE EVALUATION AND POSSIBLE GI WORKUP FOR C/O AND POSSIBLE ESOPHAGEAL CONCERNS - 06/01/2020 - IMPROVED - 10/12/2020 Asthma 048758636 J45.90 9 - MONTHLY INJECTIONS Clearing t hroat - hawking 283268594 R05 - IMPROVED - 10/12/2020 - Worsened since having COVID - 01/11/2021 Migraine 56636603 G43.90 9 - DOES SEE NEUROLOGIS T; CURRENTLY ON AIMOVIG INJECTIONS MONTHLY. COVID-19 [id number] U07.1 - Diagnosed in November 2020 [id number] YUMIKO MCKEON MD [place] [facility] [address] [place] [address] 07/12/2021 09:11:33 07/12/2021 10:17:55 Chronic sinusitis 31914727 J32.9 - STATUS POST FULL FESS - 07/25/2020 - DIFFUSE INFLAMMATI ON WITH EOSINOPHIL S ON PATH.-WELL CONTROLLED WITH REGULAR RINSES, INTERMITTE NT MEDICATED RINSES. Chronic hoarseness 22338 44022 105 R49.0 - POST-INTUB ATION IN ICU FOR 6 DAYS AND H/O ACDF.LAS T AIRWAY SIZING DEMONSTRAT ES SHE SHOULD TOLERATE NO LARGER THAN A 6.0 CUFFED ETT.- suspect SHEAR GRINDER OPERATOR HELPER scarring and possibly SLN palsy.- no improvemen t with voice therapy or saline injections . *recommend referral to [facility]. 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 THERE WAS MILD VALLECULAR RESIDUE WITH ALL CONSISTENC IES 2 POOR PHARYNGEAL WALL SQUEEZE. WOULD BENEFIT FROM DYSPHAGIA THERAPY, VOICE EVALUATION AND POSSIBLE GI WORKUP FOR C/O AND POSSIBLE ESOPHAGEAL CONCERNS - 06/01/2020 - IMPROVED - 10/12/2020 Asthma 806103562 J45.90 9 - MONTHLY INJECTIONS Clearing t hroat - hawking [id number] R05 - IMPROVED Migraine [id number] G43.90 9 - DOES SEE NEUROLOGIS T; CURRENTLY ON AIMOVIG INJECTIONS MONTHLY. [id number] YUMIKO MCKEON [place] [facility] [address] [place] [address] 11/22/2021 09:53:29 11/22/2021 10:51:41 Chronic sinusitis 07800490 J32.9 - STATUS POST FULL FESS - 07/25/2020 - DIFFUSE INFLAMMATI ON WITH EOSINOPHIL S ON PATH.-11/22 RETURN OF DIFFUSE CRUSTING, INFLAMMATI ON; ABNORMAL CT HEAD SHOWING PANSINUS INFLAMMATI ON WORSE ON LEFT.*RX MEDICATED RINSES, CT SINUS IMAGE GUIDED, REVISION FULL FESS. 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 *recommend referral to [facility]. 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 THERE WAS MILD VALLECULAR RESIDUE WITH ALL CONSISTENC IES 2 POOR PHARYNGEAL WALL SQUEEZE. WOULD BENEFIT FROM DYSPHAGIA THERAPY, VOICE EVALUATION AND POSSIBLE GI WORKUP FOR C/O AND POSSIBLE ESOPHAGEAL CONCERNS - 06/01/2020 - IMPROVED - 10/12/2020 Asthma [id number] J45.90 9 - MONTHLY INJECTIONS Migraine [id number] G43.90 9 - DOES SEE NEUROLOGIS T; CURRENTLY ON AIMOVIG INJECTIONS MONTHLY. Impacted c erumen in right ear [id number] 334165 H61.21 -11/22/21 CLEANED UNDER MICROSCOPE [id number] YUMIKO MCKEON MD SURGERY SCHEDULE [address] [place] [address] 12/11/2021 08:09:01 12/11/2021 08:11:21 [id number] YUMIKO MCKEON MD [place] [facility] CLOSED [address] [place] [address] 12/21/2021 12:11:17 12/28/2021 13:18:36 Chronic sinusitis [id number] J32.9 - STATUS POST FULL FESS - 07/25/2020 - DIFFUSE INFLAMMATI ON WITH EOSINOPHIL S ON PATH.-11/22 RETURN OF DIFFUSE CRUSTING, INFLAMMATI ON; ABNORMAL CT HEAD SHOWING PANSINUS INFLAMMATI ON WORSE ON LEFT.*RX MEDICATED RINSES*12/11 FESS revision image guided.- bilateral debridemen t, healing well, rck 1 week for repeat debridemen t w/ dense packing and crusting. Continue 5x daily rinses and medicated rinses BID. 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 THERE WAS MILD VALLECULAR RESIDUE WITH ALL CONSISTENC IES 2 POOR PHARYNGEAL WALL SQUEEZE. WOULD BENEFIT FROM DYSPHAGIA THERAPY, VOICE EVALUATION AND POSSIBLE GI WORKUP FOR C/O AND POSSIBLE ESOPHAGEAL CONCERNS - 06/01/2020 - IMPROVED - 10/12/2020 Asthma [id number] J45.90 9 - MONTHLY INJECTIONS Migraine [id number] G43.90 9 - DOES SEE NEUROLOGIS T; CURRENTLY ON AIMOVIG INJECTIONS MONTHLY. Impacted c erumen in right ear [id number] 709629 H61.21 -11/22/21 CLEANED UNDER MICROSCOPE [id number] UYMIKO MCKEON MD [place] E[place] [address] [place] [address] 12/27/2021 09:47:46 12/27/2021 16:51:53 Chronic sinusitis 39952853 J32.9 *STATUS POST FULL FESS - 07/25/2020 - DIFFUSE INFLAMMATI ON WITH EOSINOPHIL S ON PATH.-11/22 RETURN OF DIFFUSE CRUSTING, INFLAMMATI ON; ABNORMAL CT HEAD SHOWING PANSINUS INFLAMMATI ON WORSE ON LEFT.-CONT INUE MEDICATED RINSES*12/11 FESS revision image guided.- and 12/27/2021 bilateral debridemen t, healing well, rck 1 week for repeat debridemen t w/ dense packing and crusting. Continue 5x daily rinses and medicated rinses BID.- bilateral debridemen t, moderate inflammati on, no infection, continue medicated rinses skilled nursing. 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 Bowing of vocal cord 232 450325 J38.3 -DECREASED VIBRATION Dysphagia 91033988 R13.1 0 - MEDICATION S STARTING TO STICK; PROGRESSIV CONSTANZA GETTING WORSE - MODIFIED BARIUM SWALLOW SHOWED MULTIFACTO RIAL DYSPHAGIA - NO PENETRATIO N OR ASPIRATION WITH THINGS VIA YESSICA SIPS, PUDDING OR CRACKER. THERE WAS MILD VALLECULAR RESIDUE WITH ALL CONSISTENC IES 2 POOR PHARYNGEAL WALL SQUEEZE. WOULD BENEFIT FROM DYSPHAGIA THERAPY, VOICE EVALUATION AND POSSIBLE GI WORKUP FOR C/O AND POSSIBLE ESOPHAGEAL CONCERNS - 06/01/2020 - IMPROVED - 10/12/2020 Asthma [id number] J45.90 9 - MONTHLY INJECTIONS Migraine 29749732 G43.90 9 - DOES SEE NEUROLOGIS T; CURRENTLY ON AIMOVIG INJECTIONS MONTHLY. Impacted c erumen in right ear [id number] 130671 H61.21 -11/22/21 CLEANED UNDER MICROSCOPE [id number] YUMIKO MCKEON MD [place] [address] [place] [address] 01/17/2022 10:38:38 01/17/2022 12:06:49 Chronic sinusitis 51999103 J32.9 EOSINOP HILIC TYPE ON PATH, THICK EOSINOPHIL IC MUCIN, POLYPS. SUSPECT CHURG ELAINE. * 07/25/2020 FULL FESS* 2 FESS REVISION FULL FESS -11/22/21 RETURN OF DIFFUSE CRUSTING, INFLAMMATI ON; ABNORMAL CT HEAD SHOWING PANSINUS INFLAMMATI ON WORSE ON LEFT.-CONT INUE MEDICATED RINSES -12/21/21 and 12/27/2021 bilateral debridemen t, healing well, rck 1 week for repeat debridemen t w/ dense packing and crusting. Continue 5x daily rinses and medicated rinses BID.- bilateral debridemen t, moderate inflammati on, no infection, continue medicated rinses skilled nursing. Rck 1mo - bilateral debridemen t performed, continued slow improvemen t. CONTINUE MEDICATED RINSES (ISSUE WITH CARD, FIXED TODAY) recheck 2-3 mo continue rinses. ALSO RECOMMEND NUCALA FOR HER CRS+POLYPS (EOSINOPHI LIC TYPE) AND ASTHMA WELL. 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 Bowing of vocal cord 232 346962 J38.3 -DECREASED VIBRATION Dysphagia 11275383 R13.1 0 - MEDICATION S STARTING TO STICK; PROGRESSIV CONSTANZA GETTING WORSE - MODIFIED BARIUM SWALLOW SHOWED MULTIFACTO RIAL DYSPHAGIA - NO PENETRATIO N OR ASPIRATION WITH THINGS VIA YESSICA SIPS, PUDDING OR CRACKER. THERE WAS MILD VALLECULAR RESIDUE WITH ALL CONSISTENC IES 2 POOR PHARYNGEAL WALL SQUEEZE. WOULD BENEFIT FROM DYSPHAGIA THERAPY, VOICE EVALUATION AND POSSIBLE GI WORKUP FOR C/O AND POSSIBLE ESOPHAGEAL CONCERNS - 06/01/2020 - IMPROVED - 10/12/2020 Asthma [id number] J45.90 9 - MONTHLY INJECTIONS Migraine 02617808 G43.90 9 - DOES SEE NEUROLOGIS T; CURRENTLY ON AIMOVIG INJECTIONS MONTHLY. Impacted c erumen in right ear [id number] 667682 H61.21 -11/22/21 CLEANED UNDER MICROSCOPE [id number] YUMIKO MCKEON MD [place] [address] [place] [address] 03/11/2024 10:04:06 03/11/2024 10:37:56 Chronic sinusitis 48760997 J32.9 EOSINOP HILIC TYPE ON PATH, THICK EOSINOPHIL IC MUCIN, POLYPS. SUSPECT CHURG ELAINE. * 07/25/2020 FULL FESS* 2 FESS REVISION FULL FESS -11/22/21 RETURN OF DIFFUSE CRUSTING, INFLAMMATI ON; ABNORMAL CT HEAD SHOWING PANSINUS INFLAMMATI ON WORSE ON LEFT.-CONT INUE MEDICATED RINSES -12/21/21 and 12/27/2021 bilateral debridemen t, healing well, rck 1 week for repeat debridemen t w/ dense packing and crusting. Continue 5x daily rinses and medicated rinses BID.- bilateral debridemen t, moderate inflammati on, no infection, continue medicated rinses skilled nursing. Rck 1mo 01-17-22 bilateral debridemen t performed, continued slow improvemen t. CONTINUE MEDICATED RINSES (ISSUE WITH CARD, FIXED TODAY) recheck 2-3 mo continue rinses. ALSO RECOMMEND BIOLOGIC FOR HER CRS+POLYPS (EOSINOPHI LIC TYPE) AND ASTHMA WELL. 03/11/24- BILATERAL CRUSTING WITH 3+RECENT SINUSITIS EPISODES. RENEW DUPIXENT - SYMPTOMS RETURNED WITH MISSED DOSES OF DUPIXENT DUE TO INSURANCE CHANGE. 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 Bowing of vocal cord 232 082650 J38.3 -DECREASED VIBRATION- STABLE Dysphagia 71694266 R13.1 0 - MEDICATION S STARTING TO STICK; PROGRESSIV CONSTANZA GETTING WORSE - MODIFIED BARIUM SWALLOW SHOWED MULTIFACTO RIAL DYSPHAGIA - NO PENETRATIO N OR ASPIRATION WITH THINGS VIA YESSICA SIPS, PUDDING OR CRACKER. THERE WAS MILD VALLECULAR RESIDUE WITH ALL CONSISTENC IES 2 POOR PHARYNGEAL WALL SQUEEZE. WOULD BENEFIT FROM DYSPHAGIA THERAPY, VOICE EVALUATION AND POSSIBLE GI WORKUP FOR C/O AND POSSIBLE ESOPHAGEAL CONCERNS - 06/01/2020 - IMPROVED - 10/12/2020 Migraine [id number] G43.90 9 - DOES SEE NEUROLOGIS T; CURRENTLY ON AIMOVIG INJECTIONS MONTHLY. Tenderness of neck 88503 2005 M54.2 03/11/24- RIGHT SIDED NECK, SHARP UPON PALPATION. ORDER US NECK Polyp of n tunde cavity and/or nasal sinus 563581794 J33.9 Exocrine p ancreatic insufficiency 20063113 K86.81 03/11/24- RECENT DX OF, TAKING ZENPEP FOR Health Concerns Section Related Observation LastModified by Organization Detai ls LastModified Time None Recorded Concern Status LastModified by Organization Details LastModified Time None Recorded Advance Directives Directive None Recorded Payers Insurance Date Sequence Insurance Name Policy Number Policy Beard Covered Member ID Beard Member ID Guarantor Name 04/11/2024 1 [employer] (MEDICARE REPLACEMENT/A DVANTAGE - PPO) Jude Joe [id number] Jude Sykesn 01/05/2019 1 *SELF PAY* Lexis Sykesn 03/11/2024 2 [place] Jude Joe [id number] Jude Joe Notes Date Note Type Note Provider Name and Address Organization Details Recorded Time 12/21/2021 text/html Patient returns status post full revision FESS. Since surgery, no sign of infection or complications. Recovery was uneventful. She does reports some migraines postop. PMH: PROLONGED INTUBATION IN ICU. H/O RIGHT ACDF. CHRONIC RHINOSINUSITIS STATUS POST FUNCTIONAL ENDOSCOPIC SINUS SURGERY. SOC: lives with family YUMIKO MCKEON MD [address] [place] [address], [phone], [facility] 12/21/2021 14:29:38 12/27/2021 text/html Patient returns status post full revision FESS. Since surgery, no sign of infection or complications. Recovery was uneventful. She does reports some migraines postop. Feeling head pressure and Headache today PMH: PROLONGED INTUBATION IN ICU. H/O RIGHT ACDF. CHRONIC RHINOSINUSITIS STATUS POST FUNCTIONAL ENDOSCOPIC SINUS SURGERY. SOC: lives with family YUMIKO MCKEON MD [address] [place] [address] [place], [phone], [facility] 12/27/2021 16:41:06 01/17/2022 text/html Patient returns status post full revision FESS for what I suspect is Churg Elaine. She reports thick discolored crusting in rinses since last visit. She had an issue getting refills of the medicated rinses sincel ast visit. Reports some limited pressure/headache today. PMH: PROLONGED INTUBATION IN ICU. H/O RIGHT ACDF. CHRONIC RHINOSINUSITIS STATUS POST FUNCTIONAL ENDOSCOPIC SINUS SURGERY. SOC: lives with family YUMIKO MCKEON MD [address] [place] [address], [phone], [facility] 01/17/2022 13:01:21 OBGyn Episode No OBEpisode recorded.
--- OUTSIDE RECORDS SUMMARY | 2025-09-12 17:46 | XMS_ITS | Encounter Summary ---
Author Organization [employer] ([place], [place], [place], [place], [place]) Address [address] [place] [address] Care Team Providers Care Dry Goods Inspector Name Role Phone Viktor Rebolledo MD Primary Care Provider [phone] Encounter Details Date Type Department Care Team (Late st Contact Info) Description 02/19/2020 Transcribed Document [facility] [place] [address] ProviderSole MD [address] [place] [address] Social History Tobacco Use Types Packs/Day Years Used Date Smoking Tobacco: Never Assessed Comments Unknown Sex and Gender Information Value Date Recorded Sex Assigned at Female 05/01/2022 6:35 PM CDT Legal Sex Female 6:35 PM CDT Gender Identity Female 05/01/2022 6:35 PM CDT Sexual Orientation Not on file documented as of this encounter Miscellaneous Notes * Cerner Conversion Note - Sole ProviderMD - 02/19/2020 8:55 AM CDT Patient: JUDE [...] above plans. YUE Flannery/melody Electronically signed by Ramírez [facility] Conversion Sales Inspector Cerner at 02/20/2023 7:20 AM CDT documented in this encounter Plan of Treatment Not on file documented as of this encounter Visit Diagnoses Not on filedocumented in this encounter Care Teams Dry Goods Inspector Relationship Specialty Start Date End Date Viktor Rebolledo MD [address] [place] [address] PCP - General Adolescent Medicine 04/08/23 documented as of this encounter
--- OUTSIDE RECORDS SUMMARY | 2025-09-12 17:46 | XMS_ITS | Referral Summary ---
Author Organization [employer] ([place], [place], [place], [place], [place]) Address [address] [place] [address] Care Team Providers Care Training And Documentation Specialist Name Role Phone Viktor Rebolledo MD Primary Care Provider Allergies No known active allergies Medications albuterol [...] 01/07/2020 S/P cervical spinal fusion 01/07/2020 Immunizations Immunization Administration Dates Next Due Influenza Quad-qiv Non [...] your living situation today? I have [facility] place to live 12/12/2024 Think about the [...] Do you speak a language other than Chadian at [facility]? No 12/12/2024 Do you want help with [...] 0 - 249 mg/dL 12/13/2024 3:58 PM [facility] Cholesterol 173 0 - 199 mg/dL 12/13/2024 3:58 PM [facility] Comment: 200 to 239 mg/dL = Moderate (borderline) >239 mg/dL = High HDL Cholesterol 41 >=40 mg/dL 12/13/2024 3:58 PM [facility] Comment: >=60 mg/dL = Desirable <40 mg/dL = Increased Risk All other components are listed individually or are calculations VLDL Cholesterol 48.6(H) 5 - 40 mg/dL 12/13/2024 3:58 PM [facility] Cholesterol/HDL ratio 4.2(H) 0.0 - 3.2 12/13/2024 3:58 PM [facility] LDl/HDL Ratio 2 0 - 4 12/13/2024 3:58 PM [facility] RISK COMP 4 12/13/2024 3:58 PM [facility] LDL Cholesterol, Calculated 83 0 - 99 mg/dL 12/13/2024 3:58 PM [facility] Blood Venipuncture / Unknown 12/13/2024 8:35 AM EST 12/13/2024 8:45 AM EST us Dustin España MD LAB BLOOD ORDERABLES Final Resul t [facility] [address] [phone] from Last 3 Months or Most Recently Relevant to Health Maintenance Insurance [facility] MEDICARE PPO Advance Directives For more information, please contact: [phone] * Full Code (Latest Code Status on File) Date Activated Date Inactivated Comments 12/12/2024 6:02 AM 12/13/2024 6:25 PM * Full Code Date Activated Date Inactivated Comments 04/26/2023 8:56 AM 05/01/2023 2:56 PM Care Teams Training And Documentation Specialist Relationship Specialty Start Date End Date Viktor Rebolledo MD [address] [place] [address] PCP - General Adolescent Medicine 04/08/23
--- OUTSIDE RECORDS SUMMARY | 2025-09-12 17:46 | XMS_ITS | Clinical Summary ---
Author Organization [employer] ([place], [place], [place], [place], [place]) Address [address] [place] [address] Care Team Providers Care Laboratory Operations Coordinator Name Role Phone Viktor Rebolledo MD [...] Do you speak a language other than Filipino at [facility]? No 12/12/2024 Do you want help with [...] 0-49 Y ears (2 of 2 - PPSV23, PCV20, or PCV21) 10/26/2020 08/31/2020 COVID-19 VACCINE (1 - season) 2025 Influenza Vaccine (#1) 2025 Tobacco Cessation Counseling and Screening (12+) 12/12/2025 12/12/2024 Lipid Panel 12/13/2027 12/13/2024, 12/12/2024 Procedures Procedure Name Priority Date/Time Associated Diagnosis Comments LIPID PANEL Add-On 12/13/2024 8:35 AM EST from Last 3 Months or Most Recently Relevant to Health Maintenance Results * (ABNORMAL) Lipid panel (12/13/2024 8:35 AM EST) Triglycerides 243 0 - 249 mg/dL 12/13/2024 3:58 PM [facility] Cholesterol 173 0 - 199 mg/dL 12/13/2024 3:58 PM [facility] Comment: 200 to 239 mg/dL = Moderate (borderline) >239 mg/dL = High HDL Cholesterol 41 >=40 mg/dL 12/13/2024 3:58 PM [facility] Comment: >=60 mg/dL = Desirable <40 mg/dL = Increased Risk All other components are listed individually or are calculations VLDL Cholesterol 48.6(H) 5 - 40 mg/dL 12/13/2024 3:58 PM [facility] Cholesterol/HDL ratio 4.2(H) 0.0 - 3.2 12/13/2024 3:58 PM [facility] LDl/HDL Ratio 2 0 - 4 12/13/2024 3:58 PM [facility] RISK COMP 4 12/13/2024 3:58 PM [facility] LDL Cholesterol, Calculated 83 0 - 99 mg/dL 12/13/2024 3:58 PM [facility] Blood Venipuncture / Unknown 12/13/2024 8:35 AM EST 12/13/2024 8:45 AM EST us Dustin España MD LAB BLOOD ORDERABLES Final Resul t [facility] [address] [phone] from Last 3 Months or Most Recently Relevant to Health Maintenance Insurance [facility] MEDICARE PPO Advance Directives For more information, please contact: [phone] * Full Code (Latest Code Status on File) Date Activated Date Inactivated Comments 12/12/2024 6:02 AM 12/13/2024 6:25 PM * Full Code Date Activated Date Inactivated Comments 04/26/2023 8:56 AM 05/01/2023 2:56 PM Care Teams Laboratory Operations Coordinator Relationship Specialty Start Date End Date Viktor Rebolledo MD [address] [place] [address] PCP - General Adolescent Medicine 04/08/23
--- OUTSIDE RECORDS SUMMARY | 2025-09-12 17:46 | XMS_ITS | Encounter Summary ---
Author Organization [employer] ([place], [place], [place], [place], [place]) Address [address] [place] [address] Care Team Providers Care Servicer Coin Machines Name Role Phone Viktor Rebolledo MD Primary Care Provider Encounter Details Date Type Department Care Team (Late st Contact Info) Description 01/12/2021 Transcribed Document [facility] [place] Family Medicine [facility] [place] [address] ProviderSole MD [address] [place], [place] [id number] Social History Tobacco Use Types Packs/Day Years [...] Conversion Note - Sole Hook MD - 01/12/2021 12:40 PM VEHICLE MONITOR TECHNICIAN Patient: JUDE JOE Age: 40 Years Sex: [...] appointment. YUE Flannery/dilia Electronically signed by Ramírez [facility] Conversion Continuous Linter Drier Operator Cerner at 02/20/2023 7:14 AM CDT documented in this encounter Plan of Treatment Not on file documented as of this encounter Visit Diagnoses Not on filedocumented in this encounter Care Teams Servicer Coin Machines Relationship Specialty Start Date End Date Viktor Rebolledo MD [address] [place] [address] PCP - General Adolescent Medicine 04/08/23 documented as of this encounter
--- OUTSIDE RECORDS SUMMARY | 2025-09-12 17:46 | XMS_ITS | Encounter Summary ---
Author Organization [employer] ([place], [place], [place], [place], [place]) Address [address] [place] [address] Care Team Providers Care Development Engineer Name Role Phone Viktor Rebolledo MD Primary Care Provider Encounter Details Date Type Department Care Team (Late st Contact Info) Description 06/26/2020 Transcribed Document [facility] [place] [address] ProviderSole MD [address] [place], [place] [address] Social History Tobacco Use Types Packs/Day Years Used Date Smoking Tobacco: Never Assessed Comments Unknown Sex and Gender Information Value Date Recorded Sex Assigned at Female 05/01/2022 6:35 PM CDT Legal Sex Female 6:35 PM CDT Gender Identity Female 05/01/2022 6:35 PM CDT Sexual Orientation Not on file documented as of this encounter Miscellaneous Notes * Cerner Conversion Note - Sole ProviderMD - 06/26/2020 10:04 AM CDT Patient: JUDE [...] in two months. Keely Abrams M.D. SLIM/melody Electronically signed by Phani Elmore Conversion Electrical Electronics Engineers Cerner at 02/20/2023 7:01 AM CDT documented in this encounter Plan of Treatment Not on file documented as of this encounter Visit Diagnoses Not on filedocumented in this encounter Care Teams Development Engineer Relationship Specialty Start Date End Date Viktor Rebolledo MD [address] [place] [address] PCP - General Adolescent Medicine 04/08/23 documented as of this encounter
--- OUTSIDE RECORDS SUMMARY | 2025-09-12 17:46 | XMS_ITS | Clinical Summary ---
Author Organization [facility] Address [address] [place] [address] Care Team Providers Care Sand Buffer Name Role Phone Viktor Rebolledo MD Primary Care Provider [phone] Source Comments [facility] is fully rolled out with thefollowing exceptions:General Clinical Research [facility] Social History Tobacco Use Types Packs/Day [...] IMMUNIZATION (1 - 3-dose SCDM series) 01/26/2007 AMB SEASONAL FLU VACCINE (#1) 07/05/2025 COVID-19 Vaccine ( - 2023-2 5 season) 2025 HIB IMMUNIZATION Aged Out No longer e [...] to complete this topic Insurance * Guarantor: JOHNNYJUDE Account Trevor Relation to Patient Date of Phone Billing Address Personal/Family [address] [place] [address] MEDICARE [place] [employer] MED[place]ID OP [facility] Care Teams Sand Buffer Relationship Specialty Start Date End Date Viktor Rebolledo MD [address] [address] [address] [place] [address] PCP - General External Family Practice 08/26/17
--- OUTSIDE RECORDS SUMMARY | 2025-09-12 17:46 | XMS_ITS | Clinical Summary ---
Author Organization [facility] Address [address] [place] [address] Care Team Providers Care Marketing Researcher Name Role Phone Viktor Rebolledo MD Primary Care Provider [phone] Allergies No known active allergies Medications diclofenac [...] mg by mouth Every Night. Active Umeclidinium [place] (INCRUSE ELLIPTA) 62.5 MCG/INH aerosol powder Inhale [...] 01/04/2020 HEPATITIS C SCREENING 01/04/2020 MAMMOGRAM 2020 COLOGUARD 01/26/2025 COLON CANCER SCREENING 5 YEA R SIGMOIDOSCOPY 01/26/2025 COLONOSCOPY 01/26/2025 COLORECTAL CANCER SCREENING 01/26/2025 CT COLONOGRAPHY 01/26/2025 FECAL OCCULT BLOOD TEST 01/26/2025 FIT Testing (1 year) 01/26/2025 INFLUENZA VACCINE 06/04/2025 Pneumococcal Vaccine 0-49 Aged Out No longer eligible based on patient's age to complete this topic Medical Devices Implanted Type Area Milk Route Supervisor Device Identifier Shelf Expiration Date Model / Serial / Lot Implant Implant Description:L5-S1 fusion Allogrft Bone Vivigen Celluar Matrx Formable 1cc - [id number] Implanted:Qty : 1 on 01/07/2020 by Paul Rogers MD at [facility] Implant N/A: Spine Cervical [facility] [id number] / / Plt [place] 1level 14mm - [id number] Implanted:Qty : 1 on 01/07/2020 by Paul Rogers MD at [facility] Implant N/A: Spine Cervical DEPU[employer] SPINE [id number] / / Scrw [place] 15mm - [id number] Implanted:Qty : 4 on 01/07/2020 by Paul Rogers MD at [facility] Implant N/A: Spine Cervical DEPU[employer] SPINE [id number] / / Cage [place]/Lg 7d 6mm - [id number] Implanted:Qty : 1 on 01/07/2020 by Paul Rogers MD at [facility] Implant N/A: Spine Cervical DEPUY SPINE [id number] / / Insurance MEDICARE A & B Advance Directives * CPR (Attempt to Resuscitate) (Latest Code Status on File) Date Activated Date Inactivated Comments 01/07/2020 3:43 PM 01/08/2020 5:34 PM Question Answer Comments Code Status (Patient has no pulse and is not breathing): CPR (Attempt to Resuscitate) Medical Interventions (Patie nt has pulse or is breathing): Full Care Teams Marketing Researcher Relationship Specialty Start Date End Date Viktor Rebolledo MD [address] [facility] [address] [place] [address] PCP - General Adolescent Medicine 01/04/20
--- OUTSIDE RECORDS SUMMARY | 2025-09-12 17:46 | XMS_ITS | Encounter Summary ---
Author Organization [employer] ([place], [place], [place], [place], [place]) Address [address] [place] [address] Care Team Providers Care Sole Skiver Name Role Phone Viktor Rebolledo MD Primary Care Provider [phone] Encounter Details Date Type Department Care Team (Late st Contact Info) Description 08/15/2019 Transcribed Document [facility] [place] [facility] [place] [address] ProviderSole MD [address] [place], [place] [id number] Social History Tobacco Use Types Packs/Day Years Used Date Smoking Tobacco: Never Assessed Comments Unknown Sex and Gender Information Value Date Recorded Sex Assigned at Female 05/01/2022 6:35 PM CDT Legal Sex Female 6:35 PM CDT Gender Identity Female 05/01/2022 6:35 PM CDT Sexual Orientation Not on file documented as of this encounter Miscellaneous Notes * Cerner Conversion Note - Sole ProviderMD - 08/15/2019 12:00 PM CDT Patient: JUDE [...] myalgia. CURRENT PLAN: We will continue Ms Joe on her current medication of Percocet 7.5 [...] months. Keely Abrams MD Electronically signed by Ramírez [facility] Conversion Global Chief Creative Officer Cerner at 02/20/2023 7:08 AM CDT documented in this encounter Plan of Treatment Not on file documented as of this encounter Visit Diagnoses Not on filedocumented in this encounter Care Teams Sole Skiver Relationship Specialty Start Date End Date Viktor Rebolledo MD [address] [place] [address] [place] [address] PCP - General Adolescent Medicine 04/08/23 documented as of this encounter
--- OUTSIDE RECORDS SUMMARY | 2025-09-12 17:46 | XMS_ITS | Encounter Summary ---
Author Organization [employer] ([place], [place], [place], [place], [place]) Address [address] [place] [address] Care Team Providers Care Vamper Name Role Phone Viktor Rebolledo MD Primary Care Provider Encounter Details Date Type Department Care Team (Late st Contact Info) Description 06/10/2019 Transcribed Document [facility] [place] [facility] [place] [address] ProviderSole MD [address] [place] [id number] Social History Tobacco Use Types Packs/Day Years Used Date Smoking Tobacco: Never Assessed Comments Unknown Sex and Gender Information Value Date Recorded Sex Assigned at Female 05/01/2022 6:35 PM CDT Legal Sex Female 6:35 PM CDT Gender Identity Female 05/01/2022 6:35 PM CDT Sexual Orientation Not on file documented as of this encounter Miscellaneous Notes * Cerner Conversion Note - Sole ProviderMD - 06/10/2019 2:38 PM CDT Patient: JUDE [...] Gricel Gilman APRN Electronically signed by Ramírez [facility] Conversion Manager Policy Cerner at 02/20/2023 7:16 AM CDT documented in this encounter Plan of Treatment Not on file documented as of this encounter Visit Diagnoses Not on filedocumented in this encounter Care Teams Vamper Relationship Specialty Start Date End Date Viktor Rebolledo MD [address] [place] [address] [place] [address] PCP - General Adolescent Medicine 04/08/23 documented as of this encounter
--- OUTSIDE RECORDS SUMMARY | 2025-09-12 17:46 | XMS_ITS | Encounter Summary ---
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 Keely Abrams M.D. NICOLÁS/joaquin documented in this encounter Plan of Treatment Not on file documented as of this encounter Visit Diagnoses Not on filedocumented in this encounter Care Teams Sales Service Manager Relationship Specialty Start Date End Date Viktor Rebolledo MD [address] [place] [address] [place] [address] PCP - General Adolescent Medicine 04/08/23 documented as of this encounter
--- OUTSIDE RECORDS SUMMARY | 2025-09-12 17:46 | XMS_ITS | Encounter Summary ---
Author Organization [employer] ([place], [place], [place], [place], [place]) Address [address] [place] [address] Care Team Providers Care Nursing Service Administrator Name Role Phone Viktor Rebolledo MD Primary Care Provider [phone] Encounter Details Date Type Department Care Team (Late st Contact Info) Description 09/06/2020 Transcribed Document [facility] [place] Family Medicine [facility] [place] [address] ProviderSole MD [address] [place], [place] [id number] Social History Tobacco Use Types Packs/Day Years Used Date Smoking Tobacco: Never Assessed Comments Unknown Sex and Gender Information Value Date Recorded Sex Assigned at Female 05/01/2022 6:35 PM CDT Legal Sex Female 6:35 PM CDT Gender Identity Female 05/01/2022 6:35 PM CDT Sexual Orientation Not on file documented as of this encounter Miscellaneous Notes * [employer]ner Conversion Note - Historical ProviderMD - 09/06/2020 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 Keely Abrams M.D. NICOLÁS/chrissy documented in this encounter Plan of Treatment Not on file documented as of this encounter Visit Diagnoses Not on filedocumented in this encounter Care Teams Nursing Service Administrator Relationship Specialty Start Date End Date Viktor Rebolledo MD [address] [place] [address] [place] [address] PCP - General Adolescent Medicine 04/08/23 documented as of this encounter
--- OUTSIDE RECORDS SUMMARY | 2025-09-12 17:46 | XMS_ITS | Encounter Summary ---
Author Organization [employer] ([place], [place], [place], [place], [place]) Address [address] [place] [address] Care Team Providers Care Schedule Supervisor Name Role Phone Viktor Rebolledo MD Primary Care Provider [phone] Encounter Details Date Type Department Care Team (Late st Contact Info) Description 02/06/2019 Transcribed Document [facility] [place] [facility] [place] [address] ProviderSole MD [address] [place], [place] [phone] Social History Tobacco Use Types Packs/Day Years [...] Velázquez II, M.D. Electronically signed by Ramírez [facility] Conversion Manager Investment Cerner at 02/20/2023 7:19 AM CDT documented in this encounter Plan of Treatment Not on file documented as of this encounter Visit Diagnoses Not on filedocumented in this encounter Care Teams Schedule Supervisor Relationship Specialty Start Date End Date Viktor Rebolledo MD [address] [place] [address] PCP - General Adolescent Medicine 04/08/23 documented as of this encounter
--- OUTSIDE RECORDS SUMMARY | 2025-09-12 17:46 | XMS_ITS | Data Portability ---
Author Organization [place] - [facility] MD, Main Office Address [address] [place] [address], [address] [id number] Assessment No assessment recorded. Plan of Treatment Reminders Order Date Submit Date Provider Last Modified By Organization Details Last Modified Time Details Appointments None record ed. Lab None record ed. Referral None record ed. Procedures None record ed. Surgeries None record ed. Imaging None record ed. Medication Orders None record ed. Patient TargetsNo targets recorded. Patient Instructions Encounter Date Encounter Id Patient Instructions Last Modified By Organization Details Last Modified Time 11/30/2019 [id number] Neck Pain: Care Instructions [email or web address] Not available 11/30/2019 14:51:01 Reason for Referral None Reported. Results Created Date Observation Date Name Description Value Unit Range Abnormal Flag Note LastModifiedBy Organization Detail LastModifiedTime 11/30/19 20 11/30/2019 elect romyo gram + nerve condu ction study No observ ation record ed. BARCODE Not Available 2019 13:35:11 Result Notes None recorded. Problems No Known Problems Procedures Surgical History Date Name Laterality Status Provider Name and Address Organization Details Recorded Time 11/30/2019 NCV/EMG completed Waylon Freitas MD 11/30/2019 13:26:36 Imaging Results None recorded. Procedure Notes None recorded. Medical Equipment None Reported. Allergies No known drug allergies Medications Name Sig Start Date Stop Date Status Note LastModified by Organization Details LastModified Time amoxicillin 500 mg capsule active Not Available Not Available Not Available metoprolol tartrate 100 mg tablet active Not Available Not Availabl e Not Available tizanidine 4 mg tablet active Not Available Not Available Not Available fluconazole 150 mg tablet active Not Available Not Available Not Available ondansetron HCl 4 mg tablet active Not Available Not Available No t Available isosorbide mononitrate ER 30 mg tablet,extended release 24 hr active Not Available Not Availabl e Not Available terconazole 0.8 % vaginal cream active Not Available Not Availabl e Not Available omeprazole 40 mg capsule,delayed release active Not Available Not Available Not Available tramadol 50 mg tablet active Not Available Not Available Not Available spironolactone 25 mg tablet active Not Available Not Available No t Available nortriptyline 25 mg capsule active Not Available Not Available Not Available amoxicillin 875 mg tablet active Not Available Not Available Not Available dicyclomine 20 mg tablet active Not Available Not Available Not Available ranitidine 300 mg capsule active Not Available Not Available Not Available estradiol 2 mg tablet active Not Available Not Available Not Available montelukast 10 mg tablet active Not Available Not Available Not Available pravastatin 20 mg tablet active Not Available Not Available Not Available hydrochlorothiazide 25 mg tablet active Not Available Not Available Not Available diclofenac sodium 50 mg tablet,delayed release active Not Available Not Available Not Available furosemide 20 mg tablet active Not Available Not Available Not Available epinephrine 0.3 mg/0.3 mL injection, auto-injector active Not Available Not Availabl e Not Available oxycodone-acetamino phen 7.5 mg-325 mg tablet active Not Available Not Available Not Available ondansetron 4 mg disintegrating tablet active Not Available Not Available Not Available cefdinir 300 mg capsule active Not Available Not Available Not Available fluticasone propionate 50 mcg/actuation nasal spray,suspension active Not Available Not Avail able Not Available ipratropium bromide 21 mcg (0.03 %) nasal spray active Not Available Not Available Not Available verapamil ER 240 mg 24 hr capsule,extended release active Not Available Not Available Not Available pregabalin 150 mg capsule active Not Available Not Available Not Available ranolazine ER 500 mg tablet,extended release,12 hr active Not Available Not Availabl e Not Available ProAir HFA 90 mcg/actuation aerosol inhaler active Not Available Not Availa ble Not Available Advair HFA 230 mcg-21 mcg/actuation aerosol inhaler active Not Available Not Availa ble Not Available levocetirizine 5 mg tablet active Not Available Not Available Not Available diclofenac 1 % topical gel active Not Available Not Available Not Available Dymista 137 mcg-50 mcg/spray nasal spray active Not Available Not Available Not Available Incruse Ellipta 62.5 mcg/actuation powder for inhalation active Not Available Not Available N ot Available Aimovig Autoinjector 70 mg/mL subcutaneous auto-injector active Not Available Not Availabl e Not Available Aimovig Autoinjector 140 mg/mL subcutaneous auto-injector active Not Available Not Availabl e Not Available Vitals None Recorded Social History None recorded. Functional Status None recorded. Mental Status None recorded. Family History Nothing Reported. Medical History No medical history recorded. Gynecological HistoryNo gynecological history recorded. 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 Health Concerns Section Related Observation LastModified by Organization Detai ls LastModified Time None Recorded Concern Status LastModified by Organization Details LastModified Time None Recorded Advance Directives Directive None Recorded Payers Insurance Date Sequence Insurance Name Policy Number Policy Beard Covered Member ID Beard Member ID Guarantor Name 09/04/2020 PAYMENT PLAN Jennie Joe 11/30/2019 1 [place] Jennie Joe [id number] Jennie Joe OBGyn Episode No OBEpisode recorded.
--- OUTSIDE RECORDS SUMMARY | 2025-09-12 17:46 | XMS_ITS | Clinical Summary ---
Author Organization Healthcare Address [address] [place] [address] Care Team Providers Care Ostomy Nurse Name Role Phone Unavailable Primary Care Provider [...]
--- OUTSIDE RECORDS SUMMARY | 2025-09-12 17:46 | XMS_ITS | Encounter Summary ---
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 Austyn Anaya PA-C BR:liberty documented in this encounter Plan of Treatment Not on file documented as of this encounter Visit Diagnoses Not on filedocumented in this encounter Care Teams Tube Winder Hand Relationship Specialty Start Date End Date Viktor Rebolledo MD [address] [place] [address] [place] [address] PCP - General Adolescent Medicine 04/08/23 documented as of this encounter
--- NOTE | 2025-09-12 17:49 | CT_ITS ---
PROCEDURE INFORMATION: Exam: CTA Neck With Contrast Exam date and time: 09/12/2025 6:17 PM Age: 45 years old Clinical indication: Stroke-like symptoms; Other: Possible stroke TECHNIQUE: Imaging protocol: Computed tomographic angiography of the neck with contrast. Exam focused on the cervical segments of the vasculature. 3D rendering (Not supervised by radiologist): MIP and/or 3D reconstructed images were created by the technologist. Radiation optimization: All CT scans at this facility use at least one of these dose optimization techniques: automated exposure control; mA and/or kV adjustment per patient size (includes targeted exams where dose is matched to clinical indication); or iterative reconstruction. Contrast material: ISO 370; Contrast volume: 80 ml; Contrast route: INTRAVENOUS (IV); COMPARISON: CT ANGIO NECK 12/11/2024 5:19 PM FINDINGS: Right common carotid artery: No stenosis. No dissection or occlusion. Right internal carotid artery: Moderate calcific atherosclerotic disease of the right carotid bulb resulting in moderate stenosis. Right external carotid artery: No occlusion or stenosis of the origin. Left common carotid artery: No stenosis. No dissection or occlusion. Left internal carotid artery: Moderate mixed calcific and noncalcified atherosclerotic disease of the left carotid bulb resulting in moderate stenosis. Left external carotid artery: No occlusion or stenosis of the origin. Right vertebral artery: No stenosis. No dissection or occlusion. Left vertebral artery: No stenosis. No dissection or occlusion. Soft tissues: Normal. No significant soft tissue swelling. Bones/joints: Moderate loss of intervertebral disc space with degenerative changes involving C6-C7. ACDF hardware located at levels C5-C6. IMPRESSION: 1. Moderate calcific atherosclerotic disease of the right carotid bulb resulting in moderate stenosis. 2. Moderate mixed calcific and noncalcified atherosclerotic disease of the left carotid bulb resulting in moderate stenosis. REFERENCES: NASCET CRITERIA. The degree of stenosis in the cervical segment of the internal carotid artery is based on NASCET criteria. Normal is no stenosis. Mild is less than 50% stenosis. Moderate is 50-69% stenosis. Severe is 70% to 99% stenosis. Total occlusion is no detectable patent lumen.
--- NOTE | 2025-09-12 17:49 | CT_ITS ---
PROCEDURE INFORMATION: Exam: CT Head Without Contrast Exam date and time: 09/12/2025 6:10 PM Age: 45 years old Clinical indication: Stroke-like symptoms; Other: Possible stroke TECHNIQUE: Imaging protocol: Computed tomography of the head without contrast. Radiation optimization: All CT scans at this facility use at least one of these dose optimization techniques: automated exposure control; mA and/or kV adjustment per patient size (includes targeted exams where dose is matched to clinical indication); or iterative reconstruction. Other technique: STROKE PROTOCOL was implemented. COMPARISON: CT ANGIO HEAD 12/11/2024 5:19 PM FINDINGS: Brain: Normal. No hemorrhage. Unremarkable white matter. No mass effect. Cerebral ventricles: No ventriculomegaly. Paranasal sinuses: Moderate left maxillary sinus polypoid mucosal thickening is present. Mastoid air cells: Visualized mastoid air cells are well aerated. Bones: Unremarkable. No acute fracture. Soft tissues: Unremarkable. IMPRESSION: No acute intracranial abnormality. ASSESSMENT: ASPECTS ([place] Stroke Program Early CT Score) is 10.
--- NOTE | 2025-09-12 17:49 | CT_ITS ---
PROCEDURE INFORMATION: Exam: CTA Head With Contrast, Arteriography Exam date and time: 09/12/2025 6:17 PM Age: 45 years old Clinical indication: Stroke-like symptoms; Other: Possible stroke TECHNIQUE: Imaging protocol: Computed tomographic angiography of the head with contrast. Exam focused on the arteries. 3D rendering (Not supervised by radiologist): MIP and/or 3D reconstructed images were created by the technologist. Radiation optimization: All CT scans at this facility use at least one of these dose optimization techniques: automated exposure control; mA and/or kV adjustment per patient size (includes targeted exams where dose is matched to clinical indication); or iterative reconstruction. Contrast material: ISO 370; Contrast volume: 80 ml; Contrast route: INTRAVENOUS (IV); COMPARISON: CT ANGIO HEAD 12/11/2024 5:19 PM FINDINGS: ANTERIOR CIRCULATION: Right internal carotid artery: Intracranial segment is patent with no significant stenosis. No aneurysm. Right middle cerebral artery: No occlusion or significant stenosis. No aneurysm. Right anterior cerebral artery: No occlusion or significant stenosis. No aneurysm. Left internal carotid artery: Intracranial segment is patent with no significant stenosis. No aneurysm. 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 Left anterior cerebral artery: No occlusion or significant stenosis. No aneurysm. POSTERIOR CIRCULATION: Right vertebral artery: No occlusion or significant stenosis. No aneurysm. Left vertebral artery: No occlusion or significant stenosis. No aneurysm. Basilar artery: No occlusion or significant stenosis. No aneurysm. Right posterior cerebral artery: No occlusion or significant stenosis. No aneurysm. Left posterior cerebral artery: Occluded left P2 branch versus infundibulum (image 85 of series 1002). Brain: No definite mass, mass effect, or midline shift. Cerebral ventricles: No ventriculomegaly. Paranasal sinuses: Moderate left maxillary sinus polypoid mucosal thickening is present. Bones/joints: Unremarkable. No acute fracture. Soft tissues: Unremarkable. IMPRESSION: 1. 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 2. Occluded left P2 branch versus infundibulum (image 85 of series 1002).
[2025-09-12 17:56] LABS: Hematocrit 36.8 % (37.0-47.0); Hemoglobin 12.4 g/dL (12.2-16.2); Immature Granulocytes % 0.4 %; Mean Corpuscular HGB Conc 33.7 g/dL (31.8-35.4); Mean Corpuscular Hemoglobin 31.9 pg (27.0-31.2); Mean Corpuscular Volume 94.6 fl (81-99); Nucleated Red Blood Cells % 0 %; Platelet Count 206 K/mm3 (142-424); Red Blood Count 3.89 M/mm3 (4.20-5.40); Red Cell Distribution Width-SD 49.1 fL; White Blood Count 7.8 K/mm3 (4.8-10.8)
--- NOTE | 2025-09-12 17:57 | ECG_ITS ---
APPROVED REPORT Exam: Resting ECG HR:88 bpm ECG Measurements Heart Rate 88 AXES FL 234 P 73 QRSd 125 QRS 92 QT 411 T 59 QTc 457 Conclusion SINUS RHYTHM WITH FIRST DEGREE AV BLOCK BORDERLINE RIGHT AXIS DEVIATION [QRS AXIS > 90] MODERATE INTRAVENTRICULAR CONDUCTION DELAY [110+ ms QRS DURATION] ABNORMAL ECG UNCONFIRMED REPORT Electronically signed by : AIDEE PAN, 09/13/2025 02:48:25
[2025-09-12 17:58] LABS: Chloride 104 mmol/L (98-107)
[2025-09-12 17:59] LABS: Albumin Level 5.3 g/dl (3.5-5.0); Potassium 4.0 mmoL/L (3.5-5.1); Sodium 140 mmol/L (136-145)
[2025-09-12 18:01] LABS: Alanine Aminotransferase 15 U/L (12-78); Aspartate Amino Transferase 30 U/L (14-36); Blood Urea Nitrogen 16 mg/dl (7-17); Creatinine Clearance Estimated 86 mL/min (50-200); Creatinine,Serum 1.10 mg/dl (0.52-1.04); Estimated Glomerular Filt Rate 54 ml/min (>60); GFR (African American) 65 ML/MIN (>60)
[2025-09-12 18:02] LABS: Albumin/Globulin Ratio 1.8 (1.1-1.8); Alkaline Phosphatase 80 U/L (38-126); Anion Gap 16.0 mEq/L (5-15); Bilirubin,Total 0.8 mg/dl (0.2-1.3); Calcium 9.3 mg/dl (8.4-10.2); Carbon Dioxide 24 mmol/L (22.0-30.0); Globulin 3.0 g/dL (1.3-3.2); Glucose 95 mg/dl (74-100); Total Protein,Serum 8.3 g/dl (6.3-8.2)
--- NOTE | 2025-09-12 18:10 | ED_ITS ---
Discharge Plan Disposition Patient Disposition: Xfer Short-Term Hosp Prescriptions Prescriptions: No Action famotidine 20 mg tablet 20 mg PO BID ondansetron HCl 4 mg tablet 4 mg PO Q6H Patient Comments: TAKE 1 TABLET BY MOUTH EVERY 6 HOURS NEEDED ipratropium bromide 42 mcg (0.06 %) spray,non-aerosol 2 spray intranasal NEEDED PRN (Reason: Allergy Symptoms) Patient Comments: USE 1 TO 2 SPRAY(S) IN EACH NOSTRIL EVERY 6 HOURS NEEDED FOR POSTNASAL DRAINAGE AND RUNNY NOSE cholecalciferol (vitamin D3) 1,250 mcg (50,000 unit) capsule 50,000 unit PO WEEKLY Patient Comments: TAKE 1 CAPSULE BY MOUTH ONCE A WEEK Zenpep 40,000-126,000- 168,000 unit capsule,delayed release(DR/EC) 1 cap PO QID Qty: 360 0RF Rx Instructions: administer with meals and/or snacks amlodipine 10 mg tablet 5 mg PO DAILY Patient Comments: TAKE 1 TABLET BY MOUTH ONCE DAILY levocetirizine 5 mg tablet 5 mg PO HS montelukast 10 mg tablet 10 mg PO HS omeprazole 40 mg capsule,delayed release(DR/EC) 40 mg PO BID aspirin [Adult Low Dose Aspirin] 81 mg tablet,delayed release (DR/EC) 81 mg PO DAILY tizanidine 4 mg tablet 4 mg PO Q8H PRN (Reason: muscle spasms) lactulose 10 gram/15 mL solution 15 ml PO DAILY PRN (Reason: constipation) pregabalin 200 mg capsule 200 mg PO TID docusate sodium [Stool Softener] 250 mg capsule 250 mg PO BID spironolactone 25 mg tablet 25 mg PO DAILY Qty: 90 3RF Ubrelvy 100 mg tablet 100 mg PO ONCE PRN (Reason: migraines) Qty: 16 5RF Rx Instructions: Take 100 mg (1 tablet) at onset of headache. If symptoms persist after 2 hours, may repeat 100 mg (1 tablet). Max dose 2 tablets in 24 hours or 4 tablets/week. Aimovig Autoinjector 140 mg/mL auto-injector 140 mg SQ QMONTH Qty: 1 0RF ranolazine 500 mg tablet extended release 12 hr 500 mg PO BID Qty: 60 5RF buspirone 10 mg tablet See Rx Instructions .ROUTE .COMPLEX Qty: 60 3RF Dose Instruction: Take 1 tablet by mouth twice daily Rx Instructions: Take 1 tablet by mouth twice daily furosemide 20 mg tablet See Rx Instructions .ROUTE .COMPLEX Qty: 90 3RF Dose Instruction: Take 1 tablet by mouth once daily Rx Instructions: Take 1 tablet by mouth once daily estradiol 2 mg tablet See Rx Instructions .ROUTE .COMPLEX Qty: 90 0RF Dose Instruction: TAKE 1 TABLET BY MOUTH ONCE DAILY FOR HORMONE Rx Instructions: TAKE 1 TABLET BY MOUTH ONCE DAILY FOR HORMONE azelastine-fluticasone 23 GM spray,non-aerosol 23 g intranasal BID isosorbide mononitrate 30 MG tablet 30 mg PO DAILY oxycodone-acetaminophen 7.5-325 mg tablet 1 tab PO QID cyanocobalamin (vitamin B-12) 5,000 MCG tablet,disintegrating 1,000 mcg PO DAILY pravastatin 20 MG tablet 20 mg PO HS albuterol sulfate 1.25 mg/3 mL solution for nebulization 1.25 mg inhalation BIDP PRN (Reason: breathing) nortriptyline 25 mg capsule 25 mg PO DAILY Patient Comments: TAKE 2 CAPSULES BY MOUTH ONCE DAILY metoprolol tartrate 100 mg tablet See Rx Instructions .ROUTE .COMPLEX Rx Instructions: Take 1 tablet by mouth twice daily sulfamethoxazole-trimethoprim [Bactrim DS] 800-160 mg Tablet 1 tab PO BID 10 Days Qty: 20 0RF cephalexin 500 mg capsule 500 mg PO QID 10 Days Qty: 40 0RF Referrals Follow up/Referrals: Viktor Rebolledo MD [Primary Care Provider, Internal Medicine] - See instructions Clinical Impressions Clinical Impression: Acute CVA (cerebrovascular accident), General weakness Instructions Patient Instructions: DI for Seizure Disorder in Adults, DI for Seizure (Not Epilepsy/Seizure Disorder), DI for Seizure Disorder in Child Print Language Print Language: Turkmen Discharge ED Provider: Giselle Fall General Adult HPI <EFFIE Kevin - Last Filed: 09/12/25 19:25> General Chief complaint: Seizure Stated complaint: fell and started jerking,cant stand Time Seen by Provider: 09/12/25 17:35 Mode of Arrival: Wheelchair Source of Information: Patient, Spouse and Parent(s) Description of Symptoms (Recalled from ER Triage Doc. by RN): Pt was standing at a birthday [employer] this afternoon when she had a witnessed fall. Mother states she saw her fall to her knees and start shaking like she was having a seizure, no loss of conciousness. Pt states she has had episodes like this before, but this feels different. Pt presents with a studder as well as tremors in all four extremeties. Pt is not complaining of pain at this time. Bedside BS was 96. Pt states she thinks she has had a mini stroke in the past, and she is supposed to be on a baby aspirin, be she hasnt taken it in months due to forgetting History of Present Illness HPI narrative: Patient presents complaining of generalized weakness that started 15 minutes prior to arrival. She was standing at a birthday democr[employer] for over an hour, stated she needed to sit. She was able to sit in a chair. She subsequently had to be assisted out to her car. She did drop down to her knees attempting to get into the car. Denies any pain. She feels as if she is fuzzy and wants to float . She reports feeling hot and flushed. She denies any fevers. Denies any nausea vomiting diarrhea. She does have a new stutter. She has been experiencing some jerking all over . She has had several episodes similar to this in the past. She was admitted to [facility], [place] and told she possibly had a TIA. 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 MD complaint: weakness, shaking Onset (ago): minute(s) Location: upper extremity and lower extremity Radiation: non-radiation Consistency: constant Relieving factors: rest Exacerbating factors: movement Associated symptoms: confusion; negative nausea/vomiting Related Data Home Medications ?Medication ?Instructions ?Recorded ?Confirmed levocetirizine 5 mg tablet 5 mg PO HS allergies 09/12/25 montelukast 10 mg tablet 10 mg PO HS allergies 09/12/25 omeprazole 40 mg capsule,delayed 40 mg PO BID GERD 09/12/25 release cyanocobalamin (vitamin B-12) 1,000 mcg PO DAILY Suppl ement 06/30/18 09/12/25 5,000 mcg disintegrating tablet pravastatin 20 mg tablet 20 mg PO HS Cholesterol 06/0509/12/25 aspirin 81 mg tablet,delayed 81 mg PO DAILY Heart dise ase 05/25/19 09/12/25 release (Adult Low Dose Aspirin) azelastine 137 mcg-fluticasone 50 23 g intranasal BID allergies 09/14/19 09/12/25 mcg/spray nasal spray isosorbide mononitrate 30 mg 30 mg PO DAILY blood pres sure 09/14/19 09/12/25 tablet,extended release 24 hr tizanidine 4 mg tablet 4 mg PO Q8H PRN muscle spasm s 04/27/20 09/12/25 oxycodone-acetaminophen 7.5 mg-325 1 tab PO QID PAIN 1 12/03/20 09/12/25 mg tablet famotidine 20 mg tablet 20 mg PO BID Reflux/Acid ref lux 11/30/21 09/12/25 metoprolol tartrate 100 mg tablet See Rx Instructions .Route 12/21/22 09/12/25 .COMPLEX htn nortriptyline 25 mg capsule 25 mg PO DAILY Pain 09/12/25 albuterol sulfate 1.25 mg/3 mL 1.25 mg inhalation BIDP PRN 02/12/23 09/12/25 solution for nebulization breathing pregabalin 200 mg capsule 200 mg PO TID RLS 02/12/23 1 11/12/24 docusate sodium 250 mg capsule 250 mg PO BID 05/15/23 09/12/25 (Stool Softener) ondansetron HCl 4 mg tablet 4 mg PO Q6H 07/11/2309/12 cholecalciferol (vitamin D3) 1,250 50,000 unit PO WEEK LY 01/15/24 09/12/25 mcg (50,000 unit) capsule ipratropium bromide 42 mcg (0.06 2 spray intranasal NEEDED PRN 01/15/24 09/12/25 %) nasal spray Allergy Symptoms lactulose 10 gram/15 mL oral 15 ml PO DAILY PRN consti pation 01/15/24 09/12/25 solution amlodipine 10 mg tablet 5 mg PO DAILY 05/14/2409/12 Previous Rx's ?Medication ?Instructions ?Recorded spironolactone 25 mg tablet 25 mg PO DAILY Edema #90 t abs 09/10/22 ubrogepant 100 mg tablet (Ubrelvy) 100 mg PO ONCE PRN migraines #16 02/26/23 tabs erenumab-aooe 140 mg/mL 140 mg SQ QMONTH chronic chiara iris 03/02/24 subcutaneous auto-injector #1 mL (Aimovig Autoinjector) Zenpep 40,000 unit-126,000 1 cap PO QID low pancreatic 05/14/24 unit-168,000 unit capsule,delayed elastase #360 caps release (iazcgs-xwgvsgcn-ardaayq (pork)) cephalexin 500 mg capsule 500 mg PO QID 10 days #40 ca ps 05/31/24 sulfamethoxazole 800 1 tab PO BID 10 days #20 tab s 05/31/24 mg-trimethoprim 160 mg tablet (Bactrim DS) ranolazine 500 mg tablet,extended 500 mg PO BID #60 ta bs 02/12/25 release,12 hr buspirone 10 mg tablet See Rx Instructions .Route 0 05/24/25 .COMPLEX #60 tabs furosemide 20 mg tablet See Rx Instructions .Route 0 07/22/25 .COMPLEX #90 tabs estradiol 2 mg tablet See Rx Instructions .Route 1 .COMPLEX #90 tabs Allergies Allergy/AdvReac Type Severity Reaction Status Date / Time No Known Allergies Allergy Verified 05/14/24 11:07 [facility] <EFFIE Kevin - Last Filed: 09/12/25 19:25> [facility] Disclaimer: The information contained in this section may have been updated after the patient was seen, as this information can be updated by other users. Medical History Edema Vocal cord weakness Hiatal hernia Degenerated intervertebral disc Major depressive disorder Generalized anxiety disorder Bradycardia Angina, class II Surgical History H/O lithotripsy History of back surgery fusion cervicle and lumbar History of section History of hysterectomy History of cholecystectomy History of appendectomy History of colonoscopy Family History Other Family history of cancer Family history of diabetes mellitus type II Family history of hypertension Family history of hypothyroidism Social History Smoking Status: Never smoker second hand exposure: Yes (a lot of her family smokes) alcohol intake: never counseling given: No counseling provided: none substance use type: denies use counseling given: No current occupational status: disabled Travel in the last 8 weeks?: None adopted: No caregiver/support person: No foster care: No household members: spouse and children housing: house lives independently: Yes marital status: number of children: 2 education level: college 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; did work at [employer] for 7 years current occupational exposures/hazards: No Hx Recent Travel: No sexually active: Yes caffeine: Yes (doesn't drink this daily) physical activity: none special sheyla needs: No agree to transfusion: No working smoke detector in home: Yes fire extinguisher in home: Yes carbon monox detector in home: Yes firearms in home: Yes firearms unloaded and locked: Yes do you feel safe at home: Yes victim of physical abuse: No victim of emotional abuse: No victim of sexual abuse: No would you like helpful sources: No Have you lived/traveled outside [place] in past 30 days?: No Contact w/someone who lives/traveled outside US past 30 days?: No Exposure to someone with infectious disease in past 14 days?: No Do you have a fever (greater than 100.4 F or 38 C)?: No Have you tested positive for COVID-19?: No Exposed to someone with COVID-19 in past 14 days?: No Do you have a sore throat?: No Do you have a cough?: No Do you have any weakness?: Yes Do you have any diarrhea?: No Are you experiencing any unusual bleeding?: No Do you have any muscle aches/pain?: No Do you have any abdominal pain?: No Are you experiencing loss of taste or smell?: No Other Medical History Have you received the Flu Vaccine for this season: No Have you received the Pneumonia Vaccine: No <EFFIE Kevin - Last Filed: 09/12/25 19:25> ROS Obtained: Yes Systems reviewed as appropriate & no additional complaints except as documented Physical Exam <EFFIE Kevin - Last Filed: 09/12/25 19:25> General General appearance: alert and in no apparent distress Head Head exam: atraumatic and normocephalic Eye Eye exam: Present normal appearance and EOMI Chest Chest inspection: Present symmetric chest wall rise Respiratory Respiratory exam: Present normal lung sounds bilaterally; Absent wheezes or stridor Cardiovascular Cardiovascular exam: Present regular rate and normal rhythm; Absent systolic murmur Abdominal Exam Abdominal exam: Present soft; Absent distention, tenderness or guarding Extremities Exam Extremities exam: Present full ROM Neurological Exam Neurological exam: Present alert, oriented X3 and other (Patient has jerking and uncoordinated movements in all extremities. During neurologic exam she is only able to hold her extremities up for a few seconds before they drift to the bed. She does have significant stuttering dysarthria noted with her speech. ); Absent CN II-XII intact Psychiatric Psychiatric exam: Present normal affect and normal mood Skin Skin exam: Present warm, dry and intact Medical Decision Making <EFFIE Kevin - Last Filed: 09/12/25 19:25> Medical Records Screening: Per USPSTF and CDC recommendations, given the prevalence of disease in our region, it is our hospital?s policy to screen for HIV and viral Hepatitis for all patients aged 18 and over and those with ongoing risk factors. Vital Signs: 09/12/25 17:40 09/12/25 17:47 09/12/25 18:00 Temperature 97.8 F Temperature Source Oral Pulse Rate 93 H 91 H Pulse Rate [Right] 93 H Respiratory Rate 14 12 Blood Pressure 180/101 H 172/93 H Blood Pressure [Right Arm] 180/101 H Blood Pressure Mean [Right Arm] 127 Blood Pressure Source [Right Arm] Automatic Cuff Blood Pressure Position [Right Arm] Supine 02 Sat by Pulse Oximetry 97 96 97 Oxygen Delivery Method Room Air Room Air Room Air 09/12/25 18:30 Temperature Temperature Source Pulse Rate 87 Pulse Rate [Right] Respiratory Rate 16 Blood Pressure 182/95 H Blood Pressure [Right Arm] Blood Pressure Mean [Right Arm] Blood Pressure Source [Right Arm] Blood Pressure Position [Right Arm] 02 Sat by Pulse Oximetry 96 Oxygen Delivery Method Room Air Lab Data Lab Results 09/12/25 17:44: WBC 7.8, RBC 3.89 L, Hgb 12.4, Hct 36.8 L, MCV 94.6, MCH 31.9 H, MCHC 33.7, RDW 14.3, Plt Count 206, MPV 10.2, Neut % (Auto) 56.9, Lymph % (Auto) 32.5, Floyd % (Auto) 7.0, Eos % (Auto) 2.3, Baso % (Auto) 0.9, Neut # (Auto) 4.4, Lymph # (Auto) 2.5, Floyd # (Auto) 0.6, Eos # (Auto) 0.2, Baso # (Auto) 0.1, PT 10.9, INR 0.98, APTT 25.0, Sodium 140, Potassium 4.0, Chloride 104, Carbon Dioxide 24, Anion Gap 16.0 H, BUN 16, Creatinine 1.10 H, Estimated Creat Clear 86, Estimated GFR 54 L, Est GFR ( Amer) 65, Glucose 95, Calcium 9.3, Total Bilirubin 0.8, AST 30, ALT 15, Alkaline Phosphatase 80, Troponin I < 0.01, Total Protein 8.3 H, Albumin 5.3 H, Globulin 3.0, Albumin/Globulin Ratio 1.8, Plasma/Serum Alcohol < 10 09/12/25 18:13: Urine Color Yellow, Urine Appearance Clear, Urine pH 5.5, Ur Specific Daisy 1.020, Urine Protein Negative, Urine Glucose (UA) Negative, Urine Ketones Negative, Urine Blood Negative, Urine Nitrate Negative, Urine Bilirubin Negative, Urine Urobilinogen 0.2, Ur Leukocyte Esterase Negative, Urine RBC None, Urine WBC Occasional, Ur Squamous Epith Cells None, Urine Bacteria None 09/12/25 18:14: Urine Opiates Screen Positive H, Urine Methadone Screen Negative, Ur Barbituates Screen Negative, Ur Phencyclidine Scrn Negative, Ur Amphetamines Screen Negative, U Benzodiazepines Scrn Negative, Urine Cocaine Screen Negative, U Marijuana (THC) Screen Negative 09/12/25 17:44 09/12/25 17:44 Orders (Tests/Meds): ED MEDICATIONS Generic Name Dose Route Start Last Admin Trade Name Freq PRN Reason Stop Dose Admin Sodium Chloride 1,000 mls @ 999 mls/hr 09/12/25 18:27 09/12/25 18:37 Sod Chlor 0.9% 1000ml Bag IV 09/12/25 19:27 999 mls/hr .Q1H1M ONE Administration Sodium Chloride 10 ml 09/12/25 17:48 Sodium Chloride 0.9% 10ml Flush Syringe IV 10/12/25 17:47 NEEDED PRN Maintain IV Site Discontinued Medications Generic Name Dose Route Start Last Admin Trade Name Freq PRN Reason Stop Dose Admin Acetaminophen 1,000 mg 09/12/25 18:27 09/12/25 18:37 Acetaminophen 1,000mg/100ml Vial IV 09/12/25 18:28 1,000 mg ONCE ONE Administration Diazepam 2 mg 09/12/25 18:26 09/12/25 18:37 Diazepam 10mg/2ml Syringe IV 09/12/25 18:27 2 mg ONCE ONE Administration Iopamidol 80 ml 09/12/25 18:18 09/12/25 18:19 Iopamidol-370 (76%);100ml Bottle IV 09/12/25 18:19 80 ml ONCE ONE Administration Ketorolac Tromethamine 15 mg 09/12/25 18:27 09/12/25 18:37 Ketorolac 15mg/Ml Vial IV 09/12/25 18:28 15 mg ONCE ONE Administration Sodium Chloride 50 ml 09/12/25 18:18 09/12/25 18:19 0.9 % Sodium Chloride 50 Ml Vial IV 09/12/25 18:19 50 ml ONCE ONE Administration Sodium Chloride 10 ml 09/12/25 18:18 09/12/25 18:19 Sodium Chloride 0.9% 10ml Syr (Rad Only) IV 09/12/25 18:19 10 ml ONCE ONE Administration Tenecteplase 22.5 mg 09/12/25 19:15 Tenecteplase 50mg Vial IV 09/12/25 19:16 CONSULT PHARMACY ONE ORDERS Category Date Time Status CT angio head Stat Cat Scan 09/12/25 17:[address] angio neck Stat Cat Scan 09/12/25 17:[address] head/brain wo con Stat Cat Scan 09/12/25 17:49 Completed Activated Partial Thrombo Time Stat Lab 09/12/25 17:44 Completed Complete Blood Count Auto Diff Stat Lab 09/12/25 17:44 Completed Comprehensive Metabolic Panel Stat Lab 09/12/25 17:44 Completed Drug Screen,Urine Stat Lab 09/12/25 18:14 Completed Ethyl Alcohol Stat Lab 09/12/25 17:44 Completed Prothrombin Time INR Stat Lab 09/12/25 17:44 Completed Troponin I Q3H Lab 09/12/25 21:00 Ordered Troponin I Q3H Lab 09/13/25 00:00 Ordered Troponin I Stat Lab 09/12/25 17:44 Completed Urinalysis and Microscopic Stat Lab 09/12/25 18:13 Completed ECG Request Stat Y 09/12/25 17:49 Ordered Medical Decision Narrative: In summary patient is a 45-year-old who presents the emergency department for evaluation of jerking, weakness. Patient is hypertensive upon arrival, afebrile. Patient has weakness in all extremities as well as jerking/uncoordinated movements, dysarthria on exam. Differential diagnosis includes CVA, intracranial hemorrhage, seizure, serotonin syndrome. Initial workup will be conducted with hematologic labs, CTA head and neck. Initial inventions include Valium for possible atypical migraine/anxiety. Initial workup reviewed by me CTA reveals left M2 and left P2 occlusion. Upon repeat evaluation patient's blood pressure has improved significantly. Discussed with neurology at who advised TNK. Given this patient transferred to the emergency room for further management and neurology consult. Places where you can increase complexity: I informally interpreted the patient's chest x-ray or CT read and is remarkable for? Documenting what the fugitive detective shows with rate and rhythm as well as time Consideration of a test but deferring. Example: I consider chest x-ray on this patient however given that they have no oxygen requirement are clear to auscultation will be deferred. Social determinants of health: Given the patient is undomiciled increased complexity. Given that patient has polysubstance abuse compounds all aspects of care. Trip Fall DO: I was consulted by the MER, and we discussed the complexity of the problems being addressed. I approved the treatment and management plan for this patient's care in the emergency department, thus performing a substantive portion of the medical decision making. Patient presents with generalized weakness/shaking all over, concerned that she is having seizure. [id number] She has generalized twitching in all 4 extremities, but she is still alert, conversational. Given this, I do not feel that this is likely true seizure activity. I do not feel it is likely that she has a stroke either given the lack of focal lateralizing deficits. She has what appear to be involuntary twitches and spasms in all 4 extremities on exam, worse in her legs. She is able to move all 4 extremities equally when distracted, but when you ask her to raise her arm/lift leg she has weakness in all 4 extremities. NIHSS 11 for this reason. I reviewed medical records both here and at [facility], [place], and it looks like she was seen and admitted back in December of this year for similar issues, and she does note that this is similar to when that happened. She notes similar episodes to this in the past. According to medical record review, she was felt to have psychogenic nonepileptic seizure activity versus anxiety versus complex migraine. MRI of the head was completely normal December 2024, so it was advised that she is unlikely to have any acute cerebrovascular disease. She says this is similar to her prior episodes, which again makes me feel that cerebrovascular disease is unlikely. Out of an abundance of caution, we did elect to obtain stroke protocol scans. To treat for possible anxiety vs serotonin syndrome vs complex migraine, we are treating with a bolus of IV fluids, IV toradol, IV acetaminophen, and IV Valium. Patient did have symptomatic improvement after administration of medications above, though she does still have some twitching. Just before 1914, [facility] had actually called and said that the patient had a distal left M2 occlusion and distal left P2 occlusion. I had shared the imaging through [facility] and neuroradiology at advised that there is no large vessel occlusion. We did seek out neurostroke consultation at prior to considering thrombolytics, as this is a very unclear picture with patient having intermittent symptoms like this multiple times in the past with normal MRI. The complicated history and lack of lateralizing neurologic deficits on exam is why we did not elect to administer tPA/TNK immediately. We did discuss the case with Dr. Patino and the transfer center as well as with Dr. Lange stroke neurologist. They advised administering TNK and sending the patient to the [facility] emergency department as long as the patient does not have any contraindications. After reviewing this with the patient as well as thorough explanation of risk versus benefit, the patient and her are both in agreement for her to receive this medication. Her blood pressure is currently well-controlled with blood pressure 112/72. She has no history of brain bleeds, no GI bleeding, and she is not on any blood thinners. We will proceed with TNK. Pharmacy was consulted for this. Giselle Fall DO <Giselle Fall DO - Last Filed: 09/12/25 19:27> [facility] Inquiry Pt receiving controlled substance: No Vital Signs: 09/12/25 17:40 09/12/25 17:47 09/12/25 18:00 Temperature 97.8 F Temperature Source Oral Pulse Rate 93 H 91 H Pulse Rate [Right] 93 H Respiratory Rate 14 12 Blood Pressure 180/101 H 172/93 H Blood Pressure [Right Arm] 180/101 H Blood Pressure Mean [Right Arm] 127 Blood Pressure Source [Right Arm] Automatic Cuff Blood Pressure Position [Right Arm] Supine 02 Sat by Pulse Oximetry 97 96 97 Oxygen Delivery Method Room Air Room Air Room Air 09/12/25 18:30 Temperature Temperature Source Pulse Rate 87 Pulse Rate [Right] Respiratory Rate 16 Blood Pressure 182/95 H Blood Pressure [Right Arm] Blood Pressure Mean [Right Arm] Blood Pressure Source [Right Arm] Blood Pressure Position [Right Arm] 02 Sat by Pulse Oximetry 96 Oxygen Delivery Method Room Air Lab Data Lab Results 09/12/25 17:44: WBC 7.8, RBC 3.89 L, Hgb 12.4, Hct 36.8 L, MCV 94.6, MCH 31.9 H, MCHC 33.7, RDW 14.3, Plt Count 206, MPV 10.2, Neut % (Auto) 56.9, Lymph % (Auto) 32.5, Floyd % (Auto) 7.0, Eos % (Auto) 2.3, Baso % (Auto) 0.9, Neut # (Auto) 4.4, Lymph # (Auto) 2.5, Floyd # (Auto) 0.6, Eos # (Auto) 0.2, Baso # (Auto) 0.1, PT 10.9, INR 0.98, APTT 25.0, Sodium 140, Potassium 4.0, Chloride 104, Carbon Dioxide 24, Anion Gap 16.0 H, BUN 16, Creatinine 1.10 H, Estimated Creat Clear 86, Estimated GFR 54 L, Est GFR ( Amer) 65, Glucose 95, Calcium 9.3, Total Bilirubin 0.8, AST 30, ALT 15, Alkaline Phosphatase 80, Troponin I < 0.01, Total Protein 8.3 H, Albumin 5.3 H, Globulin 3.0, Albumin/Globulin Ratio 1.8, Plasma/Serum Alcohol < 10 09/12/25 18:13: Urine Color Yellow, Urine Appearance Clear, Urine pH 5.5, Ur Specific Daisy 1.020, Urine Protein Negative, Urine Glucose (UA) Negative, Urine Ketones Negative, Urine Blood Negative, Urine Nitrate Negative, Urine Bilirubin Negative, Urine Urobilinogen 0.2, Ur Leukocyte Esterase Negative, Urine RBC None, Urine WBC Occasional, Ur Squamous Epith Cells None, Urine Bacteria None 09/12/25 18:14: Urine Opiates Screen Positive H, Urine Methadone Screen Negative, Ur Barbituates Screen Negative, Ur Phencyclidine Scrn Negative, Ur Amphetamines Screen Negative, U Benzodiazepines Scrn Negative, Urine Cocaine Screen Negative, U Marijuana (THC) Screen Negative Orders (Tests/Meds): ED MEDICATIONS Generic Name Dose Route Start Last Admin Trade Name Freq PRN Reason Stop Dose Admin Sodium Chloride 1,000 mls @ 999 mls/hr 09/12/25 18:27 09/12/25 18:37 Sod Chlor 0.9% 1000ml Bag IV 09/12/25 19:27 999 mls/hr .Q1H1M ONE Administration Sodium Chloride 10 ml 09/12/25 17:48 Sodium Chloride 0.9% 10ml Flush Syringe IV 10/12/25 17:47 NEEDED PRN Maintain IV Site Discontinued Medications Generic Name Dose Route Start Last Admin Trade Name Freq PRN Reason Stop Dose Admin Acetaminophen 1,000 mg 09/12/25 18:27 09/12/25 18:37 Acetaminophen 1,000mg/100ml Vial IV 09/12/25 18:28 1,000 mg ONCE ONE Administration Diazepam 2 mg 09/12/25 18:26 09/12/25 18:37 Diazepam 10mg/2ml Syringe IV 09/12/25 18:27 2 mg ONCE ONE Administration Iopamidol 80 ml 09/12/25 18:18 09/12/25 18:19 Iopamidol-370 (76%);100ml Bottle IV 09/12/25 18:19 80 ml ONCE ONE Administration Ketorolac Tromethamine 15 mg 09/12/25 18:27 09/12/25 18:37 Ketorolac 15mg/Ml Vial IV 09/12/25 18:28 15 mg ONCE ONE Administration Sodium Chloride 50 ml 09/12/25 18:18 09/12/25 18:19 0.9 % Sodium Chloride 50 Ml Vial IV 09/12/25 18:19 50 ml ONCE ONE Administration Sodium Chloride 10 ml 09/12/25 18:18 09/12/25 18:19 Sodium Chloride 0.9% 10ml Syr (Rad Only) IV 09/12/25 18:19 10 ml ONCE ONE Administration Tenecteplase 22.5 mg 09/12/25 19:15 Tenecteplase 50mg Vial IV 09/12/25 19:16 CONSULT PHARMACY ONE ORDERS Category Date Time Status CT angio head Stat Cat Scan 09/12/25 17:[address] angio neck Stat Cat Scan 09/12/25 17:[address] head/brain wo con Stat Cat Scan 09/12/25 17:49 Completed Activated Partial Thrombo Time Stat Lab 09/12/25 17:44 Completed Complete Blood Count Auto Diff Stat Lab 09/12/25 17:44 Completed Comprehensive Metabolic Panel Stat Lab 09/12/25 17:44 Completed Drug Screen,Urine Stat Lab 09/12/25 18:14 Completed Ethyl Alcohol Stat Lab 09/12/25 17:44 Completed Prothrombin Time INR Stat Lab 09/12/25 17:44 Completed Troponin I Q3H Lab 09/12/25 21:00 Ordered Troponin I Q3H Lab 09/13/25 00:00 Ordered Troponin I Stat Lab 09/12/25 17:44 Completed Urinalysis and Microscopic Stat Lab 09/12/25 18:13 Completed ECG Request Stat Y 09/12/25 17:49 Ordered ECG Data Tracing #1: I reviewed this ECG and interpreted as documented below: I independently interpreted EKG at 1801 and noted sinus rhythm with a first-degree AV block with a VA interval of 234 ms. Intraventricular conduction delay. No acute ST changes concerning for STEMI ECG initial impression date: 09/12/25 ECG initial impression time: 18:39 Medical Decision Narrative: In summary patient is a 45-year-old who presents the emergency department for evaluation of jerking, weakness. Patient is hypertensive upon arrival, afebrile. Patient has weakness in all extremities as well as jerking/uncoordinated movements, dysarthria on exam. Differential diagnosis includes CVA, intracranial hemorrhage, seizure, serotonin syndrome. Initial workup will be conducted with hematologic labs, CTA head and neck. Initial inventions include Valium for possible atypical migraine/anxiety. Initial workup reviewed by me CTA reveals left M2 and left P2 occlusion. Upon repeat evaluation patient's blood pressure has improved significantly. Discussed with neurology at who advised TNK. Given this patient transferred to the emergency room for further management and neurology consult. Places where you can increase complexity: I informally interpreted the patient's chest x-ray or CT read and is remarkable for? Documenting what the fugitive detective shows with rate and rhythm as well as time Consideration of a test but deferring. Example: I consider chest x-ray on this patient however given that they have no oxygen requirement are clear to auscultation will be deferred. Social determinants of health: Given the patient is undomiciled increased complexity. Given that patient has polysubstance abuse compounds all aspects of care. Trip Fall DO: I was consulted by the MER, and we discussed the complexity of the problems being addressed. I approved the treatment and management plan for this patient's care in the emergency department, thus performing a substantive portion of the medical decision making. Patient presents with generalized weakness/shaking all over, concerned that she is having seizure. LKW 171 She has generalized twitching in all 4 extremities, but she is still alert, conversational. Given this, I do not feel that this is likely true seizure activity. I do not feel it is likely that she has a stroke either given the lack of focal lateralizing deficits. She has what appear to be involuntary twitches and spasms in all 4 extremities on exam, worse in her legs. She is able to move all 4 extremities equally when distracted, but when you ask her to raise her arm/lift leg she has weakness in all 4 extremities. NIHSS 11 for this reason. I reviewed medical records both here and at [facility], [place], and it looks like she was seen and admitted back in December of this year for similar issues, and she does note that this is similar to when that happened. She notes similar episodes to this in the past. According to medical record review, she was felt to have psychogenic nonepileptic seizure activity versus anxiety versus complex migraine. MRI of the head was completely normal December 2024, so it was advised that she is unlikely to have any acute cerebrovascular disease. She says this is similar to her prior episodes, which again makes me feel that cerebrovascular disease is unlikely. Out of an abundance of caution, we did elect to obtain stroke protocol scans. To treat for possible anxiety vs serotonin syndrome vs complex migraine, we are treating with a bolus of IV fluids, IV toradol, IV acetaminophen, and IV Valium. Patient did have symptomatic improvement after administration of medications above, though she does still have some twitching and complains of general weakness. Just before 1914, [facility] had actually called and said that the patient had a distal left M2 occlusion and distal left P2 occlusion. I had shared the imaging through [facility] and neuroradiology at advised that there is no large vessel occlusion. We did seek out neurostroke consultation at prior to considering thrombolytics, as this is a very unclear picture with patient having intermittent symptoms like this multiple times in the past with normal MRI. The complicated history and lack of lateralizing neurologic deficits on exam is why we did not elect to administer tPA/TNK immediately. We did discuss the case with Dr. Patino and the transfer center as well as with Dr. Lange stroke neurologist. Dr. Lange advised administering TNK and sending the patient to the [facility] emergency department as long as the patient does not have any contraindications. After reviewing this with the patient as well as thorough explanation of risk versus benefit, the patient and her are both in agreement for her to receive this medication. Her blood pressure is currently well-controlled with blood pressure 112/72. She has no history of brain bleeds, no GI bleeding, and she is not on any blood thinners. She is still within 4.5 hour window, as symptoms started at 1715. We will proceed with TNK per neuro recommendations. Pharmacy was consulted for this. Ultimately, the patient was accepted to [facility] emergency department for further evaluation and management. Once TNK was initiated, the patient was transported in stable condition by EMS. Giselle Fall DO Critical Care <Giselle Fall DO - Last Filed: 09/12/25 19:27> Critical Care Time Critical Care Time: Yes Attestation: On 09/12/25, the high probability of a clinically significant, sudden or life threatening deterioration of the following system(s) required my full and direct attention, intervention and personal management. The time I documented below is in addition to time spent performing reported procedures but includes the following listed in this critical care notation. Total Time Total Critical Care Time: 60
[2025-09-12 18:14] LABS: Troponin I < 0.01 ng/ml (0.00-0.034)
[2025-09-12 18:16] LABS: Microscopic, Urine URINE MICROSCOPIC (MICROSCOPIC)
[2025-09-12 18:19] LABS: Activated Partial Thrombo Time 25.0 seconds (22.8-30.6); INR 0.98 (0.9-1.1); Prothrombin Time 10.9 seconds (10.1-12.5)
[2025-09-12 18:19] LABS: Bilirubin,Urine Negative (Negative); Color,Urine YELLOW (Yellow); Glucose,Urine (UA) Negative (Negative); Ketones,Urine Negative (Negative); Leukocyte Esterase,Urine Negative (Negative); PH,Urine 5.5 (5.0-8.5); Protein,Urine Negative (Negative); Urobilinogen,Urine 0.2 EU/dl (0.2)
[2025-09-12] MEDS: IOPAMIDOL-370 (76%);100ML BOTTLE 80 ML IV (18:19)
[2025-09-12] MEDS: SODIUM CHLORIDE 0.9% 10ML SYR (RAD ONLY) 10 ML IV (18:19)
[2025-09-12] MEDS: 0.9 % SODIUM CHLORIDE 50 ML VIAL IV (18:19)
[2025-09-12 18:21] LABS: Specific Gravity, Urine 1.020 (1.005-1.030)
[2025-09-12 18:23] LABS: WBC,Urine Occasional #/hpf (0-3)
[2025-09-12 18:30] LABS: Barbiturates Screen,Urine Negative ng/ml (<200)
[2025-09-12 18:31] LABS: Amphetamine/Metha Screen,Urine Negative ng/ml (<1000); Benzodiazepines Screen,Urine Negative ng/ml (<200)
[2025-09-12 18:33] LABS: Methadone Screen,Urine Negative ng/ml (<300)
[2025-09-12 18:34] LABS: Opiate Screen,Urine Positive ng/ml (<300)
[2025-09-12 18:35] LABS: Phencyclidine Screen,Urine Negative ng/ml (<25)
[2025-09-12] MEDS: 0.9 % SODIUM CHLORIDE 1000ML 1,000 ML 999 ML IV (18:37)
[2025-09-12] MEDS: ACETAMINOPHEN 1,000MG/100ML VIAL 1000 MG IV (18:37)
[2025-09-12] MEDS: diazePAM 10MG/2ML SYRINGE 2 MG IV (18:37)
[2025-09-12] MEDS: KETOROLAC 15MG/ML VIAL 15 MG IV (18:37)
--- NOTE | 2025-09-12 19:10 | PC.NURSE ---
Called [facility] for a patient transfer per EFFIE Bowling. she is on the phone with them now.
--- NOTE | 2025-09-12 19:21 | PC.NURSE ---
[facility] contacted for TNK dosing per Dr Fall.
[2025-09-12] MEDS: TENECTEPLASE 50MG VIAL 22.5 MG IV (19:24)
--- NOTE | 2025-09-12 19:48 | PC.NURSE ---
Report called to Richardson SOLO RN
--- NOTE | 2025-09-12 19:51 | PC.NURSE ---
Called EMS for transport. States they'll be here shortly.
[2025-09-12] MEDS: 0.9 % SODIUM CHLORIDE 1000ML 1,000 ML 100 ML IV (20:33)
== END 2025-09-12 20:37 | disposition short-term general hospital (02) ==
PROVIDERS: Physician Assistant; Emergency Provider Emergency Medicine; PCP Internal Medicine Adolescent Medicine
DX: I63.9 Cerebral infarction, unspecified (principal); R25.1 Tremor, unspecified; R53.1 Weakness; I10 Essential (primary) hypertension; E78.5 Hyperlipidemia, unspecified; I44.0 Atrioventricular block, first degree; I45.89 Other specified conduction disorders; R29.711 NIHSS score 11
CPT/HCPCS: 70450; 70496; 70498; 80053; 80307; 80320; 81001; 84484; 85025; 85610; 85730; 93005; 96361; 96374; 96375; 99285; 99291; J0131; J1885; J3101; J3360; J7030; Q9967